=== PATIENT | female | born 1945 | race Caucasian/White ===

== ENCOUNTER → 2016-07-24 | Outpatient (CLI) | payer OTHER ==
[~2016-07-24] MED LIST: CALCTAB5 PO; CHOL1000 PO; CLB/200 PO; COEN1CAP10 PO; CONJ0.453 PO; GLUCLIQ PO; HYDR12.56 PO; LEVO112T18 PO; MULT-506 PO; POTA99TA PO; SIMV20TA2 PO; TRAM-453 PO; [UNRECOGNIZED DRUG - OTHER] PO; [UNRECOGNIZED DRUG - OTHER] PO
[2016-07-24 13:00] LABS: ALT/SGPT 19 U/L (12-78); BLOOD UREA NITROGEN 17 mg/dl (7-18); BUN/CREATININE RATIO 18.4 (10-20); CARBON DIOXIDE 26 mmol/L (21-32); CHLORIDE 107 mmol/L (98-107); CHOLESTEROL 168 mg/dl (0-200); CREATININE 0.91 mg/dl (0.60-1.20); GLUCOSE 88 mg/dl (70-99); POTASSIUM 3.6 mmol/L (3.5-5.1); SODIUM 143 mmol/L (136-145)
[2016-07-24 13:11] LABS: ALB/GLOB RATIO 1.2 (0.9-2); ALKALINE PHOSPHATASE 71 U/L (45-117); AST/SGOT 15 U/L (15-37); CHOLESTEROL/HDL RATIO 2.2; HDL CHOLESTEROL 78 mg/dl; LDL CHOLESTEROL CALCULATED 80 mg/dl; TRIGLYCERIDES 52 mg/dl (0-150); VERY LOW DENSITY LIPOPROT CALC 10 mg/dl
== END | disposition home or self-care (01) ==
LOC: C.LABBFT 10:25
PROVIDERS: ATTEND Nurse Practitioner
DX: E78.00 Pure hypercholesterolemia, unspecified (principal); E03.2 Hypothyroidism due to medicaments and other exogenous substances

== ENCOUNTER → 2017-01-29 | Outpatient (CLI) | payer OTHER ==
[2017-01-29 12:48] LABS: BLOOD UREA NITROGEN 16 mg/dl (7-18); CALCIUM 8.9 mg/dl (8.5-10.1); CARBON DIOXIDE 29 mmol/L (21-32); CHLORIDE 107 mmol/L (98-107); GLUCOSE 95 mg/dl (70-99); POTASSIUM 3.8 mmol/L (3.5-5.1); SODIUM 142 mmol/L (136-145)
== END | disposition home or self-care (01) ==
LOC: C.LABBFT 09:03
PROVIDERS: ATTEND Nurse Practitioner
DX: I10 Essential (primary) hypertension (principal); E03.2 Hypothyroidism due to medicaments and other exogenous substances

== ENCOUNTER → 2017-02-19 | Outpatient (CLI) | payer OTHER ==
--- NOTE | 2017-02-20 14:21 | MAMMOGRAPHY REPORT ---
BILATERAL DIGITAL SCREENING MAMMOGRAM WITH CAD: 02/19/2017 CLINICAL HISTORY: Routine screening. Patient has no complaints. TECHNIQUE: Bilateral CC and MLO views were obtained. Current study was also evaluated with a Compute r Aided Detection (CAD) system. COMPARISON: Comparison is made to exams dated: 02/14/2016 mammogram, 02/10/2015 mammogram, 02/09/2014 mamm ogram, 02/05/2013 mammogram, 02/05/2012 mammogram, and 01/25/2011 mammogram - [facility] er. BREAST COMPOSITION: The tissue of both breasts is almost entirely fatty. FINDINGS: There is a stable benign rim calcification in the medial right breast. No suspicious mass, architectural distortion or cluster of microcalcifications is seen. IMPRESSION: ACR BI-RADS CATEGORY 1: NEGATIVE There is no mammographic evidence of malignancy. A 1 year screening mammogram is recommended. The pa tient will receive written notification of the results. Approximately 10% of breast cancers are not detected with mammography. A negative mammographic report should not delay biopsy if a clinically suggestive mass is present. Jemima Yates M.D. ay/:02/19/2017 16:21:18 Rod Buster Helper: Laura Toledo, [facility] letter sent: Normal 1/2 BI-RADS Code: ACR BI-RADS Category 1: Negative
== END | disposition home or self-care (01) ==
LOC: C.MAMM 13:55
PROVIDERS: ATTEND Nurse Practitioner
DX: Z12.31 Encounter for screening mammogram for malignant neoplasm of breast (principal)

== ENCOUNTER → 2017-08-07 | Outpatient (CLI) | payer OTHER ==
[2017-08-07 12:51] LABS: ALBUMIN 3.5 gm/dl (3.4-5.0); ALT/SGPT 19 U/L (12-78); BLOOD UREA NITROGEN 19 mg/dl (7-18); CALCIUM 8.6 mg/dl (8.5-10.1); CARBON DIOXIDE 30 mmol/L (21-32); CHOLESTEROL 168 mg/dl (0-200); CREATININE 0.93 mg/dl (0.60-1.20); GLUCOSE 93 mg/dl (70-99); POTASSIUM 3.7 mmol/L (3.5-5.1); SODIUM 141 mmol/L (136-145)
[2017-08-07 13:01] LABS: ALKALINE PHOSPHATASE 65 U/L (45-117); AST/SGOT 15 U/L (15-37); LDL CHOLESTEROL CALCULATED 87 mg/dl; TOTAL PROTEIN 6.7 gm/dl (6.4-8.2)
[2017-08-07 13:25] LABS: HEMOGLOBIN A1C 5.4 % (4.5-5.6)
== END | disposition home or self-care (01) ==
LOC: C.LABBFT 09:05
PROVIDERS: ATTEND Nurse Practitioner
DX: R73.01 Impaired fasting glucose (principal); E78.00 Pure hypercholesterolemia, unspecified; E03.2 Hypothyroidism due to medicaments and other exogenous substances

== ENCOUNTER → 2017-09-10 | Outpatient (CLI) | payer OTHER ==
[~2017-09-10] MED LIST changes: +BIOT1CAP3 PO; +CALC1CAP24 PO; +CONJ0.3T3 PO; +DOCO200C2 PO; +LEVO112T4 PO; +POTA10TA PO
[2017-09-10 14:43] LABS: BASO % 0.4 %; BASO ABS # 0.03 K/uL (0-0.2); EOS % 3.8 %; EOS ABS # 0.29 K/uL (0-0.5); HEMATOCRIT 40.5 % (37-47); HEMOGLOBIN 13.5 g/dL (12.0-16.0); IG# 0.01 K/uL (0.00-0.02); LYMPH % 28.1 %; LYMPH ABS # 2.15 K/uL (1.2-3.4); MEAN CORPUSCULAR HGB CONC 33.3 g/dl (32-36); MEAN PLATELET VOLUME 9.7 fL (7.4-10.4); MONO % 5.2 %; NEUT % 62.4 %; NEUT ABS # 4.78 K/uL (1.4-6.5); PLATELET COUNT 276 K/uL (130-400); RED CELL DISTRIBUTION WIDTH CV 13.7 % (11.5-14.5); RED CELL DISTRIBUTION WIDTH SD 45.4 fL (36.4-46.3); WHITE BLOOD COUNT 7.66 K/uL (4.8-10.8)
[2017-09-10 15:10] LABS: BLOOD UREA NITROGEN 22 mg/dl (7-18); CARBON DIOXIDE 29 mmol/L (21-32); CREATININE 1.04 mg/dl (0.60-1.20); GLUCOSE 113 mg/dl (70-99); POTASSIUM 3.6 mmol/L (3.5-5.1); SODIUM 142 mmol/L (136-145)
== END | disposition home or self-care (01) ==
LOC: C.CPL 13:16
PROVIDERS: ATTEND Orthopaedic Surgery
DX: Z01.818 Encounter for other preprocedural examination (principal)

== ENCOUNTER 2023-06-11 15:01 | Inpatient (IN) ==
--- NOTE | 2023-06-11 15:18 | ED Triage Note ---
Date of Service June 11, 2023 Provider in Triage Author: Noble Sung History of Present Illness This patient was briefly evaluated while in triage. An abbreviated physical exam was performed. This patient is a 78-year-old Female who presents to the ED for evaluation of illness. She reports vomiting and diarrhea which started 1.5 weeks ago. She is unable to keep anything down. Her daughter states this has been ongoing for several weeks. She has occasional abdominal pains on the left side. Physical Exam VITALS: Vitals are noted on the nurse's note and reviewed by myself. GENERAL: This is a 78-year-old female, in no acute distress, well-developed well-nourished. HEART: Regular rate and rhythm without murmurs gallops or rubs. LUNGS: Clear to auscultation bilaterally without wheezes, rales or rhonchi. ABDOMEN: Positive bowel sounds x 4. Soft, nontender to palpation. NEURO: Patient was alert and oriented to person place and time. Initial orders for labs and / or imaging were placed and patient was placed in the waiting area until a bed is available. Please see further documentation for the full ED course. MDM / Impression Impression Impression: Diverticulitis large intestine, Hypokalemia, Nausea & vomiting, Weakness Impression: Diverticulitis large intestine Qualifiers: Diverticulitis bleeding: without bleeding Diverticulitis complication: with abscess Qualified Code(s): K57.20 - Diverticulitis of large intestine with perforation and abscess without bleeding
[2023-06-11 16:30] LABS: Basophils # (auto) 0.04 K/uL (0.00-0.20); Basophils % (auto) 0.3 %; Eosinophils # (auto) 0.02 K/uL (0.00-0.50); Eosinophils % (auto) 0.1 %; Hematocrit (blood only) 37.4 % (37.0-47.0); Hemoglobin 12.6 g/dl (12.0-16.0); Immature Granulocytes # (auto) 0.26 K/uL (0.01-0.20); Immature Granulocytes % (auto) 1.9 %; Lymphocytes # (auto) 1.42 K/uL (1.20-3.40); Lymphocytes % (auto) 10.4 %; Mean Corpuscular Hemoglobin 28.2 pg (25.0-34.0); Mean Corpuscular Hgb Conc 33.7 g/dL (32.0-36.0); Mean Corpuscular Volume 83.7 fL (80.0-100.0); Mean Platelet Volume 9.4 fL (9.4-12.4); Monocytes # (auto) 0.75 K/uL (0.11-0.59); Monocytes % (auto) 5.5 %; Neutrophils # (auto) 11.14 K/uL (1.40-6.50); Neutrophils % (auto) 81.8 %; Platelet Count 581 K/uL (130-400); RDW Coefficient of Variation 13.6 % (11.5-14.5); RDW Standard Deviation 41.5 fL (36.4-46.3); Red Blood Count 4.47 M/uL (4.20-5.40); White Blood Count 13.63 K/ul (4.8-10.8)
[2023-06-11 16:47] LABS: Albumin Globulin Ratio 0.7 (0.9-2); Albumin Level 3.3 gm/dl (3.4-5.0); BUN Creatinine Ratio 22.8 (10-20); Bilirubin,Total 1.1 mg/dl (0.2-1.0); Calcium 8.8 mg/dl (8.6-10.3); Creatinine Clr Calc Pharmacy 58.3 ml/min; Est GFR (African American) 69.1 ml/min; Est GFR (Non-African American) 59.6 ml/min; Globulin 4.5 gm/dl (2.5-4.0); Potassium 2.7 mmol/L (3.5-5.1); Total Protein 7.8 gm/dl (6.0-8.3)
[2023-06-11] MEDS ORDERED: OPTIRAY 320 500ml IV ONE (17:22)
[2023-06-11 17:53] LABS: Appearance Urine Cloudy (Clear); Bacteria Urine Automated 1+ (Negative); Blood Urine Negative (Negative); Color Urine Dark Yellow; Epithelial Cell Urine Auto >30 /lpf (0-5); Glucose Urine UA Negative (Negative); Ketones Urine 1+ (Negative); Leukocyte Esterase Urine 2+ (Negative); Nitrite Urine Positive (Negative); Protein Urine 1+ (Negative); Specific Gravity Urine 1.031 (1.000-1.030); Urobilinogen Urine Negative (Negative); WBC Urine Automated >30 /hpf (0-5)
--- NOTE | 2023-06-11 17:56 | CT Scan Report ---
ABDOMEN AND PELVIS CT WITH IV CONTRAST CT DOSE: 1657.31 mGy.cm HISTORY: Acute generalized abdominal pain with vomiting and diarrhea. Abdominal pain, vomiting, diar kun TECHNIQUE: Multiaxial CT images of the abdomen and pelvis were performed following the IV administrat ion of 86 cc of Optiray, A dose lowering technique was utilized adhering to the principles of ALARA. COMPARISON STUDY: Pelvic ultrasound 04/17/2023 FINDINGS: Descending thoracic aortic tortuosity. Lung bases are clear. Unremarkable spleen, pancreas and adrenal glands. Cholecystectomy. Unremarkable liver. Patent portal vein. Mild cortical thinning o f the kidneys. No hydronephrosis. Decompressed urinary bladder with mild wall thickening. Mild hetero geneity of the uterus. Cystic bilateral ovarian foci measure up to 2.4 cm on the left and 1.8 cm on t he right. Atherosclerosis of the abdominal aorta. No lymphadenopathy. No bowel obstruction. Colonic diverticulosis with evidence of acute sigmoid diverticulitis. Inflammat ory stranding within the sigmoid mesocolon is noted within air and fluid filled collection within the mid deep pelvis measuring 4.2 x 3.2 x 5.0 cm which abuts the posterior aspect of the uterus and suzy cent sigmoid colon with probable adjacent sinus tracts extending towards the sigmoid/rectum. No acute fracture. Unremarkable soft tissues. IMPRESSION: 1. Acute sigmoid diverticulitis with 5 cm pericolonic abscess/contained perforation within the sigmoi d mesocolon which is not amenable to percutaneous drainage secondary to location. There may be adjace nt sinus tract/fistulas associated with the fluid collection. 2. No bowel obstruction or pneumoperitoneum. 3. Cholecystectomy. 4. Additional findings as above. ACT 112: Negative or not required by law. The above report was generated using voice recognition software. It may contain grammatical, syntax o r spelling errors. Electronically signed by: Isrrael Rice M.D. 06/11/2023 5:54 PM
[2023-06-11 18:08] LABS: Bilirubin Urine 1+ (Negative)
[2023-06-11 18:22] LABS: Mucus Urine Present (None Prsent)
--- NOTE | 2023-06-11 18:55 | Emergency Department Note ---
Impression & Plan Diverticulitis large intestine, Hypokalemia, Nausea & vomiting, Weakness ED Provider Note Provider: Noble Sung MD DATE OF SERVICE: 06/11/2023 CHIEF COMPLAINT: Illness, vomiting, abdominal pain HISTORY OF PRESENT ILLNESS: Patient is a 78-year-old female history of arthritis, BPPV, UTI, and hypertension presenting here today reporting over the past several weeks she has been sick. Having recurrent vomiting issues and now some diarrhea. Reports pain in the left lower abdomen. Initially PCP thought this could be related to grief and loss of her brother but due to worsening came here for evaluation. Denies trauma. No history of diverticulitis in the past reported. Has had issues with nausea and vomiting over the past year by report. Feeling somewhat weak. Limited intake with food and trying to hydrate. No blood reported in the vomiting. Has not had any nausea medicine at home but is allergic to some by her report. Feeling thirsty. PAST MEDICAL HISTORY: As noted above MEDICATIONS: Reviewed home medication list SOCIAL HISTORY: Non-smoker PHYSICAL EXAM: GENERAL: alert and oriented in no acute distress on stretcher however fatigued Head: normocephalic and atraumatic EYES: No injection, discharge or icterus. NECK: Trachea midline. ENT: Mucous membranes pink and moist. LUNGS: Airway patent. No retractions. Breath sounds clear with good air entry bilaterally. HEART: Regular rate and rhythm. No chest wall tenderness ABDOMEN: Soft with tenderness in the left lower quadrant. SKIN: Acyanotic, warm, dry, without rashes EXTREMITIES: Without swelling, tenderness or deformity NEUROLOGICAL: No focal deficits. No aphasia. No facial droop or slurred speech. CONTINUOUS CARDIAC MONITORING: was ordered and showed a heart rate of 60s bpm in normal sinus rhythm Patient's laboratory studies and imaging reviewed. Differential includes Appendicitis, ovarian cyst, ovarian torsion, ectopic , TOA, PID, infections, diverticulitis, UTI, obstruction, mesenteric ischemia, aortic pathology, inflammatory bowel disease, renal colic, PUD, pancreatitis, biliary pathology, hernia, volvulus, constipation, as well as other pathologies. IMPRESSION/MEDICAL DECISION MAKING: See note. Of high acuity and volume in the emergency department. From triage initial imaging and laboratory studies ordered. Mild leukocytosis of 13.6. No anemia. Hypokalemia of 2.7 with very minimal AST and ALT and alkaline phosphatase elevations but bilirubin is only 1.1. Doubt hepatitis. Lipase not elevated doubt pancreatitis. Urinalysis questionable for UTI. CT imaging however shows evidence of about a 5 cm pericolonic abscess without evidence of bowel obstruction or pneumoperitoneum. Radiologist specifies that he does not feel this would be amenable to drainage due to location. Reviewed allergies and discussed with patient. Given some IV fluid hydration. Given some Zofran. Discussed with general surgery team here. Physician academic support assistant jamaica evaluated the patient and given it is not amenable to drainage antibiotics initiated. Cipro and Flagyl given. Discussed with the hospitalist team for further care. Some IV potassium supplementation was ordered. Denies urinary symptoms but urinalysis questionable. Antibiotic should cover. Reportedly has tolerated cephalosporins in the past. Lactate normal I doubt sepsis but again received IV fluid hydration given her decreased intake. DIAGNOSIS: Diverticulitis with abscess, hypokalemia, nausea and vomiting, weakness DISPOSITION: Hospitalist will evaluate Patient was agreeable with this plan. Past Med/Surg History Medical History History of hypokalemia Benign neoplasm of thyroid gland Urethral lesion History of hypercalcemia History of postmenopausal bleeding GERD (gastroesophageal reflux disease) HX Surgical History H/O cystoscopy with removal of obstructing urethral lesion History of esophagogastroduodenoscopy (EGD) History of dilation and curettage History of bilateral tubal ligation History of repair of right rotator cuff History of colonoscopy History of cholecystectomy History of tonsillectomy and adenoidectomy Status post biopsy of thyroid gland History of thyroidectomy, total benign tumor Family History Brother Family hx of colon cancer Colorectal cancer Family/Other Diabetes Sister Breast cancer Other No family history of adverse response to anesthesia Denies family history of Pancreatic cancer Ovarian cancer Prostate cancer Myocardial infarction Lung cancer Uterine cancer Social History Smoking Status: Never smoker Second Hand Exposure: Yes (SPOUSE SMOKES PIPE); Do You Dip or Chew Tobacco: No; Hx Alcohol Use: Yes Alcohol type: wine Hx Substance Use: No Preferred Language: Iraqi Communication Ability: Effective Visual Impairment: No Limitations Hearing Ability: Normal Customer Account Executive Required: No Beliefs That Will Affect Care: None marital status: Current Living Situation: Spouse current occupational status: retired Feels Safe at Home: Yes Childhood Exposure to Second-Hand Smoke: Yes Diet: regular caffeine: Yes Dental Care, Regularly: Yes Physical Activity Frequency: Does not Exercise Physical Activity Frequency Comment: No routine, but is physically active around the house Seatbelt Use: always Sunscreen Use: No Assistive Devices: Glasses Allergies Allergies Allergy/AdvReac Type Severity Reaction Status Date / Time Penicillins Allergy Intermediate RASH Verified 06/11/23 19:39 meperidine AdvReac Intermediate "FEELS OUT Verified 06/11/23 19:39 OF SPACE" chlorpromazine AdvReac Mild "JITTERY" Verified 06/11/23 19:39 droperidol AdvReac Mild "JITTERY" Verified 06/11/23 19:39 Home Meds Home Medications Medication Instructions Recorded Confirmed cholecalciferol (vitamin D3) 25 1,000 unit PO QAM 06/18/18 06/11/23 mcg (1,000 unit) capsule (Vitamin D3) multivitamin 1 tab PO QAM 06/18/18 06/11/23 coenzyme Q10 200 mg capsule 200 mg PO QAM 01/15/19 06/11/23 biotin 5,000 mcg disintegrating 5,000 mcg PO QAM 01/28/19 06/11/23 tablet calcium carbonate 500 mg calcium 1,000 mg PO DAILY 08/18/21 06/11/23 (1,250 mg) tablet vitamin B complex 1 tab PO DAILY 08/18/21 06/11/23 Previous Rx's Medication Instructions Recorded ciclopirox 0.77 % topical cream 1 applic topical BID PRN rash #30 12/04/21 grams atorvastatin 20 mg tablet 20 mg PO DAILY #90 tabs 08/11/22 conj estrogen-medroxyprogesterone 1 tab PO 2XWK #28 tabs 10/17/22 0.3 mg-1.5 mg tablet (Prempro) levothyroxine 100 mcg tablet 100 mcg PO QAM #90 tabs 11/27/22 celecoxib 200 mg capsule (Celebrex) 200 mg PO QAM #90 caps 02/20/23 hydrochlorothiazide 25 mg tablet 25 mg PO QAM #90 tabs 02/20/23 potassium chloride 10 mEq 10 meq PO QAM #90 caps 02/20/23 capsule,extended release tramadol 50 mg tablet 50 mg PO HS #60 tabs 03/12/23 diclofenac sodium 1 % topical gel 2 g topical QID PRN pain #100 grams 03/27/23 omeprazole 20 mg capsule,delayed 20 mg PO DAILY #90 caps 03/27/23 release escitalopram oxalate 5 mg tablet 5 mg PO DAILY #30 tabs 05/30/23 Results & Data (ED) Vital Signs Vital Signs - 24 hr 06/11/23 15:15 06/11/23 19:54 Temperature 36.4 C L Temperature Source Temporal Artery Scan Pulse Rate 89 75 Pulse Rhythm Regular Pulse Strength Normal Respiratory Rate 20 Respiratory Effort / Characteristics Non-Labored Spontaneous Respiratory Depth Normal Respiratory Pattern Regular Blood Pressure 123/73 Blood Pressure Mean 89 Blood Pressure Position Sitting Pulse Oximetry 97 Oxygen Delivery Method Room Air Sepsis Recent Fever Within 48 Hours No Sepsis New/Unexplained Change in Mental Status No Sepsis Action Taken by Nursing No Action Required Laboratory Data 06/11/23 16:08 06/11/23 16:08 Lab Results 06/11/23 06/11/23 Range/Units 16:08 19:18 WBC 13.63 H (4.8-10.8) K/ul RBC 4.47 (4.20-5.40) M/uL Hgb 12.6 (12.0-16.0) g/dl Hct 37.4 (37.0-47.0) % MCV 83.7 (80.0-100.0) fL MCH 28.2 (25.0-34.0) pg MCHC 33.7 (32.0-36.0) g/dL RDW Std Deviation 41.5 (36.4-46.3) fL RDW Coeff of Anai 13.6 (11.5-14.5) % Plt Count 581 H (130-400) K/uL MPV 9.4 (9.4-12.4) fL Immature Gran % (Auto) 1.9 % Neut % (Auto) 81.8 % Lymph % (Auto) 10.4 % [place] % (Auto) 5.5 % Eos % (Auto) 0.1 % Baso % (Auto) 0.3 % Neut # (Auto) 11.14 H (1.40-6.50) K/uL Lymph # (Auto) 1.42 (1.20-3.40) K/uL [place] # (Auto) 0.75 H (0.11-0.59) K/uL Eos # (Auto) 0.02 (0.00-0.50) K/uL Baso # (Auto) 0.04 (0.00-0.20) K/uL Immature Gran # (Auto) 0.26 H (0.01-0.20) K/uL Sodium 141 (136-145) mmol/L Potassium 2.7 L (3.5-5.1) mmol/L Chloride 102 (98-107) mmol/L Carbon Dioxide 24 (21-32) mmol/L Anion Gap 15 H (3-11) BUN 21 (6-23) mg/dl Creatinine 0.92 (0.6-1.2) mg/dl Est Cr Clr Drug Dosing 58.3 ml/min Est GFR ( Amer) 69.1 ml/min Est GFR (Non-Af Amer) 59.6 ml/min BUN/Creatinine Ratio 22.8 H (10-20) Glucose 106 H (70-99(Fasting)) mg/dl Lactate 1.6 (0.4-2.0) mmol/L Calcium 8.8 (8.6-10.3) mg/dl Magnesium 1.5 L (1.7-2.4) mg/dl Total Bilirubin 1.1 H (0.2-1.0) mg/dl AST 75 H (13-39) U/L ALT 71 H (7-52) U/L Alkaline Phosphatase 148 H (34-104) U/L Total Protein 7.8 (6.0-8.3) gm/dl Albumin 3.3 L (3.4-5.0) gm/dl Globulin 4.5 H (2.5-4.0) gm/dl Albumin/Globulin Ratio 0.7 L (0.9-2) Lipase 8 L (11-82) U/L Administered Medications Magnesium Sulfate/Dextrose (Magnesium Sulfate / D5w) 1 gm in 100 mls @ 50 mls/hr IV Q2H RADHA Stop: 06/12/23 02:42 Last Admin: 06/11/23 21:31 Dose: 50 mls/hr Documented By: INESO Discontinued Medications Sodium Chloride (Nss) 1,000 mls @ 999 mls/hr IV .Q1H1M ONE Stop: 06/11/23 20:10 Last Infusion: 06/11/23 21:06 Dose: Infused Documented By: Admin: 06/11/23 19:23 Dose: 999 mls/hr Documented By: PAM Ciprofloxacin (Cipro / D5w) 400 mg in 200 mls @ 100 mls/hr IV NOW STA; Protocol Stop: 06/11/23 21:11 Last Infusion: 06/11/23 21:45 Dose: Infused Documented By: Admin: 06/11/23 19:31 Dose: 100 mls/hr Documented By: PAM Metronidazole (Flagyl) 500 mg in 100 mls @ 100 mls/hr IV NOW STA; Protocol Stop: 06/11/23 20:11 Last Infusion: 06/11/23 21:06 Dose: Infused Documented By: Admin: 06/11/23 19:32 Dose: 100 mls/hr Documented By: PAM Potassium Chloride (K [place] / Wtr) 10 meq in 100 mls @ 100 mls/hr IV Q1H RADHA Stop: 06/11/23 21:14 Last Admin: 06/11/23 21:31 Dose: 100 mls/hr Documented By: Infusion: 06/11/23 21:06 Dose: Infused Documented By: Admin: 06/11/23 19:32 Dose: 100 mls/hr Documented By: PAM Sodium Chloride (Nss) 1,000 mls @ 999 mls/hr IV .Q1H1M ONE Stop: 06/11/23 20:13 Last Admin: 06/11/23 21:32 Dose: 999 mls/hr Documented By: PAM Ioversol (Optiray 320 500ml) 86 ml IV ONCE ONE Stop: 06/11/23 17:23 Last Admin: 06/11/23 17:23 Dose: 86 ml Documented By: KENY Ondansetron HCl (Ondansetron Inj 2 Mg/Ml 2 Ml Vial) 4 mg IV NOW STA Stop: 06/11/23 19:11 Last Admin: 06/11/23 19:31 Dose: 4 mg Documented By: PAM Imaging Data Radiologist's Impression: Abdomen/Pelvis CT 06/11/23 15:[address] WITH IV CONTRAST CT DOSE: 1657.31 mGy.cm HISTORY: Acute generalized abdominal pain with vomiting and diarrhea. Abdominal pain, vomiting, diarrhea TECHNIQUE: Multiaxial CT images of the abdomen and pelvis were performed following the IV administration of 86 cc of Optiray, A dose lowering technique was utilized adhering to the principles of ALARA. COMPARISON STUDY: Pelvic ultrasound 04/17/2023 FINDINGS: Descending thoracic aortic tortuosity. Lung bases are clear. Unremarkable spleen, pancreas and adrenal glands. Cholecystectomy. Unremarkable liver. Patent portal vein. Mild cortical thinning of the kidneys. No hydronephrosis. Decompressed urinary bladder with mild wall thickening. Mild heterogeneity of the uterus. Cystic bilateral ovarian foci measure up to 2.4 cm on the left and 1.8 cm on the right. Atherosclerosis of the abdominal aorta. No lymphadenopathy. No bowel obstruction. Colonic diverticulosis with evidence of acute sigmoid diverticulitis. Inflammatory stranding within the sigmoid mesocolon is noted within air and fluid filled collection within the mid deep pelvis measuring 4.2 x 3.2 x 5.0 cm which abuts the posterior aspect of the uterus and adjacent sigmoid colon with probable adjacent sinus tracts extending towards the sigmoid/rectum. No acute fracture. Unremarkable soft tissues. IMPRESSION: 1. Acute sigmoid diverticulitis with 5 cm pericolonic abscess/contained perforation within the sigmoid mesocolon which is not amenable to percutaneous drainage secondary to location. There may be adjacent sinus tract/fistulas associated with the fluid collection. 2. No bowel obstruction or pneumoperitoneum. 3. Cholecystectomy. 4. Additional findings as above. ACT 112: Negative or not required by law. The above report was generated using voice recognition software. It may contain grammatical, syntax or spelling errors. Electronically signed by: Isrrael iRce M.D. 06/11/2023 5:54 PM Discharge Plan Visit Data Chief Complaint: Vomiting Stated Complaint: NAUSEA AND VOMITING X1 WEEK ED Provider: Noble Sung Discharge Problem: Diverticulitis large intestine, Hypokalemia, Nausea & vomiting, Weakness Patient Disposition: Admitted As Inpatient Discharge Instructions Interventions: ED Discharge Assessment Last Done: 06/11/23 20:43 Discharge Problem: Diverticulitis large intestine Qualifiers: Diverticulitis bleeding: without bleeding Diverticulitis complication: with abscess Qualified Code(s): K57.20 - Diverticulitis of large intestine with perforation and abscess without bleeding
[2023-06-11] MEDS ORDERED: ONDANSETRON INJ 2 MG/ML 2 ML VIAL IV STA (19:10)
[2023-06-11] MEDS ORDERED: SODIUM CHLORIDE 0.9% 1,000 ML IV ONE ×2 (19:10→19:13)
[2023-06-11] MEDS ORDERED: CIPROFLOXACIN / D5W 400 MG/200 ML BAG IV STA (19:12)
[2023-06-11] MEDS ORDERED: metroNIDAZOLE 500 MG/100 ML BAG IV STA (19:12)
--- NOTE | 2023-06-11 19:31 | History & Physical Report ---
Date of Service June 11, 2023 Assessment & Plan (1) Diverticulitis of intestine with abscess: Plan: Diverticulitis with 5 cm abscess/contained perforation found on imaging. Started on cipro/flagyl. Abscess unable to be drained percutaneously due to location. May need surgical intervention. Surgery consulted - appreciate recs. NPO for bowel rest IVF fluid resuscitated x 2L NS, mIVF LR @ 125 mL/hr Cipro and Flagyl - started 06/11 Antiemetics with Zofran Tylenol and Toradol PRN for pain control Surg consulted - appreciate recs AM CBC and CMP (2) Transaminitis: Plan: Likely in the setting of acute diverticulitis. Continue to trend. (3) Hypercholesterolemia: Plan: Resume home statin once no longer NPO (4) Hypertension: Plan: Patient on HCTZ at home. Can hold in the setting of NPO status. BP acceptable. Continue to monitor (5) Arthritis: Plan: Would hold oral NSAIDs in the setting of bowel rest. (6) Iatrogenic hypothyroidism: Plan: Holding home levothyroxine in setting of NPO. Can resume home dosing once tolerating PO. Plan Code status: full DVT ppx: SCDs FENGI: NPO, s/p 2L NS, LR @ 125 mL/hr Lines: PIV Dispo: MedSurg History of Present Illness Chief Complaint: abdominal pain Primary Care Provider: YOBANI Aguero Patient presented with several weeks of abdominal symptoms presumed to be in the setting of acute grief. Symptoms worsening prompted presentation to the ED. Patient with vague constellation of symptoms - abdominal upset, nausea, vomiting, weight loss. Was seen by PCP who attributed this to adjustment disorder in the setting of brother's in April. She was started on low dose Lexapro at 5 mg. Leukocytosis to 13.6. No other signs of sepsis. CT with findings consistent with diverticulitis with abscess/contained perforation without known history of diverticulosis. Started on IVF x2L bolus. Given cipro and Flagyl. Admission called to hospitalist team. Upon my interview patient patient reports that symptoms worsened with increased nausea/vomiting and development of diarrhea. Patient also having chills. No fevers. No CP or SOB. No real abdominal pain. No dysuria. No hematochezia/melena. No hematemesis. reports no abdominal pain. Does feel better after fluid resuscitation. Aware of CT results. No other questions. Allergies Allergy/AdvReac Type Severity Reaction Status Date / Time Penicillins Allergy Intermediate RASH Verified 06/11/23 19:39 meperidine AdvReac Intermediate "FEELS OUT Verified 06/11/23 19:39 OF SPACE" chlorpromazine AdvReac Mild "JITTERY" Verified 06/11/23 19:39 droperidol AdvReac Mild "JITTERY" Verified 06/11/23 19:39 Home Medications Medication Instructions Recorded Confirmed Type cholecalciferol (vitamin D3) 25 1,000 unit PO QAM 06/18/18 06/11/23 History mcg (1,000 unit) capsule (Vitamin D3) multivitamin 1 tab PO QAM 06/18/18 06/11/23 History coenzyme Q10 200 mg capsule 200 mg PO QAM 01/15/19 06/11/23 History biotin 5,000 mcg disintegrating 5,000 mcg PO QAM 01/28/19 06/11/23 History tablet calcium carbonate 500 mg calcium 1,000 mg PO DAILY 08/18/21 06/11/23 History (1,250 mg) tablet vitamin B complex 1 tab PO DAILY 08/18/21 06/11/23 History ciclopirox 0.77 % topical cream 1 applic topical BID PRN rash #30 12/04/21 06/11/23 Rx grams atorvastatin 20 mg tablet 20 mg PO DAILY #90 tabs 08/11/22 06/11/23 Rx conj estrogen-medroxyprogesterone 1 tab PO 2XWK #28 tabs 10/17/22 06/11/23 Rx 0.3 mg-1.5 mg tablet (Prempro) levothyroxine 100 mcg tablet 100 mcg PO QAM #90 tabs 11/27/22 06/11/23 Rx celecoxib 200 mg capsule (Celebrex) 200 mg PO QAM #90 caps 02/20/23 06/11/23 Rx hydrochlorothiazide 25 mg tablet 25 mg PO QAM #90 tabs 02/20/23 06/11/23 Rx potassium chloride 10 mEq 10 meq PO QAM #90 caps 02/20/23 06/11/23 Rx capsule,extended release tramadol 50 mg tablet 50 mg PO HS #60 tabs 03/12/23 06/11/23 Rx diclofenac sodium 1 % topical gel 2 g topical QID PRN pain #100 grams 03/27/23 06/11/23 Rx omeprazole 20 mg capsule,delayed 20 mg PO DAILY #90 caps 03/27/23 06/11/23 Rx release escitalopram oxalate 5 mg tablet 5 mg PO DAILY #30 tabs 05/30/23 06/11/23 Rx Past Med/Surg History Medical History History of hypokalemia Benign neoplasm of thyroid gland Urethral lesion History of hypercalcemia History of postmenopausal bleeding GERD (gastroesophageal reflux disease) HX Surgical History H/O cystoscopy with removal of obstructing urethral lesion History of esophagogastroduodenoscopy (EGD) History of dilation and curettage History of bilateral tubal ligation History of repair of right rotator cuff History of colonoscopy History of cholecystectomy History of tonsillectomy and adenoidectomy Status post biopsy of thyroid gland History of thyroidectomy, total benign tumor Family History Brother Family hx of colon cancer Colorectal cancer Family/Other Diabetes Sister Breast cancer Other No family history of adverse response to anesthesia Denies family history of Pancreatic cancer Ovarian cancer Prostate cancer Myocardial infarction Lung cancer Uterine cancer Social History Smoking Status: Never smoker Second Hand Exposure: Yes (SPOUSE SMOKES PIPE); Do You Dip or Chew Tobacco: No; Hx Alcohol Use: Yes Alcohol type: wine Hx Substance Use: No Preferred Language: Upper Sorbian Communication Ability: Effective Visual Impairment: No Limitations Hearing Ability: Normal Shot Fireman Required: No Beliefs That Will Affect Care: None marital status: Current Living Situation: Spouse current occupational status: retired Feels Safe at Home: Yes Childhood Exposure to Second-Hand Smoke: Yes Diet: regular caffeine: Yes Dental Care, Regularly: Yes Physical Activity Frequency: Does not Exercise Physical Activity Frequency Comment: No routine, but is physically active around the house Seatbelt Use: always Sunscreen Use: No Assistive Devices: Glasses Review of Systems 2 Review of Systems: See HPI Physical Exam 2 Physical Exam: Gen: non-toxic appearing female in NAD HEENT: AT NC MMM Resp: CTAB no wheezing no increased work of breathing CV: RRR no m/r/g clinically well perfused, no edema GI: soft, non-distended, diffusely tender MSK: no obvious deformities Skin: no rashes or bruising noted Neuro: alert and oriented Psych: appropriate mood and affect Results & Data Results & Data Vital Signs (Past 12 Hours) Vital Signs Temp Pulse Resp BP Pulse Ox O2 Del Method 06/11/23 15:15 36.4 C L 89 20 123/73 97 Room Air Laboratory Results 06/11/23 16:08 06/11/23 16:08 Diagnostic Findings Abdomen/Pelvis CT 06/11/23 15:19 FINDINGS: Descending thoracic aortic tortuosity. Lung bases are clear. Unremarkable spleen, pancreas and adrenal glands. Cholecystectomy. Unremarkable liver. Patent portal vein. Mild cortical thinning of the kidneys. No hydronephrosis. Decompressed urinary bladder with mild wall thickening. Mild heterogeneity of the uterus. Cystic bilateral ovarian foci measure up to 2.4 cm on the left and 1.8 cm on the right. Atherosclerosis of the abdominal aorta. No lymphadenopathy. No bowel obstruction. Colonic diverticulosis with evidence of acute sigmoid diverticulitis. Inflammatory stranding within the sigmoid mesocolon is noted within air and fluid filled collection within the mid deep pelvis measuring 4.2 x 3.2 x 5.0 cm which abuts the posterior aspect of the uterus and adjacent sigmoid colon with probable adjacent sinus tracts extending towards the sigmoid/rectum. No acute fracture. Unremarkable soft tissues. IMPRESSION: 1. Acute sigmoid diverticulitis with 5 cm pericolonic abscess/contained perforation within the sigmoid mesocolon which is not amenable to percutaneous drainage secondary to location. There may be adjacent sinus tract/fistulas associated with the fluid collection. 2. No bowel obstruction or pneumoperitoneum. 3. Cholecystectomy. 4. Additional findings as above. Supervising Physician Co-Signing Physician Notes Attending addendum: I have physically seen this patient, have supervised the medical residents activities, and agree with the H&P unless as otherwise noted. Assessment and Plan: Sigmoid diverticulitis/5 cm pericolonic abscess/contained perforation- N.p.o. From the ED received the following: Normal saline 1 L IV x 2, Cipro 400 mg IV, Flagyl 500 mg IV Continue Cipro 400 mg IV every 12 hours, and Flagyl 500 mg IV every 8 hours Zofran 4 mg IV every 6 hours as needed Pantoprazole 40 mg IV daily Acetaminophen 1 g IV every 8 hours as needed for mild pain or fever Toradol 15 mg IV every 6 hours as needed for moderate pain LR at 125 MLS per hour Seen by general surgery while in the ED, and determined no acute indication for surgery Hypertension- Hold HCTZ If blood pressure becomes elevated, can start hydralazine 10 mg IV every 6 hours as needed for systolic blood pressure above 160 Hypokalemia/hypomagnesemia- Potassium 2.7 on admission Magnesium 1.5 on admission IV replacement, recheck laboratories in a.m. Transaminitis- In association with diverticulitis Follow serially Resident Activity Tracking Resident Involvement: Resident Care Provided Care Provided: Adult [facility]
[2023-06-11] MEDS: POTASSIUM CHLORIDE / WTR 10 MEQ/100 ML PLCT IV SCH ×2 (19:32→21:31)
[2023-06-11 19:33] LABS: Magnesium 1.5 mg/dl (1.7-2.4)
--- NOTE | 2023-06-11 20:13 | Surgery Consultation ---
Date of Consultation June 11, 2023 Assessment & Plan (1) Diverticulitis of intestine with abscess: I discussed with the treating emergency room physician. The patient is being admitted on the hospitalist service. From a surgical perspective we recommend the following: Provide analgesics Provide antiemetics Implement n.p.o. status (I did tell the patient it would be acceptable for her to have an occasional ice chips for comfort) Initiate antibiotics. The treat emergency room physician has initiated Cipro and Flagyl. This should continues and can be adjusted based on her clinical response Serial labs to be followed Serial physical exams to follow I discussed the above conservative treatment plan with the patient. I did tell her that any surgical intervention at this time would necessitate a colostomy which she would like to avoid. I did tell her to be preferable, that if she would require surgical invention that she would have a prep bowel so 1 stage procedure can be performed. I also did discuss with the patient that we will monitor her clinically and it is still possible that she could require an emergent operation if she does not clinically improve and she expressed her understanding If the patient fails to clinically respond to the above measures in the next 2 to 3 days consideration be given to repeating a CT scan to see if there is any enlargement of the noted abscess. Patient is noted to have evidence of urinary tract infection. The above selected antibiotics should cover the most likely pathogens. It would also be recommended that patient potentially be given Diflucan as she is noted to have yeast in her urine. Additional recommendations be forthcoming based on her clinical course as it unfolds Supervising Physician Co-Signing Physician Notes I personally saw and evaluated the patient with Krzysztof Mireles PA-C and agree with assessment and plan. 78-year-old female diverticulitis with pericolonic/pelvic abscess Her CT images and results were personally reviewed and interpreted by myself Will keep her n.p.o. give IV antibiotics as radiology does not feel percutaneous drainage is a possibility Will continue to follow along History of Present Illness Reason for Consultation: Diverticulitis History of Present Illness This a 70-year-old female who presented the emergency department secondary to intermittent nausea and vomiting abdominal pain for 1 to 2 months. Patient says that back in April of this year she was treated for cystitis and since that time shortly thereafter she developed on and off nausea and vomiting that has been ongoing for the past several weeks. She also notes on and off abdominal pain in the left lower quadrant of her abdomen without radiation or palliative or provocative factors. She denies any fevers but has had occasional chills. She notes that her bowel movements have been regular but they have been loose. She denies any hematochezia or melena. Patient notes that she has had prior abdominal surgeries in the form of a laparoscopic cholecystectomy as well as a tubal ligation. She has had a colonoscopy, she believes most recently within the past 2 years and to the best of her knowledge there is no significant pathology noted on the study. She has never had diverticulitis. Since arrival to the hospital the patient has had labs and imaging which I independently reviewed. CT scan of the abdomen and pelvis showed acute sigmoid diverticulitis with concern of a 5 cm pericolonic abscess and contained perforation within the sigmoid mesocolon. There is also concern the patient may have had adjacent sinus tracts or fistulas associated with the fluid collection. There is no bowel obstruction or pneumoperitoneum. Labs include a CBC were white blood cell count was elevated at 13.6. Hemoglobin and hematocrit were normal. Platelet count was 5 and 81,000. Chemistry profile showed sodium was 141 with a potassium of 2.7. BUN and creatinine are both within normal range. Lactic acid level is nonelevated. Magnesium was slightly low at 1.5. Patient did have slight elevation of her total bilirubin at 1.1. Her AST and ALT were also elevated at 75 and 71 respectively. Alkaline phosphatase had a slight elevation at 148. Patient's lipase was nonelevated. Urinalysis showed cloudy urine which was positive for nitrites and had 2+ leukocyte Estrace. There are greater than 30 white blood cells per high-power field. There is also 1+ bacteria and yeast noted on this study. At the time of my interview she was resting comfortably in bed and she was in no distress. Allergies Allergy/AdvReac Type Severity Reaction Status Date / Time Penicillins Allergy Intermediate RASH Verified 06/11/23 19:39 meperidine AdvReac Intermediate "FEELS OUT Verified 06/11/23 19:39 OF SPACE" chlorpromazine AdvReac Mild "JITTERY" Verified 06/11/23 19:39 droperidol AdvReac Mild "JITTERY" Verified 06/11/23 19:39 Home Medications Medication Instructions Recorded Confirmed Type cholecalciferol (vitamin D3) 25 1,000 unit PO QAM 06/18/18 06/11/23 History mcg (1,000 unit) capsule (Vitamin D3) multivitamin 1 tab PO QAM 06/18/18 06/11/23 History coenzyme Q10 200 mg capsule 200 mg PO QAM 01/15/19 06/11/23 History biotin 5,000 mcg disintegrating 5,000 mcg PO QAM 01/28/19 06/11/23 History tablet calcium carbonate 500 mg calcium 1,000 mg PO DAILY 08/18/21 06/11/23 History (1,250 mg) tablet vitamin B complex 1 tab PO DAILY 08/18/21 06/11/23 History ciclopirox 0.77 % topical cream 1 applic topical BID PRN rash #30 12/04/21 0 06/11/23 Rx grams atorvastatin 20 mg tablet 20 mg PO DAILY #90 tabs 08/11/22 06/11/23 Rx conj estrogen-medroxyprogesterone 1 tab PO 2XWK #28 tabs 10/17/22 06/11/23 Rx 0.3 mg-1.5 mg tablet (Prempro) levothyroxine 100 mcg tablet 100 mcg PO QAM #90 tabs 11/27/22 06/11/23 Rx celecoxib 200 mg capsule (Celebrex) 200 mg PO QAM #90 caps 02/20/23 06/11/23 Rx hydrochlorothiazide 25 mg tablet 25 mg PO QAM #90 tabs 02/20/23 06/11/23 Rx potassium chloride 10 mEq 10 meq PO QAM #90 caps 02/20/23 06/11/23 Rx capsule,extended release tramadol 50 mg tablet 50 mg PO HS #60 tabs 03/12/23 06/11/23 Rx diclofenac sodium 1 % topical gel 2 g topical QID PRN pain #100 grams 03/27/23 06/11/23 Rx omeprazole 20 mg capsule,delayed 20 mg PO DAILY #90 caps 03/27/23 06/11/23 Rx release escitalopram oxalate 5 mg tablet 5 mg PO DAILY #30 tabs 05/30/23 06/11/23 Rx Patient History Medical History History of hypokalemia Benign neoplasm of thyroid gland Urethral lesion History of hypercalcemia History of postmenopausal bleeding GERD (gastroesophageal reflux disease) HX Surgical History H/O cystoscopy with removal of obstructing urethral lesion History of esophagogastroduodenoscopy (EGD) History of dilation and curettage History of bilateral tubal ligation History of repair of right rotator cuff History of colonoscopy History of cholecystectomy History of tonsillectomy and adenoidectomy Status post biopsy of thyroid gland History of thyroidectomy, total benign tumor Family History Brother Family hx of colon cancer Colorectal cancer Family/Other Diabetes Sister Breast cancer Other No family history of adverse response to anesthesia Denies family history of Pancreatic cancer Ovarian cancer Prostate cancer Myocardial infarction Lung cancer Uterine cancer Social History Smoking Status: Never smoker Second Hand Exposure: Yes (SPOUSE SMOKES PIPE); Do You Dip or Chew Tobacco: No; Hx Alcohol Use: No Hx Substance Use: No Preferred Language: Syrian Communication Ability: Effective Visual Impairment: No Limitations Hearing Ability: Normal Buck Swamper Required: No Beliefs That Will Affect Care: None marital status: Current Living Situation: Spouse current occupational status: retired Feels Safe at Home: Yes Safety Concerns: Feels Safe At This Time Childhood Exposure to Second-Hand Smoke: Yes Diet: regular caffeine: Yes Dental Care, Regularly: Yes Physical Activity Frequency: Does not Exercise Physical Activity Frequency Comment: No routine, but is physically active around the house Seatbelt Use: always Sunscreen Use: No Assistive Devices: Glasses Review of Systems Constitutional: + chills; no fever Eyes: no corrective lenses Ear, Nose, Mouth, Throat: no ear pain Respiratory: no cough Cardiovascular: no chest pain Gastrointestinal: as per Subjective / HPI Genitourinary: no dysuria Musculoskeletal: no back pain Integumentary: no rash Neurologic: no localized weakness Physical Exam Constitutional: WD/WN, vitals as above Eyes: no conjunctival abnormality ENMT: Oral mucosa is dry Neck: trachea midline Respiratory: normal respiratory effort; no respiratory distress and no labored breathing Cardiovascular: Rate/Rhythm: regular rate and regular rhythm Vessels: dorsalis pedis pulses present and radial pulses present Gastrointestinal (Abdomen): Abdomen is soft and nondistended. It is nonrigid. Bowel sounds are hypoactive. There is no rebound tenderness or guarding but patient did have pain with palpation across her lower abdomen, greatest in the left lower quadrant Musculoskeletal: No calf tenderness Skin: no rashes Neurologic: moves all extremities Psychiatric: A+Ox3, euthymic affect Results & Data Vital Signs (Past 12 Hours) Vital Signs Temp Pulse Resp BP Pulse Ox O2 Del Method 06/11/23 15:15 36.4 C L 89 20 123/73 97 Room Air PG Care Time/CCT Total # of Minutes Spent Total Time Spent with Patient: Total time spent is greater than 50% in coordination of care (as documented) at patient's floor/unit and/or counseling patient: Coding Level of Care Code 13966 INT INP/OBS CARE MIN Diagnoses Diverticulitis of intestine with abscess K57.80
[2023-06-11] MEDS ORDERED: ACETAMINOPHEN 1,000 MG/100 ML VIAL IV PRN (20:43)
[2023-06-11] MEDS ORDERED: DICLOFENAC SOD 1% GEL 100 GM TUBE EXT PRN (20:43)
[2023-06-11] MEDS ORDERED: KETOROLAC TROMETHAMINE 15 MG/ML VIAL IV PRN (20:43)
[2023-06-11] MEDS: MAGNESIUM SULFATE / D5W 1 GM/100 ML BAG IV SCH (21:31)
[2023-06-11] MEDS: LACTATED RINGER'S 1,000 ML IV SCH (23:13)
[2023-06-12] MEDS: MAGNESIUM SULFATE / D5W 1 GM/100 ML BAG IV SCH ×2 (00:56→05:11)
--- NOTE | 2023-06-12 00:56 | Billing Data ---
Date of Service June 12, 2023 Coding Level of Care Code 25353 INT INP/OBS CARE
--- OUTSIDE RECORDS SUMMARY | 2023-06-12 01:12 | External Medical Summary | Continuity of Care Document ---
Author Name Unknown Organization [facility] [address] [facility] [address] [id number] Care Team Providers Care Bill Sorter Name Role Phone Denny Gwendolyn Mar Primary Care Physician [phone] Encounter [facility] [id number] Date(s): 05/29/23 - 05/29/23 [facility] [address] [facility] [address] [phone] Encounter Diagnosis Dermatitis(Discharge Diagnosis) - 05/29/23 Mathew angioma(Discharge Diagnosis) - 05/29/23 Chondrodermatitis nodularis helicis(Discharge Diagnosis) - 05/29/23 Seborrheic keratoses(Discharge Diagnosis) - 05/29/23 Onychomycosis(Discharge Diagnosis) - 05/29/23 Discharge Disposition: Home or Self Care Attending Physician: ROBERT Figueroa Dawn M Allergies, Adverse Reactions, Alerts Substance Reaction Severity Status penicillins Rash Active Demerol HCl Confusion Active Allergy Not found in Search confusion anti-emetic Active Assessment and Plan Extracted from: Title:Office Visit Note Author:ROBERT Figueroa D awn M Date:05/29/23 1.Dermatitis chronic and worsening - biopsy today. Rosacea / demodex vs actinic change vs tinea faciei. Base therapy on result with clinical correlation. 2.Mathew angioma - chronic and stable -MATHEW ANGIOMAS - discussed the likely benign and genetic nature of these lesions. watchful waiting. 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 asymptomatic. Suggested [facility] pillow. 4.Seborrheic keratoses - chronic and stable -SEBORRHEIC KERATOSES - discussed the likely benign and genetic nature of these lesions._ watchful waiting. 5.Onychomycosis chronic and worsening - painful great toenails. On statin so will not take oral antifungal due to risk of liver damage. Failed ciclopirox. Julbia to nails nightly. Reviewed sun protection with SPF 30 or higher applied every 80 minutes and use of sun protective clothing and hat. Call with questions or concerns. Follow up 1 year and pending path. Patient in agreement with plan. Dr. Villegas was consulted on the patient and participated in the decision to biopsy dermatitis right cheek. Medications atorvastatin 20 mg oral tablet Start: 05/29/23 13:20:00 EST, 1 tab, PO, Daily Start Date: 05/29/23 Status: Ordered calcium (as carbonate and lactate)-vitamin D 200 mg-6.25 mcg oral tablet Start: 05/29/23 13:22:00 EST Start Date: 05/29/23 Status: Ordered calcium (as carbonate)-vitamin D 500 mg-200 intl units oral tablet Start: 08/07/11 10:18:00, 1 tab, PO, bid Start Date: 08/07/11 Status: Ordered Celebrate Multivitamin Start: 05/29/23 13:21:00 EST Start Date: 05/29/23 Status: Ordered CeleBREX 200 mg oral capsule Start: 08/07/11 10:17:00, 1 cap, PO, Daily Start Date: 08/07/11 Status: Ordered Co-Q10 200 mg oral capsule Start: 08/07/11 10:19:00, PO, Daily Start Date: 08/07/11 Status: Ordered hydrochlorothiazide 25 mg oral tablet Start: 08/07/11 10:17:00, 0.5 tab, PO, Daily Start Date: 08/07/11 Status: Ordered Jublia 10% topical solution Start: 05/29/23 13:46:00 EST, See Instructions, Disp# 4 mL, Refills: 1, apply to toenails nightly, Pharmacy: [id number] Start Date: 05/29/23 Status: Ordered levothyroxine 112 mcg (0.112 mg) oral capsule Start: 08/07/11 10:17:00, 1 cap, PO, Daily Start Date: 08/07/11 Status: Ordered multivitamin Start: 12/22/12 10:40:00, 1 tab, PO, Daily Start Date: 12/22/12 Status: Ordered omeprazole 20 mg oral delayed release capsule Start: 05/29/23 13:19:00 EST, 1 cap, PO, Daily Start Date: 05/29/23 Status: Ordered potassium chloride Start: 05/29/23 13:20:00 EST, 10 mEq =, PO, Daily Start Date: 05/29/23 Status: Ordered Prempro 0.625 mg-2.5 mg oral tablet Start: 08/07/11 10:17:00, 1 tab, PO, qMonWedFri Start Date: 08/07/11 Status: Ordered solifenacin 10 mg oral tablet Start: 12/04/21 15:20:00 EDT, 1 tab, PO, Daily Start Date: 12/04/21 Status: Ordered tramadol 50 mg oral tablet Start: 12/22/12 10:40:00, 1 tab, PO, q4h, PRN: as needed for pain Start Date: 12/22/12 Status: Ordered Vitamin B Complex Start: 05/29/23 13:22:00 EST Start Date: 05/29/23 Status: Ordered Vitamin D3 1000 intl units oral capsule Start: 08/07/11 10:19:00, 1 cap, PO, Daily Start Date: 08/07/11 Status: Ordered Problem List No Chronic Problems Diagnosis Diagnosis Type Effective Dates Health Status Clinical Service Informant Dermatitis Discharge Diagnosis 05/29/23 Chondrodermatitis nodularis helicis Discharge Diagnosis 05/29/23 Mathew angioma Discharge Diagnosis 05/29/23 Onychomycosis Discharge Diagnosis 05/29/23 Seborrheic keratoses Discharge Diagnosis 05/29/23 Procedures Procedure Date Related Diagnosis Body Site Status Shave biopsy 05/29/23 Completed Tooth extraction 2022 Complete d Shave biopsy of skin 12/22/12 Comp leted Social History Social History Type Response Smoking Status Never smoked cigaret bethany Sex Female Dermatology Outpatient Note * ROBERT Figueroa Dawn M: PERFORM Event Display: Dermatology Outpt Note Authored Date: [id number] Chief Complaint skin check with itchy lesion left ear lobe, red rash right cheek History of Present Illness HELIONehemias [id number] old patient returning todaybut new to me with a chief complaint of skin check with itchy lesion left ear lobe, red rash right cheek. The patient feels the condition isworsening on the right cheek and has been present for years. Tried hydrocotricone and did not change. Not itchy or painful. She denies itching, bleeding, oozing, crusting or evolving lesions. Toenails painful. Failed ciclopirox topical. Not taking oral due to medications. Patient hasno past personal history of skin cancer: Family history: daughter NMSC Patient does not use sunscreen. Patient reports history of blistering sunburns but no tanning beds. 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 Never worked outdoors Review of Systems Denies fever, chills, sweats, night sweats, weight loss, headache, visual change, stomach upset diarrhea and joint pain. Physical Exam _Constitutional: Generally well appearing, well developed. Appears stated age. Eyes: Conjunctivae and lids without noted inflammation, lesion, mass, deformity or drainage. Cardiovascular: Swelling of the lower extremities not noted. Extremities pink, warm and dry. Extremities: Digits and nails without clubbing, cyanosis, petechiae, signs of ischemia, infectionor inflammation. Neurological / Psychiatric: Oriented to person, place and time. Appropriate mood and affect. No notable depression, anxiety or agitation. Complete skin exam was performed today including head, neck, chest, axillae, abdomen, groin, buttocks, back, bilateral upper and bilateral lower extremities. Palpation of the scalp, inspection of hair of scalp, eyebrows and finger and toenails was performed. 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 RIGHT FACE - photo - red scaled dermatitis with comedones. Procedure Note A shave skin biopsy RIGHT CHEEK was performed after a time out (patient identified with full name and date, site located and confirmed with team members) and verbal informed consent was obtained.Risks (infection, scar, bleeding) and benefits (proper diagnosis and treatment) were reviewed. Alternative options were discussed if applicable.Time was given to address and answer all questions.Photograph was taken to document location. Skin prep: isopropyl alcohol Anesthesia: 1% lidocaine with epinephrine Shave biopsy with derm blade. Hemostasis/Closure: aluminum chloride Dressing: sterile Verbal and written wound care instructions given.Patient was informed that further procedure(s)or treatment(s) may be needed pending pathology results.Patient is instructed to call should any problems or concerns arise.The patient agreed to call the office to obtain the test results if they have not been communicated to them within 2 weeks.Patient left after procedure in good condition. Assessment/Plan 1.Dermatitis chronic and worsening - biopsy today. Rosacea / demodex vs actinic change vs tinea faciei. Basetherapy on result with clinical correlation. 2.Mathew angioma - chronic and stable -MATHEW ANGIOMAS - discussed the likely benign and genetic nature of theselesions. watchful waiting. 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 asymptomatic. Suggested [facility] pillow. 4.Seborrheic keratoses - chronic and stable -SEBORRHEIC KERATOSES - discussed the likely benign and genetic nature of these lesions._ watchful waiting. 5.Onychomycosis chronic and worsening - painful great toenails. On statin so will not take oral antifungal due torisk of liver damage. Failed ciclopirox. Julbia to nails nightly. Reviewed sun protection with SPF 30 or higher applied every 80 minutes and use of sun protective clothing and hat. Call with questions or concerns. Follow up 1 year and pending path. Patient in agreement with plan. Dr. Villegas was consulted on the patient and participated in the decision to biopsy dermatitis right cheek. Problem List/Past Medical History Ongoing No chronic problems Procedure/Surgical History Tooth extraction (2022)Shave biopsy of skin (12/22/2012) Medications atorvastatin(atorvastatin 20 mg oral tablet), 20 mg= 1 tab, PO, Daily calcium and vitamin D combination(calcium (as carbonate)-vitamin D 500 mg-200 intl units oral tablet), 1 tab, PO, bid calcium-vitamin D(calcium (as carbonate and lactate)-vitamin D 200 mg-6.25 mcg oral tablet) celecoxib(CeleBREX 200 mg oral capsule), 200 mg= 1 cap, PO, Daily cholecalciferol(Vitamin D3 1000 intl units oral capsule), 1 cap, PO, Daily conjugated estrogens-medroxyPROGESTERone(Prempro 0.625 mg-2.5 mg oral tablet), 1 tab, PO, qMonWedFri efinaconazole topical(Jublia 10% topical solution), See Instructions, 1 refills hydrochlorothiazide(hydrochlorothiazide 25 mg oral tablet), 12.5 mg= 0.5 tab, PO, Daily levothyroxine(levothyroxine 112 mcg (0.112 mg) oral capsule), 0.112 mg= 1 cap, PO, Daily multivitamin(Vitamin B Complex) multivitamin, 1 tab, PO, Daily multivitamin with minerals(Celebrate Multivitamin) omeprazole(omeprazole 20 mg oral delayed release capsule), 20 mg= 1 cap, PO, Daily potassium chloride, 10 mEq, PO, Daily solifenacin(solifenacin 10 mg oral tablet), 10 mg= 1 tab, PO, Daily tramadol(tramadol 50 mg oral tablet), 50 mg= 1 tab, PO, q4h, PRN ubiquinone(Co-Q10 200 mg oral capsule), PO, Daily Allergies Allergy Not found in Searchconfusion, anti-emetic Demerol HClConfusion penicillinsRash Social History Smoking Status Never smoked cigarettes Family History Family history is unknown Recommendations Health Maintenance Pending(in the next year) OverDue Adult Influenza Vaccine due12/08/22and every 1year Due Adult COVID-19 Vaccination due05/29/23Unknown Frequency Adult Social Determinants of Health Screening due05/29/23Unknown Frequency Adult Tdap/Td Vaccine due05/29/23Unknown Frequency Body Mass Index due05/29/23Unknown Frequency Hepatitis C Screening due05/29/23One-time only Lipid Screening due05/29/23Unknown Frequency Medicare Annual Wellness Visit due05/29/23and every 1year Osteoporosis Screening due05/29/23One-time only Pneumococcal Vaccine Older Adults due05/29/23One-time only Shingles Vaccine due05/29/23One-time only Satisfied(in the past 1 year) There are no satisfied recommendations within the defined date range Images 2023-05-29 13:41:20 2023-05-29 13:50:05 2023-05-29 13:50:12 Electronic Signature on File Electronically Reviewed/Signed by: SANDRA De La Torre Author Signature Dt/Tm:05/29/2023 02:03 PM Department of Family Medicine Department of Dermatology Electronically Reviewed/Signed by: MD Mounika Hunterigner Signature Dt/Tm: 05/29/2023 02:08 PM Department of Dermatology DMS Patient Care team information Care Team Personnel Name: YOBANI Baldwin Rebecca Linn Position: Referring Member Role: Primary Care Provider Address: Address: [address] [place] [address] Care Team Related Persons Name: ZACHERY CADET Address: home [address] [facility] [facility] [place] [phone] Name: ZACHERY CADET Address: [facility] Address: home [address] [facility] [facility] [place] [id number]
[2023-06-12] MEDS: metroNIDAZOLE 500 MG/100 ML BAG IV SCH ×3 (03:34→18:40)
[2023-06-12 04:33] LABS: Basophils # (auto) 0.04 K/uL (0.00-0.20); Basophils % (auto) 0.3 %; Eosinophils # (auto) 0.08 K/uL (0.00-0.50); Eosinophils % (auto) 0.7 %; Hematocrit (blood only) 29.4 % (37.0-47.0); Hemoglobin 9.7 g/dl (12.0-16.0); Immature Granulocytes # (auto) 0.24 K/uL (0.01-0.20); Immature Granulocytes % (auto) 2.1 %; Lymphocytes # (auto) 1.52 K/uL (1.20-3.40); Lymphocytes % (auto) 13.1 %; Mean Corpuscular Hemoglobin 28.1 pg (25.0-34.0); Mean Corpuscular Volume 85.2 fL (80.0-100.0); Mean Platelet Volume 9.4 fL (9.4-12.4); Monocytes # (auto) 0.88 K/uL (0.11-0.59); Monocytes % (auto) 7.6 %; Neutrophils # (auto) 8.86 K/uL (1.40-6.50); Neutrophils % (auto) 76.2 %; Platelet Count 421 K/uL (130-400); RDW Coefficient of Variation 13.8 % (11.5-14.5); RDW Standard Deviation 43.3 fL (36.4-46.3); Red Blood Count 3.45 M/uL (4.20-5.40); White Blood Count 11.62 K/ul (4.8-10.8)
[2023-06-12 04:39] LABS: Albumin Globulin Ratio 0.8 (0.9-2); Albumin Level 2.5 gm/dl (3.4-5.0); BUN Creatinine Ratio 19.8 (10-20); Bilirubin,Total 0.7 mg/dl (0.2-1.0); Calcium 7.6 mg/dl (8.6-10.3); Creatinine Clr Calc Pharmacy 58.9 ml/min; Est GFR (Non-African American) 60.4 ml/min; Globulin 3.3 gm/dl (2.5-4.0); Potassium 2.8 mmol/L (3.5-5.1); Total Protein 5.8 gm/dl (6.0-8.3)
[2023-06-12] MEDS ORDERED: MAGNESIUM SULFATE 1GM / D5W BAG IV ONE (05:10)
[2023-06-12] MEDS: CIPROFLOXACIN / D5W 400 MG/200 ML BAG IV SCH ×2 (07:42→19:56)
--- NOTE | 2023-06-12 09:57 | Surgery Progress Note ---
Date of Service June 12, 2023 Assessment & Plan (1) Diverticulitis of intestine with abscess: Plan: Pt resting in bed Reports feeling much better since last night Denies abdominal pain, nausea vomiting Continue NPO, IV antibiotics VSS WBC 11 (13) Will treat conservatively for now, no acute surgical intervention indicated Admission and Anticipated Discharge Date Admission Date: June 11, 2023 Supervising Physician Co-Signing Physician Notes I personally saw and evaluated the patient with Gerald HILTON and agree with assessment and plan. 78-year-old female diverticulitis with pericolonic/pelvic abscess Her leukocytosis is improved She is having less pain today on admission He has minimal tenderness on abdominal exam Continue IV antibiotics and n.p.o. for today Will follow Subjective Pt resting in bed Reports feeling much better since last night Denies abdominal pain currently Review of Systems Constitutional: no fever and no chills Eyes: no problem reported Ear, Nose, Mouth, Throat: no problem reported Respiratory: no dyspnea Cardiovascular: no chest pain Gastrointestinal: no abdominal pain, no nausea and no vomiting Genitourinary: no problem reported Musculoskeletal: no muscle weakness Integumentary: no rash Neurologic: no confusion and no memory loss Physical Exam Physical Exam: alert oriented pleasant Constitutional: well developed, cooperative and comfortable; no acute distress ENMT: external ear and nose normal, oropharynx normal Neck: trachea midline, no thyromegaly Respiratory: normal respiratory effort; no respiratory distress and + not able to speak in complete sentence Cardiovascular: Rate/Rhythm: + abnormal rate Gastrointestinal (Abdomen): Inspection/Auscultation: abdomen not distended Percussion/Palpation: abdomen soft; no guarding and no hernia Musculoskeletal: no cyanosis or clubbing, extremities motor strength 5/5 Skin: no rashes, warm and dry Neurologic: awake; not confused Results & Data Vital Signs (Past 12 Hours) Vital Signs Temp Pulse Pulse Resp BP BP Pulse Ox 06/12/23 07:28 98.2 F 73 22 126/77 97 06/12/23 06:54 56 L 06/12/23 03:43 77 06/12/23 01:00 58 L 21 139/79 96 06/12/23 00:01 76 17 136/76 95 06/11/23 23:00 62 20 95 06/11/23 23:00 06/11/23 22:59 64 19 125/65 97 Pulse Ox O2 Del Method O2 Del Method 06/12/23 07:28 Room Air 06/12/23 06:54 06/12/23 03:43 06/12/23 01:00 Room Air 06/12/23 00:01 Room Air 06/11/23 23:00 Room Air 06/11/23 23:00 94 Room Air 06/11/23 22:59 Room Air PG Care Time/CCT Total # of Minutes Spent Total Time Spent with Patient: Total time spent is greater than 50% in coordination of care (as documented) at patient's floor/unit and/or counseling patient: Coding Level of Care Code 94705 SUB INP/OBS CARE MIN Diagnoses Diverticulitis of intestine with abscess K57.80
[2023-06-12] MEDS: LACTATED RINGER'S 1,000 ML IV SCH ×2 (10:09→16:37)
--- NOTE | 2023-06-12 16:46 | Hospitalist Progress Note ---
Date of Service June 12, 2023 Assessment & Plan (1) Diverticulitis of intestine with abscess: Plan: Diverticulitis with 5 cm abscess/contained perforation found on imaging. Started on cipro/flagyl. Abscess unable to be drained percutaneously due to location. May need surgical intervention. Surgery consulted - appreciate recs. NPO for bowel rest IVF fluid resuscitated x 2L NS, mIVF LR @ 125 mL/hr Cipro and Flagyl - started 06/11 Antiemetics with Zofran Tylenol and Toradol PRN for pain control Surg consulted - appreciate recs AM CBC and CMP on 06/12 Patient will remain NPO. No signs of acute abdomen. continue conservative management: antibiotics as above. appreciate input from Gen surgery. (2) Transaminitis: Plan: Likely in the setting of acute diverticulitis. Continue to trend. (3) Hypercholesterolemia: Plan: Resume home statin once no longer NPO (4) Hypertension: Plan: Patient on HCTZ at home. Can hold in the setting of NPO status. BP acceptable. Continue to monitor (5) Arthritis: Plan: Would hold oral NSAIDs in the setting of bowel rest. (6) Iatrogenic hypothyroidism: Plan: Holding home levothyroxine in setting of NPO. Can resume home dosing once tolerating PO. Plan Code status: full DVT ppx: SCDs FENGI: NPO, s/p 2L NS, LR @ 125 mL/hr Lines: PIV Dispo: MedSurg Admission and Anticipated Discharge Date Admission Date: June 11, 2023 Subjective Patient reports no new symptoms Review of Systems Review of Systems: All systems reviewed & are unremarkable except as noted in HPI & below Physical Exam Physical Exam: Gen: non-toxic appearing female in NAD HEENT: AT NC MMM Resp: CTAB no wheezing no increased work of breathing CV: RRR no m/r/g GI: soft, non-distended, mildly tender to palpation Psych: appropriate mood and affect Results & Data Results & Data Vital Signs (Past 12 Hours) Vital Signs Temp Pulse Pulse Pulse Resp BP BP 06/12/23 16:33 37.1 C 56 L 17 126/75 06/12/23 12:18 59 L 21 132/65 06/12/23 10:39 66 18 132/65 132/65 06/12/23 07:28 36.8 C 73 22 126/77 06/12/23 06:54 56 L Pulse Ox O2 Del Method 06/12/23 16:33 97 Room Air 06/12/23 12:18 98 Room Air 06/12/23 10:39 97 Room Air 06/12/23 07:28 97 Room Air 06/12/23 06:54 PG Care Time/CCT Total # of Minutes Spent Total Time Spent with Patient: Total time spent is greater than 50% in coordination of care (as documented) at patient's floor/unit and/or counseling patient: Coding Level of Care Code 14341 SUB INP/OBS CARE 235MIN Diagnoses Diverticulitis of intestine with abscess K57.80 Transaminitis R74.01 Hypercholesterolemia E78.00 Hypertension I10 Arthritis M19.90 Iatrogenic hypothyroidism E03.2
[2023-06-12] MEDS ORDERED: SODIUM CHLORIDE 0.9% 1,000 ML IV SCH (19:45)
[2023-06-12] MEDS ORDERED: POTASSIUM CHLORIDE / WTR 10 MEQ/100 ML PLCT IV SCH (19:45)
[2023-06-12] MEDS ORDERED: POTASSIUM CHLORIDE 80 MEQ in SODIUM CHLORIDE 0.9% 1,000 ML IV SCH (20:00)
[2023-06-13] MEDS: metroNIDAZOLE 500 MG/100 ML BAG IV SCH ×3 (03:47→18:01)
[2023-06-13] MEDS: SODIUM CHLORIDE 0.9% 1,000 ML IV SCH ×3 (05:10→21:21)
[2023-06-13] MEDS: CIPROFLOXACIN / D5W 400 MG/200 ML BAG IV SCH ×2 (06:00→19:12)
[2023-06-13 07:36] LABS: Adenovirus F 40/41 PCR Not Detected (NotDetected); Astrovirus PCR Not Detected (NotDetected); Campylobacter PCR Not Detected (NotDetected); Cryptosporidium PCR Not Detected (NotDetected); Cyclospora cayetanensis PCR Not Detected (NotDetected); Entamoeba histolytica PCR Not Detected (NotDetected); Enteroaggregative E.coli(EAEC) Not Detected (NotDetected); Enteropathogenic E.coli (EPEC) Not Detected (NotDetected); Enterotoxigenic E.coli (ETEC) Not Detected (NotDetected); Giardia lamblia PCR Not Detected (NotDetected); Norovirus GI/GII PCR Not Detected (NotDetected); Plesiomonas shigelloides PCR Not Detected (NotDetected); Rotavirus A PCR Not Detected (NotDetected); Salmonella PCR Not Detected (NotDetected); Sapovirus PCR Not Detected (NotDetected); Shiga-like Toxin E.coli (STEC) Not Detected (NotDetected); Shigella/Enteroinvasive E.coli Not Detected (NotDetected); Vibrio cholerae PCR Not Detected (NotDetected); Vibrio species PCR Not Detected (NotDetected); Yersinia enterocolitica PCR Not Detected (NotDetected)
--- NOTE | 2023-06-13 08:00 | Surgery Progress Note ---
Date of Service June 13, 2023 Assessment & Plan (1) Diverticulitis of intestine with abscess: Plan: Patient reports feeling tired this AM Abdominal pain a 2/10 TTP LLQ , RLQ Had liquid stool this am, stool studies negative Denies N/V, CP , SOB , Fevers Reports feeling chills over night VSS , CBC and BMP not drawn yet this AM Will continue conservative treatment NPO , chips of ice are ok Continue IV antibx will monitor Admission and Anticipated Discharge Date Admission Date: June 11, 2023 Supervising Physician Co-Signing Physician Notes I personally saw and evaluated the patient with Gerald HILTON and agree with assessment and plan. 78-year-old female diverticulitis with pericolonic/pelvic abscess Her labs are stable and exam continues to slowly improve Continue her IV ABX and give her another day of sips/chips If she remains stable would start clear liquids tomorrow in AM Will continue to follow Subjective patient reports feeling tired this AM Abdominal pain a 2/10 TTP Had liquid stool this am Denies N/V, CP , SOB , Fevers Reports feeling chills over night Review of Systems Constitutional: + chills and + fatigue; no fever Eyes: no problem reported Ear, Nose, Mouth, Throat: no problem reported Respiratory: no dyspnea Cardiovascular: no chest pain Gastrointestinal: + abdominal pain; no bloating, no nausea and no vomiting Genitourinary: no problem reported Musculoskeletal: no muscle weakness Integumentary: no rash Neurologic: no confusion and no memory loss Physical Exam Physical Exam: alert oriented pleasant Constitutional: well developed, cooperative and comfortable; no acute distress ENMT: external ear and nose normal, oropharynx normal Neck: trachea midline, no thyromegaly Respiratory: normal respiratory effort; no respiratory distress and + not able to speak in complete sentence Cardiovascular: Rate/Rhythm: regular rate Gastrointestinal (Abdomen): Inspection/Auscultation: abdomen not distended Percussion/Palpation: + abdomen tender (LLQ , RLQ 2/10 ) and abdomen soft; no hernia Musculoskeletal: no cyanosis or clubbing, extremities motor strength 5/5 Skin: no rashes, warm and dry Neurologic: awake; not confused Results & Data Vital Signs (Past 12 Hours) Vital Signs Temp Pulse Resp BP Pulse Ox O2 Del Method 06/13/23 07:28 98.1 F 79 16 150/80 H 97 Room Air 06/12/23 20:10 Room Air 06/12/23 20:03 98.4 F 61 16 137/72 98 Room Air PG Care Time/CCT Total # of Minutes Spent Total Time Spent with Patient: Total time spent is greater than 50% in coordination of care (as documented) at patient's floor/unit and/or counseling patient: Coding Level of Care Code 58855 SUB INP/OBS CARE 2/35MIN Diagnoses Diverticulitis of intestine with abscess K57.80
[2023-06-13 08:21] LABS: Basophils # (auto) 0.05 K/uL (0.00-0.20); Basophils % (auto) 0.4 %; Eosinophils # (auto) 0.06 K/uL (0.00-0.50); Eosinophils % (auto) 0.5 %; Hematocrit (blood only) 32.5 % (37.0-47.0); Hemoglobin 10.3 g/dl (12.0-16.0); Immature Granulocytes # (auto) 0.28 K/uL (0.01-0.20); Immature Granulocytes % (auto) 2.3 %; Lymphocytes # (auto) 1.21 K/uL (1.20-3.40); Lymphocytes % (auto) 10.1 %; Mean Corpuscular Hemoglobin 28.2 pg (25.0-34.0); Mean Corpuscular Hgb Conc 31.7 g/dL (32.0-36.0); Mean Platelet Volume 9.5 fL (9.4-12.4); Monocytes # (auto) 0.83 K/uL (0.11-0.59); Neutrophils % (auto) 79.7 %; Platelet Count 448 K/uL (130-400); RDW Standard Deviation 45.6 fL (36.4-46.3); Red Blood Count 3.65 M/uL (4.20-5.40); White Blood Count 11.93 K/ul (4.8-10.8)
[2023-06-13 08:36] LABS: Albumin Globulin Ratio 0.8 (0.9-2); Albumin Level 2.5 gm/dl (3.4-5.0); BUN Creatinine Ratio 14.4 (10-20); Bilirubin,Total 0.6 mg/dl (0.2-1.0); Calcium 7.6 mg/dl (8.6-10.3); Creatinine Clr Calc Pharmacy 59.5 ml/min; Est GFR (Non-African American) 61.2 ml/min; Globulin 3.2 gm/dl (2.5-4.0); Potassium 3.4 mmol/L (3.5-5.1); Total Protein 5.7 gm/dl (6.0-8.3)
--- NOTE | 2023-06-13 13:45 | Electrocardiogram Report ---
Test Reason : Blood Pressure : / mmHG Vent. Rate : 051 BPM Atrial Rate : 051 BPM P-R Int : 148 ms QRS Dur : 082 ms QT Int : 490 ms P-R-T Axes : 059 005 008 degrees QTc Int : 451 ms Sinus bradycardia Fusion complexes Low voltage QRS Nonspecific ST and T wave abnormality Abnormal ECG When compared with ECG of 18-AUG-2021 17:42, Premature ventricular complexes are no longer Present Vent. rate has decreased BY 26 BPM Borderline criteria for Anterolateral infarct are no longer Present Confirmed by Ray Poe ([id number]) on 06/13/2023 1:44:45 PM Referred By: REFERRED SELF Confirmed By:Ray Poe
--- NOTE | 2023-06-13 17:11 | Hospitalist Progress Note ---
Date of Service June 13, 2023 Assessment & Plan (1) Diverticulitis of intestine with abscess: Plan: Diverticulitis with 5 cm abscess/contained perforation found on imaging. Started on cipro/flagyl. Abscess unable to be drained percutaneously due to location. Surgery consulted - non surgical management suggested NPO for bowel rest Cipro and Flagyl - started 06/11 Antiemetics with Zofran Tylenol and Toradol PRN for pain control (2) Transaminitis: Plan: Likely in the setting of acute diverticulitis. resolved (3) Hypercholesterolemia: Plan: Resume home statin once at time of discharge (4) Hypertension: Plan: Patient on HCTZ at home. hold BP is acceptable (5) Iatrogenic hypothyroidism: Plan: Holding home levothyroxine in setting of NPO. Can resume home dosing once tolerating PO. Plan Code status: full Admission and Anticipated Discharge Date Admission Date: June 11, 2023 Subjective pt with some pain in the lower absomen, no rebound no guarding Physical Exam Physical Exam: awake alert and appropriate abd is distended soft ,,mild tenderness in LLQ no rebound no guarding NABS Results & Data Results & Data Vital Signs (Past 12 Hours) Vital Signs Temp Pulse Resp BP BP Pulse Ox O2 Del Method 06/13/23 15:27 98.2 F 68 17 124/67 95 Room Air 06/13/23 07:28 98.1 F 79 16 150/80 H 97 Room Air Laboratory Results reviewed cbc reviewed chemistry PG Care Time/CCT Total # of Minutes Spent Total Time Spent with Patient: Total time spent is greater than 50% in coordination of care (as documented) at patient's floor/unit and/or counseling patient: Coding Level of Care Code 38510 SUB INP/OBS CARE 2/35MIN Diagnoses Diverticulitis of intestine with abscess K57.80 Transaminitis R74.01 Hypercholesterolemia E78.00 Hypertension I10 Iatrogenic hypothyroidism E03.2
[2023-06-14] MEDS: metroNIDAZOLE 500 MG/100 ML BAG IV SCH ×3 (02:33→18:19)
[2023-06-14] MEDS: ONDANSETRON INJ 2 MG/ML 2 ML VIAL IV PRN ×2 (02:33→17:45)
[2023-06-14] MEDS: SODIUM CHLORIDE 0.9% 1,000 ML IV SCH ×2 (05:58→15:09)
[2023-06-14] MEDS: CIPROFLOXACIN / D5W 400 MG/200 ML BAG IV SCH ×2 (05:58→19:27)
--- NOTE | 2023-06-14 07:39 | Hospitalist Progress Note ---
Date of Service June 14, 2023 Assessment & Plan (1) Diverticulitis of intestine with abscess: Plan: Diverticulitis with 5 cm abscess/contained perforation found on imaging. Started on cipro/flagyl. Abscess unable to be drained percutaneously due to location. Surgery consulted - non surgical management suggested NPO for bowel rest Cipro and Flagyl - started 06/11 Antiemetics with Zofran Tylenol and Toradol PRN for pain control Mild right and leukocytosis on 06/14 we will check white count throughout the weekend adding in a CRP to determine if inflammatory markers are increasing which may prompt an earlier CAT scan than previously scheduled (2) Transaminitis: Plan: Likely in the setting of acute diverticulitis. resolved (3) Hypercholesterolemia: Plan: Resume home statin once at time of discharge (4) Hypertension: Plan: Patient on HCTZ at home. hold BP is acceptable (5) Iatrogenic hypothyroidism: Plan: Holding home levothyroxine Plan Code status: full Admission and Anticipated Discharge Date Admission Date: June 11, 2023 Subjective Patient is tolerating food having liquid bowel movements no increase in abdominal pain Noted increasing leukocytosis we will follow clinically Physical Exam Physical Exam: Sitting in chair without much distress NABS and soft Results & Data Results & Data Vital Signs (Past 12 Hours) Vital Signs Temp Pulse Resp BP Pulse Ox O2 Del Method 06/13/23 21:24 98.8 F 78 16 137/67 95 Room Air 06/13/23 21:15 Room Air Laboratory Results Reviewed CBC Reviewed chemistry PG Care Time/CCT Total # of Minutes Spent Total Time Spent with Patient: Total time spent is greater than 50% in coordination of care (as documented) at patient's floor/unit and/or counseling patient: Coding Level of Care Code 19691 SUB INP/OBS CARE 235MIN Diagnoses Diverticulitis of intestine with abscess K57.80 Transaminitis R74.01 Hypercholesterolemia E78.00 Hypertension I10 Iatrogenic hypothyroidism E03.2
[2023-06-14 07:42] LABS: Basophils # (auto) 0.05 K/uL (0.00-0.20); Basophils % (auto) 0.4 %; Eosinophils # (auto) 0.14 K/uL (0.00-0.50); Hematocrit (blood only) 29.4 % (37.0-47.0); Hemoglobin 9.6 g/dl (12.0-16.0); Immature Granulocytes # (auto) 0.26 K/uL (0.01-0.20); Immature Granulocytes % (auto) 1.8 %; Lymphocytes # (auto) 1.14 K/uL (1.20-3.40); Mean Corpuscular Hemoglobin 28.5 pg (25.0-34.0); Mean Corpuscular Hgb Conc 32.7 g/dL (32.0-36.0); Mean Corpuscular Volume 87.2 fL (80.0-100.0); Mean Platelet Volume 9.2 fL (9.4-12.4); Monocytes # (auto) 0.84 K/uL (0.11-0.59); Monocytes % (auto) 5.9 %; Neutrophils % (auto) 82.9 %; Platelet Count 410 K/uL (130-400); RDW Coefficient of Variation 14.5 % (11.5-14.5); RDW Standard Deviation 46.4 fL (36.4-46.3); Red Blood Count 3.37 M/uL (4.20-5.40); White Blood Count 14.23 K/ul (4.8-10.8)
[2023-06-14 08:10] LABS: Albumin Globulin Ratio 0.7 (0.9-2); Albumin Level 2.2 gm/dl (3.4-5.0); BUN Creatinine Ratio 15.4 (10-20); Bilirubin,Total 0.4 mg/dl (0.2-1.0); Calcium 7.3 mg/dl (8.6-10.3); Creatinine Clr Calc Pharmacy 68.7 ml/min; Est GFR (African American) 84.4 ml/min; Est GFR (Non-African American) 72.8 ml/min; Total Protein 5.2 gm/dl (6.0-8.3)
--- NOTE | 2023-06-14 09:02 | Surgery Progress Note ---
Date of Service June 14, 2023 Assessment & Plan (1) Diverticulitis of intestine with abscess: Plan: pt resting in bed reported some nausea last night relieved with zofran having bms Requesting diet , clears ordered denies , fever chills, SOB, Cp TTP LLQ Will continue conservative treatment Continue IV antibx, WBC 14 (11) VSS requesting PO Synthroid, ordered will monitor continue to monitor Admission and Anticipated Discharge Date Admission Date: June 11, 2023 Supervising Physician Co-Signing Physician Notes I personally saw and evaluated the patient with Gerald HILTON and agree with assessment and plan. 78-year-old female diverticulitis with pericolonic/pelvic abscess Start clears today WBC up to 14 from 11, but no fevers or tachycardia and she is feeling better Keep on clears today and repeat labs in AM Plan would be to repeat CT on Saturday/Saturday if she is not improving to see if t he pelvic abscesses have gotten larger or are amenable to percutaneous drainage She is aware that laparotomy, colon resection and colostomy is a possibility if she does not improve or clinically worsens Subjective pt resting in bed reported some nausea last night relieved with zofran having bms Requesting diet denies , fever chills, SOB, Cp TTP LLQ Review of Systems Constitutional: + fatigue Eyes: no problem reported Ear, Nose, Mouth, Throat: no problem reported Respiratory: no dyspnea Cardiovascular: no chest pain Gastrointestinal: + abdominal pain; no bloating and no vom iting Genitourinary: no problem reported Musculoskeletal: no muscle weakness Integumentary: no rash Neurologic: no confusion and no memory loss Physical Exam Physical Exam: alert oriented pleasant Constitutional: well developed, cooperative and comfortable; no acute distress ENMT: external ear and nose normal, oropharynx normal Neck: trachea midline, no thyromegaly Respiratory: normal respiratory effort and able to speak in complete sentences; no respiratory distress Cardiovascular: Rate/Rhythm: regular rate Gastrointestinal (Abdomen): Inspection/Auscultation: abdomen not distended Percussion/Palpation: + abdomen tender (LLQ TTP ) and abdomen soft; no hernia Musculoskeletal: no cyanosis or clubbing, extremities motor strength 5/5 Skin: no rashes, warm and dry Neurologic: awake; not confused Results & Data Vital Signs (Past 12 Hours) Vital Signs Temp Pulse Pulse Resp BP BP Pulse Ox 06/14/23 08:14 97.9 F 70 16 160/80 H 94 06/13/23 21:24 98.8 F 78 16 137/67 95 06/13/23 21:15 O2 Del Method 06/14/23 08:14 Room Air 06/13/23 21:24 Room Air 06/13/23 21:15 Room Air PG Care Time/CCT Total # of Minutes Spent Total Time Spent with Patient: Total time spent is greater than 50% in coordination of care (as documented) at patient's floor/unit and/or counseling patient: Coding Level of Care Code 60996 SUB INP/OBS CARE 235MIN Diagnoses Diverticulitis of intestine with abscess K57.80
[2023-06-14] MEDS: LEVOTHYROXINE SODIUM 100 MCG TABLET PO SCH (11:01)
[2023-06-14] MEDS ORDERED: ONDANSETRON INJ 2 MG/ML 2 ML VIAL IV STA (22:05)
[2023-06-14] MEDS ORDERED: METOCLOPRAMIDE HCL INJ 5 MG/ML 2 ML VIAL IV ONE (22:28)
[2023-06-15] MEDS: SODIUM CHLORIDE 0.9% 1,000 ML IV SCH ×4 (00:15→20:07)
[2023-06-15] MEDS: metroNIDAZOLE 500 MG/100 ML BAG IV SCH ×3 (02:34→18:18)
[2023-06-15] MEDS: LEVOTHYROXINE SODIUM 100 MCG TABLET PO SCH (05:52)
[2023-06-15] MEDS: CIPROFLOXACIN / D5W 400 MG/200 ML BAG IV SCH ×2 (07:20→20:07)
[2023-06-15] MEDS: ESCITALOPRAM OXALATE 10 MG TAB PO SCH (07:22)
[2023-06-15] MEDS: ONDANSETRON INJ 2 MG/ML 2 ML VIAL IV PRN ×3 (07:49→20:11)
--- NOTE | 2023-06-15 08:14 | Hospitalist Progress Note ---
Date of Service June 15, 2023 Assessment & Plan (1) Diverticulitis of intestine with abscess: Plan: Diverticulitis with 5 cm abscess/contained perforation found on imaging. Started on cipro/flagyl. Abscess unable to be drained percutaneously due to location. Surgery consulted - non surgical management suggested NPO for bowel rest Cipro and Flagyl - started 06/11 Antiemetics with Zofran Tylenol and Toradol PRN for pain control Pt did have nausea overnight, new onset afib, elevated wbc and crp, repeat CT without worsening of abscess 06/15/23 (2) Atrial fibrillation: Plan: rapid heart rate in am 06/15, ecg with afib controlled v rate, no additional tachycardia pt with no history of, likely from physiologic stess of infection holding off on full AC until we see if surgical risk has passed plus hemorrhoidal bleeding and anemia at present will sneak in low turner metoprolol does have hypothyroidsm on synthroid 100 tsh nl 06/01 (3) Transaminitis: Plan: Likely in the setting of acute diverticulitis. resolved (4) Hypercholesterolemia: Plan: Resume home statin once at time of discharge (5) Hypertension: Plan: stop hctz start metoprolol tartrate 12.5 bid (6) Iatrogenic hypothyroidism: Plan: Holding home levothyroxine Plan Code status: full Admission and Anticipated Discharge Date Admission Date: June 11, 2023 Subjective pt was vomiting this am, had new found afib with controlled v rate and elevated wbc and CRP examines as non acute abdomen repeat abd/pelvis CT without worsening of abscess Physical Exam Physical Exam: awake and alert cardiac sounds regular but afib on ecg lungs are clear abd is soft and non tender no focal pain Results & Data Results & Data Vital Signs (Past 12 Hours) Vital Signs Temp Pulse Resp BP BP Pulse Ox Pulse Ox 06/15/23 07:22 98.1 F 81 18 144/84 H 96 06/14/23 23:00 98 06/14/23 20:21 97.9 F 73 18 146/76 H 98 O2 Del Method O2 Del Method 06/15/23 07:22 Room Air 06/14/23 23:00 Room Air 06/14/23 20:21 Room Air Laboratory Results reviewed cbc reviewed chemistry reviewed crp discussed case with advanced practice professional general surgeon, Dr Davis PG Care Time/CCT Total # of Minutes Spent Total Time Spent with Patient: Total time spent is greater than 50% in coordination of care (as documented) at patient's floor/unit and/or counseling patient: Coding Level of Care Code 93669 SUB INP/OBS CARE MIN Diagnoses Diverticulitis of intestine with abscess K57.80 Atrial fibrillation I48.91 Transaminitis R74.01 Hypercholesterolemia E78.00 Hypertension I10 Iatrogenic hypothyroidism E03.2
[2023-06-15 08:27] LABS: Basophils # (auto) 0.06 K/uL (0.00-0.20); Basophils % (auto) 0.4 %; Eosinophils # (auto) 0.31 K/uL (0.00-0.50); Eosinophils % (auto) 1.9 %; Hematocrit (blood only) 34.1 % (37.0-47.0); Hemoglobin 10.8 g/dl (12.0-16.0); Immature Granulocytes # (auto) 0.39 K/uL (0.01-0.20); Immature Granulocytes % (auto) 2.3 %; Lymphocytes # (auto) 1.64 K/uL (1.20-3.40); Lymphocytes % (auto) 9.8 %; Mean Corpuscular Hemoglobin 27.8 pg (25.0-34.0); Mean Corpuscular Hgb Conc 31.7 g/dL (32.0-36.0); Mean Corpuscular Volume 87.7 fL (80.0-100.0); Mean Platelet Volume 9.3 fL (9.4-12.4); Monocytes # (auto) 0.83 K/uL (0.11-0.59); Neutrophils # (auto) 13.43 K/uL (1.40-6.50); Neutrophils % (auto) 80.6 %; Platelet Count 526 K/uL (130-400); RDW Coefficient of Variation 14.6 % (11.5-14.5); RDW Standard Deviation 46.6 fL (36.4-46.3); Red Blood Count 3.89 M/uL (4.20-5.40); White Blood Count 16.66 K/ul (4.8-10.8)
[2023-06-15 08:49] LABS: Albumin Globulin Ratio 0.7 (0.9-2); Albumin Level 2.6 gm/dl (3.4-5.0); BUN Creatinine Ratio 13.6 (10-20); Bilirubin,Total 0.5 mg/dl (0.2-1.0); C Reactive Protein 19.27 mg/dl (0-0.5); Calcium 7.6 mg/dl (8.6-10.3); Creatinine Clr Calc Pharmacy 66.2 ml/min; Est GFR (African American) 80.6 ml/min; Est GFR (Non-African American) 69.6 ml/min; Globulin 3.5 gm/dl (2.5-4.0); Potassium 3.1 mmol/L (3.5-5.1); Total Protein 6.1 gm/dl (6.0-8.3)
[2023-06-15] MEDS ORDERED: LEVOTHYROXINE SODIUM 100 MCG TABLET PO SCH (09:00)
--- NOTE | 2023-06-15 09:13 | Surgery Progress Note ---
Date of Service June 15, 2023 Assessment & Plan (1) Nausea & vomiting: (2) Diverticulitis of intestine with abscess: Plan Labs resulted this am reveal worsening leukocytosis. She has remained afebrile, HD stable, did not tolerate clear liquids last night. Returned to NPO, continue IVF for hydration. Will repeat CT (discussed with Dr. Hope). States patient also went into afib at some point. O/N recorded vitals document RR. If abscess formation has worsened, transfer is recommended for percutaneous intervention. Admission and Anticipated Discharge Date Admission Date: June 11, 2023 Subjective Patient was seen and examined this am. She c/o N/V after having clear liquids last night. Denied associated abdominal pain then or presently. States she continues to have diarrhea. No F/C o/n. Physical Exam Constitutional: + obese; not ill appearing, not in distr ess and not diaphoretic Respiratory: normal respiratory effort; no respiratory distress, no labored breathing and does not use accessory muscles Gastrointestinal (Abdomen): Abdomen is obese Soft, non-tender to palpation this am or rocking Results & Data Vital Signs (Past 12 Hours) Vital Signs Temp Pulse Resp BP Pulse Ox Pulse Ox O2 Del Method 06/15/23 07:22 36.7 C 81 18 144/84 H 96 Room Air 06/14/23 23:00 98 O2 Del Method 06/15/23 07:22 06/14/23 23:00 Room Air Laboratory Results WBC returned at over 16,000 this am PG Care Time/CCT Total # of Minutes Spent Total Time Spent with Patient: Total time spent is greater than 50% in coordination of care (as documented) at patient's floor/unit and/or counseling patient: Coding [place] [address] SUB INP/OBS CARE 25MIN Patient Type Established History Problem Focused Exam Problem Focused Medical Decision Making Low Complexity Diagnoses Nausea & vomiting R11.2 Diverticulitis of intestine with abscess K57.80
[2023-06-15] MEDS: PROMETHAZINE HCL 12.5 MG in SODIUM CHLORIDE 0.9% 50 ML IV PRN ×2 (10:10→22:04)
[2023-06-15] MEDS ORDERED: OPTIRAY 320 500ml IV ONE (11:03)
--- NOTE | 2023-06-15 11:34 | CT Scan Report ---
CT OF THE ABDOMEN AND PELVIS WITH CONTRAST CLINICAL HISTORY: eval for worsening pericolonic abscess COMPARISON STUDY: CT of the abdomen and pelvis June 11, 2023. Pelvic ultrasound April 17, 2023. TECHNIQUE: Following IV administration of 94 mL of Optiray, axial images of the abdomen and pelvis we re obtained from the lung bases to the proximal femurs. Images were reviewed in the axial, sagittal, and coronal planes. IV contrast was administered without complication. Automated exposure control wa s utilized for the study. A dose lowering technique was utilized adhering to the principles of ALARA . CT DOSE: 1324.46 mGy.cm FINDINGS: Trace bilateral pleural effusions have developed. Body wall edema suggesting anasarca. No p neumatosis, free air or portal venous gas is present. There is no biliary ductal dilatation status po st cholecystectomy. No hepatic lesions are present. Spleen, adrenal glands, kidneys and pancreas are unremarkable. There is no hydronephrosis. There is no evidence for a bowel obstruction. Sigmoid diver ticulosis is noted. There is wall thickening of the sigmoid colon with moderate pericolonic inflammat ion, similar to prior CT. A small amount of pericolonic fluid is present. A fluid and gas containing collection anterior to the sigmoid colon, along the posterior aspect of the uterus measures 4.8 x 3.6 x 3 cm. This has slightly decreased in size since prior exam when it measured 5 x 4.2 x 3.2 cm. An a djacent smaller right pelvic rim enhancing gas and fluid containing collection measures 3.2 x 1.1 cm. This is similar to prior CT. Extraluminal gas within the collection suggests a contained perforation . The 2 collections may communicate. No new fluid collections are present. A left ovarian cystic lesi on is again noted. IMPRESSION: 1. Findings consistent with acute sigmoid diverticulitis with contained perforation. Slight decrease in size of the 4.8 cm pericolonic abscess. No significant change in size of an adjacent smaller absce ss. Inflammation similar to prior CT. 2. Trace bilateral pleural effusions. Body wall edema suggestive of anasarca. ACT 112: Negative or not required by law. Electronically signed by: Chaim Warren M.D. 06/15/2023 11:32 AM
[2023-06-15] MEDS: METOPROLOL TARTRATE 25 MG TAB PO SCH (20:17)
[2023-06-16] MEDS: metroNIDAZOLE 500 MG/100 ML BAG IV SCH ×3 (03:16→18:19)
[2023-06-16] MEDS: SODIUM CHLORIDE 0.9% 1,000 ML IV SCH ×2 (05:15→14:30)
[2023-06-16] MEDS: CIPROFLOXACIN / D5W 400 MG/200 ML BAG IV SCH ×2 (06:22→20:21)
[2023-06-16] MEDS: LEVOTHYROXINE SODIUM 100 MCG TABLET PO SCH (06:23)
[2023-06-16 07:41] LABS: Hematocrit (blood only) 30.6 % (37.0-47.0); Hemoglobin 9.7 g/dl (12.0-16.0); Mean Corpuscular Hgb Conc 31.7 g/dL (32.0-36.0); Mean Corpuscular Volume 88.2 fL (80.0-100.0); Mean Platelet Volume 9.2 fL (9.4-12.4); Platelet Count 431 K/uL (130-400); RDW Coefficient of Variation 14.6 % (11.5-14.5); RDW Standard Deviation 47.1 fL (36.4-46.3); Red Blood Count 3.47 M/uL (4.20-5.40); White Blood Count 15.09 K/ul (4.8-10.8)
[2023-06-16] MEDS: METOPROLOL TARTRATE 25 MG TAB PO SCH ×2 (08:26→21:36)
[2023-06-16] MEDS: ESCITALOPRAM OXALATE 10 MG TAB PO SCH (08:26)
--- NOTE | 2023-06-16 10:55 | Surgery Progress Note ---
Date of Service June 16, 2023 Assessment & Plan (1) Diverticulitis of intestine with abscess: Plan: 78 y/o F with perforated diverticulitis of the large intestine and contained abscess. Remains afebrile, VSS, no acute events overnight. Did not tolerate clear liquids on 06/14/23. After being n.p.o. yesterday she says she has had resolution of nausea and no further vomiting. CT obtained yesterday for increase in leukocytosis shows decrease in size of the contained pericolic abscess. Leukocytosis today is 15 showing a decrease from yesterday's 16.6. Continue with current conservative management and supportive care maintaining IVF and IV antibiotics. Patient may have small amounts of ice chips today. May consider sips of clears later this evening, not a complete liquid tray, if the patient tolerates ice chips without nausea during the day today. F/U a.m. labs Continue to ambulate with assistance Mechanical DVT prophylaxis should be in place. Hold chemical DVT prophylaxis in the event interventional may consider percutaneous drainage of this abscess tomorrow. Surgery will see the patient in the a.m. Admission and Anticipated Discharge Date Admission Date: June 11, 2023 Subjective This patient was seen and examined this a.m. She states she feels well today and is without abdominal complaints. Ms. Lopez says she has not had any further N/V since the day before yesterday when she tried to clear liquids. She has been n.p.o. since yesterday a.m. She admits to continuing to pass flatus and have BMs that are slightly watery. Physical Exam Constitutional: + obese; no acute distress, not ill appe aring, not in distress and not diaphoretic Respiratory: normal respiratory effort; no respiratory distress, no labored breathing and does not use accessory muscles Gastrointestinal (Abdomen): Abdomen remains soft. No tenderness with palpation. No guarding or rebound. Psychiatric: Orientation: alert, oriented x 3 and cooperative; not guarded Results & Data Vital Signs (Past 12 Hours) Vital Signs Temp Pulse Resp BP Pulse Ox O2 Del Method 06/16/23 08:31 Room Air 06/16/23 08:18 36.5 C 86 16 139/67 99 Room Air Diagnostic Findings CT yesterday (06/15/23) with contrast, performed for increase in leukocytosis on yesterday's labs: FINDINGS: Trace bilateral pleural effusions have developed. Body wall edema suggesting anasarca. No pneumatosis, free air or portal venous gas is present. There is no biliary ductal dilatation status post cholecystectomy. No hepatic lesions are present. Spleen, adrenal glands, kidneys and pancreas are unremarkable. There is no hydronephrosis. There is no evidence for a bowel obstruction. Sigmoid diverticulosis is noted. There is wall thickening of the sigmoid colon with moderate pericolonic inflammation, similar to prior CT. A small amount of pericolonic fluid is present. A fluid and gas containing collection anterior to the sigmoid colon, along the posterior aspect of the uterus measures 4.8 x 3.6 x 3 cm. This has slightly decreased in size since prior exam when it measured 5 x 4.2 x 3.2 cm. An adjacent smaller right pelvic rim enhancing gas and fluid containing collection measures 3.2 x 1.1 cm. This is similar to prior CT. Extraluminal gas within the collection suggests a contained perforation. The 2 collections may communicate. No new fluid collections are present. A left ovarian cystic lesion is again noted. IMPRESSION: 1. Findings consistent with acute sigmoid diverticulitis with contained perforation. Slight decrease in size of the 4.8 cm pericolonic abscess. No significant change in size of an adjacent smaller abscess. Inflammation similar to prior CT. 2. Trace bilateral pleural effusions. Body wall edema suggestive of anasarca. ACT 112: Negative or not required by law. Electronically signed by: Chaim Warren M.D. 06/15/2023 11:32 AM PG Care Time/CCT Total # of Minutes Spent Total Time Spent with Patient: Total time spent is greater than 50% in coordination of care (as documented) at patient's floor/unit and/or counseling patient: Coding [place] [address] SUB INP/OBS CARE 07/04MIN Patient Type Established History Problem Focused Exam Problem Focused Medical Decision Making Straight Forward Diagnoses Diverticulitis of intestine with abscess K57.80 Diverticulitis site: large intestine (1) Diverticulitis of intestine with abscess Diverticulitis site: large intestine
--- NOTE | 2023-06-16 15:15 | Hospitalist Progress Note ---
Date of Service June 16, 2023 Assessment & Plan (1) Diverticulitis of intestine with abscess: Plan: Diverticulitis with 5 cm abscess/contained perforation found on imaging. Started on cipro/flagyl. Abscess unable to be drained percutaneously due to location. Surgery consulted - non surgical management suggested NPO for bowel rest Cipro and Flagyl - started 06/11 Antiemetics with Zofran Tylenol and Toradol PRN for pain control repeat CT without worsening of abscess 06/15/23 slight improvement in 06/19/2019 (2) Atrial fibrillation: Plan: rapid heart rate in am 06/15, ecg with afib controlled v rate, no additional tachycardia pt with no history of, likely from physiologic stess of infection holding off on full AC until we see if surgical risk has passed plus hemorrhoidal bleeding and anemia at present will sneak in low turner metoprolol does have hypothyroidsm on synthroid 100 tsh nl 06/01 (3) Transaminitis: Plan: Likely in the setting of acute diverticulitis. resolved (4) Hypercholesterolemia: Plan: Resume home statin once at time of discharge (5) Hypertension: Plan: stop hctz start metoprolol tartrate 12.5 bid (6) Iatrogenic hypothyroidism: Plan: Holding home levothyroxine Plan Code status: full Admission and Anticipated Discharge Date Admission Date: June 11, 2023 Subjective Patient's had improvement of her abdominal complaints has no more nausea and vomiting. Continues with watery bowel movements without blood Examination still reveals mild left lower quadrant discomfort Physical Exam Physical Exam: awake and alert cardiac sounds regular but afib on ecg lungs are clear abd is soft and mild left lower quadrant discomfort Results & Data Results & Data Vital Signs (Past 12 Hours) Vital Signs Temp Pulse Resp BP Pulse Ox O2 Del Method 06/16/23 08:31 Room Air 06/16/23 08:18 97.7 F 86 16 139/67 99 Room Air Laboratory Results Reviewed CBC Reviewed C-reactive protein PG Care Time/CCT Total # of Minutes Spent Total Time Spent with Patient: Total time spent is greater than 50% in coordination of care (as documented) at patient's floor/unit and/or counseling patient: Coding Level of Care Code 12512 SUB INP/OBS CARE 2/35MIN Diagnoses Diverticulitis of intestine with abscess K57.80 Diverticulitis site: large intestine Atrial fibrillation I48.91 Transaminitis R74.01 Hypercholesterolemia E78.00 Hypertension I10 Iatrogenic hypothyroidism E03.2 (1) Diverticulitis of intestine with abscess Diverticulitis site: large intestine
--- NOTE | 2023-06-16 22:32 | Electrocardiogram Report ---
Test Reason : Blood Pressure : / mmHG Vent. Rate : 075 BPM Atrial Rate : 075 BPM P-R Int : 000 ms QRS Dur : 086 ms QT Int : 434 ms P-R-T Axes : 000 013 039 degrees QTc Int : 484 ms Sinus rhythm with sinus arrhythmia and PACs Low voltage QRS Prolonged QT Abnormal ECG When compared with ECG of 12-JUN-2023 12:21, T wave inversion no longer evident in Inferior leads T wave inversion no longer evident in Anterior leads Confirmed by Kelvin Jonas ([id number]) on 06/16/2023 10:32:13 PM Referred By: REFERRED SELF Confirmed By:Kelvin Jonas
[2023-06-17] MEDS: SODIUM CHLORIDE 0.9% 1,000 ML IV SCH ×3 (00:19→17:59)
[2023-06-17] MEDS: metroNIDAZOLE 500 MG/100 ML BAG IV SCH ×3 (03:29→18:00)
[2023-06-17] MEDS: LEVOTHYROXINE SODIUM 100 MCG TABLET PO SCH (04:58)
[2023-06-17] MEDS: CIPROFLOXACIN / D5W 400 MG/200 ML BAG IV SCH ×2 (06:40→19:10)
[2023-06-17 07:29] LABS: Hemoglobin 9.3 g/dl (12.0-16.0); Mean Corpuscular Hemoglobin 28.6 pg (25.0-34.0); Mean Corpuscular Hgb Conc 33.2 g/dL (32.0-36.0); Mean Corpuscular Volume 86.2 fL (80.0-100.0); Mean Platelet Volume 9.1 fL (9.4-12.4); Platelet Count 416 K/uL (130-400); RDW Coefficient of Variation 14.6 % (11.5-14.5); RDW Standard Deviation 45.9 fL (36.4-46.3); Red Blood Count 3.25 M/uL (4.20-5.40); White Blood Count 13.15 K/ul (4.8-10.8)
[2023-06-17] MEDS: METOPROLOL TARTRATE 25 MG TAB PO SCH ×2 (07:38→22:55)
[2023-06-17] MEDS: ESCITALOPRAM OXALATE 10 MG TAB PO SCH (07:39)
--- NOTE | 2023-06-17 08:41 | Surgery Progress Note ---
Date of Service June 17, 2023 Assessment & Plan (1) Diverticulitis of intestine with abscess: Plan: Pt here with perforated diverticulitis repeat CT scan over wknd showed some improvement in size of pericolonic abscess ~4.8cm WBC 13 (15) abdomen soft, non tender, reports + gas/BM will re-initiate clears and see how she fairs Continue IV abx will also discuss with our IR colleagues about the possibility of percutaneous drainage pt seen/examined with dr. [place] Admission and Anticipated Discharge Date Admission Date: June 11, 2023 Supervising Physician Co-Signing Physician Notes I personally saw and evaluated the patient with Huyen Ortiz PA-C and agree with assessment and plan. 78-year-old female diverticulitis with pericolonic/pelvic abscess Start clears again today WBC down to 13 from 15 Keep on clears today and repeat labs in AM I did review her CT scan images and results from Saturday, continues to have pericolonic/pelvic abscess but her diverticulitis We did talk to interventional radiology at our facility and they do not feel this is amenable to percutaneous drainage, will reach out for second opinion at [facility] about this For now continue her IV antibiotics and we can see how she responds I did discuss with her that if percutaneous drainage is not a possibility if she does not improve, we will likely proceed with a Joselo's procedure She currently has no indications for surgery at this point, she has been afebrile without tachycardia and her abdominal exam is actually slowly improved Will continue to follow over the next couple days and see how she responds Subjective Patient says she is feeling better. Denies abdominal pain. Last emesis was Saturday into Saturday. She reports + gas/BM. Physical Exam Physical Exam: awake/alert, no distress Gastrointestinal (Abdomen): Percussion/Palpation: abdomen soft; abdomen nontender Results & Data Vital Signs (Past 12 Hours) Vital Signs Temp Pulse Pulse Resp BP BP Pulse Ox 06/17/23 07:43 36.7 C 76 17 144/73 H 96 06/16/23 21:11 36.9 C 69 16 135/75 93 O2 Del Method 06/17/23 07:43 Room Air 06/16/23 21:11 Room Air PG Care Time/CCT Total # of Minutes Spent Total Time Spent with Patient: Total time spent is greater than 50% in coordination of care (as documented) at patient's floor/unit and/or counseling patient: Coding Level of Care Code 31623 SUB INP/OBS CARE MIN Diagnoses Diverticulitis of large intestine with abscess without bleeding K57.20 Diverticulitis bleeding: without bleeding Diverticulitis site: large intestine (1) Diverticulitis of intestine with abscess Diverticulitis bleeding: without bleeding Diverticulitis site: large intestine Qualified Code(s): K57.20 - Diverticulitis of large intestine with perforation and abscess without bleeding
--- NOTE | 2023-06-17 17:01 | Hospitalist Progress Note ---
Date of Service June 17, 2023 Assessment & Plan (1) Diverticulitis of intestine with abscess: Plan: Diverticulitis with 5 cm abscess/contained perforation found on imaging. Started on cipro/flagyl. Abscess unable to be drained percutaneously due to location. Surgery consulted - non surgical management suggested NPO for bowel rest Cipro and Flagyl - started 06/11 Antiemetics with Zofran Tylenol and Toradol PRN for pain control repeat CT without worsening of abscess 06/15/23 slight improvement in 06/19/2019 Electronically sent images with the patient's consent to [facility]. [facility] had review of her images both with the [place] IR program and the [facility] IR program. Both physicians at those programs felt that her abscess was not amenable to interventional radiological approach. I did speak to infectious disease on-call and asked if 5 cm was a reasonable size to consider medical management and they said they would like a formal consult if we are going to that approach. Since there is no longer a consideration for interventional radiological drainage likely infectious disease consultation to be undertaken on June 18, 2023 (2) Atrial fibrillation: Plan: rapid heart rate in am 06/15, ecg with afib controlled v rate, no additional tachycardia pt with no history of, likely from physiologic stess of infection holding off on full AC until we see if surgical risk has passed plus hemorrhoidal bleeding and anemia at present will sneak in low turner metoprolol does have hypothyroidsm on synthroid 100 tsh nl 06/01 (3) Transaminitis: Plan: Likely in the setting of acute diverticulitis. resolved (4) Hypercholesterolemia: Plan: Resume home statin once at time of discharge (5) Hypertension: Plan: stop hctz start metoprolol tartrate 12.5 bid (6) Iatrogenic hypothyroidism: Plan: Holding home levothyroxine Plan Code status: full Patient still complains of some insomnia will try melatonin with a backup Ativan if needed for anxiety and insomnia Admission and Anticipated Discharge Date Admission Date: June 11, 2023 Subjective Patient says she is feeling better. Denies abdominal pain. She is tolerating advancing diet She was in agreement to come to [facility] to evaluate if there is an alternative interventional radiological approach to this issue Physical Exam Physical Exam: awake and alert cardiac sounds regular but afib on ecg lungs are clear abd is soft and continues with mild left lower quadrant discomfort Results & Data Results & Data Vital Signs (Past 12 Hours) Vital Signs Temp Pulse Pulse Resp BP Pulse Ox O2 Del Method 06/17/23 15:30 98.1 F 82 16 132/72 93 Room Air 06/17/23 12:03 97.9 F 78 17 134/74 98 Room Air 06/17/23 08:53 Room Air 06/17/23 07:43 98.1 F 76 17 144/73 H 96 Room Air Laboratory Results Reviewed CBC reviewed C-reactive protein PG Care Time/CCT Total # of Minutes Spent Total Time Spent with Patient: Total time spent is greater than 50% in coordination of care (as documented) at patient's floor/unit and/or counseling patient: Coding Level of Care Code 41858 SUB INP/OBS CARE MIN Diagnoses Diverticulitis of large intestine with abscess without bleeding K57.20 Diverticulitis site: large intestine Diverticulitis bleeding: without bleeding Atrial fibrillation I48.91 Transaminitis R74.01 Hypercholesterolemia E78.00 Hypertension I10 Iatrogenic hypothyroidism E03.2 (1) Diverticulitis of intestine with abscess Diverticulitis site: large intestine Diverticulitis bleeding: without bleeding Qualified Code(s): K57.20 - Diverticulitis of large intestine with perforation and abscess without bleeding
[2023-06-17] MEDS ORDERED: LORazepam 0.5 MG TAB PO PRN (17:02)
[2023-06-17] MEDS: ONDANSETRON INJ 2 MG/ML 2 ML VIAL IV PRN (19:20)
[2023-06-17] MEDS: PROMETHAZINE HCL 12.5 MG in SODIUM CHLORIDE 0.9% 50 ML IV PRN (21:43)
[2023-06-17] MEDS: MELATONIN 3 MG TAB PO SCH (22:55)
[2023-06-18] MEDS: metroNIDAZOLE 500 MG/100 ML BAG IV SCH ×3 (02:20→18:20)
[2023-06-18] MEDS: SODIUM CHLORIDE 0.9% 1,000 ML IV SCH ×2 (02:21→10:24)
[2023-06-18] MEDS: LEVOTHYROXINE SODIUM 100 MCG TABLET PO SCH (05:28)
[2023-06-18] MEDS: CIPROFLOXACIN / D5W 400 MG/200 ML BAG IV SCH ×2 (06:14→18:20)
--- NOTE | 2023-06-18 07:59 | Surgery Progress Note ---
Date of Service June 18, 2023 Assessment & Plan (1) Diverticulitis of intestine with abscess: Plan: She is stable hemodynamically without fevers Continue clears for this morning, maybe advance to fulls this afternoon Continue IV ABX IR unable to drain anything percutaneously If she doesn't tolerate diet or doesn't improve clinically, will plan on Joselo's procedure Admission and Anticipated Discharge Date Admission Date: June 11, 2023 Subjective Pt seen and examined. Minimal abdominal pain. Afebrile. Tolerated clears. Review of Systems Constitutional: no fever and no chills Physical Exam Constitutional: WD/WN, vitals as above Gastrointestinal (Abdomen): Inspection/Auscultation: abdomen normal to inspection; abdomen not distended Percussion/Palpation: abdomen soft; abdomen nontender, no guarding and abdomen not rigid Results & Data Vital Signs (Past 12 Hours) Vital Signs Temp Pulse Resp BP Pulse Ox O2 Del Method 06/18/23 07:01 36.4 C L 75 18 151/82 H 97 Room Air 06/17/23 21:00 Room Air 06/17/23 20:50 36.7 C 72 18 148/78 H 96 Room Air PG Care Time/CCT Total # of Minutes Spent Total Time Spent with Patient: Total time spent is greater than 50% in coordination of care (as documented) at patient's floor/unit and/or counseling patient: Coding Level of Care Code 91624 SUB INP/OBS CARE 07/04MIN Diagnoses Diverticulitis of large intestine with abscess without bleeding K57.20 Diverticulitis site: large intestine Diverticulitis bleeding: without bleeding (1) Diverticulitis of intestine with abscess Diverticulitis site: large intestine Diverticulitis bleeding: without bleeding Qualified Code(s): K57.20 - Diverticulitis of large intestine with perforation and abscess without bleeding
[2023-06-18 08:37] LABS: Basophils # (auto) 0.07 K/uL (0.00-0.20); Basophils % (auto) 0.6 %; Eosinophils # (auto) 0.27 K/uL (0.00-0.50); Eosinophils % (auto) 2.2 %; Hematocrit (blood only) 28.5 % (37.0-47.0); Hemoglobin 9.2 g/dl (12.0-16.0); Immature Granulocytes # (auto) 0.41 K/uL (0.01-0.20); Immature Granulocytes % (auto) 3.4 %; Lymphocytes # (auto) 1.19 K/uL (1.20-3.40); Lymphocytes % (auto) 9.8 %; Mean Corpuscular Hgb Conc 32.3 g/dL (32.0-36.0); Mean Corpuscular Volume 86.6 fL (80.0-100.0); Mean Platelet Volume 9.4 fL (9.4-12.4); Monocytes # (auto) 0.81 K/uL (0.11-0.59); Monocytes % (auto) 6.7 %; Neutrophils # (auto) 9.41 K/uL (1.40-6.50); Neutrophils % (auto) 77.3 %; Platelet Count 403 K/uL (130-400); RDW Coefficient of Variation 14.9 % (11.5-14.5); RDW Standard Deviation 47.3 fL (36.4-46.3); Red Blood Count 3.29 M/uL (4.20-5.40); White Blood Count 12.16 K/ul (4.8-10.8)
[2023-06-18 08:40] LABS: BUN Creatinine Ratio 8.3 (10-20); Calcium 6.5 mg/dl (8.6-10.3); Creatinine Clr Calc Pharmacy 63.8 ml/min; Est GFR (African American) 77.2 ml/min; Est GFR (Non-African American) 66.6 ml/min; Potassium 2.3 mmol/L (3.5-5.1)
[2023-06-18] MEDS ORDERED: MAGNESIUM SULFATE / D5W 1 GM/100 ML BAG IV ONE (09:06)
[2023-06-18] MEDS: METOPROLOL TARTRATE 25 MG TAB PO SCH ×2 (09:46→20:52)
[2023-06-18] MEDS: ESCITALOPRAM OXALATE 10 MG TAB PO SCH (09:47)
[2023-06-18] MEDS: POTASSIUM CHLORIDE / WTR 10 MEQ/100 ML PLCT IV SCH ×5 (10:01→14:09)
[2023-06-18 10:15] LABS: BUN Creatinine Ratio 8.2 (10-20); Calcium 6.7 mg/dl (8.6-10.3); Creatinine Clr Calc Pharmacy 63.1 ml/min; Est GFR (African American) 76.1 ml/min; Est GFR (Non-African American) 65.6 ml/min; Potassium 2.3 mmol/L (3.5-5.1)
[2023-06-18] MEDS ORDERED: POTASSIUM CHLORIDE 20 MEQ in SODIUM CHLORIDE 0.9% 1,000 ML IV SCH (12:15)
[2023-06-18] MEDS: NSS + 20MEQ KCL 20 MEQ/1,000 ML BAG IV SCH (13:58)
--- NOTE | 2023-06-18 15:58 | Hospitalist Progress Note ---
Date of Service June 18, 2023 Assessment & Plan (1) Diverticulitis of intestine with abscess: Plan: Diverticulitis with 5 cm abscess/contained perforation found on imaging. Started on cipro/flagyl. Abscess unable to be drained percutaneously due to location. Surgery consulted - non surgical management suggested Surgery is advancing diet to clear liquids Cipro and Flagyl - started 06/11 Antiemetics with Zofran Tylenol and Toradol PRN for pain control repeat CT without worsening of abscess 06/15/23 shows slight improvement Electronically sent images with the patient's consent to [facility]. [facility] had review of her images both with the [place] IR program and the [facility] IR program. Both physicians at those programs felt that her abscess was not amenable to interventional radiological approach. I did speak to infectious disease on-call and asked if 5 cm was a reasonable size to consider medical management. Since there is no longer a consideration for interventional radiological drainage likely infectious disease consultation to be undertaken on June 18, 2023 (2) Atrial fibrillation: Plan: rapid heart rate in am 06/15, ecg with afib controlled v rate, no additional tachycardia pt with no history of, likely from physiologic stress of infection holding off on full AC until we see if surgical risk has passed plus hemorrhoidal bleeding and anemia at present Is tolerating low-dose metoprolol repeat EKG on 06/19/2023 does have hypothyroidism on Synthroid 100 tsh nl 06/01 (3) Transaminitis: Plan: Likely in the setting of acute diverticulitis. resolved (4) Hypercholesterolemia: Plan: Resume home statin once at time of discharge (5) Hypertension: Plan: stop hctz started metoprolol tartrate 12.5 bid (6) Iatrogenic hypothyroidism: Plan: resume levothyroxine Plan Code status: full Significant hypokalemia on 06/18/2023 augmented with 5K riders iv and 1 g magnesium iv with a recheck at 1600 Patient still complains of some insomnia melatonin with a backup Ativan if needed for anxiety and insomnia Admission and Anticipated Discharge Date Admission Date: June 11, 2023 Subjective Patient seen with her daughter and at the bedside She is tolerating clear liquids has no abdominal pain has a loose bowel movement No focal complaints or problems at this time Physical Exam Physical Exam: awake and alert cardiac sounds regular but afib on ecg repeat EKG on 06/19 lungs are clear abd is soft no significant abdominal discomfort at this time Results & Data Results & Data Vital Signs (Past 12 Hours) Vital Signs Temp Pulse Resp BP Pulse Ox O2 Del Method 06/18/23 13:56 97.7 F 78 16 115/76 95 Room Air 06/18/23 10:25 Room Air 06/18/23 07:01 97.5 F L 75 18 151/82 H 97 Room Air Laboratory Results Reviewed CBC reviewed chemistry PG Care Time/CCT Total # of Minutes Spent Total Time Spent with Patient: Total time spent is greater than 50% in coordination of care (as documented) at patient's floor/unit and/or counseling patient: Coding Level of Care Code 94217 SUB INP/OBS CARE MIN Diagnoses Diverticulitis of large intestine with abscess without bleeding K57.20 Diverticulitis site: large intestine Diverticulitis bleeding: without bleeding Atrial fibrillation I48.91 Transaminitis R74.01 Hypercholesterolemia E78.00 Hypertension I10 Iatrogenic hypothyroidism E03.2 (1) Diverticulitis of intestine with abscess Diverticulitis site: large intestine Diverticulitis bleeding: without bleeding Qualified Code(s): K57.20 - Diverticulitis of large intestine with perforation and abscess without bleeding
--- NOTE | 2023-06-18 16:36 | Infectious Disease Consult ---
Date of Consultation June 18, 2023 Assessment & Plan (1) Diverticulitis of intestine with abscess: Plan 78 yo F who presented on 06/11 with several weeks of abdominal pain, N/V/D, chills, found to have acute sigmoid diverticulitis with contained perforation and pericolonic abscesses, currently being managed medically. On presentation, pt was afebrile with WBC 13.6. CT A/P with IV contrast showed acute sigmoid diverticulitis with 5 cm pericolonic abscess/contained perforation within the sigmoid mesocolon which is not amenable to percutaneous drainage secondary to location; there may be adjacent sinus tract/fistulous associated with the fluid collection. Patient was started on Cipro, Flagyl. Surgery was consulted, opted for conservative management with antibiotics. Patient continued with leukocytosis up to 16.7 on 06/15. Repeat CT A/P with contrast on 06/15 showed slight decrease in the size of collection anterior to the sigmoid colon, measuring 4.8 x 3.6 x 3 cm from 5 x 4.2 x 3.2 cm. Adjacent small right pelvic ring enhancing gas and fluid containing collection measuring 3.2 x 1.1 cm similar to prior CT. The two collections may communicate. Inflammation is similar to prior CT. IR at [facility] and [facility] did not feel the fluid collection was amenable to percutaneous drainage. ID is consulted for antibiotic recs/duration as pt does not want a colostomy. Micro: 1/2 UCx: mixed brie 1/2 BCx x2: NG Abx: Cipro 1/2 - present Metronidazole 1/2 - present Problems: #Acute sigmoid diverticulitis with contained perforation and pericolonic abscesses #Penicillin allergy (rash) Recommendations: -Continue to monitor leukocytosis -If General Surgery is ok with medical management, can continue ciprofloxacin 500 mg PO q12h and metronidazole 500 mg PO q12h on discharge, with plan for repeat CT A/P with IV contrast in ~2 weeks. If a fluid collection persists but is smaller, would extend antibiotics and repeat CT A/P after another couple weeks. Would not discontinue antibiotics until abscess is resolved on follow-up imaging. If no improvement is seen on follow-up imaging, would consider proceeding to colostomy (vs IR drainage if there is some change in the positioning of the fluid collection such that it is now amenable to drainage). -QTc 484 on 06/15/23 Please page [facility] Call Center with further questions. Consultation Information This patient recommendation is based on a telemedicine consult request which was completed asynchronously through chart review and information provided by the primary physician. The patient was not seen or examined today. The evaluation is consultative in nature and all patient care and treatment decisions can either be accepted or rejected by the patient's primary hospital-based treating physician using their own independent medical judgment for their patient. 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 (Phone Number For Physician Use Only) Time Spent Reviewing Chart: 31+ minutes History of Present Illness Reason for Consultation: Pericolonic abscess Requesting Physician: Dr. Mo Hope Attending Physician: Kareem Gibson MD History of Present Illness 78 yo F who presented on 06/11 with several weeks of abdominal pain, as well as abdominal upset, N/V/D, chills. On presentation, patient was afebrile, VSS. Labs showed WBC 13.6, platelets 581, AST 75, ALT 71, alk phos 148, T. bili 1.3. UA with >[address] A/P with IV contrast showed acute sigmoid diverticulitis with 5 cm pericolonic abscess/contained perforation within the sigmoid mesocolon which is not amenable to percutaneous drainage secondary to location; there may be adjacent sinus tract/fistulous associated with the fluid collection. Patient was started on Cipro, Flagyl. Surgery was consulted, opted for conservative management with antibiotics. Any surgical intervention would necessitate a colostomy, which patient would like to avoid. Patient continued with leukocytosis up to 16.7 on 06/15. Repeat CT A/P with contrast on 06/15 showed slight decrease in the size of collection anterior to the sigmoid colon, measuring 4.8 x 3.6 x 3 cm from 5 x 4.2 x 3.2 cm. Adjacent small right pelvic ring enhancing gas and fluid containing collection measuring 3.2 x 1.1 cm similar to prior CT. Inflammation is similar to prior CT. IR at [facility] did not feel the fluid collection was amenable to percutaneous drainage. Jack reviewed patient's images, and also felt her abscess was not amenable to IR drainage. ID is consulted for antibiotic recs/duration as pt does not want a colostomy. Allergies Allergy/AdvReac Type Severity Reaction Status Date / Time Penicillins Allergy Intermediate RASH Verified 06/11/23 19:39 meperidine AdvReac Intermediate "FEELS OUT Verified 06/11/23 19:39 OF SPACE" chlorpromazine AdvReac Mild "JITTERY" Verified 06/11/23 19:39 droperidol AdvReac Mild "JITTERY" Verified 06/11/23 19:39 Home Medications Medication Instructions Recorded Confirmed Type cholecalciferol (vitamin D3) 25 1,000 unit PO QAM 06/18/18 06/11/23 History mcg (1,000 unit) capsule (Vitamin D3) multivitamin 1 tab PO QAM 06/18/18 06/11/23 History coenzyme Q10 200 mg capsule 200 mg PO QAM 01/15/19 06/11/23 History biotin 5,000 mcg disintegrating 5,000 mcg PO QAM 01/28/19 06/11/23 History tablet calcium carbonate 500 mg calcium 1,000 mg PO DAILY 08/18/21 06/11/23 History (1,250 mg) tablet vitamin B complex 1 tab PO DAILY 08/18/21 06/11/23 History ciclopirox 0.77 % topical cream 1 applic topical BID PRN rash #30 12/04/21 06/11/23 Rx grams atorvastatin 20 mg tablet 20 mg PO DAILY #90 tabs 08/11/22 06/11/23 Rx conj estrogen-medroxyprogesterone 1 tab PO 2XWK #28 tabs 10/17/22 06/11/23 Rx 0.3 mg-1.5 mg tablet (Prempro) levothyroxine 100 mcg tablet 100 mcg PO QAM #90 tabs 11/27/22 06/11/23 Rx celecoxib 200 mg capsule (Celebrex) 200 mg PO QAM #90 caps 02/20/23 06/11/23 Rx hydrochlorothiazide 25 mg tablet 25 mg PO QAM #90 tabs 02/20/23 06/11/23 Rx potassium chloride 10 mEq 10 meq PO QAM #90 caps 02/20/23 06/11/23 Rx capsule,extended release tramadol 50 mg tablet 50 mg PO HS #60 tabs 03/12/23 06/11/23 Rx diclofenac sodium 1 % topical gel 2 g topical QID PRN pain #100 grams 03/27/23 06/11/23 Rx omeprazole 20 mg capsule,delayed 20 mg PO DAILY #90 caps 03/27/23 06/11/23 Rx release escitalopram oxalate 5 mg tablet 5 mg PO DAILY #30 tabs 05/30/23 06/11/23 Rx Patient History Medical History History of hypokalemia Benign neoplasm of thyroid gland Urethral lesion History of hypercalcemia History of postmenopausal bleeding GERD (gastroesophageal reflux disease) HX Surgical History H/O cystoscopy with removal of obstructing urethral lesion History of esophagogastroduodenoscopy (EGD) History of dilation and curettage History of bilateral tubal ligation History of repair of right rotator cuff History of colonoscopy History of cholecystectomy History of tonsillectomy and adenoidectomy Status post biopsy of thyroid gland History of thyroidectomy, total benign tumor Family History Brother Family hx of colon cancer Colorectal cancer Family/Other Diabetes Sister Breast cancer Other No family history of adverse response to anesthesia Denies family history of Pancreatic cancer Ovarian cancer Prostate cancer Myocardial infarction Lung cancer Uterine cancer Social History Smoking Status: Never smoker Second Hand Exposure: Yes (SPOUSE SMOKES PIPE); Do You Dip or Chew Tobacco: No; Hx Alcohol Use: No Hx Substance Use: No Preferred Language: Cymraes Communication Ability: Effective Visual Impairment: No Limitations Hearing Ability: Normal Chemical Processing Technician Required: No Beliefs That Will Affect Care: None marital status: Current Living Situation: Spouse current occupational status: retired Feels Safe at Home: Yes Childhood Exposure to Second-Hand Smoke: Yes Diet: regular caffeine: Yes Dental Care, Regularly: Yes Physical Activity Frequency: Does not Exercise Physical Activity Frequency Comment: No routine, but is physically active around the house Seatbelt Use: always Sunscreen Use: No Assistive Devices: Glasses Review of System Pt was not seen Physical Exam Physical Exam: Pt was not seen Results & Data Vital Signs (Past 12 Hours) Vital Signs Temp Pulse Resp BP Pulse Ox O2 Del Method 06/18/23 13:56 36.5 C 78 16 115/76 95 Room Air 06/18/23 10:25 Room Air 06/18/23 07:01 36.4 C L 75 18 151/82 H 97 Room Air Laboratory Results Short CBC 06/18/23 Range/Units 07:38 WBC 12.16 H (4.8-10.8) K/ul Hgb 9.2 L (12.0-16.0) g/dl Hct 28.5 L (37.0-47.0) % Plt Count 403 H (130-400) K/uL BMP 06/18/23 06/18/23 07:38 09:25 Sodium 142 140 Potassium 2.3 L* 2.3 L* Chloride 114 H 111 H Carbon Dioxide 22 20 L BUN 7 7 Creatinine 0.84 0.85 Glucose 103 H 120 H Calcium 6.5 L 6.7 L Medications Administered Current Inpatient Medications Diclofenac Sodium (Diclofenac Sod 1% Gel 100 Gm Tube) 2 gm EXT QID PRN; Protocol PRN Reason: pain Stop: 07/11/23 20:42 Escitalopram Oxalate (Escitalopram Oxalate 10 Mg Tab) 5 mg PO DAILY RADHA Stop: 07/15/23 08:59 Last Admin: 06/18/23 09:47 Dose: 5 mg Ciprofloxacin (Cipro / D5w) 400 mg in 200 mls @ 100 mls/hr IV Q12H RADHA; Protocol Stop: 06/22/23 06:59 Last Infusion: 06/18/23 08:16 Dose: Infused Metronidazole (Flagyl) 500 mg in 100 mls @ 100 mls/hr IV Q8H RADHA; Protocol Stop: 06/22/23 02:59 Last Infusion: 06/18/23 13:08 Dose: Infused Promethazine HCl 12.5 mg/ (Sodium Chloride) 50.5 mls @ 202 mls/hr IV Q6H PRN PRN Reason: Nausea And Vomiting Stop: 07/15/23 09:27 Last Infusion: 06/17/23 21:58 Dose: Infused Potassium Chloride/Sodium Chloride (Normal Saline W/20 Meq Kcl) 20 meq in 1,000 mls @ 100 mls/hr IV .Q10H RADHA Stop: 07/18/23 12:14 Last Admin: 06/18/23 13:58 Dose: 100 mls/hr Levothyroxine Sodium (Levothyroxine Sodium 100 Mcg Tablet) 100 mcg PO DAILYBB [facility] Stop: 07/14/23 08:59 Last Admin: 06/18/23 05:28 Dose: 100 mcg Lorazepam (Lorazepam 0.5 Mg Tab) 0.5 mg PO Q6H PRN PRN Reason: Anxiety Stop: 07/17/23 17:01 Melatonin (Melatonin 3 Mg Tab) 3 mg PO HS [facility] Stop: 07/17/23 20:59 Last Admin: 06/17/23 22:55 Dose: 3 mg Metoprolol Tartrate (Metoprolol Tartrate 25 Mg Tab) 12.5 mg PO BID [facility] Stop: 07/15/23 20:59 Last Admin: 06/18/23 09:46 Dose: 12.5 mg Ondansetron HCl (Ondansetron Inj 2 Mg/Ml 2 Ml Vial) 4 mg IV Q6H PRN PRN Reason: Nausea Stop: 07/11/23 20:42 Last Admin: 06/17/23 19:20 Dose: 4 mg (1) Diverticulitis of intestine with abscess Diverticulitis site: large intestine Diverticulitis bleeding: without bleeding Qualified Code(s): K57.20 - Diverticulitis of large intestine with perforation and abscess without bleeding
[2023-06-18 17:34] LABS: BUN Creatinine Ratio 8.5 (10-20); Calcium 6.5 mg/dl (8.6-10.3); Creatinine Clr Calc Pharmacy 65.4 ml/min; Est GFR (African American) 79.4 ml/min; Est GFR (Non-African American) 68.5 ml/min; Potassium 2.7 mmol/L (3.5-5.1)
[2023-06-18] MEDS: MELATONIN 3 MG TAB PO SCH (20:51)
[2023-06-19] MEDS: NSS + 20MEQ KCL 20 MEQ/1,000 ML BAG IV SCH (02:07)
[2023-06-19] MEDS: metroNIDAZOLE 500 MG/100 ML BAG IV SCH ×3 (02:56→18:36)
[2023-06-19] MEDS: LEVOTHYROXINE SODIUM 100 MCG TABLET PO SCH (05:08)
[2023-06-19] MEDS: CIPROFLOXACIN / D5W 400 MG/200 ML BAG IV SCH ×2 (06:35→18:36)
[2023-06-19 07:54] LABS: Basophils # (auto) 0.07 K/uL (0.00-0.20); Basophils % (auto) 0.6 %; Eosinophils % (auto) 2.5 %; Hematocrit (blood only) 27.2 % (37.0-47.0); Hemoglobin 9.1 g/dl (12.0-16.0); Immature Granulocytes # (auto) 0.45 K/uL (0.01-0.20); Immature Granulocytes % (auto) 3.7 %; Lymphocytes # (auto) 1.39 K/uL (1.20-3.40); Lymphocytes % (auto) 11.5 %; Mean Corpuscular Hemoglobin 28.5 pg (25.0-34.0); Mean Corpuscular Hgb Conc 33.5 g/dL (32.0-36.0); Mean Corpuscular Volume 85.3 fL (80.0-100.0); Mean Platelet Volume 9.3 fL (9.4-12.4); Monocytes # (auto) 0.78 K/uL (0.11-0.59); Monocytes % (auto) 6.4 %; Neutrophils # (auto) 9.12 K/uL (1.40-6.50); Neutrophils % (auto) 75.3 %; Platelet Count 390 K/uL (130-400); RDW Coefficient of Variation 15.1 % (11.5-14.5); Red Blood Count 3.19 M/uL (4.20-5.40); White Blood Count 12.11 K/ul (4.8-10.8)
--- NOTE | 2023-06-19 07:56 | Surgery Progress Note ---
Date of Service June 19, 2023 Assessment & Plan (1) Diverticulitis of intestine with abscess: Plan: Patient here with perforated diverticulitis WBC pending, otherwise vitals are stable pt afebrile She was started on full liquids without worsening symptoms Abd soft, non tender, non distended If blood work comes back okay can advance to low fiber for lunch Continue course of IV abx, appreciate hospitalists and ID's assistance Admission and Anticipated Discharge Date Admission Date: June 11, 2023 Supervising Physician Co-Signing Physician Notes I personally saw and evaluated the patient with Huyen Ortiz PA-C and agree with assessment and plan. 78-year-old female diverticulitis with pericolonic/pelvic abscess She has tolerated full liquids, will advance to low fiber for lunch Continue IV antibiotics while inpatient, her leukocytosis is stable If she tolerates her low fiber diet and remains without fever or tachycardia, she can likely be discharged tomorrow from a surgical standpoint to remain on p.o. antibiotics Would advocate for follow-up with colorectal surgery as she likely needs resecti on at some point based on the severity of her disease Will continue to follow Subjective Patient reports feeling well this AM. Tolerating full liquids. Had a small bout of nausea yesterday but said it passed with deep breathing. + gas/Bms. Physical Exam Physical Exam: awake/alert, no distress Gastrointestinal (Abdomen): Inspection/Auscultation: abdomen not distended Percussion/Palpation: abdomen soft; abdomen nontender Results & Data Vital Signs (Past 12 Hours) Vital Signs Temp Pulse Resp BP Pulse Ox O2 Del Method 06/18/23 21:00 Room Air 06/18/23 20:46 37.0 C 83 16 122/76 95 Room Air PG Care Time/CCT Total # of Minutes Spent Total Time Spent with Patient: Total time spent is greater than 50% in coordination of care (as documented) at patient's floor/unit and/or counseling patient: Coding Level of Care Code 42130 SUB INP/OBS CARE 07/04MIN Diagnoses Diverticulitis of large intestine with abscess without bleeding K57.20 Diverticulitis bleeding: without bleeding Diverticulitis site: large intestine (1) Diverticulitis of intestine with abscess Diverticulitis bleeding: without bleeding Diverticulitis site: large intestine Qualified Code(s): K57.20 - Diverticulitis of large intestine with perforation and abscess without bleeding
[2023-06-19] MEDS: ESCITALOPRAM OXALATE 10 MG TAB PO SCH (08:00)
[2023-06-19] MEDS: METOPROLOL TARTRATE 25 MG TAB PO SCH ×2 (08:00→20:00)
[2023-06-19 08:09] LABS: BUN Creatinine Ratio 7.6 (10-20); Calcium 6.4 mg/dl (8.6-10.3); Creatinine Clr Calc Pharmacy 67.8 ml/min; Est GFR (African American) 83.1 ml/min; Est GFR (Non-African American) 71.7 ml/min; Potassium 2.9 mmol/L (3.5-5.1)
--- NOTE | 2023-06-19 09:33 | Electrocardiogram Report ---
Test Reason : Blood Pressure : / mmHG Vent. Rate : 070 BPM Atrial Rate : 070 BPM P-R Int : 158 ms QRS Dur : 086 ms QT Int : 470 ms P-R-T Axes : 049 003 059 degrees QTc Int : 507 ms Sinus rhythm with Premature atrial complexes Low voltage QRS Poor R wave progression, consider anterior NC vs. lead placement vs. LVH Abnormal ECG When compared with ECG of 15-JUN-2023 08:21, Premature atrial complexes are now Present Confirmed by Joel Duarte ([id number]) on 06/19/2023 9:33:12 AM Referred By: REFERRED SELF Confirmed By:Joel Duarte
--- NOTE | 2023-06-19 09:53 | Hospitalist Progress Note ---
Date of Service June 19, 2023 Assessment & Plan (1) Diverticulitis of intestine with abscess: Plan: Diverticulitis with 5 cm abscess/contained perforation found on imaging. Started on cipro/flagyl. Abscess unable to be drained percutaneously due to location. Surgery consulted - non surgical management suggested Surgery is advancing diet to clear liquids Cipro and Flagyl - started 06/11 Antiemetics with Zofran Tylenol and Toradol PRN for pain control repeat CT without worsening of abscess 06/15/23 shows slight improvement Infectious Disease consult: If General Surgery is ok with medical management, can continue ciprofloxacin 500 mg PO q12h and metronidazole 500 mg PO q12h on discharge, with plan for repeat CT A/P with IV contrast in ~2 weeks. If a fluid collection persists but is smaller, would extend antibiotics and repeat CT A/P after another couple weeks. Would not discontinue antibiotics until abscess is resolved on follow-up imaging. If no improvement is seen on follow-up imaging, would consider proceeding to colostomy (vs IR drainage if there is some change in the positioning of the fluid collection such that it is now amenable to drainage). Electronically sent images with the patient's consent to [facility]. [facility] had review of her images both with the [place] IR program and the [facility] IR program. Both physicians at those programs felt that her abscess was not amenable to interventional radiological approach. I did speak to infectious disease on-call and asked if 5 cm was a reasonable size to consider medical management. Since there is no longer a consideration for interventional radiological drainage likely infectious disease consultation to be undertaken on June 18, 2023 PT with edema from IVF, will stop and use one dose of lasix iv follow K (2) Atrial fibrillation: Plan: rapid heart rate in am 06/15, ecg with afib controlled v rate, no additional tachycardia pt with no history of, likely from physiologic stress of infection currently on low-dose metoprolol, repeat EKG on 06/19/2023 nsr, will have one month AC then and cardiology consult during that time does have hypothyroidism on Synthroid 100 tsh nl 06/01 (3) Transaminitis: Plan: Likely in the setting of acute diverticulitis. resolved (4) Hypercholesterolemia: Plan: Resume home statin once at time of discharge (5) Hypertension: Plan: stop hctz started metoprolol tartrate 12.5 bid (6) Iatrogenic hypothyroidism: Plan: resume levothyroxine Plan Code status: full Significant hypokalemia again 06/19/23 repeat augmentation Patient still complains of some insomnia melatonin with a backup Ativan if needed for anxiety and insomnia Admission and Anticipated Discharge Date Admission Date: June 11, 2023 Subjective pt is complaining of leg pain and swelling is agreeable to using lovenox at this time for afib ( now returned to sinus rhythm) Physical Exam Physical Exam: awake and alert cardiac sounds regular EKG on 06/19 has returned to nsr lungs are clear abd is soft no significant abdominal discomfort at this time ext have 1-2+ edema b/l Results & Data Results & Data Vital Signs (Past 12 Hours) Vital Signs Temp Pulse Resp BP Pulse Ox O2 Del Method 06/19/23 07:40 97.9 F 66 16 150/80 H 96 Room Air Laboratory Results ecg shows nsr PG Care Time/CCT Total # of Minutes Spent Total Time Spent with Patient: Total time spent is greater than 50% in coordination of care (as documented) at patient's floor/unit and/or counseling patient: Coding Level of Care Code 06741 SUB INP/OBS CARE 3/50MIN Diagnoses Diverticulitis of large intestine with abscess without bleeding K57.20 Diverticulitis bleeding: without bleeding Diverticulitis site: large intestine Atrial fibrillation I48.91 Transaminitis R74.01 Hypercholesterolemia E78.00 Hypertension I10 Iatrogenic hypothyroidism E03.2 (1) Diverticulitis of intestine with abscess Diverticulitis bleeding: without bleeding Diverticulitis site: large intestine Qualified Code(s): K57.20 - Diverticulitis of large intestine with perforation and abscess without bleeding
[2023-06-19] MEDS ORDERED: MAGNESIUM SULFATE / D5W 1 GM/100 ML BAG IV ONE (10:00)
[2023-06-19] MEDS: POTASSIUM CHLORIDE / WTR 10 MEQ/100 ML PLCT IV SCH ×5 (10:04→14:25)
[2023-06-19] MEDS ORDERED: FUROSEMIDE INJ 20 MG/2 ML VIAL IV ONE (16:35)
[2023-06-19] MEDS: ENOXAPARIN 100 MG/1ML SYR SQ SCH (18:37)
[2023-06-19] MEDS ORDERED: ENOXAPARIN 1 MG/KG SQ SCH (19:00)
[2023-06-19] MEDS: POTASSIUM CHLORIDE CRTAB 20 MEQ TABCR PO SCH (20:01)
[2023-06-20] MEDS: MELATONIN 3 MG TAB PO SCH ×2 (00:22→22:36)
[2023-06-20] MEDS: metroNIDAZOLE 500 MG/100 ML BAG IV SCH ×3 (04:50→19:09)
[2023-06-20] MEDS: CIPROFLOXACIN / D5W 400 MG/200 ML BAG IV SCH ×2 (05:51→19:09)
[2023-06-20] MEDS: ENOXAPARIN 100 MG/1ML SYR SQ SCH ×2 (05:52→19:09)
[2023-06-20] MEDS: LEVOTHYROXINE SODIUM 100 MCG TABLET PO SCH (05:52)
[2023-06-20] MEDS: ESCITALOPRAM OXALATE 10 MG TAB PO SCH (07:56)
[2023-06-20] MEDS: POTASSIUM CHLORIDE CRTAB 20 MEQ TABCR PO SCH ×2 (07:56→22:37)
[2023-06-20] MEDS: METOPROLOL TARTRATE 25 MG TAB PO SCH ×2 (07:57→22:36)
[2023-06-20 08:41] LABS: BUN Creatinine Ratio 5.9 (10-20); Creatinine Clr Calc Pharmacy 63.1 ml/min; Est GFR (African American) 76.1 ml/min; Est GFR (Non-African American) 65.6 ml/min
--- NOTE | 2023-06-20 08:59 | Surgery Progress Note ---
Date of Service June 20, 2023 Assessment & Plan (1) Diverticulitis large intestine: Plan: She continues to improve and stay hemodynamically stable without fever She is been tolerating a low fiber diet since yesterday afternoon She is stable to be discharged from a surgical standpoint, although she has been persistently hypokalemic and have some lower extremity edema She can be discharged on p.o. Curryten Vuongmoriah Again would advocate for follow-up with colorectal surgery as an outpatient as she will likely need sigmoid resection at some point Admission and Anticipated Discharge Date Admission Date: June 11, 2023 Subjective Patient seen and examined. States she is feeling better than yesterday. Denies abdominal pain. Has been tolerating a low fiber diet. Afebrile. No tachycardia. Review of Systems Constitutional: no fever and no chills Gastrointestinal: no abdominal pain, no nausea and no vomiting Physical Exam Constitutional: WD/WN, vitals as above Gastrointestinal (Abdomen): Inspection/Auscultation: abdomen normal to inspection; abdomen not distended Percussion/Palpation: abdomen soft; abdomen nontender and no guarding Results & Data Vital Signs (Past 12 Hours) Vital Signs Temp Pulse Resp BP Pulse Ox O2 Del Method 06/20/23 08:00 36.4 C L 77 16 131/78 97 Room Air PG Care Time/CCT Total # of Minutes Spent Total Time Spent with Patient: Total time spent is greater than 50% in coordination of care (as documented) at patient's floor/unit and/or counseling patient: Coding Level of Care Code 18438 SUB INP/OBS CARE Diagnoses Diverticulitis large intestine K57.20 Diverticulitis bleeding: without bleeding Diverticulitis complication: with abscess (1) Diverticulitis large intestine Diverticulitis bleeding: without bleeding Diverticulitis complication: with abscess Qualified Code(s): K57.20 - Diverticulitis of large intestine with perforation and abscess without bleeding
[2023-06-20] MEDS ORDERED: FUROSEMIDE 40 MG/4 ML VIAL IV ONE (10:01)
[2023-06-20] MEDS: POTASSIUM CHLORIDE / WTR 10 MEQ/100 ML PLCT IV SCH ×4 (10:34→14:05)
--- NOTE | 2023-06-20 15:26 | Hospitalist Progress Note ---
Date of Service June 20, 2023 Assessment & Plan (1) Diverticulitis of intestine with abscess: Plan: Diverticulitis with 5 cm abscess/contained perforation found on imaging. Started on cipro/flagyl. Abscess unable to be drained percutaneously due to location. Surgery consulted - non surgical management suggested Surgery is advancing diet to clear liquids Cipro and Flagyl - started 06/11 Antiemetics with Zofran Tylenol and Toradol PRN for pain control repeat CT without worsening of abscess 06/15/23 shows slight improvement Infectious Disease consult: If General Surgery is ok with medical management, can continue ciprofloxacin 500 mg PO q12h and metronidazole 500 mg PO q12h on discharge, with plan for repeat CT A/P with IV contrast in ~2 weeks. If a fluid collection persists but is smaller, would extend antibiotics and repeat CT A/P after another couple weeks. Would not discontinue antibiotics until abscess is resolved on follow-up imaging. If no improvement is seen on follow-up imaging, would consider proceeding to colostomy (vs IR drainage if there is some change in the positioning of the fluid collection such that it is now amenable to drainage). Electronically sent images with the patient's consent to [facility]. [facility] had review of her images both with the [place] IR program and the [facility] IR program. Both physicians at those programs felt that her abscess was not amenable to interventional radiological approach. I did speak to infectious disease on-call and asked if 5 cm was a reasonable size to consider medical management. 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 and following output and potassium (2) Atrial fibrillation: Plan: rapid heart rate in am 06/15, ecg with afib controlled v rate, no additional tachycardia pt with no history of, likely from physiologic stress of infection currently on low-dose metoprolol, repeat EKG on 06/19/2023 nsr, will have one month AC then and cardiology consult during that time, may stop AC if in nsr after one month CHADVASC is 4, Hasbled 2, using Lovenox as can stop quickly if needed to intervene for procedure, 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 resolved (4) Hypercholesterolemia: Plan: Resume home statin once at time of discharge (5) Hypertension: Plan: stop hctz started metoprolol tartrate 12.5 bid (6) Iatrogenic hypothyroidism: Plan: resume levothyroxine Plan Code status: full Significant hypokalemia Patient complains of some insomnia melatonin with a backup Ativan if needed for anxiety and insomnia Admission and Anticipated Discharge Date Admission Date: June 11, 2023 Subjective PT is doing well tolerating diet and has no abdominal pain has third spaced fluids from ivf and npo status while watching this pericoloic abscess chart noted 31 L ahead, but outputs are grossly inaccurate Physical Exam Physical Exam: awake and alert cardiac sounds regular EKG on 06/19 has returned to nsr lungs are clear abd is soft no significant abdominal discomfort at this time ext have 1-2+ edema b/l Results & Data Results & Data Vital Signs (Past 12 Hours) Vital Signs Temp Pulse Resp BP Pulse Ox O2 Del Method 06/20/23 12:41 Room Air 06/20/23 08:00 97.5 F L 77 16 131/78 97 Room Air Laboratory Results reviewed chemistry ordered additional labs 06/21/23 PG Care Time/CCT Total # of Minutes Spent Total Time Spent with Patient: Total time spent is greater than 50% in coordination of care (as documented) at patient's floor/unit and/or counseling patient: Coding Level of Care Code 42180 SUB INP/OBS CARE MIN Diagnoses Diverticulitis of large intestine with abscess without bleeding K57.20 Diverticulitis site: large intestine Diverticulitis bleeding: without bleeding Atrial fibrillation I48.91 Transaminitis R74.01 Hypercholesterolemia E78.00 Hypertension I10 Iatrogenic hypothyroidism E03.2 (1) Diverticulitis of intestine with abscess Diverticulitis site: large intestine Diverticulitis bleeding: without bleeding Qualified Code(s): K57.20 - Diverticulitis of large intestine with perforation and abscess without bleeding
[2023-06-20] MEDS: ONDANSETRON INJ 2 MG/ML 2 ML VIAL IV PRN (20:59)
[2023-06-21] MEDS: metroNIDAZOLE 500 MG/100 ML BAG IV SCH ×3 (03:56→18:11)
[2023-06-21] MEDS: ENOXAPARIN 100 MG/1ML SYR SQ SCH ×2 (06:30→18:11)
[2023-06-21] MEDS: LEVOTHYROXINE SODIUM 100 MCG TABLET PO SCH (06:30)
[2023-06-21 07:40] LABS: Albumin Level 2.2 gm/dl (3.4-5.0); Bilirubin,Total 0.4 mg/dl (0.2-1.0); Calcium 6.8 mg/dl (8.6-10.3); Magnesium 1.3 mg/dl (1.7-2.4)
[2023-06-21 07:46] LABS: Albumin Globulin Ratio 0.8 (0.9-2); BUN Creatinine Ratio 6.9 (10-20); Creatinine Clr Calc Pharmacy 61.6 ml/min; Est GFR (Non-African American) 63.8 ml/min; Globulin 2.8 gm/dl (2.5-4.0)
[2023-06-21] MEDS: CIPROFLOXACIN / D5W 400 MG/200 ML BAG IV SCH ×2 (08:16→19:31)
[2023-06-21] MEDS: METOPROLOL TARTRATE 25 MG TAB PO SCH ×2 (08:18→22:06)
[2023-06-21] MEDS: ESCITALOPRAM OXALATE 10 MG TAB PO SCH (08:18)
[2023-06-21] MEDS: POTASSIUM CHLORIDE CRTAB 20 MEQ TABCR PO SCH ×2 (08:22→22:07)
--- NOTE | 2023-06-21 08:55 | Surgery Progress Note ---
Date of Service June 21, 2023 Assessment & Plan (1) Diverticulitis large intestine: Plan: Pt here with diverticulitis with abscess not amenable to drainage at this time Vitals stable and pt afebrile Denies pain. some n/v which has been ongoing for her for some time now. did tolerate bfast this AM no issues Plan to continue on a low fiber diet and transition to a course of po cipro/flagyl upon dispo She may be discharged from our standpoint once cleared by medicine Recommend f/u with colorectal surgery as an outpt as will likely require sigmoid resection down the road once recovered from this episode We will follow peripherally, but [facility] on the weekend if any questions/concerns Admission and Anticipated Discharge Date Admission Date: June 11, 2023 Supervising Physician Co-Signing Physician Notes I personally saw and evaluated the patient with Huyen Ortiz PA-C and agree with assessment and plan. 78-year-old female diverticulitis with pericolonic/pelvic abscess She continues to do well without fevers or tachycardia Nothing further to add from a surgical standpoint Will sign off at this time Subjective Patient denies any abdominal pain. Had an episode of n/v last evening, timing seems unrelated to meals. This AM denies nausea and ate her full bfast. + gas Physical Exam Physical Exam: awake/alert, no distress Gastrointestinal (Abdomen): Inspection/Auscultation: abdomen not distended Percussion/Palpation: abdomen soft; abdomen nontender Results & Data Vital Signs (Past 12 Hours) Vital Signs Temp Pulse Resp BP Pulse Ox O2 Del Method 06/21/23 07:52 36.4 C L 79 18 133/75 97 Room Air 06/20/23 21:32 36.6 C 87 20 142/70 H 98 Room Air PG Care Time/CCT Total # of Minutes Spent Total Time Spent with Patient: Total time spent is greater than 50% in coordination of care (as documented) at patient's floor/unit and/or counseling patient: Coding Level of Care Code 10208 SUB INP/OBS CARE 07/04MIN Diagnoses Diverticulitis large intestine K57.20 Diverticulitis bleeding: without bleeding Diverticulitis complication: with abscess (1) Diverticulitis large intestine Diverticulitis bleeding: without bleeding Diverticulitis complication: with abscess Qualified Code(s): K57.20 - Diverticulitis of large intestine with perforation and abscess without bleeding
[2023-06-21] MEDS: SUCRALFATE 1 GM/10 ML UDC PO SCH ×3 (13:46→22:07)
[2023-06-21] MEDS: ONDANSETRON INJ 2 MG/ML 2 ML VIAL IV PRN ×2 (15:44→23:38)
--- NOTE | 2023-06-21 19:29 | Hospitalist Progress Note ---
Date of Service June 21, 2023 Assessment & Plan (1) Diverticulitis of intestine with abscess: Plan: Diverticulitis with 5 cm abscess/contained perforation found on imaging. Started on cipro/flagyl. Abscess unable to be drained percutaneously due to location. Surgery consulted - non surgical management suggested overall doing well in this regardwould be safe/stable for home on p.o. antibiotics in this respect, but chronic vomiting has become an issue at the forefront lengthening her hospital stay (2) Chronic vomiting: Plan: patient/daughter note that shewithout having discussed this with any care providers beforeapparently has had nausea and vomiting at least going back to Thanksgiving, possibly longer. Symptoms seem consistent with peptic ulcer disease and/or esophageal strictureasked GI to see her for considerations for an EGD, they noted that they would facilitate outpatient scope but did not feel that an inpatient scope was appropriate. Twice daily Protonix, twice daily Pepcid, 4 times daily Carafate, supportive care. May need to build a liquid diet to maintain nutrition pending scope. 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 resolved (5) Hypercholesterolemia: Plan: Resume home statin once at time of discharge (6) Hypertension: Plan: BP reasonable for the situation (7) Iatrogenic hypothyroidism: Plan: resume levothyroxine Plan Code status: full anticipate rehab after discharge, but for now would need to get better control of chronic nausea prior to being able to safely dc Admission and Anticipated Discharge Date Admission Date: June 11, 2023 Results & Data Results & Data Vital Signs (Past 12 Hours) Vital Signs Temp Pulse Resp BP Pulse Ox O2 Del Method 06/21/23 15:06 98.1 F 90 18 114/69 97 Room Air 06/21/23 07:52 97.5 F L 79 18 133/75 97 Room Air PG Care Time/CCT Total # of Minutes Spent Total Time Spent with Patient: Total time spent is greater than 50% in coordination of care (as documented) at patient's floor/unit and/or counseling patient: Coding Level of Care Code 57469 SUB INP/OBS CARE 350MIN Diagnoses Diverticulitis of large intestine with abscess without bleeding K57.20 Diverticulitis site: large intestine Diverticulitis bleeding: without bleeding Chronic vomiting R11.10 Atrial fibrillation I48.91 Transaminitis R74.01 Hypercholesterolemia E78.00 Hypertension I10 Iatrogenic hypothyroidism E03.2 (1) Diverticulitis of intestine with abscess Diverticulitis site: large intestine Diverticulitis bleeding: without bleeding Qualified Code(s): K57.20 - Diverticulitis of large intestine with perforation and abscess without bleeding
[2023-06-21] MEDS: PROMETHAZINE HCL 12.5 MG in SODIUM CHLORIDE 0.9% 50 ML IV PRN (21:26)
[2023-06-21] MEDS: MELATONIN 3 MG TAB PO SCH (22:04)
[2023-06-21] MEDS: PANTOprazole 40 MG TAB PO SCH (22:07)
[2023-06-21] MEDS: FAMOTIDINE 20 MG TAB PO SCH (22:07)
[2023-06-22] MEDS ORDERED: LORazepam 0.5 MG in SYRINGE 0.25 ML IV ONE (00:10)
[2023-06-22] MEDS: MELATONIN 3 MG TAB PO SCH ×2 (02:29→20:29)
[2023-06-22] MEDS: ENOXAPARIN 100 MG/1ML SYR SQ SCH ×2 (06:26→18:07)
[2023-06-22] MEDS: LEVOTHYROXINE SODIUM 100 MCG TABLET PO SCH (06:27)
[2023-06-22] MEDS: ESCITALOPRAM OXALATE 10 MG TAB PO SCH (08:40)
[2023-06-22] MEDS: PANTOprazole 40 MG TAB PO SCH ×2 (08:40→20:29)
[2023-06-22] MEDS: METOPROLOL TARTRATE 25 MG TAB PO SCH ×2 (08:40→20:30)
[2023-06-22] MEDS: FAMOTIDINE 20 MG TAB PO SCH ×2 (08:40→20:30)
[2023-06-22] MEDS: SUCRALFATE 1 GM/10 ML UDC PO SCH ×4 (08:41→20:29)
[2023-06-22] MEDS: POTASSIUM CHLORIDE CRTAB 20 MEQ TABCR PO SCH (08:42)
--- NOTE | 2023-06-22 14:25 | Hospitalist Progress Note ---
Date of Service June 22, 2023 Assessment & Plan (1) Diverticulitis of intestine with abscess: Plan: Diverticulitis with 5 cm abscess/contained perforation found on imaging. Started on cipro/flagyl. Abscess unable to be drained percutaneously due to location. Surgery consulted - non surgical management suggested overall doing well in this regardwould be safe/stable for home on p.o. antibiotics in this respect, but chronic vomiting has become an issue at the forefront lengthening her hospital stay Nausea has improved on 06/22. Will monitor and makes ure this trend continues as she just had lunch. If she contiues to improve, will consider discharge on 06/23 (2) Chronic vomiting: Plan: patient/daughter note that shewithout having discussed this with any care providers beforeapparently has had nausea and vomiting at least going back to Thanksgiving, possibly longer. Symptoms seem consistent with peptic ulcer disease and/or esophageal strictureasked GI to see her for considerations for an EGD, they noted that they would facilitate outpatient scope but did not feel that an inpatient scope was appropriate. Twice daily Protonix, twice daily Pepcid, 4 times daily Carafate, supportive care. May need to build a liquid diet to maintain nutrition pending scope. 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 resolved (5) Hypercholesterolemia: Plan: Resume home statin once at time of discharge (6) Hypertension: Plan: BP reasonable for the situation (7) Iatrogenic hypothyroidism: Plan: resume levothyroxine Plan Code status: full anticipate rehab after discharge, but for now would need to get better control of chronic nausea prior to being able to safely dc Admission and Anticipated Discharge Date Admission Date: June 11, 2023 Subjective 78 yo female reports nausea is better. She also reports her leg swelling has improved. Review of Systems Review of Systems: All systems reviewed & are unremarkable except as noted in HPI & below Physical Exam Physical Exam: Gen: non-toxic appearing female in NAD HEENT: AT NC MMM Resp: CTAB no wheezing no increased work of breathing CV: RRR no m/r/g GI: soft, non-distended, mildly tender to palpation Psych: appropriate mood and affect Results & Data Results & Data Vital Signs (Past 12 Hours) Vital Signs Temp Pulse Resp BP Pulse Ox O2 Del Method 06/22/23 07:40 Room Air 06/22/23 07:17 36.6 C 83 16 124/74 96 Room Air PG Care Time/CCT Total # of Minutes Spent Total Time Spent with Patient: Total time spent is greater than 50% in coordination of care (as documented) at patient's floor/unit and/or counseling patient: Coding Level of Care Code 28884 SUB INP/OBS CARE MIN Diagnoses Diverticulitis of large intestine with abscess without bleeding K57.20 Diverticulitis site: large intestine Diverticulitis bleeding: without bleeding Chronic vomiting R11.10 Atrial fibrillation I48.91 Transaminitis R74.01 Hypercholesterolemia E78.00 Hypertension I10 Iatrogenic hypothyroidism E03.2 (1) Diverticulitis of intestine with abscess Diverticulitis site: large intestine Diverticulitis bleeding: without bleeding Qualified Code(s): K57.20 - Diverticulitis of large intestine with perforation and abscess without bleeding
[2023-06-22 14:39] LABS: Basophils # (auto) 0.07 K/uL (0.00-0.20); Basophils % (auto) 0.5 %; Eosinophils # (auto) 0.18 K/uL (0.00-0.50); Eosinophils % (auto) 1.4 %; Hematocrit (blood only) 33.8 % (37.0-47.0); Hemoglobin 10.7 g/dl (12.0-16.0); Immature Granulocytes # (auto) 0.27 K/uL (0.01-0.20); Immature Granulocytes % (auto) 2.1 %; Lymphocytes # (auto) 1.25 K/uL (1.20-3.40); Lymphocytes % (auto) 9.6 %; Mean Corpuscular Hemoglobin 27.9 pg (25.0-34.0); Mean Corpuscular Hgb Conc 31.7 g/dL (32.0-36.0); Mean Platelet Volume 9.9 fL (9.4-12.4); Monocytes # (auto) 0.75 K/uL (0.11-0.59); Monocytes % (auto) 5.8 %; Neutrophils # (auto) 10.46 K/uL (1.40-6.50); Neutrophils % (auto) 80.6 %; Platelet Count 495 K/uL (130-400); RDW Coefficient of Variation 16.6 % (11.5-14.5); RDW Standard Deviation 50.8 fL (36.4-46.3); Red Blood Count 3.84 M/uL (4.20-5.40); White Blood Count 12.98 K/ul (4.8-10.8)
[2023-06-22 14:54] LABS: BUN Creatinine Ratio 8.4 (10-20); Creatinine Clr Calc Pharmacy 56.4 ml/min; Est GFR (African American) 66.5 ml/min; Est GFR (Non-African American) 57.4 ml/min; Potassium 3.1 mmol/L (3.5-5.1)
[2023-06-23] MEDS: LEVOTHYROXINE SODIUM 100 MCG TABLET PO SCH (06:43)
[2023-06-23] MEDS: ENOXAPARIN 100 MG/1ML SYR SQ SCH (06:44)
[2023-06-23 07:03] LABS: Hematocrit (blood only) 27.7 % (37.0-47.0); Hemoglobin 8.9 g/dl (12.0-16.0); Mean Corpuscular Hemoglobin 28.3 pg (25.0-34.0); Mean Corpuscular Hgb Conc 32.1 g/dL (32.0-36.0); Mean Corpuscular Volume 87.9 fL (80.0-100.0); Mean Platelet Volume 9.7 fL (9.4-12.4); Platelet Count 377 K/uL (130-400); RDW Coefficient of Variation 16.5 % (11.5-14.5); RDW Standard Deviation 51.1 fL (36.4-46.3); Red Blood Count 3.15 M/uL (4.20-5.40); White Blood Count 10.57 K/ul (4.8-10.8)
[2023-06-23 07:08] LABS: BUN Creatinine Ratio 8.6 (10-20); Calcium 6.7 mg/dl (8.6-10.3); Creatinine Clr Calc Pharmacy 57.6 ml/min; Est GFR (African American) 68.2 ml/min; Est GFR (Non-African American) 58.9 ml/min; Magnesium 1.3 mg/dl (1.7-2.4)
[2023-06-23] MEDS: SUCRALFATE 1 GM/10 ML UDC PO SCH ×2 (07:59→12:23)
[2023-06-23] MEDS: FAMOTIDINE 20 MG TAB PO SCH (07:59)
[2023-06-23] MEDS: ESCITALOPRAM OXALATE 10 MG TAB PO SCH (07:59)
[2023-06-23] MEDS: PANTOprazole 40 MG TAB PO SCH (07:59)
[2023-06-23] MEDS: METOPROLOL TARTRATE 25 MG TAB PO SCH (08:00)
[2023-06-23] MEDS ORDERED: POTASSIUM CHLORIDE CRTAB 20 MEQ TABCR PO STA (10:55)
--- NOTE | 2023-06-23 11:01 | Discharge Summary ---
Date of Service June 23, 2023 Admission HPI Per Admitting Provider Patient presented with several weeks of abdominal symptoms presumed to be in the setting of acute grief. Symptoms worsening prompted presentation to the ED. Patient with vague constellation of symptoms - abdominal upset, nausea, vomiting, weight loss. Was seen by PCP who attributed this to adjustment disorder in the setting of brother's in April. She was started on low dose Lexapro at 5 mg. Leukocytosis to 13.6. No other signs of sepsis. CT with findings consistent with diverticulitis with abscess/contained perforation without known history of diverticulosis. Started on IVF x2L bolus. Given cipro and Flagyl. Admission called to hospitalist team. Upon my interview patient patient reports that symptoms worsened with increased nausea/vomiting and development of diarrhea. Patient also having chills. No fevers. No CP or SOB. No real abdominal pain. No dysuria. No hematochezia/melena. No hematemesis. reports no abdominal pain. Does feel better after fluid resuscitation. Aware of CT results. No other questions. Principal Diagnosis Acute DIverticulitis with abscess Discharge Exam Gen: non-toxic appearing female in NAD HEENT: AT MS MMM Resp: CTAB no wheezing no increased work of breathing CV: RRR no m/r/g GI: soft, non-distended, mildly tender to palpation Psych: appropriate mood and affect Discharge Data Allergies Allergy/AdvReac Type Severity Reaction Status Date / Time Penicillins Allergy Intermediate RASH Verified 06/11/23 19:39 meperidine AdvReac Intermediate "FEELS OUT Verified 06/11/23 19:39 OF SPACE" chlorpromazine AdvReac Mild "JITTERY" Verified 06/11/23 19:39 droperidol AdvReac Mild "JITTERY" Verified 06/11/23 19:39 Consultations 06/11/23 19:13 Consult General Surgery Routine 06/11/23 19:33 ED Decision to Admit Stat 06/18/23 15:50 Consult Infectious Diseases Routine Ordered Studies 06/11/23 15:19 CT abd pelvis IV con only Stat 06/15/23 08:46 CT abd pelvis IV con only Routine Hospital Course (1) Diverticulitis of intestine with abscess: Diverticulitis with 5 cm abscess/contained perforation found on imaging. Started on cipro/flagyl. Abscess unable to be drained percutaneously due to location. Surgery consulted - non surgical management suggested overall doing well in this regardwould be safe/stable for home on p.o. antibiotics in this respect, but chronic vomiting has become an issue at the forefront lengthening her hospital stay Nausea vomiting subsided on 06/22 and 06/23 Tolerating diet. Recommendations from Infectious Disease. -Continue to monitor leukocytosis -As General Surgery is ok with medical management, can continue ciprofloxacin 500 mg PO q12h and metronidazole 500 mg PO q12h on discharge, with plan for repeat CT A/P with IV contrast in ~2 weeks. If a fluid collection persists but is smaller, would extend antibiotics and repeat CT A/P after another couple weeks. Would not discontinue antibiotics until abscess is resolved on follow-up imaging. If no improvement is seen on follow-up imaging, would consider proceeding to colostomy (vs IR drainage if there is some change in the positioning of the fluid collection such that it is now amenable to drainage). -QTc 484 on 06/15/23 (2) Chronic vomiting: patient/daughter note that shewithout having discussed this with any care providers beforeapparently has had nausea and vomiting at least going back to gi, possibly longer. Symptoms seem consistent with peptic ulcer disease and/or esophageal strictureasked GI to see her for considerations for an EGD, they noted that they would facilitate outpatient scope but did not feel that an inpatient scope was appropriate. Twice daily Protonix, twice daily Pepcid, 4 times daily Carafate, supportive care. This has improved. 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 resolved (5) Hypercholesterolemia: Resume home statin once at time of discharge (6) Hypertension: BP reasonable for the situation (7) Iatrogenic hypothyroidism: resume levothyroxine Plan Code status: full Total Time Total Time Spent Total Time Spent (In Minutes): 32 Discharge Plan Discharge Items Reason For Visit: VOMITING Follow-up/Referrals: Gwendolyn Baldwin CRNP [Primary Care Provider] - Medications and DC Order Prescriptions: No Action ciclopirox 0.77 % cream 1 applic topical BID PRN (Reason: rash) Qty: 30 2RF atorvastatin 20 mg tablet 20 mg PO DAILY Qty: 90 3RF Prempro 0.3-1.5 mg tablet 1 tab PO 2XWK Qty: 28 2RF Rx Instructions: Tues, fri-AM celecoxib [Celebrex] 200 mg capsule 200 mg PO QAM Qty: 90 3RF hydrochlorothiazide 25 mg tablet 25 mg PO QAM Qty: 90 3RF potassium chloride 10 mEq capsule, extended release 10 meq PO QAM Qty: 90 3RF tramadol 50 mg tablet 50 mg PO HS Qty: 60 1RF omeprazole 20 mg capsule,delayed release(DR/EC) 20 mg PO DAILY Qty: 90 3RF diclofenac sodium 1 % gel 2 g topical QID PRN (Reason: pain) Qty: 100 3RF Rx Instructions: apply to both knees coenzyme Q10 200 mg capsule 200 mg PO QAM levothyroxine 100 mcg tablet 100 mcg PO QAM Qty: 90 3RF escitalopram oxalate 5 mg tablet 5 mg PO DAILY Qty: 30 5RF multivitamin Tablet 1 tab PO QAM cholecalciferol (vitamin D3) [Vitamin D3] 1,000 unit Capsule 1,000 unit PO QAM biotin 5,000 mcg Tablet,Disintegrating 5,000 mcg PO QAM calcium carbonate [Calcium 500] 500 mg calcium (1,250 mg) Tablet 1,000 mg PO DAILY vitamin B complex Tablet 1 tab PO DAILY Admission Data Admit Date/Time: 06/11/23 20:08 Attending Provider: Lopez Murray Admit Provider: Earlene Kilpatrick Primary Care Provider: Gwendolyn Baldwin Other Providers: David Ren; Kareem Gibson; Joleen Rainey; Nakita Silva; Ronaldo Burroughs; Joan Miranda; Zulema Topete; Randy Johnson; Idalia Gusman; Deana Schuler Coding Level of Care Code 49620 INP/OBS DISCH >30 MIN Diagnoses Diverticulitis of large intestine with abscess without bleeding K57.20 Diverticulitis site: large intestine Diverticulitis bleeding: without bleeding Chronic vomiting R11.10 Atrial fibrillation I48.91 Transaminitis R74.01 Hypercholesterolemia E78.00 Hypertension I10 Iatrogenic hypothyroidism E03.2
[2023-06-23] MEDS ORDERED: metroNIDAZOLE 500 MG TAB PO STA (11:05)
[2023-06-23] MEDS ORDERED: CIPROFLOXACIN 500 MG TAB PO STA (11:14)
== END 2023-06-23 14:15 | disposition home or self-care (01) | DRG 392 ==
LOC: ED 15:01 → EDINP 20:08 → SUATTDRO 20:08 → 3N 06-12 16:21

== ENCOUNTER 2023-07-30 16:33 | Inpatient (IN) ==
--- NOTE | 2023-07-30 16:40 | ED Triage Note ---
Date of Service July 30, 2023 Provider in Triage Author: Annamaria Marino History of Present Illness This patient was briefly evaluated while in triage. An abbreviated physical exam was performed. This patient is a 78-year-old Female who presents to the ED for evaluation of vomiting since 3am today. States lethargic and weak, reports being treated for diverticulitis currently. Physical Exam Initial orders for labs and / or imaging were placed and patient was placed in the waiting area until a bed is available. Please see further documentation for the full ED course.
--- NOTE | 2023-07-30 17:09 | XRay Report ---
XR chest 1V portable CLINICAL HISTORY: Sepsis TECHNIQUE: Single frontal radiograph of the chest was obtained. Comparison: Comparison is made to chest radiograph 08/18/2021 FINDINGS: No lines and tubes are seen. The cardiomediastinal silhouette is normal. The lungs are clear. No evid ence of pleural effusion or pneumothorax. IMPRESSION: No acute abnormalities and in particular no radiographic evidence of pneumonia. ACT 112: Negative or not required by law. Electronically signed by: Forest Xiong M.D. 07/30/2023 5:08 PM
[2023-07-30 18:20] LABS: Basophils # (auto) 0.03 K/uL (0.00-0.20); Basophils % (auto) 0.3 %; Eosinophils # (auto) 0.09 K/uL (0.00-0.50); Hematocrit (blood only) 39.8 % (37.0-47.0); Hemoglobin 13.2 g/dl (12.0-16.0); Immature Granulocytes # (auto) 0.11 K/uL (0.01-0.20); Immature Granulocytes % (auto) 1.2 %; Lymphocytes # (auto) 0.76 K/uL (1.20-3.40); Lymphocytes % (auto) 8.1 %; Mean Corpuscular Hemoglobin 29.8 pg (25.0-34.0); Mean Corpuscular Hgb Conc 33.2 g/dL (32.0-36.0); Mean Corpuscular Volume 89.8 fL (80.0-100.0); Mean Platelet Volume 10.1 fL (9.4-12.4); Monocytes # (auto) 0.54 K/uL (0.11-0.59); Monocytes % (auto) 5.7 %; Neutrophils % (auto) 83.7 %; Platelet Count 331 K/uL (130-400); RDW Coefficient of Variation 18.8 % (11.5-14.5); Red Blood Count 4.43 M/uL (4.20-5.40); White Blood Count 9.43 K/ul (4.8-10.8)
--- NOTE | 2023-07-30 18:33 | Emergency Department Note ---
Impression & Plan Abdominal pain, Hypokalemia, Diarrhea, Vomiting ED Provider Note NAME: SHEKHAR CADET AGE: 78 SEX: F : 1945 ARRIVES VIA: Walk-In INFORMANT: Patient ED PROVIDER(S): Lencho Reddy DO CHIEF COMPLAINT: vomiting HPI: Patient is a 78-year-old female who presents ER with a past medical history of diverticulitis's, weakness, A-fib for vomiting. She was admitted on June 11 and for about 13 days and discharged on Cipro and Flagyl. She is still taking this but could not keep anything down and she started vomiting this morning. This started around 3 AM. She notes she feels very weak. No headache or change in vision. No chest pain or shortness of breath. No dysuria, urgency or frequency. No other exacerbating or remitting factors. ADDITIONAL HISTORY OBTAINED: Per HPI Chronic Medical/Social Conditions Affecting Care: Per HPI PAST MEDICAL HISTORY:See Below PAST SURGICAL HISTORY:See Below FAMILY HISTORY:See Below SOCIAL HISTORY:See Below HOME MEDICATIONS:See Below ALLERGIES:See Below VITALS:See Below PHYSICAL EXAMINATION: GENERAL: Sitting up in bed, alert, well appearing, well nourished, no distress, non-toxic EYE EXAM: normal conjunctiva. PERRL and EOM's grossly intact. OROPHARYNX: mucous membranes are moist NECK: supple, no nuchal rigidity, no adenopathy, non-tender LUNGS: Clear to auscultation. Normal chest wall mechanics HEART: no murmurs, S1 normal and S2 normal ABDOMEN: abdomen soft, non-tender, normo-active bowel sounds, no masses, no rebound or guarding. UPPER EXTREMITIES: upper extremities are grossly normal. LOWER EXTREMITIES: No pitting edema. NEURO EXAM: Normal sensorium, cranial nerves II-XII grossly intact, normal speech, no gross weakness of arms, no gross weakness of legs. MEDICAL DECISION MAKING: Patient is a 78-year-old female who presents ER for above-stated complaint. IV was established blood work was obtained. Labs show no significant leukocytosis or anemia. BMP with mild hypokalemia at 2.8. Lactate was normal. Mag low at 1.3. LFTs bilirubin was unremarkable. Troponin was negative. UA was contaminated. Patient was given a gram of Rocephin with the inflammation on the CT abdomen pelvis and the UA. Patient was discussed with the hospitalist for further evaluation management treatment. Patient was ordered IV magnesium and IV potassium as well. Consults/Care Managements Discussions: Per MDM Triage Nursing notes reviewed. Limited review of prior medical records performed Vital Signs: reviewed and remarkable for HTN Differential diagnosis: Differential diagnoses includes but is not limited to gastritis, peptic ulcer disease, GERD, gallbladder disease, pancreatitis, small bowel obstruction, appendicitis, diverticulitis, hernia, urinary tract infection, torsion, perforation, trauma, infectious. ER treatment provided: See below Diagnostics interpreted by me include EKG and cardiac monitoring as listed below: -Cardiac Monitoring: An order was placed for continuous cardiac monitoring. The monitor shows a rate of 92 with sinus rhythm. -ECG: Sinus tachycardia rate of 102 Left axis No PVCs QTc 388 -Laboratory studies:Interpreted by me as stated above in MDM and shown below. Imaging studies: Xrays: As interpreted by me: Portable AP upright 1 view chest shows no focal Lutrate CTs show: CT abdomen pelvis showed questionable diverticulitis versus colitis Procedures:none Critical Care: None Past Med/Surg History Medical History Hyperlipidemia Nausea and vomiting after administration of anesthetic agent after thyroid sx. Slow to wake up after anesthesia History of COVID-19 05/2020, tested at [facility], not hosp; moderate symptoms>resolved Anxiety Atrial fibrillation 06/24/23, put on eliquis; will be getting set up w/cardio anshul. 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 GERD (gastroesophageal reflux disease) hx Surgical History H/O cystoscopy with removal of obstructing urethral lesion History of esophagogastroduodenoscopy (EGD) History of dilation and curettage History of bilateral tubal ligation History of repair of right rotator cuff 11/2017 History of colonoscopy History of cholecystectomy History of tonsillectomy and adenoidectomy Status post biopsy of thyroid gland History of thyroidectomy, total benign tumor Family History Brother Family hx of colon cancer Colorectal cancer Family/Other Diabetes Sister Breast cancer Other No family history of adverse response to anesthesia Denies family history of Pancreatic cancer Ovarian cancer Prostate cancer Myocardial infarction Lung cancer Uterine cancer Social History (Updated 07/01/23 @ 15:15 by BAYRON Sebastian) Smoking Status: Never smoker Second Hand Exposure: Yes (hx until 4 years ago); Do You Dip or Chew Tobacco: No; Hx Alcohol Use: No Hx Substance Use: No Preferred Language: Kiswahili Communication Ability: Effective Visual Impairment: No Limitations Hearing Ability: Normal Mattress Filler Required: No Beliefs That Will Affect Care: None marital status: Current Living Situation: Spouse current occupational status: retired Feels Safe at Home: Yes Childhood Exposure to Second-Hand Smoke: Yes Diet: regular caffeine: Yes Dental Care, Regularly: Yes Physical Activity Frequency: Does not Exercise Physical Activity Frequency Comment: No routine, but is physically active around the house Seatbelt Use: always Sunscreen Use: No Assistive Devices: Cane, Glasses and Walker Allergies Allergies Allergy/AdvReac Type Severity Reaction Status Date / Time Penicillins Allergy Intermediate RASH Verified 07/30/23 22:26 meperidine AdvReac Intermediate "FEELS OUT Verified 07/30/23 22:26 OF SPACE" chlorpromazine AdvReac Mild "JITTERY" Verified 07/30/23 22:26 droperidol AdvReac Mild "JITTERY" Verified 07/30/23 22:26 Home Meds Home Medications Medication Instructions Recorded Confirmed cholecalciferol (vitamin D3) 25 1,000 unit PO QAM 06/18/18 07/30/23 mcg (1,000 unit) capsule (Vitamin D3) multivitamin 1 tab PO QAM 06/18/18 07/30/23 coenzyme Q10 200 mg capsule 200 mg PO QAM 01/15/19 07/30/23 biotin 5,000 mcg disintegrating 5,000 mcg PO QAM 01/28/19 07/30/23 tablet calcium carbonate 500 mg calcium 1,000 mg PO DAILY 08/18/21 07/30/23 (1,250 mg) tablet vitamin B complex 1 tab PO DAILY 08/18/21 07/30/23 atorvastatin 20 mg tablet 20 mg PO QAM 06/24/23 07/30/23 conj estrogen-medroxyprogesterone 1 tab PO UD 06/24/23 07/30/23 0.3 mg-1.5 mg tablet (Prempro) escitalopram oxalate 5 mg tablet 5 mg PO QAM 06/24/23 07/30/23 hydrochlorothiazide 25 mg tablet 25 mg PO .HOLD 07/30/23 07/30/23 Previous Rx's Medication Instructions Recorded ciclopirox 0.77 % topical cream 1 applic topical BID PRN rash #30 12/04/21 grams levothyroxine 100 mcg tablet 100 mcg PO QAM #90 tabs 11/27/22 diclofenac sodium 1 % topical gel 2 g topical QID PRN pain #100 grams 03/27/23 potassium chloride 10 mEq 20 meq (2 x 10 mEq) PO QAM #90 caps 07/04/23 capsule,extended release apixaban 5 mg tablet (Eliquis) 5 mg PO BID #60 tabs 07/14/23 ciprofloxacin HCl 500 mg tablet 500 mg PO BID 21 days #42 tabs 07/18/23 (Cipro) metronidazole 500 mg tablet 500 mg PO TIDM 21 days #42 tabs 07/18/23 famotidine 20 mg tablet 20 mg PO BID #60 tabs 07/23/23 metoprolol succinate 25 mg 25 mg PO QPM #30 tabs 07/23/23 tablet,extended release 24 hr pantoprazole 40 mg tablet,delayed 40 mg PO BID #60 tabs 07/23/23 release sucralfate 1 gram tablet 1 g PO QID #120 tabs 07/23/23 Results & Data (ED) Vital Signs Vital Signs - 24 hr 07/30/23 16:39 Temperature 36.8 C Temperature Source Skin Pulse Rate 95 H Respiratory Rate 18 Blood Pressure 157/91 H Blood Pressure Mean 113 Pulse Oximetry 96 Oxygen Delivery Method Room Air Sepsis Recent Fever Within 48 Hours No Sepsis New/Unexplained Change in Mental Status No Sepsis Action Taken by Nursing No Action Required Laboratory Data 07/30/23 17:48 07/30/23 17:48 Lab Results 07/30/23 07/30/23 Range/Units 17:48 21:14 WBC 9.43 (4.8-10.8) K/ul RBC 4.43 (4.20-5.40) M/uL Hgb 13.2 (12.0-16.0) g/dl Hct 39.8 (37.0-47.0) % MCV 89.8 (80.0-100.0) fL MCH 29.8 (25.0-34.0) pg MCHC 33.2 (32.0-36.0) g/dL RDW Std Deviation 62.0 H (36.4-46.3) fL RDW Coeff of Anai 18.8 H (11.5-14.5) % Plt Count 331 (130-400) K/uL MPV 10.1 (9.4-12.4) fL Immature Gran % (Auto) 1.2 % Neut % (Auto) 83.7 % Lymph % (Auto) 8.1 % [place] % (Auto) 5.7 % Eos % (Auto) 1.0 % Baso % (Auto) 0.3 % Neut # (Auto) 7.90 H (1.40-6.50) K/uL Lymph # (Auto) 0.76 L (1.20-3.40) K/uL [place] # (Auto) 0.54 (0.11-0.59) K/uL Eos # (Auto) 0.09 (0.00-0.50) K/uL Baso # (Auto) 0.03 (0.00-0.20) K/uL Immature Gran # (Auto) 0.11 (0.01-0.20) K/uL Sodium 139 (136-145) mmol/L Potassium 2.8 L (3.5-5.1) mmol/L Chloride 105 (98-107) mmol/L Carbon Dioxide 22 (21-32) mmol/L Anion Gap 12 H (3-11) BUN 23 (6-23) mg/dl Creatinine 0.86 (0.6-1.2) mg/dl Est Cr Clr Drug Dosing Not Reportable Est GFR ( Amer) 75.0 ml/min Est GFR (Non-Af Amer) 64.7 ml/min BUN/Creatinine Ratio 26.7 H (10-20) Glucose 115 H (70-99(Fasting)) mg/dl Lactate 1.6 (0.4-2.0) mmol/L Calcium 8.3 L (8.6-10.3) mg/dl Magnesium 1.3 L (1.7-2.4) mg/dl Total Bilirubin 0.9 (0.2-1.0) mg/dl Direct Bilirubin 0.2 (0-0.2) mg/dl AST 18 (13-39) U/L ALT 13 (7-52) U/L Alkaline Phosphatase 65 (34-104) U/L Troponin I High Sens 10.9 (0-14) pg/ml Total Protein 6.8 (6.0-8.3) gm/dl Albumin 3.7 (3.4-5.0) gm/dl Urine Color Dark Yellow Urine Appearance Clear (Clear) Urine pH 8.0 H (4.5-7.5) Ur Specific Rawlings > 1.045 H (1.000-1.030) Urine Protein 1+ H (Negative) Urine Glucose (UA) Negative (Negative) Urine Ketones Trace H (Negative) Urine Blood 1+ H (Negative) Urine Nitrite Positive A (Negative) Urine Bilirubin Negative (Negative) Urine Urobilinogen Negative (Negative) Ur Leukocyte Esterase 1+ H (Negative) Urine WBC (Auto) 10-30 H (0-5) /hpf Urine RBC (Auto) 5-10 H (0-4) /hpf U Hyaline Cast (Auto) 1-5 (0-5) /lpf U Epithel Cells (Auto) >30 H (0-5) /lpf Urine Bacteria (Auto) 1+ H (Negative) Administered Medications Discontinued Medications Sodium Chloride (Nss) 1,000 mls @ 999 mls/hr IV .Q1H1M ONE Stop: 07/30/23 22:44 Last Admin: 07/30/23 22:07 Dose: 999 mls/hr Documented By: CPB Ceftriaxone Sodium (Rocephin) 2,000 mg in 50 mls @ 100 mls/hr IV NOW STA Stop: 07/30/23 22:17 Last Admin: 07/30/23 22:00 Dose: 100 mls/hr Documented By: CPB Ioversol (Optiray 320 500ml) 88 ml IV ONCE ONE Stop: 07/30/23 20:10 Last Admin: 07/30/23 20:10 Dose: 88 ml Documented By: [facility] Imaging Data Radiologist's Impression: Abdomen/Pelvis CT 07/30/23 16:40 Exam(s): CT ABDOMEN + PELVIS With Contrast IV Amt: 88 cc opti 320 EXAM: CT Abdomen and Pelvis With Intravenous Contrast CLINICAL HISTORY: Reason for exam: nausea/vomiting, poss sepsis. TECHNIQUE: Axial computed tomography images of the abdomen and pelvis with intravenous contrast. CTDI is 28.14 mGy and DLP is 1394.82 mGy-cm. Automated exposure control was utilized for the study. A dose lowering technique was utilized adhering to the principles of ALARA. CONTRAST: Patient received 88 cc opti 320 of IV contrast COMPARISON: CT abdomen/pelvis on 07/17/2023 FINDINGS: Lung bases: Unremarkable. No mass. No consolidation. Heart: Small amount of pericardial fluid. ABDOMEN: Liver: Unremarkable. No mass. Gallbladder and bile ducts: Cholecystectomy. No ductal dilation. Pancreas: Unremarkable. No mass. No ductal dilation. Spleen: Unremarkable. No splenomegaly. Adrenals: Unremarkable. No mass. Kidneys and ureters: Unremarkable. No hydronephrosis or obstructing stone. Stomach and bowel: Diverticulosis. Mild prominence of the pulido of the sigmoid colon may be secondary to under distention, but component of colitis or diverticulitis is suspected. Fluid in the colon suggests diarrheal state. Fluid and gas-filled small bowel loops may represent enteritis in the appropriate clinical setting. Evaluation of the stomach is limited by under distention. PELVIS: Appendix: Appendix is not definitely visualized on this exam. Bladder: Underdistended bladder limits evaluation. Reproductive: Unremarkable as visualized. ABDOMEN and PELVIS: Intraperitoneal space: Trace fluid in the pelvis. No free air. Bones/joints: Degenerative changes of the spine. Grade 1 anterolisthesis of L4 on L5. Mild retrolisthesis of L1 on L2. No acute fracture. No dislocation. Soft tissues: Small fat-containing umbilical hernia. Vasculature: Atherosclerotic changes of the vasculature. No aortic aneurysm or dissection. Phleboliths in the pelvis. Lymph nodes: Unremarkable. No enlarged lymph nodes. IMPRESSION: 1. Diverticulosis. Mild prominence of the pulido of the sigmoid colon may be secondary to under distention, but component of colitis or diverticulitis is suspected. 2. Fluid in the colon suggests diarrheal state. Fluid and gas-filled small bowel loops may represent enteritis in the appropriate clinical setting. 3. Trace fluid in the pelvis. Electronically signed by: Shobha Jamison M.D. 07/30/23 21:10 PM Chest X-Ray 07/30/23 16:40 XR chest 1V portable CLINICAL HISTORY: Sepsis TECHNIQUE: Single frontal radiograph of the chest was obtained. Comparison: Comparison is made to chest radiograph 08/18/2021 FINDINGS: No lines and tubes are seen. The cardiomediastinal silhouette is normal. The lungs are clear. No evidence of pleural effusion or pneumothorax. IMPRESSION: No acute abnormalities and in particular no radiographic evidence of pneumonia. ACT 112: Negative or not required by law. Electronically signed by: Forest Xiong M.D. 07/30/2023 5:08 PM Discharge Plan Visit Data Chief Complaint: Vomiting Stated Complaint: NAUSEA, VOMITING, ON ANTIBIOTIC, DIVERTICULITIS ED Provider: Lencho Reddy Discharge Problem: Abdominal pain, Hypokalemia, Diarrhea, Vomiting Patient Disposition: Admitted As Inpatient Discharge Instructions Interventions: ED Discharge Assessment Last Done: 07/30/23 22:50 Discharge Problem: Abdominal pain Qualifiers: Abdominal location: unspecified location Qualified Code(s): R10.9 - Unspecified abdominal pain Diarrhea Qualifiers: Diarrhea type: unspecified type Qualified Code(s): R19.7 - Diarrhea, unspecified Vomiting Qualifiers: Vomiting type: unspecified Nausea presence: unspecified Qualified Code(s): R 11.10 - Vomiting, unspecified
[2023-07-30 18:38] LABS: Alanine Aminotransferase 13 U/L (7-52); Albumin Level 3.7 gm/dl (3.4-5.0); Alkaline Phosphatase 65 U/L (34-104); Anion Gap 12 (3-11); Aspartate Aminotransferase 18 U/L (13-39); BUN Creatinine Ratio 26.7 (10-20); Bilirubin Direct 0.2 mg/dl (0-0.2); Bilirubin,Total 0.9 mg/dl (0.2-1.0); Blood Urea Nitrogen 23 mg/dl (6-23); Calcium 8.3 mg/dl (8.6-10.3); Carbon Dioxide 22 mmol/L (21-32); Chloride 105 mmol/L (98-107); Est GFR (Non-African American) 64.7 ml/min; Glucose 115 mg/dl (70-99(Fasting)); Magnesium 1.3 mg/dl (1.7-2.4); Potassium 2.8 mmol/L (3.5-5.1); Sodium 139 mmol/L (136-145); Total Protein 6.8 gm/dl (6.0-8.3)
[2023-07-30 18:44] LABS: Troponin I High Sensitivity 10.9 pg/ml (0-14)
[2023-07-30] MEDS: OPTIRAY 320 500ml IV ONE (20:10)
--- NOTE | 2023-07-30 21:11 | CT Scan Report ---
Exam(s): CT ABDOMEN + PELVIS With Contrast IV Amt: 88 cc opti 320 EXAM: CT Abdomen and Pelvis With Intravenous Contrast CLINICAL HISTORY: Reason for exam: nausea/vomiting, poss sepsis. TECHNIQUE: Axial computed tomography images of the abdomen and pelvis with intravenous contrast. CTDI is 28.14 mGy and DLP is 1394.82 mGy-cm. Automated exposure control was utilized for the study. A dose lowering technique was utilized adhering to the principles of ALARA. CONTRAST: Patient received 88 cc opti 320 of IV contrast COMPARISON: CT abdomen/pelvis on 07/17/2023 FINDINGS: Lung bases: Unremarkable. No mass. No consolidation. Heart: Small amount of pericardial fluid. ABDOMEN: Liver: Unremarkable. No mass. Gallbladder and bile ducts: Cholecystectomy. No ductal dilation. Pancreas: Unremarkable. No mass. No ductal dilation. Spleen: Unremarkable. No splenomegaly. Adrenals: Unremarkable. No mass. Kidneys and ureters: Unremarkable. No hydronephrosis or obstructing stone. Stomach and bowel: Diverticulosis. Mild prominence of the pulido of the sigmoid colon may be secondary to under distention, but component of colitis or diverticulitis is suspected. Fluid in the colon suggests diarrheal state. Fluid and gas-filled small bowel loops may represent enteritis in the appropriate clinical setting. Evaluation of the stomach is limited by under distention. PELVIS: Appendix: Appendix is not definitely visualized on this exam. Bladder: Underdistended bladder limits evaluation. Reproductive: Unremarkable as visualized. ABDOMEN and PELVIS: Intraperitoneal space: Trace fluid in the pelvis. No free air. Bones/joints: Degenerative changes of the spine. Grade 1 anterolisthesis of L4 on L5. Mild retrolisthesis of L1 on L2. No acute fracture. No dislocation. Soft tissues: Small fat-containing umbilical hernia. Vasculature: Atherosclerotic changes of the vasculature. No aortic aneurysm or dissection. Phleboliths in the pelvis. Lymph nodes: Unremarkable. No enlarged lymph nodes. IMPRESSION: 1. Diverticulosis. Mild prominence of the pulido of the sigmoid colon may be secondary to under distention, but component of colitis or diverticulitis is suspected. 2. Fluid in the colon suggests diarrheal state. Fluid and gas-filled small bowel loops may represent enteritis in the appropriate clinical setting. 3. Trace fluid in the pelvis. Electronically signed by: Shobha Jamison M.D. 07/30/23 21:10 PM
[2023-07-30 21:43] LABS: Appearance Urine Clear (Clear); Bilirubin Urine Negative (Negative); Blood Urine 1+ (Negative); Color Urine Dark Yellow; Epithelial Cell Urine Auto >30 /lpf (0-5); Glucose Urine UA Negative (Negative); Ketones Urine Trace (Negative); Leukocyte Esterase Urine 1+ (Negative); Nitrite Urine Positive (Negative); Protein Urine 1+ (Negative); Specific Gravity Urine > 1.045 (1.000-1.030); Urobilinogen Urine Negative (Negative)
[2023-07-30 21:53] LABS: Bacteria Urine Automated 1+ (Negative)
[2023-07-30] MEDS: cefTRIAXone SODIUM 2,000 MG/50 ML BAG IV STA (22:00)
[2023-07-30] MEDS: SODIUM CHLORIDE 0.9% 1,000 ML IV ONE (22:07)
--- NOTE | 2023-07-30 22:30 | History & Physical Report ---
Date of Service July 30, 2023 Assessment & Plan (1) Nausea & vomiting: Plan: -Patient with recent hospitalization for diverticulitis and has been on an extended course of Cipro and Flagyl. -Symptoms started today with nausea and vomiting. -Will start clear liquid diet advance as tolerated. -C. difficile ordered and contact precautions ordered. -CBC benign, CMP showed a potassium of 2.8, calcium of 8.3. Receiving 2 bags of potassium. -Magnesium of 1.3, receiving 2 bags of magnesium. -Received 1 L of bolus NSS in the ED. Continue on NSS at 80 mL an hour. Stop after 1 L. -Given a dose of ceftriaxone in the ED, will hold off on any antibiotic treatmen t until C. difficile testing results. -PT OT ordered. (2) Diarrhea: Plan: -Patient with diarrhea and loose stools ever since her discharge from the hospital approximately 13 days ago. -Was on extended course of Cipro and Flagyl up until today. -Will hold off on any antibiotics at this time and check C. difficile. (3) Hypomagnesemia: Plan: -Magnesium 1.3, getting 2 bags of magnesium at time of admission. -Magnesium on morning labs. (4) Hypokalemia: Plan: -Potassium 2.8. Getting 2 bags of potassium at time of admission. -CMP in the a.m. -On potassium chloride supplements in the a.m. chronically. Will continue. (5) Atrial fibrillation: Plan: -On Eliquis 5 mg twice daily. Continue. (6) Diverticulitis of intestine with abscess: Plan: -Extended course of Cipro and Flagyl since discharge. -Abdominal CT showed diverticulosis with possible component of colitis or diverticulitis. As well as possible enteritis. -Holding antibiotics at this time given possibility of C. difficile. Though consider restarting given CT results if C. difficile is ruled out. (7) Hypertension: Plan: -Continue home medications. (8) Hypercholesterolemia: Plan: -Continue home medications. (9) Right shoulder pain: Plan: -Shoulder x-ray taken in the ED. Awaiting results. No gross abnormality seen on imaging. Will wait for official read. -Chronic issue, no changes. History of Present Illness Chief Complaint: Vomiting Primary Care Provider: YOBANI Aguero Patient is a 78-year-old female who presents to the hospital with past medical history of diverticulitis, A-fib, hypercholesterolemia, and hypertension with new onset vomiting. She was recently admitted to the hospital on June 11 for diverticulitis and has been on a course of Cipro and Flagyl for 13 days. This morning around 3 AM patient started to have nausea and vomiting and she could not keep any food down. She also states that she started to feel weak as well. She does state that she has been having some shortness of breath but that this has been going on for approximately a week. She has been having loose stools ever since her discharge from the hospital. She has a bowel movement every meal. She states that she has not had any recent changes in her bowel movements though she has not been eating much fiber. She also states that she has been having chills since her hospitalization. She denies any sick contacts and no one else is having vomiting recently. She denies any chest pain, abdominal pain, chest pain, or fever. She also denies any dysuria, urinary urgency or frequency. Allergies Allergy/AdvReac Type Severity Reaction Status Date / Time Penicillins Allergy Intermediate RASH Verified 07/30/23 22:26 meperidine AdvReac Intermediate "FEELS OUT Verified 07/30/23 22:26 OF SPACE" chlorpromazine AdvReac Mild "JITTERY" Verified 07/30/23 22:26 droperidol AdvReac Mild "JITTERY" Verified 07/30/23 22:26 Home Medications Medication Instructions Recorded Confirmed Type cholecalciferol (vitamin D3) 25 1,000 unit PO QAM 06/18/18 07/30/23 History mcg (1,000 unit) capsule (Vitamin D3) multivitamin 1 tab PO QAM 06/18/18 07/30/23 History coenzyme Q10 200 mg capsule 200 mg PO QAM 01/15/19 07/30/23 History biotin 5,000 mcg disintegrating 5,000 mcg PO QAM 01/28/19 07/30/23 History tablet calcium carbonate 500 mg calcium 1,000 mg PO DAILY 08/18/21 07/30/23 History (1,250 mg) tablet vitamin B complex 1 tab PO DAILY 08/18/21 07/30/23 History ciclopirox 0.77 % topical cream 1 applic topical BID PRN rash #30 12/04/21 07/30/23 Rx grams levothyroxine 100 mcg tablet 100 mcg PO QAM #90 tabs 11/27/22 07/30/23 Rx diclofenac sodium 1 % topical gel 2 g topical QID PRN pain #100 grams 03/27/23 07/30/23 Rx atorvastatin 20 mg tablet 20 mg PO QAM 06/24/23 07/30/23 History conj estrogen-medroxyprogesterone 1 tab PO UD 06/24/23 07/30/23 History 0.3 mg-1.5 mg tablet (Prempro) escitalopram oxalate 5 mg tablet 5 mg PO QAM 06/24/23 07/30/23 History potassium chloride 10 mEq 20 meq (2 x 10 mEq) PO QAM #90 caps 07/04/23 07/30/23 Rx capsule,extended release apixaban 5 mg tablet (Eliquis) 5 mg PO BID #60 tabs 07/14/23 07/30/23 Rx ciprofloxacin HCl 500 mg tablet 500 mg PO BID 21 days #42 tabs 07/18/23 07/30/23 Rx (Cipro) metronidazole 500 mg tablet 500 mg PO TIDM 21 days #42 tabs 07/18/23 07/30/23 Rx famotidine 20 mg tablet 20 mg PO BID #60 tabs 07/23/23 07/30/23 Rx metoprolol succinate 25 mg 25 mg PO QPM #30 tabs 07/23/23 07/30/23 Rx tablet,extended release 24 hr pantoprazole 40 mg tablet,delayed 40 mg PO BID #60 tabs 07/23/23 07/30/23 Rx release sucralfate 1 gram tablet 1 g PO QID #120 tabs 07/23/23 07/30/23 Rx hydrochlorothiazide 25 mg tablet 25 mg PO .HOLD 07/30/23 07/30/23 History Past Med/Surg History Medical History Hyperlipidemia Nausea and vomiting after administration of anesthetic agent after thyroid sx. Slow to wake up after anesthesia History of COVID-19 05/2020, tested at [facility], not hosp; moderate symptoms>resolved Anxiety Atrial fibrillation 06/24/23, put on eliquis; will be getting set up w/cardio anshul. History of recent hospitalization d/c 06/23/23 from [facility] from a 14 day stay, N/V, diarrhea; CT showed diverticulitis w/abscess History of hypokalemia History of hypercalcemia History of postmenopausal bleeding occurred in 04/2023, seen by talent manager GERD (gastroesophageal reflux disease) hx Surgical History H/O cystoscopy with removal of obstructing urethral lesion History of esophagogastroduodenoscopy (EGD) History of dilation and curettage History of bilateral tubal ligation History of repair of right rotator cuff 11/2017 History of colonoscopy History of cholecystectomy History of tonsillectomy and adenoidectomy Status post biopsy of thyroid gland History of thyroidectomy, total benign tumor Family History Brother Family hx of colon cancer Colorectal cancer Family/Other Diabetes Sister Breast cancer Other No family history of adverse response to anesthesia Denies family history of Pancreatic cancer Ovarian cancer Prostate cancer Myocardial infarction Lung cancer Uterine cancer Social History (Updated 07/01/23 @ 15:15 by BAYRON Sebastian) Smoking Status: Never smoker Second Hand Exposure: Yes (hx until 4 years ago); Do You Dip or Chew Tobacco: No; Hx Alcohol Use: No Hx Substance Use: No Preferred Language: Tamaz[place] Communication Ability: Effective Visual Impairment: No Limitations Hearing Ability: Normal 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 Assembly Required: No Beliefs That Will Affect Care: None marital status: Current Living Situation: Spouse current occupational status: retired Feels Safe at Home: Yes Safety Concerns: Feels Safe At This Time Childhood Exposure to Second-Hand Smoke: Yes Diet: regular caffeine: Yes Dental Care, Regularly: Yes Physical Activity Frequency: Does not Exercise Physical Activity Frequency Comment: No routine, but is physically active around the house Seatbelt Use: always Sunscreen Use: No Assistive Devices: Cane, Glasses and Walker Review of Systems Review of Systems: All systems reviewed & are unremarkable except as noted in Subjective Physical Exam Physical Exam: Constitutional: well-appearing, no acute distress HEENT: NCAT, no conjunctival injection CV: regular rhythm, no murmur appreciated, extremities well-perfused, no LE edema Resp: CTABL, no wheezes/rales/rhonchi appreciated, no increased work of breathing GI: soft, nondistended, nontender, BS normoactive MSK: no gross deformities appreciated Skin: warm, dry, no rash appreciated Neuro: alert, oriented, no focal neurologic deficit appreciated Results & Data Results & Data Vital Signs (Past 12 Hours) Vital Signs Temp Pulse Resp BP Pulse Ox O2 Del Method 07/30/23 16:39 36.8 C 95 H 18 157/91 H 96 Room Air Supervising Physician Co-Signing Physician Notes Attending addendum: I have physically seen this patient, have supervised the medical residents activities, and agree with the H&P unless as otherwise noted. Assessment and Plan: Nausea, vomiting and diarrhea/enteritis/possible colitis, diverticulitis- Patient had been admitted from 06/11-06/23/2023 for diverticulitis, and had been on an extended course of Cipro and Flagyl orally since that time Added C. difficile studies Hold Cipro and Flagyl at this time Status post 1 L normal saline bolus in the ED NSS + KCl 20 mEq at 100 mL/h x 1 L Received ceftriaxone 2 g IV from the ED, will hold on any further antibiotics until stool studies return Hypomagnesemia/hypokalemia- Magnesium 1.3 and potassium 2.8 on admission Replaced IV and orally, and recheck laboratories in a.m. Atrial fibrillation/hypertension- Continue apixaban, metoprolol succinate, potassium chloride Hold HCTZ, as likely cause of low potassium and low magnesium Remaining orders and notations as noted (2) Diarrhea Diarrhea type: unspecified type Qualified Code(s): R19.7 - Diarrhea, unspecified (5) Atrial fibrillation Atrial fibrillation type: paroxysmal Qualified Code(s): I48.0 - Paroxysmal atrial fibrillation (6) Diverticulitis of intestine with abscess Diverticulitis bleeding: without bleeding Diverticulitis site: large intestine Qualified Code(s): K57.20 - Diverticulitis of large intestine with perforation and abscess without bleeding
[2023-07-30] MEDS ORDERED: ONDANSETRON INJ 2 MG/ML 2 ML VIAL IV PRN (22:49)
[2023-07-31] MEDS: Patient's HEIGHT &/or WEIGHT Needed SCH (00:13)
[2023-07-31] MEDS: POTASSIUM CHLORIDE / WTR 10 MEQ/100 ML PLCT IV SCH (00:15)
[2023-07-31] MEDS: MAGNESIUM SULFATE / D5W 1 GM/100 ML BAG IV SCH (00:16)
[2023-07-31] MEDS: SODIUM CHLORIDE 0.9% 1,000 ML IV SCH (01:29)
--- NOTE | 2023-07-31 03:38 | Billing Data ---
Date of Service July 31, 2023 Coding Level of Care Code 87552 INT INP/OBS CARE
[2023-07-31] MEDS: NSS + 20MEQ KCL 20 MEQ/1,000 ML BAG IV SCH (04:16)
[2023-07-31] MEDS: ACETAMINOPHEN 325 MG TAB PO PRN (06:37)
--- NOTE | 2023-07-31 06:56 | XRay Report ---
XR shoulder RT min 2V routine CLINICAL HISTORY: Right shoulder pain. COMPARISON STUDY: None. FINDINGS: No fracture or dislocation within the right shoulder. The right clavicle is intact. Moderat e osteoarthritis. Soft tissues are unremarkable. IMPRESSION: No fracture or dislocation within the right shoulder. ACT 112: Negative or not required by law. Electronically signed by: Omar Levi M.D. 07/31/2023 6:55 AM
[2023-07-31 07:05] LABS: Basophils # (auto) 0.02 K/uL (0.00-0.20); Basophils % (auto) 0.3 %; Eosinophils # (auto) 0.09 K/uL (0.00-0.50); Eosinophils % (auto) 1.1 %; Hematocrit (blood only) 33.3 % (37.0-47.0); Hemoglobin 11.3 g/dl (12.0-16.0); Immature Granulocytes # (auto) 0.09 K/uL (0.01-0.20); Immature Granulocytes % (auto) 1.1 %; Lymphocytes % (auto) 12.7 %; Mean Corpuscular Hemoglobin 30.1 pg (25.0-34.0); Mean Corpuscular Hgb Conc 33.9 g/dL (32.0-36.0); Mean Corpuscular Volume 88.6 fL (80.0-100.0); Mean Platelet Volume 10.1 fL (9.4-12.4); Monocytes # (auto) 0.63 K/uL (0.11-0.59); Neutrophils # (auto) 6.03 K/uL (1.40-6.50); Neutrophils % (auto) 76.8 %; Platelet Count 283 K/uL (130-400); RDW Coefficient of Variation 19.1 % (11.5-14.5); RDW Standard Deviation 61.7 fL (36.4-46.3); Red Blood Count 3.76 M/uL (4.20-5.40); White Blood Count 7.86 K/ul (4.8-10.8)
[2023-07-31 07:19] LABS: Albumin Level 3.1 gm/dl (3.4-5.0); Bilirubin,Total 0.7 mg/dl (0.2-1.0); Calcium 7.5 mg/dl (8.6-10.3); Magnesium 1.7 mg/dl (1.7-2.4); Potassium 2.9 mmol/L (3.5-5.1)
[2023-07-31 07:25] LABS: Albumin Globulin Ratio 1.2 (0.9-2); BUN Creatinine Ratio 27.7 (10-20); Creatinine Clr Calc Pharmacy 84.7 ml/min; Est GFR (African American) 98.6 ml/min; Globulin 2.5 gm/dl (2.5-4.0); Total Protein 5.6 gm/dl (6.0-8.3)
--- NOTE | 2023-07-31 08:19 | Electrocardiogram Report ---
Test Reason : Blood Pressure : / mmHG Vent. Rate : 102 BPM Atrial Rate : 102 BPM P-R Int : 152 ms QRS Dur : 066 ms QT Int : 298 ms P-R-T Axes : 035 -20 -24 degrees QTc Int : 388 ms Sinus tachycardia with Premature atrial complexes and Premature ventricular complexes or Fusion compl exes Abnormal ECG When compared with ECG of 29-JUL-2023 14:06, (unconfirmed) Fusion complexes are now Present Premature ventricular complexes are now Present Premature atrial complexes are now Present QT has shortened Confirmed by Tylor Perry ([id number]) on 07/31/2023 8:19:35 AM Referred By: REFERRED SELF Confirmed By:Andry Perry
[2023-07-31] MEDS: LEVOTHYROXINE SODIUM 100 MCG TABLET PO SCH (08:56)
[2023-07-31] MEDS: APIXABAN 5 MG TABLET PO SCH (08:57)
[2023-07-31] MEDS: SUCRALFATE 1 GM TAB PO SCH (08:57)
[2023-07-31] MEDS: CALCIUM CARBONATE 500 MG CHEWABLE TAB PO SCH (08:58)
[2023-07-31] MEDS: ATORVASTATIN 20 MG TAB PO SCH (08:58)
[2023-07-31] MEDS: ESCITALOPRAM OXALATE 10 MG TAB PO SCH (08:59)
[2023-07-31] MEDS: CHOLECALCIFEROL 25 MCG (1000 UNITS) TAB PO SCH (08:59)
[2023-07-31] MEDS ORDERED: NON-FORMULARY MEDICATION (Biotin 5,000 mcg Tablet,Disintegrating) PO SCH (09:00)
[2023-07-31] MEDS ORDERED: NON-FORMULARY MEDICATION (Coenzyme Q10 200 mg capsule) PO SCH (09:00)
[2023-07-31] MEDS: FAMOTIDINE 20 MG TAB PO SCH (09:00)
[2023-07-31] MEDS: MULTIVITAMIN TAB PO SCH (09:00)
[2023-07-31] MEDS ORDERED: hydroCHLOROthiazide 25 MG TAB PO SCH (09:00)
[2023-07-31] MEDS: POTASSIUM CHLORIDE CRTAB 20 MEQ TABCR PO SCH ×2 (09:01→20:28)
[2023-07-31] MEDS: PANTOprazole 40 MG TAB PO SCH (09:01)
[2023-07-31] MEDS: VITAMIN B COMPLEX TAB PO SCH (09:01)
[2023-07-31] MEDS: POTASSIUM CHLORIDE CRTAB 20 MEQ TABCR PO STA (10:06)
[2023-07-31 12:41] LABS: Adenovirus F 40/41 PCR Not Detected (NotDetected); Astrovirus PCR Not Detected (NotDetected); Campylobacter PCR Not Detected (NotDetected); Cryptosporidium PCR Not Detected (NotDetected); Cyclospora cayetanensis PCR Not Detected (NotDetected); Entamoeba histolytica PCR Not Detected (NotDetected); Enteroaggregative E.coli(EAEC) Not Detected (NotDetected); Enteropathogenic E.coli (EPEC) Not Detected (NotDetected); Enterotoxigenic E.coli (ETEC) Not Detected (NotDetected); Giardia lamblia PCR Not Detected (NotDetected); Norovirus GI/GII PCR Not Detected (NotDetected); Plesiomonas shigelloides PCR Not Detected (NotDetected); Rotavirus A PCR Not Detected (NotDetected); Salmonella PCR Not Detected (NotDetected); Sapovirus PCR Not Detected (NotDetected); Shiga-like Toxin E.coli (STEC) Not Detected (NotDetected); Shigella/Enteroinvasive E.coli Not Detected (NotDetected); Vibrio cholerae PCR Not Detected (NotDetected); Vibrio species PCR Not Detected (NotDetected); Yersinia enterocolitica PCR Not Detected (NotDetected)
--- NOTE | 2023-07-31 18:16 | Hospitalist Progress Note ---
Date of Service July 31, 2023 Assessment & Plan (1) Nausea & vomiting: Plan: -Patient with recent hospitalization for diverticulitis and has been on an extended course of Cipro and Flagyl. -Symptoms started on 07/30/23 with nausea and vomiting. -Clear liquid diet -- advance as tolerated. -Continue Pantoprazole 40mg PO BID (2) Diarrhea: Plan: -Patient with diarrhea and loose stools ever since her discharge from the hospital approximately 13 days ago. -Was on extended course of Cipro and Flagyl up until 07/30/23. -Given a dose of ceftriaxone in the ED -C. difficile - negative -[facility] - negative -CT 07/30/23 -diverticulosis, but component of colitis or diverticulitis is suspected. Fluid in colon suggest diarrheal state, fluid and gas-filled small bowel loops may represent enteritis -Consider restarting abx for diverticulitis depending on patient's clinical presentation. -UA results suggestive of UTI, however urine culture resulted multiple organisms probable skin brie -Despite no urinary symptoms, in the setting of loose stools and weakness, repeat urine culture -- results pending (3) Hypomagnesemia: Plan: -Magnesium 1.3 on admission, received 2g of mag. -Magnesium 1.7 on 07/31/23. (4) Hypokalemia: Plan: -Potassium 2.8 on admission. Received 40 mEq K IV and 60 mEq K PO on 07/31/23 -CMP in the a.m. -On potassium chloride supplements (10 mEq BID) in the a.m. chronically. Will continue. Recommend spironolactone as a diuretic of choice in the setting of persistent hypokalemia. Recommend nephrology consult in outpatient setting due to persistent hypokalemia. (5) Diverticulitis of intestine with abscess: Plan: -Extended course of Cipro and Flagyl since discharge in June 2023. -Abdominal CT showed diverticulosis with possible component of colitis or diverticulitis, as well as possible enteritis. -Consider restarting antibiotics given CT results depending on patient condition and symptoms. (6) Atrial fibrillation: Plan: -On Eliquis 5 mg twice daily. Continue. (7) Right shoulder pain: Plan: -Shoulder x-ray taken in the ED --results revealed no fracture or dislocation within the right shoulder, moderate osteoarthritis. -Chronic issue, no changes. (8) Leg edema: Plan: Patient's biggest concern is bilateral lower extremity edema. The patient will have an echocardiogram performed. Should be placed on low-salt diet. 1 dose of diuretic therapy will be given in the evening of 07/31/2023 Plan CODE STATUS: Full code DVT prophylaxis: on Eliquis 5mg PO BID Admission and Anticipated Discharge Date Admission Date: July 30, 2023 Subjective Patient seen and evaluated at bedside in the ED. She summarized her recent hospitalization in June for diverticulitis with an abscess and course of antibiotics of Cipro and Flagyl for 13 days. She expressed how she felt weak and nauseous with vomiting which brought her to the ED. She states that she has been having loose stools ever since discharge from the hospital in June 2023. She explains this is not diarrhea, just soft/loose stools about 3 times per day, usually after meals. Currently, she endorses weakness, decreased appetite, and lethargy. She states her nausea has improved. She denies abdominal pain, chills, chest pain, shortness of breath, or urinary symptoms. Patient states she has had significant lower extremity edema since discharge from the hospital. She says it is difficult to get her shoes on and is uncomfortable walking and moving. She did take a short course of hydrochlorothiazide at home. However, she has persistent hypokalemia and takes 10 mEq of potassium twice daily at home. She was hypokalemic at 2.8 upon admission and received IV and oral potassium repletion in ED. Remained hypokalemic at 2.9 today. Magnesium low on admission, mag normal at 1.7 on 07/31/23 after repletion of 2 bags of magnesium. She has fairly significant lower extremity pitting edema bilaterally. Due to hypokalemia, recommend spironolactone as diuretic of choice. Ordered thigh-high SCDs. Patient had a cardiac cath lab radiology technologist put on for 30 days by her painter assistant on 07/29/2023 to evaluate A-fib. Physical Exam Physical Exam: General: No acute distress, nondiaphoretic, well-developed, well-nourished. Skin: The skin was without rashes, erythema, or bruising. 3+ pitting edema in lower extremities bilaterally. Cardiac: Regular rate and rhythm without murmurs gallops or rubs. cardiac monitor placed on 07-29-2023 for 30 days. Pulm: Clear to auscultation bilaterally without wheezes, rales or rhonchi. No retractions or accessory muscle use. Abdominal: Positive bowel sounds x 4. Soft, nontender, without masses or organomegaly. No guarding or rebound tenderness. Neuro: A&O x3. No focal neurological deficits. Results & Data Results & Data Vital Signs (Past 12 Hours) Vital Signs Temp Pulse Pulse Resp BP BP BP 07/31/23 15:25 87 07/31/23 15:08 36.5 C 89 19 130/77 07/31/23 11:10 86 07/31/23 10:56 37.1 C 86 19 120/69 07/31/23 09:00 81 17 99/72 L 07/31/23 08:00 82 21 141/73 H 07/31/23 07:28 91 H 07/31/23 07:00 87 26 H 137/75 Pulse Ox O2 Del Method 07/31/23 15:25 07/31/23 15:08 100 Room Air 07/31/23 11:10 07/31/23 10:56 94 Room Air 07/31/23 09:00 95 Room Air 07/31/23 08:00 95 07/31/23 07:28 07/31/23 07:00 91 Laboratory Results Reviewed CBC Reviewed CMP Reviewed UA Reviewed [facility] PG Care Time/CCT Total # of Minutes Spent Total Time Spent with Patient: Total time spent is greater than 50% in coordination of care (as documented) at patient's floor/unit and/or counseling patient: Coding Level of Care Code 42665 SUB INP/OBS CARE 3/50MIN Diagnoses Nausea & vomiting R11.2 Diarrhea R19.7 Diarrhea type: unspecified type Hypomagnesemia E83.42 Hypokalemia E87.6 Diverticulitis of large intestine with abscess without bleeding K57.20 Diverticulitis bleeding: without bleeding Diverticulitis site: large intestine Paroxysmal atrial fibrillation I48.0 Atrial fibrillation type: paroxysmal Right shoulder pain M25.511 Leg edema R60.0 (2) Diarrhea Diarrhea type: unspecified type Qualified Code(s): R19.7 - Diarrhea, unspecified (5) Diverticulitis of intestine with abscess Diverticulitis bleeding: without bleeding Diverticulitis site: large intestine Qualified Code(s): K57.20 - Diverticulitis of large intestine with perforation and abscess without bleeding (6) Atrial fibrillation Atrial fibrillation type: paroxysmal Qualified Code(s): I48.0 - Paroxysmal atrial fibrillation
[2023-07-31] MEDS: METOPROLOL SUCC 25MG EXT REL TAB PO SCH (20:05)
[2023-07-31] MEDS: FUROSEMIDE INJ 20 MG/2 ML VIAL IV ONE (20:27)
[2023-07-31 22:14] LABS: Appearance Urine Clear (Clear); Bacteria Urine Automated Negative (Negative); Bilirubin Urine Negative (Negative); Blood Urine Negative (Negative); Cast Urine Automated 0 /lpf (0-5); Color Urine Yellow; Epithelial Cell Urine Auto >30 /lpf (0-5); Glucose Urine UA Negative (Negative); Ketones Urine Negative (Negative); Leukocyte Esterase Urine 1+ (Negative); Nitrite Urine Negative (Negative); Protein Urine Negative (Negative); Specific Gravity Urine 1.008 (1.000-1.030); Urobilinogen Urine Negative (Negative)
[2023-08-01 06:59] LABS: Hematocrit (blood only) 31.2 % (37.0-47.0); Mean Corpuscular Hemoglobin 29.1 pg (25.0-34.0); Mean Corpuscular Hgb Conc 32.1 g/dL (32.0-36.0); Mean Corpuscular Volume 90.7 fL (80.0-100.0); Mean Platelet Volume 10.5 fL (9.4-12.4); Platelet Count 233 K/uL (130-400); RDW Coefficient of Variation 18.7 % (11.5-14.5); RDW Standard Deviation 62.4 fL (36.4-46.3); Red Blood Count 3.44 M/uL (4.20-5.40); White Blood Count 6.43 K/ul (4.8-10.8)
[2023-08-01 07:12] LABS: BUN Creatinine Ratio 24.3 (10-20); Calcium 7.4 mg/dl (8.6-10.3); Creatinine Clr Calc Pharmacy 78.6 ml/min; Est GFR (African American) 96.2 ml/min; Magnesium 1.5 mg/dl (1.7-2.4)
[2023-08-01] MEDS: POTASSIUM CHLORIDE CRTAB 20 MEQ TABCR PO STA (08:57)
[2023-08-01] MEDS: MAGNESIUM SULFATE / D5W 1 GM/100 ML BAG IV SCH (08:57)
--- NOTE | 2023-08-01 11:06 | Gastrointestinal Consultation ---
Date of Consultation August 01, 2023 Assessment & Plan (1) Diarrhea: (2) Vomiting: Plan Patient presented to the hospital with complaints of nausea/vomiting that were sudden in onset with complaints of ongoing looser stools since being on antibiotics for diverticulitis. I discussed case with Dr. Booker who helped advise on plan. It is possible that some of her loose stools are even more from being on the antibiotics. she does not have abdominal pain, fevers, or leukocytosis. At this time would not suspect diverticulitis. Her sudden symptoms may even have been more viral or foodborne illness in nature given the question of enteritis. Regardless, she tells me that those nausea/vomiting symptoms seem to have improved an resolved. - we discussed starting vs holding antibiotics at this time and the patient and her daughter are agreeable with seeing how she does off of the antibiotics for now and they feel her looser stools may have been from this. Can monitor her and see how she does with this. Supervising Physician Co-Signing Physician Notes I saw the patient and agree with the findings as documented by VANE Dumont History of Present Illness Reason for Consultation: persistent GI symptoms / post abx diverticulitis Requesting Physician: Lopez Murray MD Attending Physician: Lopez Murray History of Present Illness Patient is a 78 year old female who presented to the hospital with past medical history of diverticulitis wiht abscess, A-fib, hypercholesterolemia, and hypertension with new sudden onset nausea and vomiting. She was recently ad mitted to the hospital earlier this year on June 11 for diverticulitis and had been on a prolonged course of Cipro and Flagyl. She tells me that since starting antibioitcs she has had some looser stools but not technically diarrhea. she was having 3 bowel movements a day that are formed but softer than usual. no bleeding or melena. Upon evaluation at the ED she had a CT done on 07/30/23 showing diverticulosis with possible component of colitis/diverticulitis. there was also question of enteritis. She tells me today is the first day she has not had an antibiotic in her system in some time. She tells me nausea/vomiting has resolved. she denies any issues with abdominal pain. 07/31/23 stool studies negative. Patient's daughter was also at bedside to help provide history. colonoscopy 2019 diverticulosis and nonbleeding internal hemorrhoids. EGD 1/17/24 small hiatal hernia. Allergies Allergy/AdvReac Type Severity Reaction Status Date / Time Penicillins Allergy Intermediate RASH Verified 07/30/23 22:26 meperidine AdvReac Intermediate "FEELS OUT Verified 07/30/23 22:26 OF SPACE" chlorpromazine AdvReac Mild "JITTERY" Verified 07/30/23 22:26 droperidol AdvReac Mild "JITTERY" Verified 07/30/23 22:26 Home Medications Medication Instructions Recorded Confirmed Type cholecalciferol (vitamin D3) 25 1,000 unit PO QAM 06/18/18 07/30/23 History mcg (1,000 unit) capsule (Vitamin D3) multivitamin 1 tab PO QAM 06/18/18 07/30/23 History coenzyme Q10 200 mg capsule 200 mg PO QAM 01/15/19 07/30/23 History biotin 5,000 mcg disintegrating 5,000 mcg PO QAM 01/28/19 07/30/23 History tablet calcium carbonate 500 mg calcium 1,000 mg PO DAILY 08/18/21 07/30/23 History (1,250 mg) tablet vitamin B complex 1 tab PO DAILY 08/18/21 07/30/23 History ciclopirox 0.77 % topical cream 1 applic topical BID PRN rash #30 12/04/21 07/30/23 Rx grams levothyroxine 100 mcg tablet 100 mcg PO QAM #90 tabs 11/27/22 07/30/23 Rx diclofenac sodium 1 % topical gel 2 g topical QID PRN pain #100 grams 03/27/23 07/30/23 Rx atorvastatin 20 mg tablet 20 mg PO QAM 06/24/23 07/30/23 History conj estrogen-medroxyprogesterone 1 tab PO UD 06/24/23 07/30/23 History 0.3 mg-1.5 mg tablet (Prempro) escitalopram oxalate 5 mg tablet 5 mg PO QAM 06/24/23 07/30/23 History potassium chloride 10 mEq 20 meq (2 x 10 mEq) PO QAM #90 caps 07/04/23 07/30/23 Rx capsule,extended release apixaban 5 mg tablet (Eliquis) 5 mg PO BID #60 tabs 02/04/24 02/20/24 Rx ciprofloxacin HCl 500 mg tablet 500 mg PO BID 21 days #42 tabs 07/18/23 07/30/23 Rx (Cipro) metronidazole 500 mg tablet 500 mg PO TIDM 21 days #42 tabs 07/18/23 07/30/23 Rx famotidine 20 mg tablet 20 mg PO BID #60 tabs 07/23/23 07/30/23 Rx metoprolol succinate 25 mg 25 mg PO QPM #30 tabs 07/23/23 07/30/23 Rx tablet,extended release 24 hr pantoprazole 40 mg tablet,delayed 40 mg PO BID #60 tabs 07/23/23 07/30/23 Rx release sucralfate 1 gram tablet 1 g PO QID #120 tabs 07/23/23 07/30/23 Rx hydrochlorothiazide 25 mg tablet 25 mg PO .HOLD 07/30/23 07/30/23 History Patient History Medical History Hyperlipidemia Nausea and vomiting after administration of anesthetic agent after thyroid sx. Slow to wake up after anesthesia History of COVID-19 05/2020, tested at [place], not hosp; moderate symptoms>resolved Anxiety Atrial fibrillation 06/24/23, put on eliquis; will be getting set up w/cardio anshul. History of recent hospitalization d/c 06/23/23 from [facility] from a 14 day stay, N/V, diarrhea; CT showed diverticulitis w/abscess History of hypokalemia History of hypercalcemia History of postmenopausal bleeding occurred in 04/2023, seen by instructional resource teacher GERD (gastroesophageal reflux disease) hx Surgical History H/O cystoscopy with removal of obstructing urethral lesion History of esophagogastroduodenoscopy (EGD) History of dilation and curettage History of bilateral tubal ligation History of repair of right rotator cuff 11/2017 History of colonoscopy History of cholecystectomy History of tonsillectomy and adenoidectomy Status post biopsy of thyroid gland History of thyroidectomy, total benign tumor Family History Brother Family hx of colon cancer Colorectal cancer Family/Other Diabetes Sister Breast cancer Other No family history of adverse response to anesthesia Denies family history of Pancreatic cancer Ovarian cancer Prostate cancer Myocardial infarction Lung cancer Uterine cancer Social History Smoking Status: Never smoker Second Hand Exposure: Yes (hx until 4 years ago); Do You Dip or Chew Tobacco: No; Hx Alcohol Use: No Hx Substance Use: No Preferred Language: Irish Communication Ability: Effective Visual Impairment: No Limitations Hearing Ability: Normal Business Consultant Required: No Beliefs That Will Affect Care: None marital status: Current Living Situation: Spouse current occupational status: retired Feels Safe at Home: Yes Childhood Exposure to Second-Hand Smoke: Yes Diet: regular caffeine: Yes Dental Care, Regularly: Yes Physical Activity Frequency: Does not Exercise Physical Activity Frequency Comment: No routine, but is physically active around the house Seatbelt Use: always Sunscreen Use: No Assistive Devices: Cane and Glasses Review of Systems Review of Systems: All systems reviewed & are unremarkable except as noted in HPI & below Physical Exam Constitutional: WD/WN, vitals as above Respiratory: normal respiratory effort, lungs clear to auscultation Cardiovascular: RRR, no murmur, no edema Gastrointestinal (Abdomen): normal bowel sounds, soft, nontender, no hepatosplenomegaly Skin: no rashes, warm and dry Psychiatric: Orientation: alert and oriented x 3 Affect: euthymic affect Results & Data Vital Signs (Past 12 Hours) Vital Signs Temp Pulse Pulse Resp BP Pulse Ox O2 Del Method 08/01/23 07:46 Room Air 08/01/23 07:27 98.1 F 70 15 136/82 97 Room Air 08/01/23 07:00 73 08/01/23 03:41 98.4 F 87 14 133/81 96 Room Air Coding Level of Care Code 83587 INT INP/OBS CARE 2/55MIN Diagnoses Diarrhea R19.7 Diarrhea type: unspecified type Vomiting R11.10 Nausea presence: unspecified Vomiting type: unspecified Time Spent (min) 55 (1) Diarrhea Diarrhea type: unspecified type Qualified Code(s): R19.7 - Diarrhea, unspecified (2) Vomiting Nausea presence: unspecified Vomiting type: unspecified Qualified Code(s): R11.10 - Vomiting, unspecified
[2023-08-01] MEDS: POTASSIUM CHLORIDE CRTAB 20 MEQ TABCR PO SCH (13:28)
--- NOTE | 2023-08-01 13:32 | Orthopedic Consultation ---
Date of Service August 01, 2023 Assessment & Plan (1) Rotator cuff tear arthropathy of right shoulder: 1. We will plan in giving her a posterior subacromial injection tomorrow morning. 2. May use shoulder as pain allows 3. Follow up with Dr. Morales at [facility] office in sometime after discharge for further evaluation History of Present Illness Reason for Consultation: . Requesting Physician: . Attending Physician: Lopez Arvizu Terri Aguilar is a 78 y/o female with a one day history or severe right shoulder pain and weakness. She states that this has been going on since yesterday. No known injuries, falls, or trauma to the shoulder. She is right hand dominant. Allergies Allergy/AdvReac Type Severity Reaction Status Date / Time Penicillins Allergy Intermediate RASH Verified 07/30/23 22:26 meperidine AdvReac Intermediate "FEELS OUT Verified 07/30/23 22:26 OF SPACE" chlorpromazine AdvReac Mild "JITTERY" Verified 07/30/23 22:26 droperidol AdvReac Mild "JITTERY" Verified 07/30/23 22:26 Home Medications Medication Instructions Recorded Confirmed Type cholecalciferol (vitamin D3) 25 1,000 unit PO QAM 06/18/18 07/30/23 History mcg (1,000 unit) capsule (Vitamin D3) multivitamin 1 tab PO QAM 06/18/18 07/30/23 History coenzyme Q10 200 mg capsule 200 mg PO QAM 01/15/19 07/30/23 History biotin 5,000 mcg disintegrating 5,000 mcg PO QAM 01/28/19 07/30/23 History tablet calcium carbonate 500 mg calcium 1,000 mg PO DAILY 08/18/21 07/30/23 History (1,250 mg) tablet vitamin B complex 1 tab PO DAILY 08/18/21 07/30/23 History ciclopirox 0.77 % topical cream 1 applic topical BID PRN rash #30 12/04/21 07/30/23 Rx grams levothyroxine 100 mcg tablet 100 mcg PO QAM #90 tabs 11/27/22 07/30/23 Rx diclofenac sodium 1 % topical gel 2 g topical QID PRN pain #100 grams 03/27/23 07/30/23 Rx atorvastatin 20 mg tablet 20 mg PO QAM 06/24/23 07/30/23 History conj estrogen-medroxyprogesterone 1 tab PO UD 06/24/23 07/30/23 History 0.3 mg-1.5 mg tablet (Prempro) escitalopram oxalate 5 mg tablet 5 mg PO QAM 06/24/23 07/30/23 History potassium chloride 10 mEq 20 meq (2 x 10 mEq) PO QAM #90 caps 07/04/23 07/30/23 Rx capsule,extended release apixaban 5 mg tablet (Eliquis) 5 mg PO BID #60 tabs 07/14/23 07/30/23 Rx ciprofloxacin HCl 500 mg tablet 500 mg PO BID 21 days #42 tabs 07/18/23 07/30/23 Rx (Cipro) metronidazole 500 mg tablet 500 mg PO TIDM 21 days #42 tabs 07/18/23 07/30/23 Rx famotidine 20 mg tablet 20 mg PO BID #60 tabs 07/23/23 07/30/23 Rx metoprolol succinate 25 mg 25 mg PO QPM #30 tabs 07/23/23 07/30/23 Rx tablet,extended release 24 hr pantoprazole 40 mg tablet,delayed 40 mg PO BID #60 tabs 07/23/23 07/30/23 Rx release sucralfate 1 gram tablet 1 g PO QID #120 tabs 07/23/23 07/30/23 Rx hydrochlorothiazide 25 mg tablet 25 mg PO .HOLD 07/30/23 07/30/23 History Past Med/Surg History Medical History Hyperlipidemia Nausea and vomiting after administration of anesthetic agent after thyroid sx. Slow to wake up after anesthesia History of COVID-19 05/2020, tested at [place], not hosp; moderate symptoms>resolved Anxiety Atrial fibrillation 06/24/23, put on eliquis; will be getting set up w/cardio anshul. History of recent hospitalization d/c 06/23/23 from [facility] from a 14 day stay, N/V, diarrhea; CT showed diverticulitis w/abscess History of hypokalemia History of hypercalcemia History of postmenopausal bleeding occurred in 04/2023, seen by bottom loader GERD (gastroesophageal reflux disease) hx Surgical History H/O cystoscopy with removal of obstructing urethral lesion History of esophagogastroduodenoscopy (EGD) History of dilation and curettage History of bilateral tubal ligation History of repair of right rotator cuff 11/2017 History of colonoscopy History of cholecystectomy History of tonsillectomy and adenoidectomy Status post biopsy of thyroid gland History of thyroidectomy, total benign tumor Family History Brother Family hx of colon cancer Colorectal cancer Family/Other Diabetes Sister Breast cancer Other No family history of adverse response to anesthesia Denies family history of Pancreatic cancer Ovarian cancer Prostate cancer Myocardial infarction Lung cancer Uterine cancer Social History Smoking Status: Never smoker Second Hand Exposure: Yes (hx until 4 years ago); Do You Dip or Chew Tobacco: No; Hx Alcohol Use: No Hx Substance Use: No Preferred Language: Thai Communication Ability: Effective Visual Impairment: No Limitations Hearing Ability: Normal Senior Compensation Analyst Required: No Beliefs That Will Affect Care: None marital status: Current Living Situation: Spouse current occupational status: retired Feels Safe at Home: Yes Childhood Exposure to Second-Hand Smoke: Yes Diet: regular caffeine: Yes Dental Care, Regularly: Yes Physical Activity Frequency: Does not Exercise Physical Activity Frequency Comment: No routine, but is physically active around the house Seatbelt Use: always Sunscreen Use: No Assistive Devices: Cane and Glasses Review of Systems All systems reviewed & are unremarkable except as noted in HPI & below. Physical Exam Patient sitting comfortably in chair. Forward elevation to 60 degrees, abduction to 60 degrees. 4+ strength external rotation, 4/5 strength full can testing. Pain to palpation over the anterolateral subacromial space. Neurovascularly intact. Results & Data Results & Data Laboratory Results . Diagnostic Findings . PG Care Time/CCT Total # of Minutes Spent Total Time Spent with Patient: Total time spent is greater than 50% in coordination of care (as documented) at patient's floor/unit and/or counseling patient: Coding Level of Care Code 15890 IN/OBS CONSULT LVL 3,45M Diagnoses Rotator cuff tear arthropathy of right shoulder M75.101; M12.811
--- NOTE | 2023-08-01 14:17 | XCELERA ---
[id number] [id number]
--- NOTE | 2023-08-01 22:26 | Hospitalist Progress Note ---
Date of Service August 01, 2023 Assessment & Plan (1) Nausea & vomiting: Plan: -Patient with recent hospitalization for diverticulitis and has been on an extended course of Cipro and Flagyl. -Symptoms started on 07/30/23 with nausea and vomiting. -low fiber diet. -Continue Pantoprazole 40mg PO BID -her symptoms have improved. -CRP remains elevated but CT scan of abd/pelvis appears to have no fluid collection. (2) Diarrhea: Plan: -Patient with diarrhea and loose stools ever since her discharge from the hospital approximately 13 days ago. -Was on extended course of Cipro and Flagyl up until 07/30/23. -Given a dose of ceftriaxone in the ED -C. difficile - negative -BioFire - negative -CT 07/30/23 -diverticulosis, but component of colitis or diverticulitis is suspected. Fluid in colon suggest diarrheal state, fluid and gas-filled small bowel loops may represent enteritis -Consider restarting abx for diverticulitis depending on patient's clinical presentation. -UA results suggestive of UTI, however urine culture resulted multiple organisms probable skin brie -Despite no urinary symptoms, in the setting of loose stools and weakness, repeat urine culture -- results pending (3) Hypomagnesemia: Plan: -Magnesium 1.3 on admission, received 2g of mag. -Magnesium 1.7 on 07/31/23. (4) Hypokalemia: Plan: -Potassium 2.8 on admission. Received 40 mEq K IV and 60 mEq K PO on 07/31/23 -CMP in the a.m. -On potassium chloride supplements (10 mEq BID) in the a.m. chronically. Will continue. Recommend spironolactone as a diuretic of choice in the setting of persistent hypokalemia. Recommend nephrology consult in outpatient setting due to persistent hyp okalemia. (5) Diverticulitis of intestine with abscess: Plan: -Extended course of Cipro and Flagyl since discharge in June 2023. -Abdominal CT showed diverticulosis with possible component of colitis or diverticulitis, as well as possible enteritis. -Consider restarting antibiotics given CT results depending on patient condition and symptoms. (6) Atrial fibrillation: Plan: -On Eliquis 5 mg twice daily. Continue. (7) Right shoulder pain: Plan: -Shoulder x-ray taken in the ED --results revealed no fracture or dislocation within the right shoulder, moderate osteoarthritis. -Chronic issue, no changes. (8) Leg edema: Plan: Patient's biggest concern is bilateral lower extremity edema. The patient will have an echocardiogram performed. Should be placed on low-salt diet. 1 dose of diuretic therapy will be given in the evening of 07/31/[address]. [address] ARLENE stocking on 08/01 Plan CODE STATUS: Full code DVT prophylaxis: on Eliquis 5mg PO BID Admission and Anticipated Discharge Date Admission Date: July 30, 2023 Subjective Patient currently reports no abdominal pain. She is asking to advance her diet as she is tolerating a full liquid diet. Review of Systems Review of Systems: All systems reviewed & are unremarkable except as noted in HPI & below Physical Exam Physical Exam: General: No acute distress, nondiaphoretic, well-developed, well-nourished. Skin: The skin was without rashes, erythema, or bruising. 3+ pitting edema in lower extremities bilaterally. Cardiac: Regular rate and rhythm without murmurs gallops or rubs. sales support administrator placed on 07-29-2023 for 30 days. Pulm: Clear to auscultation bilaterally without wheezes, rales or rhonchi. No retractions or accessory muscle use. Abdominal: Positive bowel sounds x 4. Soft, nontender, without masses or organ omegaly. No guarding or rebound tenderness. Neuro: A&O x3. No focal neurological deficits. Results & Data Results & Data Vital Signs (Past 12 Hours) Vital Signs Temp Pulse Resp BP Pulse Ox O2 Del Method 08/01/23 19:28 36.8 C 84 20 122/70 96 Room Air 08/01/23 15:20 36.9 C 78 18 149/76 H 98 Room Air 08/01/23 11:07 36.9 C 70 15 142/83 H 98 Room Air PG Care Time/CCT Total # of Minutes Spent Total Time Spent with Patient: Total time spent is greater than 50% in coordination of care (as documented) at patient's floor/unit and/or counseling patient: Coding Level of Care Code 08850 SUB INP/OBS CARE 2/35MIN Diagnoses Nausea & vomiting R11.2 Diarrhea R19.7 Diarrhea type: unspecified type Hypomagnesemia E83.42 Hypokalemia E87.6 Diverticulitis of large intestine with abscess without bleeding K57.20 Diverticulitis bleeding: without bleeding Diverticulitis site: large intestine Paroxysmal atrial fibrillation I48.0 Atrial fibrillation type: paroxysmal Right shoulder pain M25.511 Leg edema R60.0 (2) Diarrhea Diarrhea type: unspecified type Qualified Code(s): R19.7 - Diarrhea, unspecified (5) Diverticulitis of intestine with abscess Diverticulitis bleeding: without bleeding Diverticulitis site: large intestine Qualified Code(s): K57.20 - Diverticulitis of large intestine with perforation and abscess without bleeding (6) Atrial fibrillation Atrial fibrillation type: paroxysmal Qualified Code(s): I48.0 - Paroxysmal atrial fibrillation
[2023-08-02 06:57] LABS: Hematocrit (blood only) 32.1 % (37.0-47.0); Hemoglobin 10.3 g/dl (12.0-16.0); Mean Corpuscular Hemoglobin 29.3 pg (25.0-34.0); Mean Corpuscular Hgb Conc 32.1 g/dL (32.0-36.0); Mean Corpuscular Volume 91.5 fL (80.0-100.0); Mean Platelet Volume 10.5 fL (9.4-12.4); Platelet Count 236 K/uL (130-400); RDW Coefficient of Variation 18.6 % (11.5-14.5); RDW Standard Deviation 62.3 fL (36.4-46.3); Red Blood Count 3.51 M/uL (4.20-5.40); White Blood Count 6.65 K/ul (4.8-10.8)
[2023-08-02 07:27] LABS: BUN Creatinine Ratio 26.9 (10-20); C Reactive Protein 17.07 mg/dl (0-0.5); Calcium 7.8 mg/dl (8.6-10.3); Creatinine Clr Calc Pharmacy 81.3 ml/min; Est GFR (African American) 97.6 ml/min; Est GFR (Non-African American) 84.2 ml/min; Potassium 3.9 mmol/L (3.5-5.1)
[2023-08-02] MEDS: TRIAMCINOLONE ACET 40 MG/ML VIAL IA ONE (14:52)
[2023-08-02] MEDS: BUPIVACAINE/EPINEPHRINE 0.25% 1:200,000 30 ML VIAL INFIL ONE (14:52)
--- NOTE | 2023-08-06 10:35 | Discharge Summary ---
Date of Service August 02, 2023 Admission HPI Per Admitting Provider Patient is a 78-year-old female who presents to the hospital with past medical history of diverticulitis, A-fib, hypercholesterolemia, and hypertension with new onset vomiting. She was recently admitted to the hospital on June 11 for diverticulitis and has been on a course of Cipro and Flagyl for 13 days. This morning around 3 AM patient started to have nausea and vomiting and she could not keep any food down. She also states that she started to feel weak as well. She does state that she has been having some shortness of breath but that this has been going on for approximately a week. She has been having loose stools ever since her discharge from the hospital. She has a bowel movement every meal. She states that she has not had any recent changes in her bowel movements though she has not been eating much fiber. She also states that she has been having chills since her hospitalization. She denies any sick contacts and no one else is having vomiting recently. She denies any chest pain, abdominal pain, chest pain, or fever. She also denies any dysuria, urinary urgency or frequency. Principal Diagnosis nausea and vomiting. Discharge Exam General: No acute distress, nondiaphoretic, well-developed, well-nourished. Skin: The skin was without rashes, erythema, or bruising. 3+ pitting edema in lower extremities bilaterally. Cardiac: Regular rate and rhythm without murmurs gallops or rubs. monitoring and evaluation advisor placed on 07-29-2023 for 30 days. Pulm: Clear to auscultation bilaterally without wheezes, rales or rhonchi. No retractions or accessory muscle use. Abdominal: Positive bowel sounds x 4. Soft, nontender, without masses or organomegaly. No guarding or rebound tenderness. Neuro: A&O x3. No focal neurological deficits. Discharge Data Allergies Allergy/AdvReac Type Severity Reaction Status Date / Time Penicillins Allergy Intermediate RASH Verified 07/30/23 22:26 meperidine AdvReac Intermediate "FEELS OUT Verified 07/30/23 22:26 OF SPACE" chlorpromazine AdvReac Mild "JITTERY" Verified 07/30/23 22:26 droperidol AdvReac Mild "JITTERY" Verified 07/30/23 22:26 Consultations 07/30/23 21:50 ED Decision to Admit Stat 08/01/23 10:03 Consult Gastroenterology Routine Consult Orthopedic Surgery Routine Ordered Studies 07/30/23 16:40 CT Abd and Pelvis [CT abd pelvis IV con only] Stat Hospital Course (1) Nausea & vomiting: -Patient with recent hospitalization for diverticulitis and has been on an extended course of Cipro and Flagyl. -Symptoms started on 07/30/23 with nausea and vomiting. -low fiber diet. -Continue Pantoprazole 40mg PO BID -CRP remains elevated but CT scan of abd/pelvis appears to have no fluid collection or abscess Patient clinically improved and no longer requires antibiotics. (2) Diarrhea: -Patient with diarrhea and loose stools ever since her discharge from the hospital approximately 13 days ago. -Was on extended course of Cipro and Flagyl up until 07/30/23. -C. difficile - negative -BioFire - negative -CT 07/30/23 -diverticulosis, but component of colitis or diverticulitis is suspected. Fluid in colon suggest diarrheal state, fluid and gas-filled small bowel loops may represent enteritis COnsulted GI: no indication to continue antibiotics. -UA results suggestive of UTI, however urine culture resulted multiple organisms probable skin brie -Despite no urinary symptoms, in the setting of loose stools and weakness (3) Hypomagnesemia: -Magnesium 1.3 on admission, received 2g of mag. -Magnesium 1.7 on 07/31/23. (4) Hypokalemia: -Potassium 2.8 on admission. Received 40 mEq K IV and 60 mEq K PO on 07/31/23 -CMP in the a.m. -On potassium chloride supplements (10 mEq BID) in the a.m. chronically. Will continue. Recommend spironolactone as a diuretic of choice in the setting of persistent hypokalemia. Recommend nephrology consult in outpatient setting due to persistent hypokalemia. (5) Diverticulitis of intestine with abscess: -Extended course of Cipro and Flagyl since discharge in June 2023. -as above (6) Atrial fibrillation: -On Eliquis 5 mg twice daily. Continue. (7) Right shoulder pain: -Shoulder x-ray taken in the ED --results revealed no fracture or dislocation within the right shoulder, moderate osteoarthritis. -Chronic issue, no changes. (8) Leg edema: Patient's biggest concern is bilateral lower extremity edema. The patient will have an echocardiogram performed. Should be placed on low-salt diet. 1 dose of diuretic therapy will be given in the evening of 07/31/[address]. [address] ARLENE stocking on 08/01 Total Time Total Time Spent Total Time Spent (In Minutes): 32 Discharge Plan Discharge Items Patient Disposition: Transfer Inpatient Rehab Fac Reason For Visit: VOMITING, HYPOKALEMIA, HYPOMAGNESEMIA Discharge Diagnosis: vomiting, hypokalemia Activity: Resume your previous activity Non-emergency contact: Primary Care Provider Call non-emergency contact if: you have any medication questions Follow-up/Referrals: Gwendolyn Baldwin CRNP [Primary Care Provider] - Diet: Low Fiber and Low Sodium (2gm) Addtl Attending Provider Instructions: May use shoulder as pain allows Follow up with Dr. Morales at [facility] office in sometime after discharge for further evaluation In regards to antibiotics will stop. In regards to her electrolytes, will recommend rechecking bmp and magnesium daily for [address] ARLENE stocking to help with her lower leg edema. Pending Studies at Discharge: No Stand-Alone Forms: My [facility] Skilled Items Patient informed of condition?: Yes DNR: No Discharge Level of Care: Acute rehab Communicable Disease: No Discharge Prognosis: Stable Lines: None Urinary Catheter: No Medications and DC Order Prescriptions: Continued ciclopirox 0.77 % cream 1 applic topical BID PRN (Reason: rash) Qty: 30 2RF diclofenac sodium 1 % gel 2 g topical QID PRN (Reason: pain) Qty: 100 3RF Rx Instructions: apply to both knees potassium chloride 10 mEq capsule, extended release 20 meq PO QAM Qty: 90 3RF famotidine 20 mg tablet 20 mg PO BID Qty: 60 4RF metoprolol succinate 25 mg tablet extended release 24 hr 25 mg PO QPM Qty: 30 5RF pantoprazole 40 mg tablet,delayed release (DR/EC) 40 mg PO BID Qty: 60 5RF sucralfate 1 gram tablet 1 g PO QID Qty: 120 3RF coenzyme Q10 200 mg capsule 200 mg PO QAM levothyroxine 100 mcg tablet 100 mcg PO QAM Qty: 90 3RF Eliquis 5 mg tablet 5 mg PO BID Qty: 60 2RF Patient Comments: has not started multivitamin Tablet 1 tab PO QAM cholecalciferol (vitamin D3) [Vitamin D3] 1,000 unit Capsule 1,000 unit PO QAM biotin 5,000 mcg Tablet,Disintegrating 5,000 mcg PO QAM calcium carbonate 500 mg calcium (1,250 mg) Tablet 1,000 mg PO DAILY vitamin B complex Tablet 1 tab PO DAILY atorvastatin 20 mg tablet 20 mg PO QAM Prempro 0.3-1.5 mg tablet 1 tab PO UD Rx Instructions: Tu, sat-AM escitalopram oxalate 5 mg tablet 5 mg PO QAM hydrochlorothiazide 25 mg tablet 25 mg PO .HOLD Discontinued ciprofloxacin HCl [Cipro] 500 mg tablet 500 mg PO BID 21 Days Qty: 42 0RF Rx Instructions: First dose tonight, take on a full stomach metronidazole 500 mg tablet 500 mg PO TIDM 21 Days Qty: 42 0RF Rx Instructions: try to take them every 8 hours but with meals Discharge Orders: Discharge Order (Routine); Ordered 08/02/23 Ordered By: Lopez Murray Admission Data Admit Date/Time: 07/30/23 22:28 Attending Provider: Lopez Murray Admit Provider: Thomas Ybarra Primary Care Provider: Gwendolyn Baldwin Other Providers: Kareem Gibson; Sweta Hassan; Levon Lloyd; Caren Gray; Candace Grider; Funmi Padilla; Matilda Hart; Tl Bookersim; Jason Lr; Rogelio Thao; Emma Cutler; Jonny Burton S; Maddy Krishnamurthy; Sravanthi Aguilar; Kaylen Matthews; Deborah Walter; Jennifer Owens; Ede Adorno; Morales Rojo; Paloma Blanchard; Raymundo Harmon Jr; Hebert Oliveira; Linette Gonsalez; Becky Vargas; Saravanan Purdy; Carmen Crandall; Dagoberto Negrete; Annabel Rojas; Good Hudson; Lico Glover; Paloma Mancia; Lico Morales; Isrrael Decker.; [facility] Coding Level of Care Code 36103 INP/OBS DISCH >30 MIN Diagnoses Nausea & vomiting R11.2 Diarrhea R19.7 Diarrhea type: unspecified type Hypomagnesemia E83.42 Hypokalemia E87.6 Diverticulitis of large intestine with abscess without bleeding K57.20 Diverticulitis bleeding: without bleeding Diverticulitis site: large intestine Paroxysmal atrial fibrillation I48.0 Atrial fibrillation type: paroxysmal Right shoulder pain M25.511 Leg edema R60.0
== END 2023-08-02 17:50 | DRG 392 ==
LOC: ED 16:33 → SUATTDRO 22:28 → EDINP 22:28 → 2S 22:50

== ENCOUNTER 2024-05-29 11:46 | Inpatient (IN) ==
--- NOTE | 2024-05-29 12:36 | Emergency Department Note ---
Impression & Plan Diverticulitis, Vomiting, Hypomagnesemia, Hypokalemia ED Provider Note NAME: SHEKHAR CADET AGE: 79 SEX: F : 1945 ARRIVES VIA: Walk-In INFORMANT: [Patient][family] ED PROVIDER(S): [Thomas Arevalo MD] CHIEF COMPLAINT: GI assessment HISTORY OF PRESENT ILLNESS: The patient is a 79-year-old female with a history of diverticulitis. She states that 3 days ago, she saw her doctor's office and was diagnosed with diverticulitis. She states that she had a CT scan outpatient that confirmed this diagnosis. She started Cipro and Flagyl. She began having some diarrhea from the medication but then in the last 24 hours, she has been vomiting and cannot take the medication. There has been no fever, no cough or congestion or respiratory complaints. No blood in the vomit or diarrhea. She does not really have any abdominal pain. No urinary complaints. PMHx/PSHx/Social Hx: See Below PHYSICAL EXAM: GENERAL: Patient is in no acute distress. HEENT: No acute trauma, normocephalic atraumatic, mucous membranes moist, no nasal congestion. NECK: No stridor, no adenopathy, no meningismus, trachea is midline. LUNGS: Clear to auscultation bilaterally, no wheeze, no rhonchi, breath sounds equal. HEART: Without murmurs gallops or rubs, regular rate and rhythm. ABDOMEN: Soft, nontender, no peritonitis. No real discomfort with palpation of the lower abdomen. EXTREMITIES: No cyanosis, full range of motion of all the joints without pain or difficulty. Mild bilateral pedal edema. NEUROLOGIC: Oriented x 3, no acute motor or sensory deficits, no focal weakness. SKIN: No jaundice, no diaphoresis. DIFFERENTIAL DIAGNOSIS: Diverticulitis, dehydration, electrolyte imbalance, UTI, failed outpatient management, medication reaction, among others. EMERGENCY DEPARTMENT PROCEDURES: MEDICAL DECISION MAKING: There is no leukocytosis or concerning anemia. There is a normal platelet count. Potassium and magnesium were both somewhat low. There was no renal failure. No concerning liver enzyme elevation. No evidence for pancreatitis. Urinalysis was consistent with potential infection. On exam, the patient did not really have any abdominal pain. She was resting fairly comfortably. She was not toxic in appearance. Patient received IV saline, IV Zofran. She was feeling somewhat improved. The patient has had this issue before, she has had vomiting from diverticulitis in the past requiring a hospital stay. She once again is not tolerating her oral meds for diverticulitis. She does require a hospital stay and further care. I spoke with the patient and case management. The on-call hospitalist was consulted. Prior/Outside records/notes reviewed: None Imaging/x-ray results per my interpretation: Chronic Medical/Social conditions affecting care: Advanced age. Care/Management discussed with: Case management, the on-call hospitalist. 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 Leg edema Right shoulder pain Esophageal dysphagia Weakness (Acute) Hypokalemia (Acute) Diverticulitis large intestine (Acute) Localized osteoarthritis of knees, bilateral Stomach upset UTI (urinary tract infection) Frequency of urination Low back pain associated with a spinal disorder other than radiculopathy or spinal stenosis BPPV (benign paroxysmal positional vertigo) Osteoarthritis of right knee Adnexal cyst Intertrigo Metacarpophalangeal joint pain of left hand Trigger finger, left index finger Incontinence Edema (Acute) High risk for colon cancer (Acute) Hypercholesterolemia (Acute) Hypertension (Acute) Iatrogenic hypothyroidism (Acute) Impaired fasting glucose (Acute) Arthritis (Acute) Medical History Diverticulitis of intestine with abscess Hyperlipidemia Nausea and vomiting after administration of anesthetic agent after thyroid sx. Slow to wake up after anesthesia History of COVID-19 05/2020, tested at [place], not hosp; moderate symptoms>resolved Anxiety Atrial fibrillation 06/24/23, put on eliquis; will be getting set up w/cardio anshul. History of recent hospitalization d/c 06/23/23 from [facility] from a 14 day stay, N/V, diarrhea; CT showed diverticulitis w/abscess History of hypokalemia History of hypercalcemia History of postmenopausal bleeding occurred in 04/2023, seen by trial court justice GERD (gastroesophageal reflux disease) hx Surgical History H/O cystoscopy History of esophagogastroduodenoscopy (EGD) History of dilation and curettage History of bilateral tubal ligation History of repair of right rotator cuff History of colonoscopy History of cholecystectomy History of tonsillectomy and adenoidectomy Status post biopsy of thyroid gland History of thyroidectomy, total Family History Brother Family hx of colon cancer Colorectal cancer Family/Other Diabetes Sister Breast cancer Other No family history of adverse response to anesthesia Denies family history of Pancreatic cancer Ovarian cancer Prostate cancer Myocardial infarction Lung cancer Uterine cancer Social History Smoking Status: Never smoker Second Hand Exposure: Yes (hx until 4 years ago); Do You Dip or Chew Tobacco: No; Hx Alcohol Use: No Hx Substance Use: No Preferred Language: American Communication Ability: Effective Visual Impairment: No Limitations Hearing Ability: Normal [employer] Executive Required: No Beliefs That Will Affect Care: None marital status: Current Living Situation: Spouse current occupational status: retired Feels Safe at Home: Yes Safety Concerns: Feels Safe At This Time Childhood Exposure to Second-Hand Smoke: Yes Diet: regular caffeine: Yes Dental Care, Regularly: Yes Physical Activity Frequency: Does not Exercise Physical Activity Frequency Comment: No routine, but is physically active around the house Seatbelt Use: always Sunscreen Use: No Assistive Devices: Cane and Walker Allergies Allergies Allergy/AdvReac Type Severity Reaction Status Date / Time Penicillins Allergy Intermediate RASH Verified 04/22/24 13:28 meperidine AdvReac Intermediate "FEELS OUT Verified 04/22/24 13:28 OF SPACE" chlorpromazine AdvReac Mild "JITTERY" Verified 04/22/24 13:28 droperidol AdvReac Mild "JITTERY" Verified 04/22/24 13:28 Home Meds Home Medications Medication Instructions Recorded Confirmed cholecalciferol (vitamin D3) 25 1,000 unit PO QAM 06/18/18 05/29/24 mcg (1,000 unit) capsule (Vitamin D3) multivitamin 1 tab PO QAM 06/18/18 05/29/24 coenzyme Q10 200 mg capsule 200 mg PO QAM 01/15/19 05/29/24 biotin 5,000 mcg disintegrating 5,000 mcg PO QAM 01/28/19 05/29/24 tablet calcium carbonate 1,000 mg PO DAILY 08/18/21 05/29/24 nystatin 100,000 unit/gram topical 1 applic topical BID PRN Other 05/29/24 05/29/24 powder Previous Rx's Medication Instructions Recorded ciclopirox 0.77 % topical cream 1 applic topical BID PRN rash #30 12/04/21 grams diclofenac sodium 1 % topical gel 2 g topical QID PRN pain 90 days 08/28/23 #300 grams escitalopram oxalate 5 mg tablet 5 mg PO QAM #90 tabs 08/28/23 metoprolol succinate 25 mg 25 mg PO QPM #90 tabs 08/28/23 tablet,extended release 24 hr atorvastatin 20 mg tablet 20 mg PO QAM #90 tabs 09/10/23 potassium chloride 10 mEq 20 meq (2 x 10 mEq) PO QAM #180 09/16/23 capsule,extended release caps hydrochlorothiazide 25 mg tablet 25 mg PO DAILY PRN edema #90 tabs 11/20/23 celecoxib 200 mg capsule (Celebrex) 200 mg PO QAM #90 caps 12/02/23 levothyroxine 100 mcg tablet 100 mcg PO QAM #90 tabs 02/17/24 conj estrogen-medroxyprogesterone 1 tab PO UD #84 tabs 04/22/24 0.3 mg-1.5 mg tablet (Prempro) ciprofloxacin HCl 500 mg tablet 500 mg PO BID #20 tabs 05/26/24 metronidazole 500 mg tablet 500 mg PO Q8H #30 tabs 05/26/24 Results & Data (ED) Vital Signs Vital Signs - 24 hr 05/29/24 12:12 05/29/24 12:36 05/29/24 12:38 Temperature 36.4 C L Temperature Source Temporal Artery Scan Pulse Rate 84 74 70 Pulse Rate [Apical] Pulse Rhythm Regular Pulse Strength Normal Respiratory Rate 20 18 Respiratory Effort / Characteristics Non-Labored Spontaneous Respiratory Depth Normal Respiratory Pattern Blood Pressure 154/93 H Blood Pressure [Right Arm] Blood Pressure Mean 113 Blood Pressure Mean [Right Arm] Blood Pressure Position Sitting Blood Pressure Position [Right Arm] Pulse Oximetry 97 Oxygen Delivery Method Room Air Sepsis Recent Fever Within 48 Hours No Sepsis New/Unexplained Change in Mental Status N/A Sepsis Action Taken by Nursing No Action Required 05/29/24 13:03 05/29/24 13:33 05/29/24 14:10 Temperature Temperature Source Pulse Rate 64 67 Pulse Rate [Apical] 61 Pulse Rhythm Pulse Strength Respiratory Rate 19 15 18 Respiratory Effort / Characteristics Non-Labored Spontaneous Respiratory Depth Normal Respiratory Pattern Regular Blood Pressure Blood Pressure [Right Arm] 131/78 Blood Pressure Mean Blood Pressure Mean [Right Arm] 95 Blood Pressure Position Blood Pressure Position [Right Arm] Lying Pulse Oximetry 93 Oxygen Delivery Method Room Air Sepsis Recent Fever Within 48 Hours Sepsis New/Unexplained Change in Mental Status Sepsis Action Taken by [facility]ent[facility] Medications Current Medication List: was personally reviewed by me Laboratory Data Attestation: I reviewed the patient's lab results. 05/29/24 12:57 05/29/24 12:57 Lab Results 05/29/24 Range/Units 12:57 WBC 7.93 (4.8-10.8) K/ul RBC 4.17 L (4.20-5.40) M/uL Hgb 11.9 L (12.0-16.0) g/dl Hct 35.9 L (37.0-47.0) % MCV 86.1 (80.0-100.0) fL MCH 28.5 (25.0-34.0) pg MCHC 33.1 (32.0-36.0) g/dL RDW Std Deviation 44.9 (36.4-46.3) fL RDW Coeff of Anai 14.2 (11.5-14.5) % Plt Count 334 (130-400) K/uL MPV 10.0 (9.4-12.4) fL Immature Gran % (Auto) 0.8 % Neut % (Auto) 85.1 % Lymph % (Auto) 5.4 % Deuel % (Auto) 5.8 % Eos % (Auto) 2.5 % Baso % (Auto) 0.4 % Neut # (Auto) 6.75 H (1.40-6.50) K/uL Lymph # (Auto) 0.43 L (1.20-3.40) K/uL Deuel # (Auto) 0.46 (0.11-0.59) K/uL Eos # (Auto) 0.20 (0.00-0.50) K/uL Baso # (Auto) 0.03 (0.00-0.20) K/uL Immature Gran # (Auto) 0.06 (0.01-0.20) K/uL Sodium 141 (136-145) mmol/L Potassium 3.4 L (3.5-5.1) mmol/L Chloride 109 H (98-107) mmol/L Carbon Dioxide 22 (21-32) mmol/L Anion Gap 10 (3-11) BUN 16 (6-23) mg/dl Creatinine 0.89 (0.6-1.2) mg/dl Est Cr Clr Drug Dosing Not Reportable eGFR 65.91 BUN/Creatinine Ratio 18.0 (10-20) Glucose 126 H (70-99(Fasting)) mg/dl Calcium 8.4 L (8.6-10.3) mg/dl Magnesium 1.4 L (1.7-2.4) mg/dl Total Bilirubin 0.6 (0.2-1.0) mg/dl AST 17 (13-39) U/L ALT 10 (7-52) U/L Alkaline Phosphatase 71 (34-104) U/L Total Protein 6.7 (6.0-8.3) gm/dl Albumin 3.1 L (3.4-5.0) gm/dl Globulin 3.6 (2.5-4.0) gm/dl Albumin/Globulin Ratio 0.9 (0.9-2) Lipase 9 L (11-82) U/L Administered Medications Potassium Chloride (K Genaro / Wtr) 10 meq in 100 mls @ 100 mls/hr IV Q1H RADHA Stop: 05/29/24 21:29 Last Admin: 05/29/24 17:59 Dose: 100 mls/hr Documented By: TMP Magnesium Sulfate/Dextrose (Magnesium Sulfate / D5w) 1 gm in 100 mls @ 50 mls/hr IV Q2H RADHA Stop: 05/29/24 22:44 Last Admin: 05/29/24 17:59 Dose: 50 mls/hr Documented By: TMP Discontinued Medications Sodium Chloride (Nss) 1,000 mls @ 999 mls/hr IV .Q1H1M STA Stop: 05/29/24 13:22 Last Infusion: 05/29/24 13:43 Dose: Infused Documented By: Admin: 05/29/24 12:47 Dose: 999 mls/hr Documented By: BS Pantoprazole Sodium (Protonix) 40 mg in 10 mls @ 5 mls/min IV ONE ONE Stop: 05/29/24 15:46 Last Admin: 05/29/24 16:10 Dose: 5 mls/min Documented By: JERSEY Ondansetron HCl (Ondansetron Inj 2 Mg/Ml 2 Ml Vial) 4 mg IV NOW STA Stop: 05/29/24 12:23 Last Admin: 05/29/24 12:47 Dose: 4 mg Documented By: BS Imaging Data Radiologist's Impression: [facility], [place] [phone] CT Scan Report Patient: SHEKHAR CADET Admit Date: 05/26/24 MR#: [id number] Address1: [address] [place] [address] Acct ID:[id number] Address2: Date: 1945 [facility] Zip: [place] [address] Age: 79 Location: [place] Sex: F Room/Bed: Att Phy: Gwendolyn Baldwin CRNP Diagnosis: R11.0 - Nausea Isabel Phy: Gwendolyn Baldwin CRNP Service Date: 05/26/24 [facility] Phy: Interpreting Phy: Isrrael RiceAdmit Phy: Ordering Phy: Gwendolyn Baldwin CRNP cc: ~ ABDOMEN AND PELVIS CT WITH IV CONTRAST CT DOSE: 1268.17 mGy.cm HISTORY: R11.0 - Nausea TECHNIQUE: Multiaxial CT images of the abdomen and pelvis were performed following the IV administration of 90 cc of Optiray, A dose lowering technique was utilized adhering to the principles of ALARA. COMPARISON STUDY: 07/30/2023 FINDINGS: Trace pericardial effusion. Descending thoracic aortic tortuosity. Clear lung bases. No upper abdominal pneumatosis or pneumoperitoneum. Unremarkable spleen, pancreas and adrenal glands. Cholecystectomy. Unremarkable liver with indeterminate ill-defined 9 mm hypodense focus of the left hepatic lobe on image 52 series 3. Liver is mildly enlarged. Patency of the hepatic and portal veins. Cortical thinning of the kidneys. No hydronephrosis. Mild heterogeneity of the superior pole right kidney appears unchanged from prior. Decompressed urinary bladder with mild wall thickening. Atherosclerosis of the aorta without aneurysm. No lymphadenopathy. Cystic foci of the adnexa measuring up to 2.5 cm on the left. No bowel obstruction. Acute sigmoid diverticulitis with adjacent inflammatory stranding and trace free pelvic fluid. Additionally, there is a air and fluid- filled sinus tract/fistula on image 239 measuring 6 mm involving adjacent loops of the sigmoid. There is an additional smaller, low colonic fistula involving the sigmoid on image 245, also seen on prior. No drainable fluid collections are seen. Noninflamed appendix. No acute fracture. IMPRESSION: 1. Acute sigmoid diverticulitis with colo-colonic fistulas. Findings are overall similar appearance to the study from 07/30/2023. 2. No drainable fluid collections or bowel obstruction. 3. Additional findings as above. Discharge Plan Visit Data Chief Complaint: GI Assessment Stated Complaint: DIVERTICULITIS, VOMITING ED Provider: Thomas Arevalo Discharge Problem: Diverticulitis, Vomiting, Hypomagnesemia, Hypokalemia Patient Disposition: Admitted As Inpatient Condition: Fair Discharge Instructions Interventions: ED Discharge Assessment Last Done: 05/29/24 16:52 Discharge Problem: Vomiting Qualifiers: Vomiting type: unspecified Nausea presence: with nausea Qualified Code(s): R 11.2 - Nausea with vomiting, unspecified
[2024-05-29] MEDS: SODIUM CHLORIDE 0.9% 1,000 ML IV STA (12:47)
[2024-05-29] MEDS: ONDANSETRON INJ 2 MG/ML 2 ML VIAL IV STA (12:47)
[2024-05-29 13:21] LABS: Basophils # (auto) 0.03 K/uL (0.00-0.20); Basophils % (auto) 0.4 %; Eosinophils % (auto) 2.5 %; Hematocrit (blood only) 35.9 % (37.0-47.0); Hemoglobin 11.9 g/dl (12.0-16.0); Immature Granulocytes # (auto) 0.06 K/uL (0.01-0.20); Immature Granulocytes % (auto) 0.8 %; Lymphocytes # (auto) 0.43 K/uL (1.20-3.40); Lymphocytes % (auto) 5.4 %; Mean Corpuscular Hemoglobin 28.5 pg (25.0-34.0); Mean Corpuscular Hgb Conc 33.1 g/dL (32.0-36.0); Mean Corpuscular Volume 86.1 fL (80.0-100.0); Monocytes # (auto) 0.46 K/uL (0.11-0.59); Monocytes % (auto) 5.8 %; Neutrophils # (auto) 6.75 K/uL (1.40-6.50); Neutrophils % (auto) 85.1 %; Platelet Count 334 K/uL (130-400); RDW Coefficient of Variation 14.2 % (11.5-14.5); RDW Standard Deviation 44.9 fL (36.4-46.3); Red Blood Count 4.17 M/uL (4.20-5.40); White Blood Count 7.93 K/ul (4.8-10.8)
[2024-05-29 13:36] LABS: Alanine Aminotransferase 10 U/L (7-52); Albumin Globulin Ratio 0.9 (0.9-2); Albumin Level 3.1 gm/dl (3.4-5.0); Alkaline Phosphatase 71 U/L (34-104); Anion Gap 10 (3-11); Aspartate Aminotransferase 17 U/L (13-39); Bilirubin,Total 0.6 mg/dl (0.2-1.0); Blood Urea Nitrogen 16 mg/dl (6-23); Calcium 8.4 mg/dl (8.6-10.3); Carbon Dioxide 22 mmol/L (21-32); Chloride 109 mmol/L (98-107); Globulin 3.6 gm/dl (2.5-4.0); Glucose 126 mg/dl (70-99(Fasting)); Lipase 9 U/L (11-82); Potassium 3.4 mmol/L (3.5-5.1); Sodium 141 mmol/L (136-145); Total Protein 6.7 gm/dl (6.0-8.3)
--- NOTE | 2024-05-29 14:23 | History & Physical Report ---
Date of Service May 29, 2024 Assessment & Plan (1) Diverticulitis large intestine: Plan: known history of diverticulosis, diverticulitis requiring admission Patient with nausea, vomiting, diarrhea x 2 days Abdominal pain Saturday, since resolved CT AP out pt 05/26 showed acute sigmoid diverticulitis with colocolonic fistulous, no abscess received outpatient ciprofloxacin and Flagyl, unable to tolerate p.o. intake abdomen is currently nontender, no concern for abscess at this time; no leukocytosis, VSS, afebrile - if labs or symptoms change, can consider repeat CT of A/P to assess for abscess transition to ciprofloxacin and Flagyl IV IV Zofran prn IV Pepcid and PPI scheduled Will trial clears for dinner 05/29 and advance as tolerated (2) Hypokalemia: Plan: 2/2 to vomiting and diarrhea 3.4 on admission Takes 10 mEq p.o. at home, unable to tolerate p.o. intake for several days Given critical IV shortage, will order 4 bags K+ IV 10 mEq trial p.o. potassium in a.m. trend BMP (3) Hypomagnesemia: Plan: 2/2 to vomiting and diarrhea 1.4 on admission 3G IV ordered add daily PO supplement trend Mg (4) Edema: Plan: chronic bilateral lower extremity edema Takes hydrochlorothiazide at home prn Patient currently has no edema, hold home HCTZ given clinically hypovolemic TEDs and SCDs ordered promote ambulation and leg elevation (5) Hypertension: Plan: stable Continue home metoprolol Plan Chronic stable diagnoses: HLD continue home statin Arthritis continue home NSAID Depression continue home escitalopram Hypothyroidism continue home levothyroxine, recent TSH stable A-fib denies history of, Holter monitor showed no arrhythmia VTE ppx: Teds, SCDs, promote ambulation Diet: Clears, advance as tolerated - if unable to tolerate clears for dinner, will switch to n.p.o. 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 Patient was seen at her PCP for regular well check on Saturday, the provider noted that the patient had left-sided abdominal tenderness to palpation. The patient stated that she has had diverticulitis in the past requiring hospitalization. Patient had an A/P CT on 05/26 which noted acute sigmoid diverticulitis with [place] colonic fistulas. At this point she was started on Ciprofloxacin and Flagyl. The patient then began with vomiting and diarrhea x 2 days after starting antibiotics. She stated she has had about 6 episodes of vomiting and 5 episodes of diarrhea. She has been able to keep some light things down like tea, water, and crackers. She did note that she had constipation prior to having the diarrhea. She had similar symptoms in the past when she had diverticulitis. Patient has not taking her morning medications as she has been unable to tolerate p.o. intake today, did vomit this morning. She denies nausea after receiving Zofran in the ER. Patient denies fever, chills, headache, dizziness, lightheadedness, cough, dyspnea, chest pain, abdominal pain, dysuria, hematuria, edema, numbness, tingling. She did note that when she was hospitalized in the past she had edema of her bilateral lower extremities. Allergies Allergy/AdvReac Type Severity Reaction Status Date / Time Penicillins Allergy Intermediate RASH Verified 04/22/24 13:28 meperidine AdvReac Intermediate "FEELS OUT Verified 04/22/24 13:28 OF SPACE" chlorpromazine AdvReac Mild "JITTERY" Verified 04/22/24 13:28 droperidol AdvReac Mild "JITTERY" Verified 04/22/24 13:28 Home Medications Medication Instructions Recorded Confirmed Type cholecalciferol (vitamin D3) 25 1,000 unit PO QAM 06/18/18 05/29/24 History mcg (1,000 unit) capsule (Vitamin D3) multivitamin 1 tab PO QAM 06/18/18 05/29/24 History coenzyme Q10 200 mg capsule 200 mg PO QAM 01/15/19 05/29/24 History biotin 5,000 mcg disintegrating 5,000 mcg PO QAM 01/28/19 05/29/24 History tablet calcium carbonate 1,000 mg PO DAILY 08/18/21 05/29/24 History ciclopirox 0.77 % topical cream 1 applic topical BID PRN rash #30 12/04/21 05/29/24 Rx grams diclofenac sodium 1 % topical gel 2 g topical QID PRN pain 90 days 08/28/23 05/29/24 Rx #300 grams escitalopram oxalate 5 mg tablet 5 mg PO QAM #90 tabs 08/28/23 05/29/24 Rx metoprolol succinate 25 mg 25 mg PO QPM #90 tabs 08/28/23 05/29/24 Rx tablet,extended release 24 hr atorvastatin 20 mg tablet 20 mg PO QAM #90 tabs 09/10/23 05/29/24 Rx potassium chloride 10 mEq 20 meq (2 x 10 mEq) PO QAM #180 09/16/23 05/29/24 Rx capsule,extended release caps hydrochlorothiazide 25 mg tablet 25 mg PO DAILY PRN edema #90 tabs 11/20/23 05/29/24 Rx celecoxib 200 mg capsule (Celebrex) 200 mg PO QAM #90 caps 12/02/23 05/29/24 Rx levothyroxine 100 mcg tablet 100 mcg PO QAM #90 tabs 02/17/24 05/29/24 Rx conj estrogen-medroxyprogesterone 1 tab PO UD #84 tabs 04/22/24 05/29/24 Rx 0.3 mg-1.5 mg tablet (Prempro) ciprofloxacin HCl 500 mg tablet 500 mg PO BID #20 tabs 05/26/24 05/29/24 Rx metronidazole 500 mg tablet 500 mg PO Q8H #30 tabs 05/26/24 05/29/24 Rx nystatin 100,000 unit/gram topical 1 applic topical BID PRN Other 05/29/24 05/29/24 History powder Past Med/Surg History Problem List (Updated 05/29/24 @ 16:31 by Kati Pandya PA-C) Hypomagnesemia Colonic fistula PAC (premature atrial contraction) Frequent PVCs Rotator cuff tear arthropathy of right shoulder Leg edema Right shoulder pain Esophageal dysphagia Weakness (Acute) Hypokalemia (Acute) Diverticulitis large intestine (Acute) Localized osteoarthritis of knees, bilateral Stomach upset UTI (urinary tract infection) Frequency of urination Low back pain associated with a spinal disorder other than radiculopathy or spinal stenosis BPPV (benign paroxysmal positional vertigo) Osteoarthritis of right knee Adnexal cyst Intertrigo Metacarpophalangeal joint pain of left hand Trigger finger, left index finger Incontinence Edema (Acute) High risk for colon cancer (Acute) Hypercholesterolemia (Acute) Hypertension (Acute) Iatrogenic hypothyroidism (Acute) Impaired fasting glucose (Acute) Arthritis (Acute) Medical History (Updated 05/29/24 @ 16:31 by Kati Pandya PA-C) Diverticulitis of intestine with abscess Hyperlipidemia Nausea and vomiting after administration of anesthetic agent after thyroid sx. Slow to wake up after anesthesia History of COVID-19 05/2020, tested at [place], not hosp; moderate symptoms>resolved Anxiety Atrial fibrillation 06/24/23, put on eliquis; will be getting set up w/cardio anshul. History of recent hospitalization d/c 06/23/23 from [facility] [place] from a 14 day stay, N/V, diarrhea; CT showed diverticulitis w/abscess History of hypokalemia History of hypercalcemia History of postmenopausal bleeding occurred in 04/2023, seen by technical intern GERD (gastroesophageal reflux disease) hx Surgical History H/O cystoscopy History of esophagogastroduodenoscopy (EGD) History of dilation and curettage History of bilateral tubal ligation History of repair of right rotator cuff History of colonoscopy History of cholecystectomy History of tonsillectomy and adenoidectomy Status post biopsy of thyroid gland History of thyroidectomy, total Family History Brother Family hx of colon cancer Colorectal cancer Family/Other Diabetes Sister Breast cancer Other No family history of adverse response to anesthesia Denies family history of Pancreatic cancer Ovarian cancer Prostate cancer Myocardial infarction Lung cancer Uterine cancer Social History Smoking Status: Never smoker Second Hand Exposure: Yes (hx until 4 years ago); Do You Dip or Chew Tobacco: No; Hx Alcohol Use: No Hx Substance Use: No Preferred Language: R[place] Communication Ability: Effective Visual Impairment: No Limitations Hearing Ability: Normal 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 Beliefs That Will Affect Care: None marital status: Current Living Situation: Spouse current occupational status: retired Feels Safe at Home: Yes Childhood Exposure to Second-Hand Smoke: Yes Diet: regular caffeine: Yes Dental Care, Regularly: Yes Physical Activity Frequency: Does not Exercise Physical Activity Frequency Comment: No routine, but is physically active around the house Seatbelt Use: always Sunscreen Use: No Assistive Devices: Cane, Glasses and Walker Review of Systems Review of Systems: see HPI Physical Exam Physical Exam: The patient is awake, alert and oriented 3, well developed and well nourished, normocephalic and atraumatic, in no acute distress. Non-toxic appearing. HEENT- EOMI, mucous membranes dry. Hearing grossly intact. Heart-normal S1 and S2. No murmurs, rubs or gallops. Lungs-clear bilaterally, no respiratory distress, no accessory muscle use. Abdomen-normal bowel sounds and soft. No ascites noted. Non-tender. Extremities- no clubbing, cyanosis, or edema. Rheumatologic-normal range of motion. Psychiatric-normal affect. Results & Data Results & Data Vital Signs (Past 12 Hours) Vital Signs Temp Pulse Pulse Resp BP BP Pulse Ox 05/29/24 14:10 61 18 131/78 93 05/29/24 13:33 67 15 05/29/24 13:03 64 19 05/29/24 12:38 70 05/29/24 12:36 74 18 05/29/24 12:12 36.4 C L 84 20 154/93 H 97 O2 Del Method 05/29/24 14:10 Room Air 05/29/24 13:33 05/29/24 13:03 05/29/24 12:38 05/29/24 12:36 05/29/24 12:12 Room Air Laboratory Results Reviewed CBC and BMP Diagnostic Findings reviewed A/P CT from 05/26 Medications Administered 1L NSS, Zofran IV Code Status & VTE Plan Code Status full VTE Prophylaxis Plan VTE Prophylaxis will be ordered: Yes Supervising Physician Co-Signing Physician Notes Patient seen and examined, chart reviewed, case discussed with Kati Pandya PA-C and I agree with the assessment and plan as above except as otherwise noted Labs and images reviewed Terese is a 79-year-old female she was diagnosed as an outpatient with diverticulitis 3 days ago which was confirmed on outpatient CT. She was on Cipro/Flagyl. Has had increased nausea/vomiting/diarrhea in the last day and due to vomiting cannot keep her antibiotics down. CT from 05/26/2024 reviewed. Acute sigmoid diverticulitis with colocolonic fistulas. Similar to 07/30/2023. No drainable fluid collection or bowel obstruction is seen. Examination abdomen is nontender. She is very nauseous. She does not have a significant leukocytosis. Given no rebound/guarding and or some nausea after antibiotics suspect this is more a gastritis than a progression of her underlying abscess. Certainly progressive diverticulitis or abscess development is possible however given benign abdominal exam do not feel that rescanning her abdomen at time of admission is required. Will switch to IV antibiotics, continue Pepcid/PPI, trend labs and reassess. If rising leukocytosis or worsening symptoms/exam then repeat CTA/P at that time. Agree with above PG Care Time/CCT Total # of Minutes Spent Total Time Spent with Patient: Total time spent is greater than 50% in coordination of care (as documented) at patient's floor/unit and/or counseling patient: Coding Level of Care Code 95453 INT INP/OBS CARE MIN Diagnoses Diverticulitis large intestine K57.20 Diverticulitis bleeding: without bleeding Diverticulitis complication: with abscess Hypokalemia E87.6 Hypomagnesemia E83.42 Localized edema R60.0 Edema type: localized Hypertension I10 (1) Diverticulitis large intestine Diverticulitis bleeding: without bleeding Diverticulitis complication: with abscess Qualified Code(s): K57.20 - Diverticulitis of large intestine with perforation and abscess without bleeding (4) Edema Edema type: localized Qualified Code(s): R60.0 - Localized edema
[2024-05-29 15:55] LABS: Magnesium 1.4 mg/dl (1.7-2.4)
[2024-05-29] MEDS: PANTOprazole 40 MG/10 ML SYR IV ONE (16:10)
[2024-05-29] MEDS ORDERED: ACETAMINOPHEN 325 MG TAB PO PRN (16:54)
[2024-05-29] MEDS: POTASSIUM CHLORIDE / WTR 10 MEQ/100 ML PLCT IV SCH (17:59)
[2024-05-29] MEDS: MAGNESIUM SULFATE / D5W 1 GM/100 ML BAG IV SCH (17:59)
[2024-05-29 18:10] LABS: Appearance Urine Cloudy (Clear); Bilirubin Urine 1+ (Negative); Blood Urine Negative (Negative); Color Urine Dark Yellow; Glucose Urine UA Negative (Negative); Ketones Urine Trace (Negative); Leukocyte Esterase Urine 1+ (Negative); Nitrite Urine Positive (Negative); Protein Urine 1+ (Negative); Specific Gravity Urine 1.025 (1.000-1.030); Urobilinogen Urine Negative (Negative)
[2024-05-29] MEDS: CIPROFLOXACIN / D5W 400 MG/200 ML BAG IV SCH (19:19)
[2024-05-29] MEDS: metroNIDAZOLE 500 MG/100 ML BAG IV SCH (20:13)
[2024-05-29] MEDS: FAMOTIDINE 20MG IV PUSH 20 MG/5 ML SYR IV SCH (20:13)
[2024-05-29] MEDS: METOPROLOL SUCC 25MG EXT REL TAB PO SCH (22:02)
[2024-05-29] MEDS: ONDANSETRON INJ 2 MG/ML 2 ML VIAL IV PRN (22:14)
[2024-05-30] MEDS: LEVOTHYROXINE SODIUM 100 MCG TABLET PO SCH (05:31)
[2024-05-30 06:49] LABS: Basophils # (auto) 0.03 K/uL (0.00-0.20); Basophils % (auto) 0.5 %; Eosinophils # (auto) 0.28 K/uL (0.00-0.50); Eosinophils % (auto) 4.5 %; Hematocrit (blood only) 33.1 % (37.0-47.0); Hemoglobin 10.6 g/dl (12.0-16.0); Immature Granulocytes # (auto) 0.04 K/uL (0.01-0.20); Immature Granulocytes % (auto) 0.6 %; Lymphocytes # (auto) 0.48 K/uL (1.20-3.40); Lymphocytes % (auto) 7.7 %; Mean Corpuscular Hemoglobin 28.1 pg (25.0-34.0); Mean Corpuscular Volume 87.8 fL (80.0-100.0); Mean Platelet Volume 9.6 fL (9.4-12.4); Monocytes # (auto) 0.54 K/uL (0.11-0.59); Monocytes % (auto) 8.7 %; Neutrophils # (auto) 4.83 K/uL (1.40-6.50); Platelet Count 273 K/uL (130-400); RDW Coefficient of Variation 14.1 % (11.5-14.5); RDW Standard Deviation 45.7 fL (36.4-46.3); Red Blood Count 3.77 M/uL (4.20-5.40)
[2024-05-30 07:08] LABS: BUN Creatinine Ratio 11.8 (10-20); Calcium 7.7 mg/dl (8.6-10.3); Creatinine Clr Calc Pharmacy 56.5 ml/min; Potassium 3.9 mmol/L (3.5-5.1)
[2024-05-30] MEDS: MAGNESIUM OXIDE 400 MG TAB PO SCH (08:14)
[2024-05-30] MEDS: ATORVASTATIN 20 MG TAB PO SCH (08:14)
[2024-05-30] MEDS: ESCITALOPRAM OXALATE 10 MG TAB PO SCH (08:14)
[2024-05-30] MEDS: POTASSIUM CHLORIDE CRTAB 20 MEQ TABCR PO SCH (08:15)
--- NOTE | 2024-05-30 09:20 | Hospitalist Progress Note ---
Date of Service May 30, 2024 Assessment & Plan (1) Diverticulitis large intestine: Plan: known history of diverticulosis, diverticulitis requiring admission Patient with nausea, vomiting, diarrhea x 2 days Abdominal pain Saturday, since resolved CT AP out pt 05/26 showed acute sigmoid diverticulitis with colocolonic fistulous, no abscess received outpatient ciprofloxacin and Flagyl, unable to tolerate p.o. intake Continue ciprofloxacin + metronidazole, this does not represent a failure of antibiotics rather unable to take PO meds Continue clear liquids as still having some mild LLQ pain on exam Stool and c. diff PCR Consult general surgery for colo-colonic fistulas (2) Hypokalemia: Plan: 2/2 vomiting/diarrhea Resolved with supplementation, repeat with AM labs (3) Hypomagnesemia: Plan: 2/2 to vomiting and diarrhea Repeat with AM labs (4) Edema: Plan: chronic bilateral lower extremity edema Takes hydrochlorothiazide at home prn Patient currently has no edema, hold home HCTZ given clinically hypovolemic TEDs and SCDs ordered promote ambulation and leg elevation (5) Hypertension: Plan: stable Continue home metoprolol Plan Chronic stable diagnoses: HLD continue home statin Arthritis continue home NSAID Depression continue home escitalopram Hypothyroidism continue home levothyroxine, recent TSH stable VTE prophylaxis - Lovenox 40mg SQ QPM Diet: Clear liquid Disposition - admit to med/surg Admission and Anticipated Discharge Date Admission Date: May 29, 2024 Subjective Nausea improved with medications. Ongoing diarrhea. Abdominal pain only on palpation. No fever or chills. Review of Systems Review of Systems: All systems reviewed & are unremarkable except as noted in HPI & below Physical Exam Constitutional: WD/WN, vitals as above Respiratory: normal respiratory effort, lungs clear to auscultation Cardiovascular: RRR, no murmur, no edema Gastrointestinal (Abdomen): Percussion/Palpation: + abdomen tender (Left lower quadrant) and abdomen soft; no guarding and abdomen not rigid Results & Data Results & Data Vital Signs (Past 12 Hours) Vital Signs Temp Pulse Resp BP Pulse Ox O2 Del Method 05/30/24 07:14 37.5 C 67 16 146/73 H 96 Room Air PG Care Time/CCT Total # of Minutes Spent Total Time Spent with Patient: Total time spent is greater than 50% in coordination of care (as documented) at patient's floor/unit and/or counseling patient: Coding Level of Care Code 47137 SUB INP/OBS CARE MIN Diagnoses Diverticulitis large intestine K57.20 Diverticulitis bleeding: without bleeding Diverticulitis complication: with abscess Hypokalemia E87.6 Hypomagnesemia E83.42 Localized edema R60.0 Edema type: localized Hypertension I10 (1) Diverticulitis large intestine Diverticulitis bleeding: without bleeding Diverticulitis complication: with abscess Qualified Code(s): K57.20 - Diverticulitis of large intestine with perforation and abscess without bleeding (4) Edema Edema type: localized Qualified Code(s): R60.0 - Localized edema
[2024-05-30] MEDS: CeleBREX 200 MG CAP PO SCH (09:22)
[2024-05-30] MEDS: PANTOprazole 40 MG/10 ML SYR IV SCH (09:22)
[2024-05-30 15:09] LABS: Adenovirus F 40/41 PCR Not Detected (NotDetected); Astrovirus PCR Not Detected (NotDetected); Campylobacter PCR Not Detected (NotDetected); Cryptosporidium PCR Not Detected (NotDetected); Cyclospora cayetanensis PCR Not Detected (NotDetected); Entamoeba histolytica PCR Not Detected (NotDetected); Enteroaggregative E.coli(EAEC) Not Detected (NotDetected); Enteropathogenic E.coli (EPEC) Not Detected (NotDetected); Enterotoxigenic E.coli (ETEC) Not Detected (NotDetected); Giardia lamblia PCR Not Detected (NotDetected); Norovirus GI/GII PCR Not Detected (NotDetected); Plesiomonas shigelloides PCR Not Detected (NotDetected); Rotavirus A PCR Not Detected (NotDetected); Salmonella PCR Not Detected (NotDetected); Sapovirus PCR Not Detected (NotDetected); Shiga-like Toxin E.coli (STEC) Not Detected (NotDetected); Shigella/Enteroinvasive E.coli Not Detected (NotDetected); Vibrio cholerae PCR Not Detected (NotDetected); Vibrio species PCR Not Detected (NotDetected); Yersinia enterocolitica PCR Not Detected (NotDetected)
--- NOTE | 2024-05-30 20:08 | Surgery Consultation ---
Date of Consultation May 30, 2024 Assessment & Plan (1) Diverticulitis large intestine: Patient has been admitted on hospital service. From surgery perspective we recommend the following: Patient has been placed on antibiotics in form of Cipro and Flagyl intravenously and he should continue Serial labs to be followed Analgesics to be provided Antiemetics to be provided Patient has been allowed clear liquids we will continue to monitor her clinical response on this diet. If patient continues to improve we can consider slowly advancing her diet but if she has some clinical deterioration we will backed her down to n.p.o. status At the present time the patient is nontoxic-appearing and does not require immediate surgical intervention. If the patient were to require surgical intervention would be preferable for her to have an up-to-date colonoscopy as well as a prep bowel so 1 stage procedure could be considered. Any emergent surgical intervention would be required she would require a temporary colostomy. 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 Patient was seen in the past for an episode of diverticulitis in June of this year. The patient was hospitalized from 07-03 until 06/23/2023. The patient did not require surgical intervention secondary to this problem and it was recommended the patient have outpatient follow-up with consideration of follow-up with colorectal surgery to see if any surgical intervention was required for this problem. Patient has been doing well up until few days ago when she developed nausea and vomiting. She reports that she did not have much in the way of abdominal pain. She also denies any difficulty with urinating. She notes that she has been having loose bowel movements. Of note, the patient reports that she has not had any surgical intervention or any operations to her abdomen. Patient was tried on oral antibiotics as an outpatient but was unable to tolerate them and therefore it was felt that inpatient treatment with intravenous antibiotics was required. On 05/26/2024 the patient did have an outpatient CT scan with patient was noted to have acute sigmoid diverticulitis with concern for [place] colonic fistula's. There were no drainable fluid collections or evidence of bowel obstruction on this study. There is no pneumatosis or pneumoperitoneum noted on this study. Her current labs were from this morning where she had a CBC were white blood cell count was normal. Her hemoglobin and hematocrit are 10.6 and 33.1. Platelet count is normal. Chemistry profile showed sodium, potassium, BUN, and creatinine are normal. Patient did have stool studies checked which were negative including stool for C. difficile. At the time of my interview the patient was resting comfortably in bed and she was in no distress. Allergies Allergy/AdvReac Type Severity Reaction Status Date / Time Penicillins Allergy Intermediate RASH Verified 04/22/24 13:28 meperidine AdvReac Intermediate "FEELS OUT Verified 04/22/24 13:28 OF SPACE" chlorpromazine AdvReac Mild "JITTERY" Verified 04/22/24 13:28 droperidol AdvReac Mild "JITTERY" Verified 04/22/24 13:28 Home Medications Medication Instructions Recorded Confirmed Type cholecalciferol (vitamin D3) 25 1,000 unit PO QAM 06/18/18 05/29/24 History mcg (1,000 unit) capsule (Vitamin D3) multivitamin 1 tab PO QAM 06/18/18 05/29/24 History coenzyme Q10 200 mg capsule 200 mg PO QAM 01/15/19 05/29/24 History biotin 5,000 mcg disintegrating 5,000 mcg PO QAM 01/28/19 05/29/24 History tablet calcium carbonate 1,000 mg PO DAILY 08/18/21 05/29/24 History ciclopirox 0.77 % topical cream 1 applic topical BID PRN rash #30 12/04/21 Rx grams diclofenac sodium 1 % topical gel 2 g topical QID PRN pain 90 days 08/28/23 05/29/24 Rx #300 grams escitalopram oxalate 5 mg tablet 5 mg PO QAM #90 tabs 08/28/23 05/29/24 Rx metoprolol succinate 25 mg 25 mg PO QPM #90 tabs 08/28/23 05/29/24 Rx tablet,extended release 24 hr atorvastatin 20 mg tablet 20 mg PO QAM #90 tabs 09/10/23 05/29/24 Rx potassium chloride 10 mEq 20 meq (2 x 10 mEq) PO QAM #180 09/16/23 05/29/24 Rx capsule,extended release caps hydrochlorothiazide 25 mg tablet 25 mg PO DAILY PRN edema #90 tabs 11/20/23 05/29/24 Rx celecoxib 200 mg capsule (Celebrex) 200 mg PO QAM #90 caps 12/02/23 05/29/24 Rx levothyroxine 100 mcg tablet 100 mcg PO QAM #90 tabs 02/17/24 05/29/24 Rx conj estrogen-medroxyprogesterone 1 tab PO UD #84 tabs 04/22/24 05/29/24 Rx 0.3 mg-1.5 mg tablet (Prempro) ciprofloxacin HCl 500 mg tablet 500 mg PO BID #20 tabs 05/26/24 05/29/24 Rx metronidazole 500 mg tablet 500 mg PO Q8H #30 tabs 05/26/24 05/29/24 Rx nystatin 100,000 unit/gram topical 1 applic topical BID PRN Other 05/29/24 05/29/24 History powder Patient History Medical History Diverticulitis of intestine with abscess Hyperlipidemia Nausea and vomiting after administration of anesthetic agent after thyroid sx. Slow to wake up after anesthesia History of COVID-19 05/2020, tested at [place], not hosp; moderate symptoms>resolved Anxiety Atrial fibrillation 06/24/23, put on eliquis; will be getting set up w/cardio anshul. History of recent hospitalization d/c 06/23/23 from [facility] from a 14 day stay, N/V, diarrhea; CT showed diverticulitis w/abscess History of hypokalemia History of hypercalcemia History of postmenopausal bleeding occurred in 04/2023, seen by machine puller over GERD (gastroesophageal reflux disease) hx Surgical History H/O cystoscopy with removal of obstructing urethral lesion History of esophagogastroduodenoscopy (EGD) History of dilation and curettage History of bilateral tubal ligation History of repair of right rotator cuff 11/2017 History of colonoscopy History of cholecystectomy History of tonsillectomy and adenoidectomy Status post biopsy of thyroid gland History of thyroidectomy, total benign tumor Family History Brother Family hx of colon cancer Colorectal cancer Family/Other Diabetes Sister Breast cancer Other No family history of adverse response to anesthesia Denies family history of Pancreatic cancer Ovarian cancer Prostate cancer Myocardial infarction Lung cancer Uterine cancer Social History Smoking Status: Never smoker Second Hand Exposure: Yes (hx until 4 years ago); Do You Dip or Chew Tobacco: No; Hx Alcohol Use: No Hx Substance Use: No Preferred Language: Thai Communication Ability: Effective Visual Impairment: No Limitations Hearing Ability: Normal Business Services Manager Required: No Beliefs That Will Affect Care: None marital status: Current Living Situation: Spouse current occupational status: retired Feels Safe at Home: Yes Safety Concerns: Feels Safe At This Time Childhood Exposure to Second-Hand Smoke: Yes Diet: regular caffeine: Yes Dental Care, Regularly: Yes Physical Activity Frequency: Does not Exercise Physical Activity Frequency Comment: No routine, but is physically active around the house Seatbelt Use: always Sunscreen Use: No Assistive Devices: Cane and Walker Review of Systems Review of Systems: All systems reviewed & are unremarkable except as noted in HPI & below Physical Exam Constitutional: WD/WN, vitals as above Eyes: no conjunctival abnormality Wears glasses ENMT: Ears: no hearing impairment and no external ear abnormality Mouth: no oropharynx abnormality Neck: trachea midline Respiratory: normal respiratory effort; no respiratory distress and no labored breathing Cardiovascular: Rate/Rhythm: regular rate and regular rhythm Gastrointestinal (Abdomen): At the time of my exam the patient's abdomen is soft, nonrigid, nondistended. There is no rebound tenderness or guarding. There is no pain with palpation Musculoskeletal: No calf tenderness Skin: no rashes Neurologic: moves all extremities Psychiatric: A+Ox3, euthymic affect Results & Data Vital Signs (Past 12 Hours) Vital Signs Temp Pulse Resp BP Pulse Ox O2 Del Method 05/30/24 19:18 36.7 C 80 16 120/70 96 Room Air 05/30/24 15:20 36.8 C 76 16 114/69 94 Room Air PG Care Time/CCT Total # of Minutes Spent Total Time Spent with Patient: Total time spent is greater than 50% in coordination of care (as documented) at patient's floor/unit and/or counseling patient: Coding Level of Care Code 55924 INT INP/OBS CARE 75MIN Diagnoses Diverticulitis large intestine K57.20 Diverticulitis bleeding: without bleeding Diverticulitis complication: with abscess (1) Diverticulitis large intestine Diverticulitis bleeding: without bleeding Diverticulitis complication: with abscess Qualified Code(s): K57.20 - Diverticulitis of large intestine with perforation and abscess without bleeding
[2024-05-30] MEDS: ENOXAPARIN INJ 40 MG/0.4 ML SYR SQ SCH (21:04)
[2024-05-31] MEDS: ONDANSETRON INJ 2 MG/ML 2 ML VIAL IV PRN (01:16)
--- NOTE | 2024-05-31 05:11 | Surgery Progress Note ---
Date of Service May 31, 2024 Assessment & Plan (1) Diverticulitis large intestine: Plan: Patient has been admitted on hospital service. From surgery perspective we recommend the following: Continue antibiotics in the form of Cipro and Flagyl Check a.m. labs when available Continue analgesics as needed Continue antiemetics as needed Continue clear liquids for the present time with consideration of advancing further as patient's symptoms continue to improve Lovenox is in place for DVT prophylaxis Additional recommendations will be forthcoming based on her clinical course as unfolds as above. feeling ok. no abdominal pain. this is her second bout of acute diverticulitis in past 12 months. no urgent indications for surgical intervention will continue to follow along. would stay on clears for another 24 hours. suspect her admission symptoms likely primarily secondary to the oral Flagyl Admission and Anticipated Discharge Date Admission Date: May 29, 2024 Subjective Patient is resting comfortably in bed. She denies any abdominal pain. She denies any nausea or vomiting. She notes she continues to have loose bowel movements that are at times blood-tinged. She is tolerating clear liquids without any exacerbation of abdominal pain. Physical Exam Gastrointestinal (Abdomen): Abdomen is soft and nondistended. There is no pain with palpation and no rebound tenderness or guarding Results & Data Vital Signs (Past 12 Hours) Vital Signs Temp Pulse Resp BP Pulse Ox O2 Del Method 05/30/24 20:45 Room Air 05/30/24 19:18 36.7 C 80 16 120/70 96 Room Air PG Care Time/CCT Total # of Minutes Spent Total Time Spent with Patient: Total time spent is greater than 50% in coordination of care (as documented) at patient's floor/unit and/or counseling patient: Coding Level of Care Code 25822 SUB INP/OBS CARE 07/04MIN Diagnoses Diverticulitis large intestine K57.20 Diverticulitis bleeding: without bleeding Diverticulitis complication: with abscess (1) Diverticulitis large intestine Diverticulitis bleeding: without bleeding Diverticulitis complication: with abscess Qualified Code(s): K57.20 - Diverticulitis of large intestine with perforation and abscess without bleeding
[2024-05-31 07:52] LABS: Basophils # (auto) 0.02 K/uL (0.00-0.20); Basophils % (auto) 0.5 %; Eosinophils # (auto) 0.26 K/uL (0.00-0.50); Eosinophils % (auto) 6.1 %; Hematocrit (blood only) 32.1 % (37.0-47.0); Hemoglobin 10.4 g/dl (12.0-16.0); Immature Granulocytes # (auto) 0.02 K/uL (0.01-0.20); Immature Granulocytes % (auto) 0.5 %; Lymphocytes # (auto) 0.64 K/uL (1.20-3.40); Lymphocytes % (auto) 15.1 %; Mean Corpuscular Hemoglobin 28.4 pg (25.0-34.0); Mean Corpuscular Hgb Conc 32.4 g/dL (32.0-36.0); Mean Corpuscular Volume 87.7 fL (80.0-100.0); Mean Platelet Volume 9.9 fL (9.4-12.4); Monocytes # (auto) 0.49 K/uL (0.11-0.59); Monocytes % (auto) 11.6 %; Neutrophils % (auto) 66.2 %; Platelet Count 263 K/uL (130-400); RDW Coefficient of Variation 14.2 % (11.5-14.5); RDW Standard Deviation 45.2 fL (36.4-46.3); Red Blood Count 3.66 M/uL (4.20-5.40); White Blood Count 4.23 K/ul (4.8-10.8)
[2024-05-31] MEDS: ADVANCED PROBIOTIC 625 MG CAPSULE PO SCH (08:33)
[2024-05-31 09:10] LABS: Calcium 7.7 mg/dl (8.6-10.3); Creatinine Clr Calc Pharmacy 52.5 ml/min; Magnesium 1.8 mg/dl (1.7-2.4); Potassium 3.9 mmol/L (3.5-5.1)
--- NOTE | 2024-05-31 11:58 | Hospitalist Progress Note ---
Date of Service May 31, 2024 Assessment & Plan (1) Diverticulitis large intestine: Plan: known history of diverticulosis, diverticulitis requiring admission Patient with nausea, vomiting, diarrhea x 2 days - unclear if this is secondary to antibiotics vs. diverticulitis Abdominal pain since Saturday, resolved except on exam CT AP out pt 05/26 showed acute sigmoid diverticulitis with colocolonic fistulous, no abscess received outpatient ciprofloxacin and Flagyl, unable to tolerate p.o. intake Possible nausea due to antibiotics therefore will switch but also has a questionable allergy to penicillins; switch to ceftriaxone + metronidazole to see if this helps her symptoms Advance to full liquids Stool and c. diff PCR - negative Continue lactobacillus for antibiotic associated diarrhea Appreciate surgery consult (2) Hypokalemia: Plan: 2/2 vomiting/diarrhea Resolved with supplementation, repeat with AM labs (3) Hypomagnesemia: Plan: 2/2 to vomiting and diarrhea Repeat with AM labs (4) Edema: Plan: chronic bilateral lower extremity edema Takes hydrochlorothiazide at home prn (5) Hypertension: Plan: stable Continue home metoprolol Plan Chronic stable diagnoses: HLD continue home statin Arthritis continue home NSAID Depression continue home escitalopram Hypothyroidism continue home levothyroxine, recent TSH stable VTE prophylaxis - Lovenox 40mg SQ QPM Diet: Full liquid Disposition - admit to med/surg Admission and Anticipated Discharge Date Admission Date: May 29, 2024 Subjective Ongoing nausea but under control with ondansetron. No worsening abdominal pain. No fever or chills. Ongoing diarrhea. Review of Systems Review of Systems: All systems reviewed & are unremarkable except as noted in HPI & below Physical Exam Constitutional: WD/WN, vitals as above Respiratory: normal respiratory effort, lungs clear to auscultation Cardiovascular: RRR, no murmur, no edema Gastrointestinal (Abdomen): Percussion/Palpation: + abdomen tender (mild Left lower quadrant) and abdomen soft; no guarding and abdomen not rigid Results & Data Results & Data Vital Signs (Past 12 Hours) Vital Signs Temp Pulse Resp BP Pulse Ox O2 Del Method 05/31/24 07:02 37.1 C 55 L 15 156/80 H 97 Room Air 05/31/24 07:00 Room Air PG Care Time/CCT Total # of Minutes Spent Total Time Spent with Patient: Total time spent is greater than 50% in coordination of care (as documented) at patient's floor/unit and/or counseling patient: Coding Level of Care Code 21515 SUB INP/OBS CARE MIN Diagnoses Diverticulitis large intestine K57.20 Diverticulitis bleeding: without bleeding Diverticulitis complication: with abscess Hypokalemia E87.6 Hypomagnesemia E83.42 Localized edema R60.0 Edema type: localized Hypertension I10 (1) Diverticulitis large intestine Diverticulitis bleeding: without bleeding Diverticulitis complication: with abscess Qualified Code(s): K57.20 - Diverticulitis of large intestine with perforation and abscess without bleeding (4) Edema Edema type: localized Qualified Code(s): R60.0 - Localized edema
[2024-05-31] MEDS: cefTRIAXone SODIUM 2,000 MG/50 ML BAG IV SCH (13:15)
[2024-05-31] MEDS: OPTIRAY 320 100ml IV ONE (17:43)
--- NOTE | 2024-05-31 18:10 | CT Scan Report ---
EXAM: CT Abdomen and Pelvis With Intravenous Contrast INDICATION: Intractable nausea and vomiting. Acute diverticulitis. TECHNIQUE: Axial computed tomography images of the abdomen and pelvis with intravenous contrast. Sagittal and coronal reformatted images were created and reviewed. This CT exam was performed using one or more of the following dose reduction techniques: automated exposure control, adjustment of the mA and/or kV according to patient size, and/or use of iterative reconstruction technique. CONTRAST: 93ml of Optiray 320 was administered intravenously. COMPARISON: 05/26/2024 FINDINGS: Limitations: None. Lung bases: No abnormality noted. Pleural space: No visualized pleural effusion or pneumothorax. Heart: No abnormality noted. Mediastinum: No abnormality noted. ABDOMEN: Liver: No abnormality noted. Gallbladder and bile ducts: Cholecystectomy. No ductal dilation or stone noted. Pancreas: Homogeneous enhancement. No mass, inflammation or ductal dilation. Spleen: No significant abnormality noted. Adrenals: No significant abnormality noted. Kidneys and ureters: Stable bilateral renal cortical scarring. No other stones identified. No hydronephrosis. No urinary gas. Stomach and bowel: Mild decreased rectosigmoid inflammation. More prominent right perirectal fluid collection with gas measuring approximately 4 cm long by 1.1 cm transverse by roughly 4.3 cm long. There may be multiple contiguous loculations. PELVIS: Appendix: No findings to suggest acute appendicitis. Bladder: No filling defects to suggest mass or large stone. No inflammation. Reproductive: No abnormalities noted. ABDOMEN and PELVIS: Intraperitoneal space: No free air. No significant fluid collection. Bones/joints: Degenerative changes noted throughout the spine. No acute osseous abnormality seen. Vasculature: Atherosclerotic calcification of the aorta and branches. No aneurysm. Lymph nodes: No pathologically enlarged lymph nodes. IMPRESSION: Interval enlargement of a multiloculated fluid collection consistent with abscess along the mesenteric surface of the distal sigmoid and rectum. Largest loculated component measures approximately 1.3 cm AP by 0.8 cm transverse by 1.2 cm long. Also consider colocolonic fistula. Underlying colitis is slightly improved. ACT 112: Negative or not required by law. Electronically signed by Kim Azevedo 05-31-2024 6:07 PM
[2024-06-01] MEDS: PROCHLORPERAZINE 5 MG in SYRINGE 4 ML IV PRN (01:55)
[2024-06-01 07:47] LABS: BUN Creatinine Ratio 10.3 (10-20); Calcium 7.9 mg/dl (8.6-10.3); Creatinine Clr Calc Pharmacy 54.1 ml/min; Magnesium 1.7 mg/dl (1.7-2.4); Potassium 3.5 mmol/L (3.5-5.1)
--- NOTE | 2024-06-01 08:49 | Surgery Progress Note ---
Date of Service June 01, 2024 Assessment & Plan (1) Diverticulitis: Plan: She is doing well tolerating fulls, continue this for today Continue IV ABX for today No plans for any surgical intervention Will follow Admission and Anticipated Discharge Date Admission Date: May 29, 2024 Subjective Patient seen and examined. Has been having bowel movements. Denies abdominal pain. Afebrile. Has had some nausea. Review of Systems Constitutional: no fever and no chills Respiratory: no cough and no dyspnea Cardiovascular: no chest pain and no dyspnea on exertion Gastrointestinal: + nausea; no abdominal pain, no vomiting and no constipation Integumentary: no acne, no skin ulcer and no erythema Psychiatric: no behavioral changes and no depression Physical Exam Constitutional: WD/WN, vitals as above Eyes: PERRL, conjunctivae normal, anicteric sclerae Neck: trachea midline, no thyromegaly Respiratory: normal respiratory effort, lungs clear to auscultation Cardiovascular: RRR, no murmur, no edema Gastrointestinal (Abdomen): Inspection/Auscultation: abdomen normal to inspection; abdomen not distended Percussion/Palpation: abdomen soft; abdomen nontender and no guarding Results & Data Vital Signs (Past 12 Hours) Vital Signs Temp Pulse Resp BP Pulse Ox O2 Del Method 06/01/24 08:04 36.7 C 75 18 128/81 97 Room Air PG Care Time/CCT Total # of Minutes Spent Total Time Spent with Patient: Total time spent is greater than 50% in coordination of care (as documented) at patient's floor/unit and/or counseling patient: Coding Level of Care Code 32191 SUB INP/OBS CARE Diagnoses Diverticulitis K57.92
[2024-06-01 09:00] LABS: Basophils # (auto) 0.02 K/uL (0.00-0.20); Basophils % (auto) 0.4 %; Eosinophils # (auto) 0.16 K/uL (0.00-0.50); Eosinophils % (auto) 3.1 %; Hematocrit (blood only) 38.4 % (37.0-47.0); Hemoglobin 12.6 g/dl (12.0-16.0); Immature Granulocytes # (auto) 0.02 K/uL (0.01-0.20); Immature Granulocytes % (auto) 0.4 %; Lymphocytes # (auto) 1.09 K/uL (1.20-3.40); Lymphocytes % (auto) 21.2 %; Mean Corpuscular Hemoglobin 28.1 pg (25.0-34.0); Mean Corpuscular Hgb Conc 32.8 g/dL (32.0-36.0); Mean Corpuscular Volume 85.5 fL (80.0-100.0); Mean Platelet Volume 9.5 fL (9.4-12.4); Monocytes # (auto) 0.53 K/uL (0.11-0.59); Monocytes % (auto) 10.3 %; Neutrophils # (auto) 3.31 K/uL (1.40-6.50); Neutrophils % (auto) 64.6 %; Platelet Count 369 K/uL (130-400); RDW Coefficient of Variation 14.1 % (11.5-14.5); RDW Standard Deviation 43.9 fL (36.4-46.3); Red Blood Count 4.49 M/uL (4.20-5.40); White Blood Count 5.13 K/ul (4.8-10.8)
[2024-06-01] MEDS: metroNIDAZOLE 500 MG/100 ML BAG IV SCH (09:10)
[2024-06-01] MEDS: CIPROFLOXACIN / D5W 400 MG/200 ML BAG IV SCH (10:11)
[2024-06-01] MEDS ORDERED: cefTRIAXone SODIUM 2,000 MG/50 ML BAG IV SCH (13:00)
--- NOTE | 2024-06-01 14:42 | Hospitalist Progress Note ---
Date of Service June 01, 2024 Assessment & Plan (1) Diverticulitis: Plan Diverticulitis - Will continue full liquid diet, advance as tolerated in AM - Continue IV ciprofloxacin/metronidazole, patient with increased nausea/vomiting while on IV ceftriaxone - CT AP: Sigmoid diverticulitis and right perirectal fluid collection consistent with abscess (4.1x1.3x4.0) - BMP, CBC QAM HTN - Continue metoprolol Admission and Anticipated Discharge Date Admission Date: May 29, 2024 Supervising Physician Co-Signing Physician Notes Attending attestation Pt seen and examined in concert with Dr. Sumner. In agreement with the documented findings as noted in the resident documentation with any exceptions or additions as noted here. Resting comfortably in bed without acute complaint at time of evaluation. Tolerating abx therapy without complaint at present. On examination, S1/S2 nl RRR no MCG. CTAB. Abd TTP mildly midline/LLQ ND BS+ve Diverticulitis - general surgery consult - continue cipro/flagyl IV as noted and transition to PO when tolerated Else see resident documentation as noted. Subjective Today patient is resting comfortably at bedside. Patient was with nausea, vomiting, abdominal pain, and diarrhea that has now resolved. Patient did report some mild nausea earlier in the morning but this is now improved. Patient was seen after breakfast of clears and reports no increased GI symptoms or pain. Has been having bowel movements. Patient denies chest pain, SOB, dysuria/burning, incontinence, melena/hematochezia. Physical Exam Physical Exam: General: patient resting comfortably, NAD, non-toxic in appearance, answers questions appropriately. Skin: warm, dry, intact HEENT: NC/AT, anicteric sclera, conjunctiva without injection, moist mucus membranes. Heart: +S1/S2, regular, no m/r/g Lungs: equal air entry bilaterally, no rales/rhonchi/wheezes Abd: +BS, soft, NT/ND Ext: warm, no clubbing/cyanosis or edema Neuro: nonfocal, speech intact, no facial droop, moving all extremities. Results & Data Results & Data Vital Signs (Past 12 Hours) Vital Signs Temp Pulse Resp BP Pulse Ox O2 Del Method 06/01/24 08:04 36.7 C 75 18 128/81 97 Room Air
[2024-06-02 07:24] LABS: Basophils # (auto) 0.01 K/uL (0.00-0.20); Basophils % (auto) 0.1 %; Eosinophils % (auto) 1.3 %; Hematocrit (blood only) 33.7 % (37.0-47.0); Immature Granulocytes # (auto) 0.05 K/uL (0.01-0.20); Immature Granulocytes % (auto) 0.7 %; Lymphocytes # (auto) 0.89 K/uL (1.20-3.40); Lymphocytes % (auto) 11.7 %; Mean Corpuscular Hemoglobin 28.2 pg (25.0-34.0); Mean Corpuscular Hgb Conc 32.6 g/dL (32.0-36.0); Mean Corpuscular Volume 86.4 fL (80.0-100.0); Mean Platelet Volume 9.7 fL (9.4-12.4); Monocytes # (auto) 0.72 K/uL (0.11-0.59); Monocytes % (auto) 9.5 %; Neutrophils # (auto) 5.81 K/uL (1.40-6.50); Neutrophils % (auto) 76.7 %; Platelet Count 298 K/uL (130-400); RDW Coefficient of Variation 14.3 % (11.5-14.5); RDW Standard Deviation 45.2 fL (36.4-46.3); White Blood Count 7.58 K/ul (4.8-10.8)
[2024-06-02 07:39] LABS: BUN Creatinine Ratio 12.4 (10-20); Calcium 7.7 mg/dl (8.6-10.3); Creatinine Clr Calc Pharmacy 54.1 ml/min; Potassium 3.4 mmol/L (3.5-5.1)
--- NOTE | 2024-06-02 07:50 | Hospitalist Progress Note ---
Date of Service June 02, 2024 Assessment & Plan (1) Diverticulitis: Plan Diverticulitis - Will continue full liquid diet, advance as tolerated in AM - Continue IV ciprofloxacin/metronidazole, patient with increased nausea/vomiting while on IV ceftriaxone - CT AP: Sigmoid diverticulitis and right perirectal fluid collection consistent with abscess (4.1x1.3x4.0) - BMP, CBC QAM HTN - Continue metoprolol Admission and Anticipated Discharge Date Admission Date: May 29, 2024 Subjective Today patient is resting comfortably at bedside. Patient was with nausea, vomiting, abdominal pain, and diarrhea that has now resolved. Patient did report some mild nausea earlier in the morning but this is now improved. Patient was seen after breakfast of clears and reports no increased GI symptoms or pain. Has been having bowel movements. Patient denies chest pain, SOB, dysuria/burning, incontinence, melena/hematochezia. Physical Exam Physical Exam: General: patient resting comfortably, NAD, non-toxic in appearance, answers questions appropriately. Skin: warm, dry, intact HEENT: NC/AT, anicteric sclera, conjunctiva without injection, moist mucus membranes. Heart: +S1/S2, regular, no m/r/g Lungs: equal air entry bilaterally, no rales/rhonchi/wheezes Abd: +BS, soft, NT/ND Ext: warm, no clubbing/cyanosis or edema Neuro: nonfocal, speech intact, no facial droop, moving all extremities.
[2024-06-02 08:44] VITALS: RESP 18
--- NOTE | 2024-06-02 12:12 | Surgery Progress Note ---
Date of Service June 02, 2024 Assessment & Plan (1) Diverticulitis large intestine: Plan: She seems to be doing well tolerating full liquids She remains afebrile without any abdominal pain or leukocytosis As long she tolerates her low fiber diet, she can be discharged with 2 weeks of oral antibiotics Surgical sign off at this time, please call with any questions or concerns Admission and Anticipated Discharge Date Admission Date: May 29, 2024 Subjective Patient seen and examined. Denies abdominal pain. She has been tolerating full liquids and has been advanced to a low fiber diet for lunch. Review of Systems Constitutional: no fever and no chills Respiratory: no cough and no dyspnea Cardiovascular: no chest pain and no dyspnea on exertion Gastrointestinal: no abdominal pain, no belching and no nausea Genitourinary: no dysuria and no urinary urgency Psychiatric: no behavioral changes and no depression Physical Exam Constitutional: WD/WN, vitals as above Eyes: PERRL, conjunctivae normal, anicteric sclerae Respiratory: normal respiratory effort, lungs clear to auscultation Cardiovascular: RRR, no murmur, no edema Gastrointestinal (Abdomen): normal bowel sounds, soft, nontender, no hepatosplenomegaly Neurologic: PERRL, EOMI, accommodation nl, no face palsy, no dysarthria Psychiatric: A+Ox3, euthymic affect Results & Data Vital Signs (Past 12 Hours) Vital Signs Temp Pulse Resp BP Pulse Ox O2 Del Method 06/02/24 08:42 37.1 C 83 18 138/71 99 Room Air PG Care Time/CCT Total # of Minutes Spent Total Time Spent with Patient: Total time spent is greater than 50% in coordination of care (as documented) at patient's floor/unit and/or counseling patient: Coding Level of Care Code 62592 SUB INP/OBS CARE 07/04MIN Diagnoses Diverticulitis large intestine K57.20 Diverticulitis bleeding: without bleeding Diverticulitis complication: with abscess (1) Diverticulitis large intestine Diverticulitis bleeding: without bleeding Diverticulitis complication: with abscess Qualified Code(s): K57.20 - Diverticulitis of large intestine with perforation and abscess without bleeding
--- NOTE | 2024-06-02 14:18 | Discharge Summary ---
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 Patient was seen at her PCP for regular well check on Saturday, the provider noted that the patient had left-sided abdominal tenderness to palpation. The patient stated that she has had diverticulitis in the past requiring hospitalization. Patient had an A/P CT on 05/26 which noted acute sigmoid diverticulitis with [place] colonic fistulas. At this point she was started on Ciprofloxacin and Flagyl. The patient then began with vomiting and diarrhea x 2 days after starting antibiotics. She stated she has had about 6 episodes of vomiting and 5 episodes of diarrhea. She has been able to keep some light things down like tea, water, and crackers. She did note that she had constipation prior to having the diarrhea. She had similar symptoms in the past when she had diverticulitis. Patient has not taking her morning medications as she has been unable to tolerate p.o. intake today, did vomit this morning. She denies nausea after receiving Zofran in the ER. Patient denies fever, chills, headache, dizziness, lightheadedness, cough, dyspnea, chest pain, abdominal pain, dysuria, hematuria, edema, numbness, tingling. She did note that when she was hospitalized in the past she had edema of her bilateral lower extremities. Admission Exam Per Admitting Provider The patient is awake, alert and oriented 3, well developed and well nourished, normocephalic and atraumatic, in no acute distress. Non-toxic appearing. HEENT- EOMI, mucous membranes dry. Hearing grossly intact. Heart-normal S1 and S2. No murmurs, rubs or gallops. Lungs-clear bilaterally, no respiratory distress, no accessory muscle use. Abdomen-normal bowel sounds and soft. No ascites noted. Non-tender. Extremities- no clubbing, cyanosis, or edema. Rheumatologic-normal range of motion. Psychiatric-normal affect. Principal Diagnosis Diverticulitis Discharge Exam General: patient resting comfortably, NAD, non-toxic in appearance, answers questions appropriately. Skin: warm, dry, intact HEENT: NC/AT, anicteric sclera, conjunctiva without injection, moist mucus membranes. Heart: +S1/S2, regular, no m/r/g Lungs: equal air entry bilaterally, no rales/rhonchi/wheezes Abd: +BS, soft, NT/ND Ext: warm, no clubbing/cyanosis or edema Neuro: nonfocal, speech intact, no facial droop, moving all extremities. Discharge Data Allergies Allergy/AdvReac Type Severity Reaction Status Date / Time Penicillins Allergy Intermediate RASH Verified 04/22/24 13:28 meperidine AdvReac Intermediate "FEELS OUT Verified 04/22/24 13:28 OF SPACE" chlorpromazine AdvReac Mild "JITTERY" Verified 04/22/24 13:28 droperidol AdvReac Mild "JITTERY" Verified 04/22/24 13:28 Consultations 05/29/24 14:21 ED Decision to Admit Stat 05/30/24 15:46 Consult General Surgery Routine Ordered Studies 05/31/24 16:42 CT Abd and Pelvis [CT abd pelvis IV con only] Stat Laboratory Results WBC 7.58 K/ul (4.8-10.8) 06/02/24 06:43 RBC 3.90 M/uL (4.20-5.40) L 06/02/24 06:43 Hgb 11.0 g/dl (12.0-16.0) L 06/02/24 06:43 Hct 33.7 % (37.0-47.0) L 06/02/24 06:43 MCV 86.4 fL (80.0-100.0) 06/02/24 06:43 MCH 28.2 pg (25.0-34.0) 06/02/24 06:43 MCHC 32.6 g/dL (32.0-36.0) 06/02/24 06:43 RDW Std Deviation 45.2 fL (36.4-46.3) 06/02/24 06:43 RDW Coeff of Anai 14.3 % (11.5-14.5) 06/02/24 06:43 Plt Count 298 K/uL (130-400) 06/02/24 06:43 MPV 9.7 fL (9.4-12.4) 06/02/24 06:43 Immature Gran % (Auto) 0.7 % 06/02/24 06:43 Neut % (Auto) 76.7 % 06/02/24 06:43 Lymph % (Auto) 11.7 % 06/02/24 06:43 [place] % (Auto) 9.5 % 06/02/24 06:43 Eos % (Auto) 1.3 % 06/02/24 06:43 Baso % (Auto) 0.1 % 06/02/24 06:43 Neut # (Auto) 5.81 K/uL (1.40-6.50) 06/02/24 06:43 Lymph # (Auto) 0.89 K/uL (1.20-3.40) L 06/02/24 06:43 [place] # (Auto) 0.72 K/uL (0.11-0.59) H 06/02/24 06:43 Eos # (Auto) 0.10 K/uL (0.00-0.50) 06/02/24 06:43 Baso # (Auto) 0.01 K/uL (0.00-0.20) 06/02/24 06:43 Immature Gran # (Auto) 0.05 K/uL (0.01-0.20) 06/02/24 06:43 Sodium 139 mmol/L (136-145) 06/02/24 06:43 Potassium 3.4 mmol/L (3.5-5.1) L 06/02/24 06:43 Chloride 111 mmol/L (98-107) H 06/02/24 06:43 Carbon Dioxide 21 mmol/L (21-32) 06/02/24 06:43 Anion Gap 7 (3-11) 06/02/24 06:43 BUN 12 mg/dl (6-23) 06/02/24 06:43 Creatinine 0.97 mg/dl (0.6-1.2) 06/02/24 06:43 Est Cr Clr Drug Dosing 54.1 ml/min 06/02/24 06:43 eGFR 59.44 06/02/24 06:43 BUN/Creatinine Ratio 12.4 (10-20) 06/02/24 06:43 Glucose 107 mg/dl (70-99(Fasting)) H 06/02/24 06:43 Calcium 7.7 mg/dl (8.6-10.3) L 06/02/24 06:43 Magnesium 1.7 mg/dl (1.7-2.4) 06/01/24 07:00 Total Bilirubin 0.6 mg/dl (0.2-1.0) 05/29/24 12:57 AST 17 U/L (13-39) 05/29/24 12:57 ALT 10 U/L (7-52) 05/29/24 12:57 Alkaline Phosphatase 71 U/L (34-104) 05/29/24 12:57 Total Protein 6.7 gm/dl (6.0-8.3) 05/29/24 12:57 Albumin 3.1 gm/dl (3.4-5.0) L 05/29/24 12:57 Globulin 3.6 gm/dl (2.5-4.0) 05/29/24 12:57 Albumin/Globulin Ratio 0.9 (0.9-2) 05/29/24 12:57 Lipase 9 U/L (11-82) L 05/29/24 12:57 Urine Color Dark Yellow 05/29/24 17:25 Urine Appearance Cloudy (Clear) A 05/29/24 17:25 Urine pH 6.0 (4.5-7.5) 05/29/24 17:25 Ur Specific [place] 1.025 (1.000-1.030) 05/29/24 17:25 Urine Protein 1+ (Negative) H 05/29/24 17:25 Urine Glucose (UA) Negative (Negative) 05/29/24 17:25 Urine Ketones Trace (Negative) H 05/29/24 17:25 Urine Blood Negative (Negative) 05/29/24 17:25 Urine Nitrite Positive (Negative) A 05/29/24 17:25 Urine Bilirubin 1+ (Negative) H 05/29/24 17:25 Urine Urobilinogen Negative (Negative) 05/29/24 17:25 Ur Leukocyte Esterase 1+ (Negative) H 05/29/24 17:25 Stl C. cayetanensis PCR Not Detected (NotDetected) 05/30/24 Unknown Stool Rotavirus A PCR Not Detected (NotDetected) 05/30/24 Unknown Stl Adenov F 40/41 PCR Not Detected (NotDetected) 05/30/24 Unknown Stool Astrovirus (PCR) Not Detected (NotDetected) 05/30/24 Unknown Stool Campylobacter PCR Not Detected (NotDetected) 05/30/24 Unknown Stl C. diff Tox B Gene Negative Cdiff Gene (Neg) 05/30/24 Unknown Stool Cryptosporidium PCR Not Detected (NotDetected) 05/30/24 Unknown Stl E.coli Shiga Tox PCR Not Detected (NotDetected) 05/30/24 Unknown Stl Enterotoxigenic E PCR Not Detected (NotDetected) 05/30/24 Unknown Stool EPEC (PCR) Not Detected (NotDetected) 05/30/24 Unknown Stool EAEC (PCR) Not Detected (NotDetected) 05/30/24 Unknown Stl E. histolytica PCR Not Detected (NotDetected) 05/30/24 Unknown Stool Giardia Lamblia PCR Not Detected (NotDetected) 05/30/24 Unknown Stool Salmonella PCR Not Detected (NotDetected) 05/30/24 Unknown Stool Sapovirus (PCR) Not Detected (NotDetected) 05/30/24 Unknown Stl P. shigelloides PCR Not Detected (NotDetected) 05/30/24 Unknown Stl Shigella/EIEC PCR Not Detected (NotDetected) 05/30/[address].enterocolitica PCR Not Detected (NotDetected) 05/30/24 Unknown Stool Vibrio (PCR) Not Detected (NotDetected) 05/30/24 Unknown Stl Vibrio cholerae PCR Not Detected (NotDetected) 05/30/24 Unknown Stl Norovirus GI/GII PCR Not Detected (NotDetected) 05/30/24 Unknown Impressions Abdomen/Pelvis CT 05/31/24 16:42 EXAM: CT Abdomen and Pelvis With Intravenous Contrast INDICATION: Intractable nausea and vomiting. Acute diverticulitis. TECHNIQUE: Axial computed tomography images of the abdomen and pelvis with intravenous contrast. Sagittal and coronal reformatted images were created and reviewed. This CT exam was performed using one or more of the following dose reduction techniques: automated exposure control, adjustment of the mA and/or kV according to patient size, and/or use of iterative reconstruction technique. CONTRAST: 93ml of Optiray 320 was administered intravenously. COMPARISON: 05/26/2024 FINDINGS: Limitations: None. Lung bases: No abnormality noted. Pleural space: No visualized pleural effusion or pneumothorax. Heart: No abnormality noted. Mediastinum: No abnormality noted. ABDOMEN: Liver: No abnormality noted. Gallbladder and bile ducts: Cholecystectomy. No ductal dilation or stone noted. Pancreas: Homogeneous enhancement. No mass, inflammation or ductal dilation. Spleen: No significant abnormality noted. Adrenals: No significant abnormality noted. Kidneys and ureters: Stable bilateral renal cortical scarring. No other stones identified. No hydronephrosis. No urinary gas. Stomach and bowel: Mild decreased rectosigmoid inflammation. More prominent right perirectal fluid collection with gas measuring approximately 4 cm long by 1.1 cm transverse by roughly 4.3 cm long. There may be multiple contiguous loculations. PELVIS: Appendix: No findings to suggest acute appendicitis. Bladder: No filling defects to suggest mass or large stone. No inflammation. Reproductive: No abnormalities noted. ABDOMEN and PELVIS: Intraperitoneal space: No free air. No significant fluid collection. Bones/joints: Degenerative changes noted throughout the spine. No acute osseous abnormality seen. Vasculature: Atherosclerotic calcification of the aorta and branches. No aneurysm. Lymph nodes: No pathologically enlarged lymph nodes. IMPRESSION: Interval enlargement of a multiloculated fluid collection consistent with abscess along the mesenteric surface of the distal sigmoid and rectum. Largest loculated component measures approximately 1.3 cm AP by 0.8 cm transverse by 1.2 cm long. Also consider colocolonic fistula. Underlying colitis is slightly improved. ACT 112: Negative or not required by law. Electronically signed by Kim Azevedo 05-31-2024 6:07 PM Hospital Course (1) Diverticulitis of large intestine with abscess: Plan Diverticulitis of large intestine with abscess - Patient tolerated full liquid diet without nausea or vomiting - CT AP: Sigmoid diverticulitis and right perirectal fluid collection consistent with abscess (4.1 x 1.3 x 4.0 cm) - Patient afebrile and medically stable - 4 days of IV ciprofloxacin and IV metronidazole given inpatient - Recommend repeat CT AP 3-4 days after pcp f/u - Will continue outpatient metronidazole and ciprofloxacin PO 14 day course outpatient Total Time Total Time Spent Total Time Spent (In Minutes): See attending attestation Discharge Plan Discharge Items Patient Disposition: Home - Self-Care Reason For Visit: DIVERTICULITIS Discharge Diagnosis: Diverticulitis Condition on Discharge: Fair Activity: Per Instructions section Non-emergency contact: Primary Care Provider Call non-emergency contact if: your symptoms worsen and your pain is not controlled Follow-up/Referrals: Gwendolyn Baldwin CRNP [Primary Care Provider] - Diet: Regular Addtl Attending Provider Instructions: You were admitted to [facility] due to recurrent diverticulitis. You were treated with IV antibiotics including ceftriaxone, ciprofloxacin, and metronidazole. After this metronidazole and ciprofloxacin IV antibiotics were used as you had some nausea and dry heaving with ceftriaxone IV antibiotics. You quickly improved during your hospital stay and did not have any additional vomiting or diarrhea. You did endorse ongoing loose stool without blood or mucous and some breakthrough nausea in the mornings, but improved compared to when you were admitted. For the ongoing nausea we will prescribe you home medication pack of Zofran. Please use Zofran every 4 hours as needed for increased nausea. For your ongoing diverticulitis you will be prescribed the same medications used but in their oral formats. A discharge summary will be sent to your primary care physician to ensure continuity of care. Please bring this discharge summary with you to your next office appointment so that your provider can review it at that time. It is important that you follow up with your primary care provider in 1-2 weeks to assess medication changes and the need for any additional interventions. Medications: Your medication list has been reviewed and reconciled upon discharge to ensure accuracy and continuity of care. An updated list of all your medications is included with your hospital discharge paperwork. Please review this list closely, and make note of any changes. Metronidazole 500 mg to be used 3 times per day spaced out approximately every 8 hours for the next 14 days. A home pack of this medication has been sent home with you, and a prescription for your remaining doses has also been sent to your pharmacy. Ciprofloxacin 500 mg to be used 2 times per day spaced out approximately every 12 hours for the next 14 days. A home pack of this medication has been sent home with you and a prescription for your remaining doses has been sent to your pharmacy. A home pack of Zofran has also been sent with you for breakthrough nausea should it occur. You may use this medication once every 4 hours. Take your medications as instructed; do not skip a dose of your medicines. Make sure all of your doctors know every medicine you are taking (including [id number] medicines, vitamins, and supplements). Call your primary care provider before taking any new medicines (including [id number] medicines, vitamins, and supplements), because some of these may interact with your current medications, or may make your symptoms worse. Tell your primary care provider if you cannot afford your medications. CALL 911 OR GO TO THE EMERGENCY DEPARTMENT if you experience any of the following: Sudden, severe abdominal pain or nausea/vomiting Severe chest pain, or chest pain that radiates (moves) to your jaw or arm Sudden, severe shortness of breath or difficulty breathing Thank you for allowing us to participate in your care. Pending Studies at Discharge: No Stand-Alone Forms: My [facility], Smoking Cessation Medications and DC Order Prescriptions: New metronidazole 500 mg tablet 500 mg PO TID Qty: 36 0RF Rx Instructions: Please take Metronidazole 500 mg 3 times per day for the next 12 days for a total of 36 tablets. ciprofloxacin HCl 500 mg tablet 500 mg PO BID Qty: 24 0RF Rx Instructions: Please take ciprofloxacin 500mg twice per day for the next 12 days for a total of 24 tablets Continued ciclopirox 0.77 % cream 1 applic topical BID PRN (Reason: rash) Qty: 30 2RF diclofenac sodium 1 % gel 2 g topical QID PRN (Reason: pain) 90 Days Qty: 300 3RF Rx Instructions: apply to both knees escitalopram oxalate 5 mg tablet 5 mg PO QAM Qty: 90 3RF metoprolol succinate 25 mg tablet extended release 24 hr 25 mg PO QPM Qty: 90 3RF atorvastatin 20 mg tablet 20 mg PO QAM Qty: 90 3RF potassium chloride 10 mEq capsule, extended release 20 meq PO QAM Qty: 180 3RF levothyroxine 100 mcg tablet 100 mcg PO QAM Qty: 90 3RF coenzyme Q10 200 mg capsule 200 mg PO QAM celecoxib [Celebrex] 200 mg capsule 200 mg PO QAM Qty: 90 3RF hydrochlorothiazide 25 mg tablet 25 mg PO DAILY PRN (Reason: edema) Qty: 90 0RF Rx Instructions: hasnt been using medication. Prempro 0.3-1.5 mg tablet 1 tab PO UD Qty: 84 5RF Rx Instructions: Tues, fri-AM multivitamin Tablet 1 tab PO QAM cholecalciferol (vitamin D3) [Vitamin D3] 1,000 unit Capsule 1,000 unit PO QAM biotin 5,000 mcg Tablet,Disintegrating 5,000 mcg PO QAM calcium carbonate 500 mg calcium (1,250 mg) Tablet 1,000 mg PO DAILY nystatin 100,000 unit/gram powder 1 applic topical BID PRN (Reason: Other) Discontinued ciprofloxacin HCl 500 mg tablet 500 mg PO BID Qty: 20 0RF metronidazole 500 mg tablet 500 mg PO Q8H Qty: 30 0RF Admission Data Admit Date/Time: 05/29/24 15:32 Attending Provider: Tylor Johnson Admit Provider: Arthur Griffin Primary Care Provider: Gwendolyn Baldwin Other Providers: Arthur Griffin; Jordon Salazar Supervising Physician Co-Signing Physician Notes Attending attestation Pt seen and examined in concert with Dr. Sumner. In agreement with the documented findings as noted in the resident documentation with any exceptions or additions as noted here. Resting comfortably in bed without acute complaint at time of evaluation. Tolerating PO intake without significant nausea. No abdominal pain reported. Bowel movements +ve with no diarrhea any longer. On examination, S1/S2 nl RRR no MCG. CTAB. Minimal abd TTP LLQ ND BS+ve Diverticulitis - general surgery consult - stable collections noted on 05/31 CT reviewed with surgery without indication for drainage. Continue cipro/flagyl to complete course with close PCP follow up for repeat imaging. Else see resident documentation as noted. Total attending physician time spent with this patient's care on the day of discharge: 45 minutes. Resident Activity Tracking Resident Involvement: Resident Care Provided Care Provided: Adult [facility] Medicine
[2024-06-02 14:55] VITALS: BP 112/71; PULSE 66; TEMP 98.1; O2SAT 95
[2024-06-02] MEDS ORDERED: metroNIDAZOLE 500 MG TAB PO SCH ×2 (15:30→21:00)
[2024-06-02] MEDS: ONDANSETRON HOME PACK 4MG OD TAB PO ONE (16:14)
[2024-06-02] MEDS: CIPROFLOXACIN 500MG HOME PACK PO ONE (16:15)
== END 2024-06-02 16:24 | disposition home health service (06) | DRG 392 ==
LOC: ED 11:46 → SUATTDRO 15:32 → 3N 15:32

== ENCOUNTER 2025-05-28 15:07 | Inpatient (IN) ==
[2025-05-28 17:06] LABS: Appearance Urine Clear (Clear); Bacteria Urine Automated 1+ (None Seen); Cast Urine Automated 0-2 /lpf (0-2); Epithelial Cell Urine Auto >20 /hpf (0-2); Glucose Urine UA Negative (Negative); RBC Urine Automated 0-2 /hpf (0-2); WBC Urine Automated 0-5 /hpf (0-5)
[2025-05-28 17:08] LABS: Hematocrit (blood only) 38.4 % (37.0-47.0); Hemoglobin 12.8 g/dL (12.0-16.0); Immature Granulocytes # (auto) 0.05 K/uL (0.01-0.20); Immature Granulocytes % (auto) 0.4 %; Mean Corpuscular Hemoglobin 29.8 pg (25.0-34.0); Mean Corpuscular Volume 89.3 fL (80.0-100.0); Platelet Count 290 K/uL (130-400); RDW Standard Deviation 49.9 fL (36.4-46.3); Red Blood Count 4.30 M/uL (4.20-5.40); White Blood Count 11.91 K/ul (4.8-10.8)
--- NOTE | 2025-05-28 17:16 | Emergency Department Note ---
History of Present Illness General Chief complaint: Vomiting Stated complaint: VOMITING, ABD PAIN Time Seen by Provider: 05/28/25 16:29 Source: patient Mode of arrival: ambulatory Limitations: no limitations History of Present Illness Patient is an 80-year-old female presents with nausea, vomiting, diarrhea and abdominal pain that started last night. She has a history of diverticulitis and notes that she has to maintain regular bowel movements to prevent recurrence. She states she had not had a bowel movement in several days and took a Dulcolax for the first time last night. Shortly afterward she started to develop some cramping to her lower abdomen and hyperactive bowel sounds. She then had several episodes of nonbilious nonbloody emesis and an episode of diarrhea. Pain resolved on its own. She did take some Emetrol earlier today for her nausea and vomiting which seem to help her symptoms. She currently does states she has an appetite. No fevers, chills, chest pain, shortness of breath. she did note some blood in her urine today when she got to the hospital which is not abnormal for her. Denies any recent antibiotics. No sick contacts at home. No recent travel. History of prior cholecystectomy in the past. Home Medications Medication Instructions Recorded Confirmed Type cholecalciferol (vitamin D3) 25 1,000 unit PO QAM 06/18/18 05/28/25 History mcg (1,000 unit) capsule (Vitamin D3) multivitamin 1 tab PO QAM 06/18/18 05/28/25 History coenzyme Q10 200 mg capsule 200 mg PO QAM 01/15/19 05/28/25 History biotin 5,000 mcg disintegrating 5,000 mcg PO QAM 01/28/19 05/28/25 History tablet calcium carbonate 1,000 mg PO DAILY 08/18/21 05/28/25 History furosemide 20 mg tablet 20 mg PO DAILY PRN edema #30 tabs 07/21/24 05/28/25 Rx atorvastatin 20 mg tablet 20 mg PO QAM #90 tabs 09/08/24 05/28/25 Rx escitalopram oxalate 5 mg tablet 5 mg PO QAM #90 tabs 09/08/24 05/28/25 Rx celecoxib 200 mg capsule (Celebrex) 200 mg PO QAM #90 caps 11/19/24 05/28/25 Rx potassium chloride 10 mEq 20 meq (2 x 10 mEq) PO QAM #180 11/19/24 05/28/25 Rx capsule,extended release caps diclofenac sodium 1 % topical gel 2 g topical QID PRN pain 90 days 02/03/25 05/28/25 Rx #300 grams conj estrogen-medroxyprogesterone 1 tab PO UD #84 tabs 05/19/25 05/28/25 Rx 0.3 mg-1.5 mg tablet (Prempro) levothyroxine 100 mcg tablet 100 mcg PO QAM 05/19/25 05/28/25 History metoprolol succinate 50 mg 50 mg PO DAILY 05/19/25 05/28/25 History tablet,extended release 24 hr ascorbic acid (vitamin C) 100 mg 100 mg PO DAILY 05/28/25 05/28/25 History tablet (Vitamin C) docusate sodium 100 mg capsule 100 mg PO BID 05/28/25 05/28/25 History (Stool Softener) Allergies Allergy/AdvReac Type Severity Reaction Status Date / Time meperidine AdvReac Intermediate "FEELS OUT Verified 05/19/25 13:51 OF SPACE" chlorpromazine AdvReac Mild "JITTERY" Verified 05/19/25 13:51 droperidol AdvReac Mild "JITTERY" Verified 05/19/25 13:51 Past Med/Surg History Problem List (Updated 05/28/25 @ 22:22 by Lico Aldana MD) Diverticulitis of sigmoid colon (Acute) Hyperlipidemia Hypertension Colonic fistula PAC (premature atrial contraction) Frequent PVCs Rotator cuff tear arthropathy of right shoulder Leg edema Right shoulder pain Esophageal dysphagia Weakness (Acute) Localized osteoarthritis of knees, bilateral Frequency of urination Low back pain associated with a spinal disorder other than radiculopathy or spinal stenosis BPPV (benign paroxysmal positional vertigo) Intertrigo Incontinence Hypercholesterolemia (Acute) Iatrogenic hypothyroidism (Acute) Impaired fasting glucose (Acute) Arthritis (Acute) Medical History Diverticulitis of large intestine with abscess Hypokalemia Hypomagnesemia Vomiting Hypokalemia Diverticulitis large intestine Stomach upset UTI (urinary tract infection) Osteoarthritis of right knee Adnexal cyst Edema Hypertension Metacarpophalangeal joint pain of left hand Trigger finger, left index finger High risk for colon cancer Hypomagnesemia Diverticulitis of intestine with abscess Hyperlipidemia Nausea and vomiting after administration of anesthetic agent Slow to wake up after anesthesia History of COVID-19 Anxiety Atrial fibrillation History of recent hospitalization History of hypokalemia History of hypercalcemia History of postmenopausal bleeding GERD (gastroesophageal reflux disease) Surgical History History of cataract surgery (04/2024) H/O cystoscopy History of esophagogastroduodenoscopy (EGD) History of dilation and curettage History of bilateral tubal ligation History of repair of right rotator cuff (11/2017) History of colonoscopy (10/2023) History of cholecystectomy (1997) History of tonsillectomy and adenoidectomy Status post biopsy of thyroid gland History of thyroidectomy, total (1987) Family History Brother Family hx of colon cancer Colorectal cancer Family/Other Diabetes Sister Breast cancer Other No family history of adverse response to anesthesia Denies family history of Pancreatic cancer Ovarian cancer Prostate cancer Myocardial infarction Lung cancer Uterine cancer Social History Smoking Status: Never smoker Second Hand Exposure: Yes (hx until 4 years ago); Do You Dip or Chew Tobacco: No; Hx Alcohol Use: No Hx Substance Use: No Preferred Language: Japanese Communication Ability: Effective Visual Impairment: No Limitations Hearing Ability: Normal 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 Required: No Beliefs That Will Affect Care: None marital status: Current Living Situation: Spouse 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 Physical Exam Vital Signs Vital Signs - 24 hr 05/28/25 15:15 05/28/25 16:35 05/28/25 17:03 Temperature 37.1 C Temperature Source Temporal Artery Scan Pulse Rate 69 68 Pulse Rate [Apical] 65 Respiratory Rate 18 20 Respiratory Effort / Characteristics Non-Labored Spontaneous Non-Labored Spontaneous Respiratory Depth Normal Normal Respiratory Pattern Regular Blood Pressure 177/103 H Blood Pressure [Left Arm] 147/84 H Blood Pressure Mean 127 Blood Pressure Mean [Left Arm] 105 Blood Pressure Position [Left Arm] Semi-fowlers Pulse Oximetry 93 96 Oxygen Delivery Method Room Air Room Air Sepsis Recent Fever Within 48 Hours No Sepsis New/Unexplained Change in Mental Status No Sepsis Action Taken by Nursing No Action Required 05/28/25 18:00 05/28/25 19:59 05/28/25 21:12 Temperature Temperature Source Pulse Rate Pulse Rate [Apical] 68 69 68 Respiratory Rate 18 16 20 Respiratory Effort / Characteristics Respiratory Depth Respiratory Pattern Blood Pressure Blood Pressure [Left Arm] 152/87 H 145/80 H 170/94 H Blood Pressure Mean Blood Pressure Mean [Left Arm] 108 101 119 Blood Pressure Position [Left Arm] Pulse Oximetry 96 94 96 Oxygen Delivery Method Room Air Room Air Room Air Sepsis Recent Fever Within 48 Hours Sepsis New/Unexplained Change in Mental Status Sepsis Action Taken by Nursing 05/28/25 21:41 Temperature Temperature Source Pulse Rate 70 Pulse Rate [Apical] Respiratory Rate Respiratory Effort / Characteristics Respiratory Depth Respiratory Pattern Blood Pressure Blood Pressure [Left Arm] Blood Pressure Mean Blood Pressure Mean [Left Arm] Blood Pressure Position [Left Arm] Pulse Oximetry Oxygen Delivery Method Sepsis Recent Fever Within 48 Hours Sepsis New/Unexplained Change in Mental Status Sepsis Action Taken by Nursing See below. Constitutional WD/WN, vitals as above Respiratory normal respiratory effort, lungs clear to auscultation Cardiovascular RRR, no murmur, no edema Gastrointestinal (Abdomen) normal bowel sounds, soft, nontender, no hepatosplenomegaly Course Administered Medications Discontinued Medications Piperacillin Sod/Tazobactam Sod (Zosyn) 4.5 gm in 100 mls @ 200 mls/hr IV NOW ONE; Protocol Stop: 05/28/25 21:56 Last Admin: 05/28/25 21:33 Dose: 200 mls/hr Documented By: margy Ioversol (Optiray 320 100ml) 93 ml IV ONCE ONE Stop: 05/28/25 17:44 Last Admin: 05/28/25 17:43 Dose: 93 ml Documented By: DAISHA Ondansetron HCl (Ondansetron Inj 2 Mg/Ml 2 Ml Vial) 4 mg IV NOW STA Stop: 05/28/25 20:59 Last Admin: 05/28/25 21:08 Dose: 4 mg Documented By: margy Medical Decision Making Differential Diagnosis DDx includes but not limited to: Diverticulitis, gastroenteritis, intra- abdominal abscess, appendicitis, cystitis, pyelonephritis, SOB, neoplasm Medical Records Attestation: I reviewed the patient's medical records. Home Medications Current Medication List: was personally reviewed by me Laboratory Data Attestation: I reviewed the patient's lab results. 05/28/25 16:44 05/28/25 16:44 Lab Results 05/28/25 Range/Units 16:44 WBC 11.91 H (4.8-10.8) K/ul RBC 4.30 (4.20-5.40) M/uL Hgb 12.8 (12.0-16.0) g/dL Hct 38.4 (37.0-47.0) % MCV 89.3 (80.0-100.0) fL MCH 29.8 (25.0-34.0) pg MCHC 33.3 (32.0-36.0) g/dL RDW Std Deviation 49.9 H (36.4-46.3) fL RDW Coeff of Anai 15.2 H (11.5-14.5) % Plt Count 290 (130-400) K/uL MPV 10.2 (9.4-12.4) fL Immature Gran % (Auto) 0.4 % Neut % (Auto) 84.4 % Lymph % (Auto) 8.7 % Bell % (Auto) 5.8 % Eos % (Auto) 0.5 % Baso % (Auto) 0.2 % Neut # (Auto) 10.05 H (1.40-6.50) K/uL Lymph # (Auto) 1.04 L (1.20-3.40) K/uL Bell # (Auto) 0.69 H (0.11-0.59) K/uL Eos # (Auto) 0.06 (0.00-0.50) K/uL Baso # (Auto) 0.02 (0.00-0.20) K/uL Immature Gran # (Auto) 0.05 (0.01-0.20) K/uL Sodium 139 (136-145) mmol/L Potassium 3.8 (3.5-5.1) mmol/L Chloride 105 (98-107) mmol/L Carbon Dioxide 25 (21-32) mmol/L Anion Gap 9 (3-11) BUN 24 H (6-23) mg/dl Creatinine 0.84 (0.6-1.2) mg/dl Est Cr Clr Drug Dosing 62.3 ml/min eGFR 70.20 BUN/Creatinine Ratio 28.6 H (10-20) Glucose 102 H (70-99(Fasting)) mg/dl Calcium 8.8 (8.6-10.3) mg/dl Total Bilirubin 0.9 (0.2-1.0) mg/dl AST 19 (13-39) U/L ALT 12 (7-52) U/L Alkaline Phosphatase 84 (34-104) U/L Total Protein 6.9 (6.0-8.3) gm/dl Albumin 3.6 (3.4-5.0) gm/dl Globulin 3.3 (2.5-4.0) gm/dl Albumin/Globulin Ratio 1.1 (0.9-2) Lipase 12 (11-82) U/L Urine Color Dark Yellow Urine Appearance Clear (Clear) Urine pH 5.5 (4.5-7.5) Ur Specific [place] 1.037 H (1.000-1.030) Urine Protein 1+ H (Negative) Urine Glucose (UA) Negative (Negative) Urine Ketones 1+ H (Negative) Urine Blood Negative (Negative) Urine Nitrite Positive A (Negative) Urine Bilirubin 1+ H (Negative) Urine Urobilinogen Negative (Negative) Ur Leukocyte Esterase 1+ H (Negative) Urine WBC (Auto) 0-5 (0-5) /hpf Urine RBC (Auto) 0-2 (0-2) /hpf U Hyaline Cast (Auto) 0-2 (0-2) /lpf U Epithel Cells (Auto) >20 H (0-2) /hpf Urine Bacteria (Auto) 1+ H (None Seen) Urine Comment Imaging Data Radiologist's Impression: Abdomen/Pelvis CT 05/28/25 17:12 CT ABDOMEN and PELVIS with INTRAVENOUS CONTRAST HISTORY: Abdominal pain TECHNIQUE: CT abdomen and pelvis with contrast. IV CONTRAST: 100 mL of OMNIPAQUE 300 ENTERIC CONTRAST: Not Given COMPARISON: CT abdomen pelvis June 13, 2024 FINDINGS: LOWER CHEST: Unchanged mild cardiomegaly. Coronary and valvular calcifications LIVER: No focal lesion identified. Hepatic steatosis GALLBLADDER/BILIARY: Surgically absent gallbladder. No abnormal biliary dilatation. SPLEEN: Unremarkable. PANCREAS: Unremarkable. ADRENALS: Unremarkable. KIDNEYS: Atrophic kidneys. Tiny cortical cysts. No stones or hydronephrosis identified. PERITONEUM/RETROPERITONEUM. No lymphadenopathy by size criteria. No aortic aneurysm. GASTROINTESTINAL: No obstruction. Appendix is normal. Redemonstrated inflammatory changes of the sigmoid colon where there is a high concentration of colonic diverticula. Scattered extraluminal fluid collections are again present abutting the sigmoid colon. There has been an interval enlargement of the rim-enhancing fluid density structure intervening the sigmoid colon and the rectum (series 2, image 73) now measuring up to 3.0 x 3.7 x 5.0 cm. There is a mild caliber change in the sigmoid colon (series 2, image 66). REPRODUCTIVE: Bilateral adnexal cysts measuring up to 3.0 cm are redemonstrated BONES: No acute findings. IMPRESSION: Redemonstrated inflammatory changes of the sigmoid colon that are consistent with acute diverticulitis. Also redemonstrated are multiple extraluminal inflammatory fluid pockets abutting the sigmoid colon. The largest of such is seen in the perirectal space intervening the sigmoid colon loop and the rectum measuring up to 5.0 cm compatible with abscesses. No clear separation is seen between this fluid collection and the margins of the rectum and the sigmoid colon and additional complications such as fistula are not excluded. Mild bowel caliber changes i present in the sigmoid colon as above. This may be due to inflammation however cannot exclude neoplastic obstructive process. If indicated, recommend sigmoidoscopy evaluation following resolution of the acute inflammation Electronically signed by Wilfredo Frederick 05-28-2025 8:40 PM ECG Data Attestation: I personally reviewed and interpreted this ECG as follows: Indication: + nausea Rate (beats per minute): 57 Rhythm: + sinus bradycardia ECG Intervals/blocks: + Normal QRS, + Normal QT and + Normal MO ECG [place]: + Normal ECG ST segments: + Normal ST segments Comparison ECG Date: from (07/07/2024) Change: the following changes noted (PACs no longer present ) MDM Narrative Patient is an 80-year-old female presents with nausea, vomiting, diarrhea and lower abdominal cramping. History of diverticulitis. Afebrile nontoxic- appearing here today. Nonperitoneal abdominal exam. Lab work shows a mild leukocytosis. No signs of endorgan damage. CMP nonconcerning. Minimal dehydration secondary to fluid loss. UA consistent with contaminated sample. CT scan was ordered which shows multiple inflamed diverticuli of the sigmoid colon with surrounding abscesses largest 1 measuring 5 cm and possible enteric fistula. Spoke with Brie with general surgery who recommends IV antibiotics and admission to hospitalist service. General surgery will consult along as needed. Stable for admission to hospitalist service. Impression & Plan Diverticulitis of sigmoid colon Discharge Plan Visit Data Chief Complaint: Vomiting Stated Complaint: VOMITING, ABD PAIN ED Provider: Lico Aldana Discharge Problem: Diverticulitis of sigmoid colon Patient Disposition: Admitted As Inpatient Condition: Good Forms Stand Alone Forms: [facility] [employer] Prescriptions Prescriptions: No Action atorvastatin 20 mg tablet 20 mg PO QAM Qty: 90 3RF escitalopram oxalate 5 mg tablet 5 mg PO QAM Qty: 90 3RF celecoxib [Celebrex] 200 mg capsule 200 mg PO QAM Qty: 90 3RF potassium chloride 10 mEq capsule, extended release 20 meq PO QAM Qty: 180 3RF diclofenac sodium 1 % gel 2 g topical QID PRN (Reason: pain) 90 Days Qty: 300 3RF Rx Instructions: apply to both knees coenzyme Q10 200 mg capsule 200 mg PO QAM furosemide 20 mg tablet 20 mg PO DAILY PRN (Reason: edema) Qty: 30 5RF levothyroxine 100 mcg tablet 100 mcg PO QAM metoprolol succinate 50 mg tablet extended release 24 hr 50 mg PO DAILY Prempro 0.3-1.5 mg tablet 1 tab PO UD Qty: 84 5RF Rx Instructions: Tues, fri-AM multivitamin Tablet 1 tab PO QAM cholecalciferol (vitamin D3) [Vitamin D3] 1,000 unit Capsule 1,000 unit PO QAM biotin 5,000 mcg Tablet,Disintegrating 5,000 mcg PO QAM calcium carbonate 500 mg calcium (1,250 mg) Tablet 1,000 mg PO DAILY Vitamin C 100 mg Tablet 100 mg PO DAILY docusate sodium [Stool Softener] 100 mg Capsule 100 mg PO BID Referrals Referrals: Gwendolyn Baldwin CRNP [Primary Care Provider] -
[2025-05-28 17:26] LABS: Alanine Aminotransferase 12.0 U/L (7-52); Albumin Globulin Ratio 1.1 (0.9-2); Albumin Level 3.6 gm/dl (3.4-5.0); Alkaline Phosphatase 84.0 U/L (34-104); Anion Gap 9.0 (3-11); Bilirubin,Total 0.9 mg/dl (0.2-1.0); Blood Urea Nitrogen 24.0 mg/dl (6-23); Calcium 8.8 mg/dl (8.6-10.3); Carbon Dioxide 25.0 mmol/L (21-32); Chloride 105.0 mmol/L (98-107); Creatinine Clr Calc Pharmacy 62.3 ml/min; Globulin 3.3 gm/dl (2.5-4.0); Glucose 102.0 mg/dl (70-99(Fasting)); Lipase 12.0 U/L (11-82); Potassium 3.8 mmol/L (3.5-5.1); Sodium 139.0 mmol/L (136-145); Total Protein 6.9 gm/dl (6.0-8.3)
[2025-05-28] MEDS: OPTIRAY 320 100ml IV ONE (17:43)
--- NOTE | 2025-05-28 20:41 | CT Scan Report ---
CT ABDOMEN and PELVIS with INTRAVENOUS CONTRAST HISTORY: Abdominal pain TECHNIQUE: CT abdomen and pelvis with contrast. IV CONTRAST: 100 mL of OMNIPAQUE 300 ENTERIC CONTRAST: Not Given COMPARISON: CT abdomen pelvis June 13, 2024 FINDINGS: LOWER CHEST: Unchanged mild cardiomegaly. Coronary and valvular calcifications LIVER: No focal lesion identified. Hepatic steatosis GALLBLADDER/BILIARY: Surgically absent gallbladder. No abnormal biliary dilatation. SPLEEN: Unremarkable. PANCREAS: Unremarkable. ADRENALS: Unremarkable. KIDNEYS: Atrophic kidneys. Tiny cortical cysts. No stones or hydronephrosis identified. PERITONEUM/RETROPERITONEUM. No lymphadenopathy by size criteria. No aortic aneurysm. GASTROINTESTINAL: No obstruction. Appendix is normal. Redemonstrated inflammatory changes of the sigmoid colon where there is a high concentration of colonic diverticula. Scattered extraluminal fluid collections are again present abutting the sigmoid colon. There has been an interval enlargement of the rim-enhancing fluid density structure intervening the sigmoid colon and the rectum (series 2, image 73) now measuring up to 3.0 x 3.7 x 5.0 cm. There is a mild caliber change in the sigmoid colon (series 2, image 66). REPRODUCTIVE: Bilateral adnexal cysts measuring up to 3.0 cm are redemonstrated BONES: No acute findings. IMPRESSION: Redemonstrated inflammatory changes of the sigmoid colon that are consistent with acute diverticulitis. Also redemonstrated are multiple extraluminal inflammatory fluid pockets abutting the sigmoid colon. The largest of such is seen in the perirectal space intervening the sigmoid colon loop and the rectum measuring up to 5.0 cm compatible with abscesses. No clear separation is seen between this fluid collection and the margins of the rectum and the sigmoid colon and additional complications such as fistula are not excluded. Mild bowel caliber changes i present in the sigmoid colon as above. This may be due to inflammation however cannot exclude neoplastic obstructive process. If indicated, recommend sigmoidoscopy evaluation following resolution of the acute inflammation Electronically signed by Wilfredo Frederick 05-28-2025 8:40 PM
[2025-05-28] MEDS: ONDANSETRON INJ 2 MG/ML 2 ML VIAL IV STA (21:08)
[2025-05-28] MEDS: PIPERACILLIN/TAZOBACTAM 4.5 GM/100 ML BAG IV ONE (21:33)
--- NOTE | 2025-05-28 21:56 | History & Physical Report ---
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 Patient presented to the ER due to 1 day of nausea, vomiting, and abdominal pain found to have acute diverticulitis with abscess. She is nonseptic on presenta tion. #Acute recurrent diverticulitis with abscess - AP CT revealed acute sigmoid diverticulitis with multiple abscesses. Nonseptic presentationWBC 11.19, VSS/afebrile. - Given vancomycin x 1, defer further use Continue Zosyn 4.5 G IV Pain control with IV Tylenol as needed Zofran as needed for nausea General Surgery team consulted - keep NPO IVF resuscitation with LR 80 mL/hour x 2L Hold Lasix with acute infection trend CBC #hematuria/asymptomatic bacteruria patient endorses intermittent hematuria. No noted RBC on urinalysis. Patient denies any urinary symptoms however UA with nitrates, 1+ LE, 1+ bacteria; note significantly contaminated with epithelial cells (>20) - defer UTI tx for now however IV abx with above will provide coverage - follow urine cultures - follow up with PCP regarding hematuria #A-fib/HTNcontinue metoprolol, no anticoagulation use. #HLDcontinue statin #Mental healthcontinue escitalopram #Hypothyroidismcontinue levothyroxine #chronic venous insufficiency holding diuresis and potassium supplement. TEDs ordered. 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 Patient presented to the ER due to 1 day of nausea, vomiting, and abdominal pain found to have acute diverticulitis with abscess. She is nonseptic on presentation. Patient seen at bedside with her daughter present. She stated she was constipated for a few days so she took a Dulcolax last night which resulted in watery diarrhea, denies any melena or hematochezia. She stated she has not been feeling well and had a poor appetite for about 2 days. At 130 this morning she developed nausea that woke her up but did not vomit until the morning, denies any hematemesis. She also developed intermittent left-sided and umbilical abdominal pain as well as "noises" coming from her belly. Her pain at bedside is currently 0/10 but she is tender on palpation. She does have a history of recurrent diverticulitis and stated she was most recently hospitalized about a year ago. She was treated with oral antibiotics in March for diverticulitis which resolved on its own. She does follow with Dr. Salazar for this and most recently saw him in July, he did not recommend surgery at this time. She does endorse hot flashes and chills with the pain episodes but denies any fever. She denies any chest pain or shortness of breath. She does endorse intermittent hematuria however is unsure if it was coming from her bowels, stated she did not have any blood on toilet paper with wiping. She denies any dysuria and UA appears clear of infection/contaminated. She denies nicotine or alcohol use. She is due for her evening medications. She wishes to be full code. Allergies Allergy/AdvReac Type Severity Reaction Status Date / Time meperidine AdvReac Intermediate "FEELS OUT Verified 05/19/25 13:51 OF SPACE" chlorpromazine AdvReac Mild "JITTERY" Verified 05/19/25 13:51 droperidol AdvReac Mild "JITTERY" Verified 05/19/25 13:51 Home Medications Medication Instructions Recorded Confirmed Type cholecalciferol (vitamin D3) 25 1,000 unit PO QAM 06/18/18 05/28/25 History mcg (1,000 unit) capsule (Vitamin D3) multivitamin 1 tab PO QAM 06/18/18 05/28/25 History coenzyme Q10 200 mg capsule 200 mg PO QAM 01/15/19 05/28/25 History biotin 5,000 mcg disintegrating 5,000 mcg PO QAM 01/28/19 05/28/25 History tablet calcium carbonate 1,000 mg PO DAILY 08/18/21 05/28/25 History furosemide 20 mg tablet 20 mg PO DAILY PRN edema #30 tabs 07/21/24 05/28/25 Rx atorvastatin 20 mg tablet 20 mg PO QAM #90 tabs 09/08/24 05/28/25 Rx escitalopram oxalate 5 mg tablet 5 mg PO QAM #90 tabs 09/08/24 05/28/25 Rx celecoxib 200 mg capsule (Celebrex) 200 mg PO QAM #90 caps 11/19/24 05/28/25 Rx potassium chloride 10 mEq 20 meq (2 x 10 mEq) PO QAM #180 11/19/24 05/28/25 Rx capsule,extended release caps diclofenac sodium 1 % topical gel 2 g topical QID PRN pain 90 days 02/03/25 05/28/25 Rx #300 grams conj estrogen-medroxyprogesterone 1 tab PO UD #84 tabs 05/19/25 05/28/25 Rx 0.3 mg-1.5 mg tablet (Prempro) levothyroxine 100 mcg tablet 100 mcg PO QAM 05/19/25 05/28/25 History metoprolol succinate 50 mg 50 mg PO DAILY 05/19/25 05/28/25 History tablet,extended release 24 hr ascorbic acid (vitamin C) 100 mg 100 mg PO DAILY 05/28/25 05/28/25 History tablet (Vitamin C) docusate sodium 100 mg capsule 100 mg PO BID 05/28/25 05/28/25 History (Stool Softener) Past Med/Surg History Problem List (Updated 05/28/25 @ 23:51 by Kati Pandya PA-C) Hematuria Asymptomatic bacteriuria Leukocytosis Diverticulitis of large intestine with abscess Diverticulitis of sigmoid colon (Acute) Hyperlipidemia Hypertension Colonic fistula PAC (premature atrial contraction) Frequent PVCs Rotator cuff tear arthropathy of right shoulder Leg edema Right shoulder pain Esophageal dysphagia Weakness (Acute) Localized osteoarthritis of knees, bilateral Frequency of urination Low back pain associated with a spinal disorder other than radiculopathy or spinal stenosis BPPV (benign paroxysmal positional vertigo) Intertrigo Incontinence Hypercholesterolemia (Acute) Iatrogenic hypothyroidism (Acute) Impaired fasting glucose (Acute) Arthritis (Acute) Medical History Diverticulitis of large intestine with abscess Hypokalemia Hypomagnesemia Vomiting Hypokalemia Diverticulitis large intestine Stomach upset UTI (urinary tract infection) Osteoarthritis of right knee Adnexal cyst Edema Hypertension Metacarpophalangeal joint pain of left hand Trigger finger, left index finger High risk for colon cancer Hypomagnesemia Diverticulitis of intestine with abscess Hyperlipidemia Nausea and vomiting after administration of anesthetic agent Slow to wake up after anesthesia History of COVID-19 Anxiety Atrial fibrillation History of recent hospitalization History of hypokalemia History of hypercalcemia History of postmenopausal bleeding GERD (gastroesophageal reflux disease) Surgical History History of cataract surgery (04/2024) H/O cystoscopy History of esophagogastroduodenoscopy (EGD) History of dilation and curettage History of bilateral tubal ligation History of repair of right rotator cuff (11/2017) History of colonoscopy (10/2023) History of cholecystectomy (1997) History of tonsillectomy and adenoidectomy Status post biopsy of thyroid gland History of thyroidectomy, total (1987) Family History Brother Family hx of colon cancer Colorectal cancer Family/Other Diabetes Sister Breast cancer Other No family history of adverse response to anesthesia Denies family history of Pancreatic cancer Ovarian cancer Prostate cancer Myocardial infarction Lung cancer Uterine cancer Social History Smoking Status: Never smoker Second Hand Exposure: Yes (hx until 4 years ago); Do You Dip or Chew Tobacco: No; Hx Alcohol Use: No Hx Substance Use: No Preferred Language: Mexican Communication Ability: Effective Visual Impairment: No Limitations Hearing Ability: Normal Outside Sales Representative Required: No Beliefs That Will Affect Care: None marital status: Current Living Situation: Spouse 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 have: 3 Feels Safe at Home: Yes Safety Concerns: Feels Safe At This Time Childhood Exposure to Second-Hand Smoke: Yes Diet: regular caffeine: Yes during the past year weight has: decreased > 10 lbs Dental Care, Regularly: Yes Physical Activity Frequency: Does not Exercise Physical Activity Frequency Comment: No routine, but is physically active around the house Seatbelt Use: always Sunscreen Use: No Assistive Devices: Cane Review of Systems Review of Systems: see HPI Physical Exam Physical Exam: The patient is awake, alert and oriented 3, well developed and well nourished, normocephalic and atraumatic, in no acute distress. Non-toxic appearing. HEENT- EOMI, mucous membranes dry. Hearing grossly intact. Heart-normal S1 and S2. No murmurs, rubs or gallops. Lungs-clear bilaterally, no respiratory distress, no accessory muscle use. Abdomen-normal bowel sounds and soft. No ascites noted. Tenderness to LLQ and umbilical region. Extremities- no clubbing, cyanosis, or edema. Rheumatologic-normal range of motion. Psychiatric-normal affect. Results & Data Results & Data Vital Signs (Past 12 Hours) Vital Signs Temp Pulse Pulse Resp BP BP Pulse Ox 05/28/25 21:41 70 05/28/25 21:12 68 20 170/94 H 96 05/28/25 19:59 69 16 145/80 H 94 05/28/25 18:00 68 18 152/87 H 96 05/28/25 17:03 68 05/28/25 16:35 65 20 147/84 H 96 05/28/25 15:15 37.1 C 69 18 177/103 H 93 O2 Del Method 05/28/25 21:41 05/28/25 21:12 Room Air 05/28/25 19:59 Room Air 05/28/25 18:00 Room Air 05/28/25 17:03 05/28/25 16:35 Room Air 05/28/25 15:15 Room Air Laboratory Results reviewed cbc, bmp, ua Diagnostic Findings reviewed ap ct Medications Administered ed - zosyn + zofran Code Status & VTE Plan Code Status full code VTE Prophylaxis Plan VTE Prophylaxis will be ordered: Yes Supervising Physician Co-Signing Physician Notes Patient seen and examined, chart reviewed, case discussed with ROBERT Pandya and I agree with the assessment and plan as above. Patient with recurrent diverticulitis with small abscesses. Afebrile, non-toxic in appearance Tenderness in the abdomen - no rebound/guarding Labs and images reviewed Assessment/Plan Zosyn Pain control Zofran PRN IVF - LR at 80mL/hr x 2L Remainder as above PG Care Time/CCT Total # of Minutes Spent Total Time Spent with Patient: Total time spent is greater than 50% in coordination of care (as documented) at patient's floor/unit and/or counseling patient: Coding Level of Care Code 92061 INT INP/OBS CARE MIN Diagnoses Diverticulitis of large intestine with abscess without bleeding K57.20 Diverticulitis bleeding: without bleeding Leukocytosis D72.829 Asymptomatic bacteriuria R82.71 Hematuria R31.9 (1) Diverticulitis of large intestine with abscess Diverticulitis bleeding: without bleeding Qualified Code(s): K57.20 - Diverticulitis of large intestine with perforation and abscess without bleeding
--- NOTE | 2025-05-28 22:01 | Surgery Consultation ---
Date of Consultation May 28, 2025 Assessment & Plan (1) Diverticulitis of large intestine with abscess: Patient is an 80-year-old female with a history of diverticulitis complicated by colono- colonic fistula who presented emergency department for LLQ abdominal pain, nausea, and vomiting. Patient was worked up and was found to have a slight leukocytosis of 11.[address] imaging again concerning for acute diverticulitis with multiple extraluminal inflammatory fluid pockets (largest measuring up to 5 cm) compatible with abscess concern for fistula. The patient's last episode was approximately 1 year ago and she was treated conservatively at that time. The patient has seen Dr. Salazar as an outpatient with our general surgery team and due to her age and comorbidities surgery was not recommended. The patient was seen and evaluated this evening at bedside, currently no signs of acute abdomen that would warrant emergent surgical intervention. Patient will be admitted to the medical service and from a surgical perspective recommend the following: - Keep n.p.o., okay for sips and chips for now, and IV hydration -Pain control and antiemetics as needed -IV antibiotics have been initiated in the ED, continue Zosyn -Trend temps and WBC -Patient states that she would like to avoid surgery unless absolutely necessary/emergent. Will plan to continue to treat conservatively. Patient noted to have a 5cm abscess, could consider IR consult Saturday morning vs repeat CT imaging in a few days to further evaluate. -Medical management per primary team, surgery will follow closely. History of Present Illness Reason for Consultation: acute diverticulitis with abscess History of Present Illness The patient is a 80-year-old female who presented to the emergency department for abdominal pain, nausea and vomiting for the last few days. Originally, the patient states that she was constipated and did take a Dulcolax which resulted in watery diarrhea last evening. The patient states that at 1:30 in the morning nausea had woken her up from sleep and did have an episode of vomiting later in the morning. Throughout the course of the day the patient started with left lo wer quadrant abdominal pain and some "rumbling" in her lower abdomen. The patient states that she did have some hot flashes and chills but denies any actual fever. To note, she does have a history of diverticulitis complicated by colono- colonic fistula and her last hospitalization was roughly this time last year in 2023. The patient was treated conservatively during the hospital stay and has seen Dr. Salazar as an outpatient. At that time she was doing well and surgery was not recommended due to her age and other core morbidities. The patient states she has been doing well overall and has not had any additional episodes of diverticulitis since then. Due to the patient's symptoms she presented to the emergency department with her daughter this evening for evaluation and upon workup she was found to have a slight leukocytosis of 11.[address] imaging concerning for acute diverticulitis with multiple extraluminal inflammatory fluid pockets with the largest measuring up to 5 cm compatible with abscess also with concern for fistula. Due to these findings the general surgery team was consulted for further evaluation of the patient. The patient was seen and evaluated at bedside this evening, she is accompanied at bedside by her daughter. She is resting comfortably in bed, vital signs are stable, and she is nontoxic-appearing. The patient does continue with left lower quadrant abdominal pain and states that prior to having a bowel movement today she did have some cramping lower in her pelvic region. She does note that her nausea has improved after receiving medication this evening. Allergies Allergy/AdvReac Type Severity Reaction Status Date / Time meperidine AdvReac Intermediate "FEELS OUT Verified 05/19/25 13:51 OF SPACE" chlorpromazine AdvReac Mild "JITTERY" Verified 05/19/25 13:51 droperidol AdvReac Mild "JITTERY" Verified 05/19/25 13:51 Home Medications Medication Instructions Recorded Confirmed Type cholecalciferol (vitamin D3) 25 1,000 unit PO QAM 06/18/18 05/28/25 History mcg (1,000 unit) capsule (Vitamin D3) multivitamin 1 tab PO QAM 06/18/18 05/28/25 History coenzyme Q10 200 mg capsule 200 mg PO QAM 01/15/19 05/28/25 History biotin 5,000 mcg disintegrating 5,000 mcg PO QAM 01/28/19 05/28/25 History tablet calcium carbonate 1,000 mg PO DAILY 08/18/21 05/28/25 History furosemide 20 mg tablet 20 mg PO DAILY PRN edema #30 tabs 07/21/24 05/28/25 Rx atorvastatin 20 mg tablet 20 mg PO QAM #90 tabs 09/08/24 05/28/25 Rx escitalopram oxalate 5 mg tablet 5 mg PO QAM #90 tabs 09/08/24 05/28/25 Rx celecoxib 200 mg capsule (Celebrex) 200 mg PO QAM #90 caps 11/19/24 05/28/25 Rx potassium chloride 10 mEq 20 meq (2 x 10 mEq) PO QAM #180 11/19/24 05/28/25 Rx capsule,extended release caps diclofenac sodium 1 % topical gel 2 g topical QID PRN pain 90 days 02/03/25 05/28/25 Rx #300 grams conj estrogen-medroxyprogesterone 1 tab PO UD #84 tabs 05/19/25 05/28/25 Rx 0.3 mg-1.5 mg tablet (Prempro) levothyroxine 100 mcg tablet 100 mcg PO QAM 05/19/25 05/28/25 History metoprolol succinate 50 mg 50 mg PO DAILY 05/19/25 05/28/25 History tablet,extended release 24 hr ascorbic acid (vitamin C) 100 mg 100 mg PO DAILY 05/28/25 05/28/25 History tablet (Vitamin C) docusate sodium 100 mg capsule 100 mg PO BID 05/28/25 05/28/25 History (Stool Softener) Patient History Medical History Diverticulitis of large intestine with abscess Hypokalemia Hypomagnesemia Vomiting Hypokalemia Diverticulitis large intestine Stomach upset UTI (urinary tract infection) Osteoarthritis of right knee Adnexal cyst Edema Hypertension Metacarpophalangeal joint pain of left hand Trigger finger, left index finger High risk for colon cancer Hypomagnesemia Diverticulitis of intestine with abscess Hyperlipidemia Nausea and vomiting after administration of anesthetic agent Slow to wake up after anesthesia History of COVID-19 Anxiety Atrial fibrillation History of recent hospitalization History of hypokalemia History of hypercalcemia History of postmenopausal bleeding GERD (gastroesophageal reflux disease) Surgical History History of cataract surgery (04/2024) H/O cystoscopy History of esophagogastroduodenoscopy (EGD) History of dilation and curettage History of bilateral tubal ligation History of repair of right rotator cuff (11/2017) History of colonoscopy (10/2023) History of cholecystectomy (1997) History of tonsillectomy and adenoidectomy Status post biopsy of thyroid gland History of thyroidectomy, total (1987) Family History Brother Family hx of colon cancer Colorectal cancer Family/Other Diabetes Sister Breast cancer Other No family history of adverse response to anesthesia Denies family history of Pancreatic cancer Ovarian cancer Prostate cancer Myocardial infarction Lung cancer Uterine cancer Social History Smoking Status: Never smoker Second Hand Exposure: Yes (hx until 4 years ago); Do You Dip or Chew Tobacco: No; Hx Alcohol Use: No Hx Substance Use: No Preferred Language: Vincentian Communication Ability: Effective Visual Impairment: No Limitations Hearing Ability: Normal Knotter Hand Required: No Beliefs That Will Affect Care: None marital status: Current Living Situation: Spouse 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 have: 3 Feels Safe at Home: Yes Childhood Exposure to Second-Hand Smoke: Yes Diet: regular caffeine: Yes during the past year weight has: decreased > 10 lbs Dental Care, Regularly: Yes Physical Activity Frequency: Does not Exercise Physical Activity Frequency Comment: No routine, but is physically active around the house Seatbelt Use: always Sunscreen Use: No Assistive Devices: Cane and Walker Review of Systems Constitutional: + chills; no fever and no weakness Respiratory: no cough and no chest congestion Cardiovascular: no chest pain, no palpitations and no syncope Gastrointestinal: as per Subjective / HPI, + abdominal pain, + nausea and + vomiting Genitourinary: no difficulty urinating and no flank pain Physical Exam Constitutional: WD/WN, vitals as above Respiratory: normal respiratory effort, lungs clear to auscultation Cardiovascular: Rate/Rhythm: regular rate Gastrointestinal (Abdomen): Abdomen soft, nondistended, +TTP in the LLQ and mid abdomen No rebound, guarding or signs of peritonitis Results & Data Vital Signs (Past 12 Hours) Vital Signs Temp Pulse Pulse Resp BP BP Pulse Ox 05/28/25 21:41 70 05/28/25 21:12 68 20 170/94 H 96 05/28/25 19:59 69 16 145/80 H 94 05/28/25 18:00 68 18 152/87 H 96 12/19/25 17:03 68 05/28/25 16:35 65 20 147/84 H 96 05/28/25 15:15 37.1 C 69 18 177/103 H 93 O2 Del Method 05/28/25 21:41 05/28/25 21:12 Room Air 05/28/25 19:59 Room Air 05/28/25 18:00 Room Air 05/28/25 17:03 05/28/25 16:35 Room Air 05/28/25 15:15 Room Air Diagnostic Findings CT ABDOMEN and PELVIS with INTRAVENOUS CONTRAST HISTORY: Abdominal pain TECHNIQUE: CT abdomen and pelvis with contrast. IV CONTRAST: 100 mL of OMNIPAQUE 300 ENTERIC CONTRAST: Not Given COMPARISON: CT abdomen pelvis June 13, 2024 FINDINGS: LOWER CHEST: Unchanged mild cardiomegaly. Coronary and valvular calcifications LIVER: No focal lesion identified. Hepatic steatosis GALLBLADDER/BILIARY: Surgically absent gallbladder. No abnormal biliary dilatation. SPLEEN: Unremarkable. PANCREAS: Unremarkable. ADRENALS: Unremarkable. KIDNEYS: Atrophic kidneys. Tiny cortical cysts. No stones or hydronephrosis identified. PERITONEUM/RETROPERITONEUM. No lymphadenopathy by size criteria. No aortic aneurysm. GASTROINTESTINAL: No obstruction. Appendix is normal. Redemonstrated inflammatory changes of the sigmoid colon where there is a high concentration of colonic diverticula. Scattered extraluminal fluid collections are again present abutting the sigmoid colon. There has been an interval enlargement of the rim-enhancing fluid density structure intervening the sigmoid colon and the rectum (series 2, image 73) now measuring up to 3.0 x 3.7 x 5.0 cm. There is a mild caliber change in the sigmoid colon (series 2, image 66). REPRODUCTIVE: Bilateral adnexal cysts measuring up to 3.0 cm are redemonstrated BONES: No acute findings. IMPRESSION: Redemonstrated inflammatory changes of the sigmoid colon that are consistent with acute diverticulitis. Also redemonstrated are multiple extraluminal inflammatory fluid pockets abutting the sigmoid colon. The largest of such is seen in the perirectal space intervening the sigmoid colon loop and the rectum measuring up to 5.0 cm compatible with abscesses. No clear separation is seen between this fluid collection and the margins of the rectum and the sigmoid colon and additional complications such as fistula are not excluded. Mild bowel caliber changes i present in the sigmoid colon as above. This may be due to inflammation however cannot exclude neoplastic obstructive process. If indicated, recommend sigmoidoscopy evaluation following resolution of the acute inflammation PG Care Time/CCT Total # of Minutes Spent Total Time Spent with Patient: Total time spent is greater than 50% in coordination of care (as documented) at patient's floor/unit and/or counseling patient: [place] [address] INT INP/OBS CARE 140MIN Patient Type New History Problem Focused Exam Problem Focused Medical Decision Making Straight Forward Diagnoses Diverticulitis of large intestine with abscess without bleeding K57.20 Diverticulitis bleeding: without bleeding (1) Diverticulitis of large intestine with abscess Diverticulitis bleeding: without bleeding Qualified Code(s): K57.20 - Diverticulitis of large intestine with perforation and abscess without bleeding
[2025-05-28] MEDS ORDERED: VANCOMYCIN CONSULT ACTIVE PRN (22:12)
[2025-05-28] MEDS ORDERED: DOCUSATE SODIUM 100 MG CAP PO PRN (23:45)
[2025-05-29] MEDS: VANCOMYCIN HCL 2,000 MG in SODIUM CHLORIDE 0.9% 500 ML IV ONE (00:05)
[2025-05-29] MEDS: LACTATED RINGER'S 1,000 ML IV SCH (00:05)
[2025-05-29] MEDS: PIPERACILLIN/TAZOBACTAM 4.5 GM/100 ML BAG IV SCH (03:30)
[2025-05-29] MEDS: LEVOTHYROXINE SODIUM 100 MCG TABLET PO SCH (05:44)
[2025-05-29 06:13] LABS: Hematocrit (blood only) 33.8 % (37.0-47.0); Hemoglobin 11.6 g/dL (12.0-16.0); Mean Corpuscular Hemoglobin 30.5 pg (25.0-34.0); Mean Corpuscular Volume 88.9 fL (80.0-100.0); Platelet Count 256 K/uL (130-400); RDW Standard Deviation 49.6 fL (36.4-46.3); Red Blood Count 3.80 M/uL (4.20-5.40); White Blood Count 12.92 K/ul (4.8-10.8)
[2025-05-29 06:34] LABS: Anion Gap 9.0 (3-11); Blood Urea Nitrogen 22.0 mg/dl (6-23); Calcium 7.9 mg/dl (8.6-10.3); Carbon Dioxide 22.0 mmol/L (21-32); Chloride 108.0 mmol/L (98-107); Creatinine Clr Calc Pharmacy 62.9 ml/min; Glucose 104.0 mg/dl (70-99(Fasting)); Magnesium 1.7 mg/dl (1.7-2.4); Potassium 3.5 mmol/L (3.5-5.1); Sodium 139.0 mmol/L (136-145)
[2025-05-29 06:42] LABS: Immature Granulocytes # (auto) 0.05 K/uL (0.01-0.20); Immature Granulocytes % (auto) 0.4 %
[2025-05-29] MEDS: ESCITALOPRAM OXALATE 10 MG TAB PO SCH (07:50)
[2025-05-29] MEDS: ATORVASTATIN 20 MG TAB PO SCH (07:51)
[2025-05-29] MEDS: METOPROLOL SUCC 50MG EXT REL TAB PO SCH (07:52)
[2025-05-29] MEDS: ACETAMINOPHEN 1,000 MG/100 ML VIAL IV PRN (08:04)
--- NOTE | 2025-05-29 08:35 | Surgery Progress Note ---
Date of Service May 29, 2025 Assessment & Plan (1) Diverticulitis of large intestine with abscess: Plan: Her CT images and results were personally viewed and interpreted by myself She does have diverticulitis acute on chronic of her distal sigmoid colon as well as an abscess in the perirectal space Keep n.p.o. for today Continue IV antibiotics No plans for any surgical intervention Will follow Admission and Anticipated Discharge Date Admission Date: May 28, 2025 Subjective Patient seen and examined. Still with some abdominal pain, mildly improved yesterday. This is generalized in nature. Afebrile. Vital signs stable. Review of Systems Constitutional: no fever and no chills Eyes: no blind spots and no corrective lenses Respiratory: no cough and no dyspnea Cardiovascular: no chest pain and no dyspnea on exertion Gastrointestinal: + abdominal pain; no nausea and no vomit ing Genitourinary: no dysuria and no urinary hesitancy Integumentary: no acne and no lesions Neurologic: no gait abnormality and no tremor(s) Psychiatric: no behavioral changes and no depression Physical Exam Constitutional: WD/WN, vitals as above Eyes: PERRL, conjunctivae normal, anicteric sclerae Respiratory: normal respiratory effort, lungs clear to auscultation Cardiovascular: RRR, no murmur, no edema Gastrointestinal (Abdomen): Inspection/Auscultation: abdomen normal to inspection; abdomen not distended Percussion/Palpation: + abdomen tender (Mild generalized) and abdomen soft; no guarding and no hernia Musculoskeletal: no cyanosis or clubbing, extremities motor strength 5/5 Skin: no rashes, warm and dry Neurologic: PERRL, EOMI, accommodation nl, no face palsy, no dysarthria Psychiatric: A+Ox3, euthymic affect Results & Data Vital Signs (Past 12 Hours) Vital Signs Temp Pulse Pulse Pulse Resp BP BP 05/29/25 07:15 37 C 72 18 148/78 H 05/28/25 23:35 37.1 C 18 172/81 H 05/28/25 23:35 37.1 C 18 172/81 H 05/28/25 22:36 64 18 143/106 H 05/28/25 21:41 70 05/28/25 21:12 68 20 170/94 H Pulse Ox O2 Del Method 05/29/25 07:15 91 Room Air 05/28/25 23:35 97 Room Air 05/28/25 23:35 97 Room Air 05/28/25 22:36 95 Room Air 05/28/25 21:41 05/28/25 21:12 96 Room Air PG Care Time/CCT Total # of Minutes Spent Total Time Spent with Patient: Total time spent is greater than 50% in coordination of care (as documented) at patient's floor/unit and/or counseling patient: Coding Level of Care Code 29311 SUB INP/OBS CARE 07/04MIN Diagnoses Diverticulitis of large intestine with abscess without bleeding K57.20 Diverticulitis bleeding: without bleeding (1) Diverticulitis of large intestine with abscess Diverticulitis bleeding: without bleeding Qualified Code(s): K57.20 - Diverticulitis of large intestine with perforation and abscess without bleeding
--- NOTE | 2025-05-29 08:46 | Hospitalist Progress Note ---
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 Patient presented to the ER due to 1 day of nausea, vomiting, and abdominal pain found to have acute diverticulitis with abscess. Nonseptic presentationWBC 1 1.19, VSS/afebrile. #Acute recurrent diverticulitis with abscess - Leukocytosis trend: 11.9 -> 12.9 A/P CT revealed acute sigmoid diverticulitis with multiple abscesses (the largest measuring up to 5 cm); additional complications, such as fistula, cannot be excluded Zosyn 4.5 g IV q8h IV Tylenol PRN IV Zofran PRN General Surgery consult appreciated Patient hoping to avoid surgery if at all possible; conservative measures for now Patient appears to be clinically improving on 05/29 However, could consider IR consult Thursday 05/[address] imaging in the next few days if she continues to improve Keep n.p.o. except for p.o. medications/ice chips Continue IVF maintenance with LR at 80mL/hr Hold Lasix in the setting of acute infection/IVF #Hematuria | asymptomatic bacteruria patient endorses intermittent hematuria. No noted RBC on urinalysis. Clinically denies any urinary symptoms however UA with nitrates, 1+ LE, 1+ bacteria; note significantly contaminated with epithelial cells (>20) Defer UTI tx for now; however, IV Zosyn (as above (will provide coverage Follow current urine cultures Recommend follow-up with PCP regarding hematuria #A-fib/HTN Continue metoprolol, no anticoagulation use. #HLD Continue statin #Mental health Continue escitalopram #Hypothyroidism Continue levothyroxine #Chronic venous insufficiency Holding diuresis and potassium supplement. TEDs ordered. Disposition: Continued stay on MedSurg VTE ppx: SCDs and TEDs, low risk Admission and Anticipated Discharge Date Admission Date: May 28, 2025 Subjective Mrs. Lopez reports she is feeling better this morning after receiving some pain and nausea medications. She woke up this morning with intermittent, LLQ abdominal pain that she rated a 4-10. However she feels better after receiving pain medicine. Additionally, her nausea is fully resolved after receiving Zofran. Patient denies any vomiting so far in the hospital, but does admit she was vomiting with abdominal pain and diarrhea prior to arrival. She has been able to get up out of bed to use the bathroom, but has not had any bowel movements yet in the hospital. Prior to arrival, she had liquid/brown stool; no blood in stool appreciated. Overall, she feels better than she did when she first came to the hospital. H/o diverticulitis x 3. ROS: Patient endorses LLQ abdominal pain, diarrhea, and nausea/vomiting (resolved) Patient denies fevers, chills, night sweats, chest pain, chest palpitations, SOB, pleuritic CP, cough, abdominal pain, burning with urination, melena, or blood in the urine or stool. Review of Systems Review of Systems: See HPI above Physical Exam Physical Exam: General: no acute distress; lying flat in bed; pleasant affect; non-toxic appearing; cooperative; SpO2 98% on RA HEENT: normocephalic, atraumatic; PERRLA; vision and hearing intact Neck: supple; trachea midline Skin: warm, dry without signs of tenting; no cyanosis; no rashes, bruising, lesions, or erythema noted CV: chest wall NTP; no murmurs, rubs, or gallops; pulses intact and symmetric at radial, DP, and PT Lungs: no acute respiratory distress; symmetrical chest wall expansion; clear breath sounds across all lung bergeron w/o adventitious sounds; no wheezing ABD: Soft, left lower quadrant is mildly TTP; no rashes or bruising appreciated in the abdomen or flanks bilaterally BS present; no rebound/guarding; no distention MSK: no tics or fasciculations; no edema noted in the LEs b/l, nonerythematous Neuro: A&Ox3; normal mood and affect; fluent speech; sensation intact and symmetric in the LEs b/l Results & Data Results & Data Vital Signs (Past 12 Hours) Vital Signs Temp Pulse Pulse Pulse Resp BP BP 05/29/25 07:15 37 C 72 18 148/78 H 05/28/25 23:35 37.1 C 18 172/81 H 05/28/25 23:35 37.1 C 18 172/81 H 05/28/25 22:36 64 18 143/106 H 05/28/25 21:41 70 05/28/25 21:12 68 20 170/94 H Pulse Ox O2 Del Method 05/29/25 07:15 91 Room Air 05/28/25 23:35 97 Room Air 05/28/25 23:35 97 Room Air 05/28/25 22:36 95 Room Air 05/28/25 21:41 05/28/25 21:12 96 Room Air PG Care Time/CCT Total # of Minutes Spent Total Time Spent with Patient: Total time spent is greater than 50% in coordination of care (as documented) at patient's floor/unit and/or counseling patient: Coding [place] [address] SUB INP/OBS CARE 3/50MIN Patient Type Established History Comprehensive Exam Comprehensive Medical Decision Making High Complexity Diagnoses Diverticulitis of large intestine with abscess without bleeding K57.20 Diverticulitis bleeding: without bleeding Leukocytosis D72.829 Asymptomatic bacteriuria R82.71 Hematuria R31.9 (1) Diverticulitis of large intestine with abscess Diverticulitis bleeding: without bleeding Qualified Code(s): K57.20 - Diverticulitis of large intestine with perforation and abscess without bleeding"
[2025-05-29] MEDS: ONDANSETRON INJ 2 MG/ML 2 ML VIAL IV PRN (09:51)
[2025-05-29] MEDS ORDERED: VANCOMYCIN HCL 1,500 MG in SODIUM CHLORIDE 0.9% 500 ML IV SCH (12:00)
[2025-05-30] MEDS: MoRPHine SULFATE 2 MG/ML CARP IV STA (01:58)
[2025-05-30] MEDS: ONDANSETRON INJ 2 MG/ML 2 ML VIAL IV STA (01:59)
[2025-05-30] MEDS: METOCLOPRAMIDE HCL INJ 5 MG/ML 2 ML VIAL IV ONE (06:25)
[2025-05-30 08:59] LABS: Hematocrit (blood only) 34.6 % (37.0-47.0); Hemoglobin 11.8 g/dL (12.0-16.0); Immature Granulocytes # (auto) 0.03 K/uL (0.01-0.20); Immature Granulocytes % (auto) 0.3 %; Mean Corpuscular Hemoglobin 30.5 pg (25.0-34.0); Mean Corpuscular Volume 89.4 fL (80.0-100.0); Platelet Count 270 K/uL (130-400); RDW Standard Deviation 48.2 fL (36.4-46.3); Red Blood Count 3.87 M/uL (4.20-5.40); White Blood Count 10.81 K/ul (4.8-10.8)
[2025-05-30 09:13] LABS: Anion Gap 10.0 (3-11); Blood Urea Nitrogen 23.0 mg/dl (6-23); Calcium 7.9 mg/dl (8.6-10.3); Carbon Dioxide 22.0 mmol/L (21-32); Chloride 107.0 mmol/L (98-107); Creatinine Clr Calc Pharmacy 62.1 ml/min; Glucose 84.0 mg/dl (70-99(Fasting)); Magnesium 1.7 mg/dl (1.7-2.4); Potassium 3.5 mmol/L (3.5-5.1); Sodium 139.0 mmol/L (136-145)
--- NOTE | 2025-05-30 09:32 | Electrocardiogram Report ---
Test Reason : Blood Pressure : */* mmHG Vent. Rate : 57 BPM Atrial Rate : 57 BPM P-R Int : 180 ms QRS Dur : 82 ms QT Int : 444 ms P-R-T Axes : 32 -24 -6 degrees QTcB Int : 432 ms Sinus bradycardia Nonspecific T wave abnormality Abnormal ECG When compared with ECG of 07-Jul-2024 11:06, Criteria for Anterolateral infarct are no longer Present Nonspecific T wave abnormality no longer evident in Lateral leads Confirmed by Ray Poe ([id number]) on 05/30/2025 9:32:43 AM Referred By: REFERRED SELF Confirmed By: Ray Poe
--- NOTE | 2025-05-30 09:35 | Surgery Progress Note ---
Date of Service May 30, 2025 Assessment & Plan (1) Diverticulitis of large intestine with abscess: Plan: Continue her course as her leukocytosis is mildly improved She has no fever or tachycardia that would warrant surgical intervention Keep n.p.o. for today Continue IV antibiotics Will reach out to IR tomorrow to have them look at the CT scan to see if there is anything that can be drained percutaneously Will follow Admission and Anticipated Discharge Date Admission Date: May 28, 2025 Subjective Patient seen and examined. Still with abdominal pain. Afebrile. Review of Systems Constitutional: no fever and no chills Eyes: no blind spots and no corrective lenses Respiratory: no cough and no dyspnea Cardiovascular: no chest pain and no dyspnea on exertion Gastrointestinal: + abdominal pain; no nausea and no vomit ing Genitourinary: no dysuria and no urinary hesitancy Integumentary: no acne and no lesions Neurologic: no gait abnormality and no tremor(s) Psychiatric: no behavioral changes and no depression Physical Exam Constitutional: WD/WN, vitals as above Eyes: PERRL, conjunctivae normal, anicteric sclerae Respiratory: normal respiratory effort, lungs clear to auscultation Cardiovascular: RRR, no murmur, no edema Gastrointestinal (Abdomen): Inspection/Auscultation: abdomen normal to inspection; abdomen not distended Percussion/Palpation: + abdomen tender (Mild generalized) and abdomen soft; no guarding and no hernia Musculoskeletal: no cyanosis or clubbing, extremities motor strength 5/5 Skin: no rashes, warm and dry Neurologic: PERRL, EOMI, accommodation nl, no face palsy, no dysarthria Psychiatric: A+Ox3, euthymic affect Results & Data Vital Signs (Past 12 Hours) Vital Signs Temp Pulse Pulse Resp BP Pulse Ox O2 Del Method 05/30/25 08:05 62 05/30/25 07:11 36.6 C 65 16 134/76 95 Room Air 05/29/25 22:10 36.8 C 66 18 171/72 H 94 Room Air PG Care Time/CCT Total # of Minutes Spent Total Time Spent with Patient: Total time spent is greater than 50% in coordination of care (as documented) at patient's floor/unit and/or counseling patient: Coding Level of Care Code 40259 SUB INP/OBS CARE 07/04MIN Diagnoses Diverticulitis of large intestine with abscess without bleeding K57.20 Diverticulitis bleeding: without bleeding (1) Diverticulitis of large intestine with abscess Diverticulitis bleeding: without bleeding Qualified Code(s): K57.20 - Diverticulitis of large intestine with perforation and abscess without bleeding
[2025-05-30] MEDS: MAGNESIUM SULFATE / D5W 1 GM/100 ML BAG IV ONE (09:48)
--- NOTE | 2025-05-30 14:58 | Hospitalist Progress Note ---
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 Patient presented to the ER due to 1 day of nausea, vomiting, and abdominal pain found to have acute diverticulitis with abscess. Nonseptic presentationWBC 1 1.19, VSS/afebrile. #Acute recurrent diverticulitis with abscess - Leukocytosis trend: 11.9 -> 12.9 -> 10.8 A/P CT revealed acute sigmoid diverticulitis with multiple abscesses (the largest measuring up to 5 cm); additional complications, such as fistula, cannot be excluded Zosyn 4.5 g IV q8h Tylenol PRN for pain/fever Morphine 0.5 mg IV PRN for BTP Zofran PRN for nausea/vomiting General Surgery consult appreciated Patient hoping to avoid surgery if at all possible; conservative measures for now N.p.o. + bowel rest on 05/30 Continue IVF maintenance with LR at 80mL/hr Hold Lasix Recommend reaching out to IR for consult on Thursday 05/[address] imaging to assess abscess in the setting of clinical improvement #Hematuria | asymptomatic bacteruria patient endorses intermittent hematuria. No noted RBC on urinalysis. Clinically denies any urinary symptoms however UA with nitrates, 1+ LE, 1+ bacteria; note significantly contaminated with epithelial cells (>20) Defer UTI tx for now; however, IV Zosyn (as above (will provide coverage Follow current urine cultures Recommend follow-up with PCP regarding hematuria #A-fib/HTN Continue metoprolol, no anticoagulation use. #HLD Continue statin #Mental health Continue escitalopram #Hypothyroidism Continue levothyroxine #Chronic venous insufficiency Holding diuresis and potassium supplement. TEDs ordered. Disposition: Continued stay on MedSurg VTE ppx: SCDs and TEDs, low risk Admission and Anticipated Discharge Date Admission Date: May 28, 2025 Subjective Mrs. Lopez reports she had a terrible night last night. She had significant pain, nausea, and dry heaves. She did not vomit because "there was nothing to vomit up". Patient required IV morphine and Zofran, as she was very unwell. At present, she is still having 5 out of 10 lower abdominal pain. No nausea. She had diarrhea last night as well as this morning which was liquidy/brown. No melena or blood in her stool, but she does report she has a history of hemorrhoids and had some blood when wiping. Patient has been able to keep down ice chips this morning without setbacks. ROS: Patient endorses low/transverse abdominal pain, diarrhea, nausea, and dry heaves. Patient denies fevers, chills, night sweats, lightheadedness with ambulation, chest pain, SOB, pleuritic CP, cough, melena, burning with urination, or changes in urinary habits. Review of Systems Review of Systems: See HPI above Physical Exam Physical Exam: General: no acute distress; lying flat in bed; pleasant affect; non-toxic appearing; cooperative; SpO2 95% on RA HEENT: normocephalic, atraumatic; PERRLA; vision and hearing intact Neck: supple; trachea midline Skin: warm, dry without signs of tenting; no cyanosis; no rashes, bruising, lesions, or erythema noted CV: chest wall NTP; no murmurs, rubs, or gallops; pulses intact and symmetric at radial, DP, and PT Lungs: no acute respiratory distress; symmetrical chest wall expansion; clear breath sounds across all lung bergeron w/o adventitious sounds; no wheezing ABD: Soft, left lower quadrant is mildly TTP; no rashes or bruising appreciated in the abdomen or flanks bilaterally BS present; no rebound/guarding; no distention MSK: no tics or fasciculations; no edema noted in the LEs b/l, nonerythematous Neuro: A&Ox3; normal mood and affect; fluent speech; sensation intact and symmetric in the LEs b/l Results & Data Results & Data Vital Signs (Past 12 Hours) Vital Signs Temp Pulse Pulse Resp BP Pulse Ox O2 Del Method 05/30/25 14:43 36.9 C 63 18 155/72 H 95 Room Air 05/30/25 08:05 62 05/30/25 07:11 36.6 C 65 16 134/76 95 Room Air PG Care Time/CCT Total # of Minutes Spent Total Time Spent with Patient: Total time spent is greater than 50% in coordination of care (as documented) at patient's floor/unit and/or counseling patient: Coding [place] [address] SUB INP/OBS CARE 50MIN Patient Type Established History Comprehensive Exam Comprehensive Medical Decision Making High Complexity Diagnoses Diverticulitis of large intestine with abscess without bleeding K57.20 Diverticulitis bleeding: without bleeding Leukocytosis D72.829 Asymptomatic bacteriuria R82.71 Hematuria R31.9 (1) Diverticulitis of large intestine with abscess Diverticulitis bleeding: without bleeding Qualified Code(s): K57.20 - Diverticulitis of large intestine with perforation and abscess without bleeding
[2025-05-30] MEDS ORDERED: MoRPHine SULFATE 4 MG/ML 1 ML CARP\\VIAL IV PRN (15:00)
[2025-05-30] MEDS: ACETAMINOPHEN 325 MG TAB PO PRN (16:07)
[2025-05-31 04:29] LABS: Hematocrit (blood only) 32.9 % (37.0-47.0); Hemoglobin 10.8 g/dL (12.0-16.0); Immature Granulocytes # (auto) 0.02 K/uL (0.01-0.20); Immature Granulocytes % (auto) 0.3 %; Mean Corpuscular Hemoglobin 29.5 pg (25.0-34.0); Mean Corpuscular Volume 89.9 fL (80.0-100.0); Platelet Count 266 K/uL (130-400); RDW Standard Deviation 48.4 fL (36.4-46.3); Red Blood Count 3.66 M/uL (4.20-5.40); White Blood Count 7.61 K/ul (4.8-10.8)
[2025-05-31 04:48] LABS: Anion Gap 9.0 (3-11); Blood Urea Nitrogen 21.0 mg/dl (6-23); Calcium 7.6 mg/dl (8.6-10.3); Carbon Dioxide 22.0 mmol/L (21-32); Chloride 107.0 mmol/L (98-107); Creatinine Clr Calc Pharmacy 62.9 ml/min; Glucose 75.0 mg/dl (70-99(Fasting)); Potassium 3.3 mmol/L (3.5-5.1); Sodium 138.0 mmol/L (136-145)
--- NOTE | 2025-05-31 09:06 | Surgery Progress Note ---
Date of Service May 31, 2025 Assessment & Plan (1) Diverticulitis of large intestine with abscess: Plan: We did contact interventional radiology and is directed percutaneously based on her CT results She is improving and will trial clear liquids today Continue IV antibiotics Surgery will follow Admission and Anticipated Discharge Date Admission Date: May 28, 2025 Subjective Patient seen and examined. States her abdominal pain is improved. Afebrile. Having some diarrhea. Review of Systems Constitutional: no fever and no chills Eyes: no blind spots and no corrective lenses Respiratory: no cough and no dyspnea Cardiovascular: no chest pain and no dyspnea on exertion Gastrointestinal: + abdominal pain; no nausea and no vomit ing Genitourinary: no dysuria and no urinary hesitancy Integumentary: no acne and no lesions Neurologic: no gait abnormality and no tremor(s) Psychiatric: no behavioral changes and no depression Physical Exam Constitutional: WD/WN, vitals as above Eyes: PERRL, conjunctivae normal, anicteric sclerae Respiratory: normal respiratory effort, lungs clear to auscultation Cardiovascular: RRR, no murmur, no edema Gastrointestinal (Abdomen): Inspection/Auscultation: abdomen normal to inspection; abdomen not distended Percussion/Palpation: + abdomen tender (Lower abdomen) and abdomen soft; no guarding Musculoskeletal: no cyanosis or clubbing, extremities motor strength 5/5 Skin: no rashes, warm and dry Psychiatric: A+Ox3, euthymic affect Results & Data Vital Signs (Past 12 Hours) Vital Signs Temp Pulse Resp BP Pulse Ox O2 Del Method 05/31/25 07:40 36.6 C 65 16 152/74 H 95 Room Air 05/30/25 22:55 36.5 C 70 16 157/76 H 94 Room Air PG Care Time/CCT Total # of Minutes Spent Total Time Spent with Patient: Total time spent is greater than 50% in coordination of care (as documented) at patient's floor/unit and/or counseling patient: Coding Level of Care Code 31142 SUB INP/OBS CARE 07/04MIN Diagnoses Diverticulitis of large intestine with abscess without bleeding K57.20 Diverticulitis bleeding: without bleeding (1) Diverticulitis of large intestine with abscess Diverticulitis bleeding: without bleeding Qualified Code(s): K57.20 - Diverticulitis of large intestine with perforation and abscess without bleeding
--- NOTE | 2025-05-31 09:17 | Hospitalist Progress Note ---
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 Patient presented to the ER due to 1 day of nausea, vomiting, and abdominal pain found to have acute diverticulitis with abscess. Nonseptic presentationWBC 11.19, VSS/afebrile. #Acute recurrent diverticulitis with abscess - WBCs downtrending; 05/28 CTAP revealed acute sigmoid diverticulitis with multiple abscesses (largest measuring up to 5 cm); additional complications, such as fistula, cannot be excluded -General Surgery Consulted: pt hoping to avoid surgical intervention -IR Contacted by Gen Surg; pt notes she was told they would not drain abscess -Clear Liquid Diet -Continue Zosyn 4.5 g IV q8h -Tylenol PRN for pain/fever -Morphine 0.5 mg IV PRN for BTP -Zofran PRN for nausea/vomiting -Continue IVF maintenance with LR at 80mL/hr -Hold Lasix #Hematuria | asymptomatic bacteruria 05/28 UA with nitrates, 1+ LE, 1+ bacteria; note significantly contaminated with epithelial cells (>20); 05/28 Urin Cx w/ >3 organisms -Defer UTI tx for now; however, IV Zosyn (as above will provide coverage) -Recommend follow-up with PCP regarding hematuria #A-fib/HTN -Continue metoprolol, no anticoagulation use. #HLD -Continue statin #Mental health -Continue escitalopram #Hypothyroidism -Continue levothyroxine #Chronic venous insufficiency -Holding diuresis and potassium supplement -ARLENE Stockings Disposition: Continued stay on MedSurg VTE ppx: SCDs and TEDs, low risk Admission and Anticipated Discharge Date Admission Date: May 28, 2025 Subjective Pt was laying in bed today in NAD. Pt notes that she is feeling improved compared to days previous but continues to have pain off and on in her LLQ. Pt states that her ability to eat meals has improved. ROS: Pt endorses: cont intermittent abd pain, improved diarrhea, flatulence Pt denies: cough, congestion, SOB, CP, palpitations, sore throat, and dizziness/lightheadedness Review of Systems Review of Systems: All systems reviewed & are unremarkable except as noted in Subjective Physical Exam Physical Exam: General: Pt is a 80 y/o overweight F in NAD in bed. VS: reviewed, remarkable - BP 152/74 Skin: Warm and dry; no lesions or ulcerations Respiratory: CTA bilat, no adventitious sounds noted. Chest expansion is full and symmetrical Cardio: RRR no murmurs Abdomen: Round, normoactive BS x4, Mild tenderness to palpation of LLQ MSK: FROM of extremities, no deformities Extremities: no edema Neuro: A&Ox4, cooperative Results & Data Results & Data Vital Signs (Past 12 Hours) Vital Signs Temp Pulse Pulse Resp BP Pulse Ox O2 Del Method 05/31/25 09:00 97.5 F L 64 Room Air 05/31/25 07:40 97.9 F 65 16 152/74 H 95 Room Air 05/30/25 22:55 97.7 F 70 16 157/76 H 94 Room Air Laboratory Results Reviewed: CBC, BMP PG Care Time/CCT Total # of Minutes Spent Total Time Spent with Patient: Total time spent is greater than 50% in coordination of care (as documented) at patient's floor/unit and/or counseling patient: Coding Level of Care Code 75367 SUB INP/OBS CARE MIN Diagnoses Diverticulitis of large intestine with abscess without bleeding K57.20 Diverticulitis bleeding: without bleeding Leukocytosis D72.829 Asymptomatic bacteriuria R82.71 Hematuria R31.9 (1) Diverticulitis of large intestine with abscess Diverticulitis bleeding: without bleeding Qualified Code(s): K57.20 - Diverticulitis of large intestine with perforation and abscess without bleeding"
[2025-05-31] MEDS: POTASSIUM CHLORIDE / WTR 10 MEQ/100 ML PLCT IV SCH (09:40)
[2025-06-01 06:53] LABS: Hematocrit (blood only) 32.4 % (37.0-47.0); Hemoglobin 10.9 g/dL (12.0-16.0); Immature Granulocytes # (auto) 0.03 K/uL (0.01-0.20); Immature Granulocytes % (auto) 0.5 %; Mean Corpuscular Hemoglobin 29.7 pg (25.0-34.0); Mean Corpuscular Volume 88.3 fL (80.0-100.0); Platelet Count 264 K/uL (130-400); RDW Standard Deviation 47.7 fL (36.4-46.3); Red Blood Count 3.67 M/uL (4.20-5.40); White Blood Count 5.79 K/ul (4.8-10.8)
[2025-06-01 07:12] LABS: Anion Gap 8.0 (3-11); Blood Urea Nitrogen 13.0 mg/dl (6-23); Calcium 7.7 mg/dl (8.6-10.3); Carbon Dioxide 24.0 mmol/L (21-32); Chloride 109.0 mmol/L (98-107); Creatinine Clr Calc Pharmacy 56.1 ml/min; Glucose 80.0 mg/dl (70-99(Fasting)); Potassium 3.1 mmol/L (3.5-5.1); Sodium 141.0 mmol/L (136-145)
--- NOTE | 2025-06-01 08:33 | Surgery Progress Note ---
Date of Service June 01, 2025 Assessment & Plan (1) Diverticulitis of large intestine with abscess: Plan: We did contact interventional radiology and is directed percutaneously based on her CT results She is continuing to improve, advance diet as tolerated today Continue IV antibiotics Surgery will follow Admission and Anticipated Discharge Date Admission Date: May 28, 2025 Subjective doing well; minimal pain; tolerating clears Physical Exam Constitutional: WD/WN, vitals as above Gastrointestinal (Abdomen): Inspection/Auscultation: abdomen normal to inspection; abdomen not distended Percussion/Palpation: + abdomen tender (Lower abdomen) and abdomen soft; no guarding Psychiatric: A+Ox3, euthymic affect Results & Data Vital Signs (Past 12 Hours) Vital Signs Temp Pulse Resp BP Pulse Ox O2 Del Method 06/01/25 08:22 36.6 C 66 18 148/79 H 90 Room Air 05/31/25 22:50 36.8 C 60 16 174/66 H 97 Room Air (1) Diverticulitis of large intestine with abscess Diverticulitis bleeding: without bleeding Qualified Code(s): K57.20 - Diverticulitis of large intestine with perforation and abscess without bleeding
--- NOTE | 2025-06-01 10:23 | Hospitalist Progress Note ---
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 Patient presented to the ER due to 1 day of nausea, vomiting, and abdominal pain found to have acute diverticulitis with abscess. Nonseptic presentationWBC 11.19, VSS/afebrile. #Acute recurrent diverticulitis with abscess - WBCs downtrending; 05/28 CTAP revealed acute sigmoid diverticulitis with multiple abscesses (largest measuring up to 5 cm); additional complications, such as fistula, cannot be excluded -General Surgery Consulted and following: pt hoping to avoid surgical intervention -IR Contacted by Gen Surg; pt notes she was told they would not drain abscess -Advance diet as tolerated - Pt to be given full liquids for lunch -Continue Zosyn 4.5 g IV q8h -Tylenol PRN for pain/fever -Morphine 0.5 mg IV PRN for BTP -Zofran PRN for nausea/vomiting -IVF D/C -Hold Lasix #Diarrhea - Pt notes new onset of diarrhea w/ 3 episodes AM 06/01 -Stool Studies -Trend CBC #Hypokalemia - Asx -06/01, K of 3.1 repleted w/ 10mEq x4 bags #Hematuria | asymptomatic bacteruria 05/28 UA with nitrates, 1+ LE, 1+ bacteria; note significantly contaminated with epithelial cells (>20); 05/28 Urin Cx w/ >3 organisms -Defer UTI tx for now; however, IV Zosyn (as above will provide coverage) -Recommend follow-up with PCP regarding hematuria #A-fib/HTN -Continue metoprolol, no anticoagulation use. #HLD -Continue statin #Mental health -Continue escitalopram #Hypothyroidism -Continue levothyroxine #Chronic venous insufficiency -Holding diuresis and potassium supplement -ARLENE Stockings Disposition: Continued stay on MedSurg VTE ppx: SCDs and TEDs, low risk Admission and Anticipated Discharge Date Admission Date: May 28, 2025 Subjective Pt was laying in bed today in NAD. She notes that she is feeling much improved when compared to days previous days. She does however note an increase in diarrhea. Nurse notes that she had taken patient to the bathroom x3 this AM. ROS: Pt endorses diarrhea, improving weakness Pt denies cough, congestion, sore throat, SOB, CP, palpitations, N/V/D, lightheadedness, and dizziness. Review of Systems Review of Systems: All systems reviewed & are unremarkable except as noted in Subjective Physical Exam Physical Exam: General: Pt is a 80 y/o overweight F in NAD in bed. VS: reviewed, remarkable - BP 152/74 Skin: Warm and dry; no lesions or ulcerations Respiratory: CTA bilat, no adventitious sounds noted. Chest expansion is full and symmetrical Cardio: RRR no murmurs Abdomen: Round, normoactive BS x4, Mild tenderness to palpation of LLQ MSK: FROM of extremities, no deformities Extremities: no edema Neuro: A&Ox4, cooperative Results & Data Results & Data Vital Signs (Past 12 Hours) Vital Signs Temp Pulse Resp BP Pulse Ox O2 Del Method 06/01/25 08:22 97.9 F 66 18 148/79 H 90 Room Air 05/31/25 22:50 98.2 F 60 16 174/66 H 97 Room Air Laboratory Results Reviewed: CBC, BMP PG Care Time/CCT Total # of Minutes Spent Total Time Spent with Patient: Total time spent is greater than 50% in coordination of care (as documented) at patient's floor/unit and/or counseling patient: Coding Level of Care Code 24932 SUB INP/OBS CARE 2/35MIN Diagnoses Diverticulitis of large intestine with abscess without bleeding K57.20 Diverticulitis bleeding: without bleeding Leukocytosis D72.829 Asymptomatic bacteriuria R82.71 Hematuria R31.9 (1) Diverticulitis of large intestine with abscess Diverticulitis bleeding: without bleeding Qualified Code(s): K57.20 - Diverticulitis of large intestine with perforation and abscess without bleeding"
[2025-06-01] MEDS: POTASSIUM CHLORIDE / WTR 10 MEQ/100 ML PLCT IV SCH (11:08)
[2025-06-01 13:56] LABS: Cdiff Toxin B Gene (2yr or >) Negative Cdiff Gene (Neg)
--- NOTE | 2025-06-02 08:26 | Hospitalist Progress Note ---
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 Patient presented to the ER due to 1 day of nausea, vomiting, and abdominal pain found to have acute diverticulitis with abscess. Nonseptic presentationWBC 11.19, VSS/afebrile. #Acute recurrent diverticulitis with abscess - WBCs downtrending; 05/28 CTAP revealed acute sigmoid diverticulitis with multiple abscesses (largest measuring up to 5 cm); additional complications, such as fistula, cannot be excluded -General Surgery Consulted and now signed off: continue IV antibiotics, transition to oral antibiotics for discharge for a total course of 14 days. -IR Contacted by Gen Surg; abscess unamenable to percutaneous drainage, too small -Advance diet as tolerated - Pt to be given low fiber diet -Continue Zosyn 4.5 g IV q8h -Tylenol PRN for pain/fever, Morphine 0.5 mg IV PRN for BTP -Zofran PRN for nausea/vomiting -Hold Lasix #Diarrhea - RESOLVED; Pt noteD new onset of diarrhea w/ 3 episodes AM 06/01; 06/01 C diff negative -Trend CBC #Hypokalemia - Asx -06/02, K of 3.0 repleted w/ 10mEq x4 bags #Hematuria | asymptomatic bacteruria 05/28 UA with nitrates, 1+ LE, 1+ bacteria; note significantly contaminated with epithelial cells (>20); 05/28 Urin Cx w/ >3 organisms -Defer UTI tx for now; however, IV Zosyn (as above will provide coverage) -Recommend follow-up with PCP regarding hematuria #A-fib/HTN -Continue metoprolol, no anticoagulation use. #HLD -Continue statin #Mental health -Continue escitalopram #Hypothyroidism -Continue levothyroxine #Chronic venous insufficiency -Holding diuresis and potassium supplement -ARLENE Stockings Disposition: Continued stay on MedSurg VTE ppx: SCDs and TEDs, low risk Admission and Anticipated Discharge Date Admission Date: May 28, 2025 Supervising Physician Co-Signing Physician Notes The patient was not seen by me. Chart reviewed. Case discussed with SANDRA Merritt. Agree with assessment and plan. Subjective patient is lying in bed today in NAD. Patient states that she continues to feel much improved, and notes that she has little to no abdominal pain at all. Patient states she still occasionally experiences some "gurgling" in her stomach. Patient notes that her diarrhea has improved significantly and she is not experiencing any more diarrhea. she states that she is hopeful to trial a regular diet tonight at dinner and states that she would like to transition from IV potassium back to her daily oral potassium starting tomorrow. Patient otherwise denies cough, congestion, shortness of breath, chest pain, palpitations, abdominal pain, nausea, vomiting, diarrhea, constipation, and dizziness or lightheadedness. Review of Systems Review of Systems: All systems reviewed & are unremarkable except as noted in Subjective Physical Exam Physical Exam: General: Pt is a 80 y/o overweight F in NAD in bed. VS: reviewed, remarkable - BP 153/71 Skin: Warm and dry; no lesions or ulcerations Respiratory: CTA bilat, no adventitious sounds noted. Chest expansion is full and symmetrical Cardio: RRR no murmurs Abdomen: Round, normoactive BS x4, no tenderness to palpation MSK: FROM of extremities, no deformities Extremities: no edema Neuro: A&Ox4, cooperative Results & Data Results & Data Vital Signs (Past 12 Hours) Vital Signs Temp Pulse Resp BP Pulse Ox O2 Del Method 06/01/25 23:41 98.6 F 59 L 20 149/80 H 94 Room Air Laboratory Results Reviewed: CBC, BMP PG Care Time/CCT Total # of Minutes Spent Total Time Spent with Patient: Total time spent is greater than 50% in coordination of care (as documented) at patient's floor/unit and/or counseling patient: Coding Level of Care Code 67317 SUB INP/OBS CARE MIN Diagnoses Diverticulitis of large intestine with abscess without bleeding K57.20 Diverticulitis bleeding: without bleeding Leukocytosis D72.829 Asymptomatic bacteriuria R82.71 Hematuria R31.9 (1) Diverticulitis of large intestine with abscess Diverticulitis bleeding: without bleeding Qualified Code(s): K57.20 - Diverticulitis of large intestine with perforation and abscess without bleeding
[2025-06-02 09:00] LABS: Hematocrit (blood only) 35.7 % (37.0-47.0); Hemoglobin 11.6 g/dL (12.0-16.0); Immature Granulocytes # (auto) 0.14 K/uL (0.01-0.20); Immature Granulocytes % (auto) 2.3 %; Mean Corpuscular Hemoglobin 29.4 pg (25.0-34.0); Mean Corpuscular Volume 90.4 fL (80.0-100.0); Platelet Count 289 K/uL (130-400); RDW Standard Deviation 49.3 fL (36.4-46.3); Red Blood Count 3.95 M/uL (4.20-5.40); White Blood Count 6.04 K/ul (4.8-10.8)
[2025-06-02 09:18] LABS: Anion Gap 7.0 (3-11); Blood Urea Nitrogen 10.0 mg/dl (6-23); Calcium 7.9 mg/dl (8.6-10.3); Carbon Dioxide 26.0 mmol/L (21-32); Chloride 109.0 mmol/L (98-107); Creatinine Clr Calc Pharmacy 54.3 ml/min; Glucose 120.0 mg/dl (70-99(Fasting)); Potassium 3.2 mmol/L (3.5-5.1); Sodium 142.0 mmol/L (136-145)
[2025-06-02] MEDS: POTASSIUM CHLORIDE / WTR 10 MEQ/100 ML PLCT IV SCH (11:16)
--- NOTE | 2025-06-02 11:41 | Surgery Progress Note ---
Date of Service June 02, 2025 Assessment & Plan (1) Diverticulitis of large intestine with abscess: Plan: abscess unamenable to percutaneous drainage, too small, discussed with IR team Continue IV antibiotics advance to low fiber continue medical management will need 14 day total course of IV and oral antibiotics on discharge patient requesting [facility] on discharge instead of home, case management to follow Will need Diflucan for prophylaxis of yeast infection with oral antibiotics may need to consider repeat CT imaging of abdomen and pelvis 2 weeks after discharge to ensure resolution of abscess surgery service signing off, call with questions/cocnerns Discussed with Dr. Reyes who agrees with above. Admission and Anticipated Discharge Date Admission Date: May 28, 2025 Subjective feeling good, no abdominal pain + increased appetite today no n,v no fever or chills diarrhea has stopped , no blood in stools passing gas urinating without difficulty Physical Exam Constitutional: WD/WN, vitals as above cooperative and comfortable; no acute distress and not ill appearing Respiratory: normal respiratory effort, lungs clear to auscultation Cardiovascular: RRR, no murmur, no edema Gastrointestinal (Abdomen): Inspection/Auscultation: abdomen normal to inspection; abdomen not distended Percussion/Palpation: abdomen soft; abdomen nontender, no guarding and abdomen not rigid Skin: no rashes, warm and dry Psychiatric: Orientation: alert and oriented x 3 Results & Data Vital Signs (Past 12 Hours) Vital Signs Temp Pulse Resp BP Pulse Ox O2 Del Method 06/02/25 08:51 36.3 C L 66 18 160/75 H 96 Room Air 06/01/25 23:41 37 C 59 L 20 149/80 H 94 Room Air Laboratory Results 06/02/25 06/01/25 Range/Units 08:33 Unknown WBC 6.04 (4.8-10.8) K/ul RBC 3.95 L (4.20-5.40) M/uL Hgb 11.6 L (12.0-16.0) g/dL Hct 35.7 L (37.0-47.0) % MCV 90.4 (80.0-100.0) fL MCH 29.4 (25.0-34.0) pg MCHC 32.5 (32.0-36.0) g/dL RDW Std Deviation 49.3 H (36.4-46.3) fL RDW Coeff of Anai 14.8 H (11.5-14.5) % Plt Count 289 (130-400) K/uL MPV 9.5 (9.4-12.4) fL Immature Gran % (Auto) 2.3 % Neut % (Auto) 58.3 % Lymph % (Auto) 26.0 % Mclean % (Auto) 7.8 % Eos % (Auto) 4.8 % Baso % (Auto) 0.8 % Neut # (Auto) 3.52 (1.40-6.50) K/uL Lymph # (Auto) 1.57 (1.20-3.40) K/uL Mclean # (Auto) 0.47 (0.11-0.59) K/uL Eos # (Auto) 0.29 (0.00-0.50) K/uL Baso # (Auto) 0.05 (0.00-0.20) K/uL Immature Gran # (Auto) 0.14 (0.01-0.20) K/uL Sodium 142 (136-145) mmol/L Potassium 3.2 L (3.5-5.1) mmol/L Chloride 109 H (98-107) mmol/L Carbon Dioxide 26 (21-32) mmol/L Anion Gap 7 (3-11) BUN 10 (6-23) mg/dl Creatinine 0.95 (0.6-1.2) mg/dl Est Cr Clr Drug Dosing 54.3 ml/min eGFR 60.57 BUN/Creatinine Ratio 10.5 (10-20) Glucose 120 H (70-99(Fasting)) mg/dl Calcium 7.9 L (8.6-10.3) mg/dl Stl C. diff Tox B Gene Negative Cdiff Gene (Neg) Stl C. diff [id number] NEGATIVE (1) Diverticulitis of large intestine with abscess Diverticulitis bleeding: without bleeding Qualified Code(s): K57.20 - Diverticulitis of large intestine with perforation and abscess without bleeding
[2025-06-03 06:21] LABS: Hematocrit (blood only) 32.4 % (37.0-47.0); Hemoglobin 10.9 g/dL (12.0-16.0); Immature Granulocytes # (auto) 0.17 K/uL (0.01-0.20); Immature Granulocytes % (auto) 2.6 %; Mean Corpuscular Hemoglobin 30.0 pg (25.0-34.0); Mean Corpuscular Volume 89.3 fL (80.0-100.0); Platelet Count 297 K/uL (130-400); RDW Standard Deviation 48.6 fL (36.4-46.3); Red Blood Count 3.63 M/uL (4.20-5.40); White Blood Count 6.53 K/ul (4.8-10.8)
[2025-06-03 06:48] LABS: Anion Gap 7.0 (3-11); Blood Urea Nitrogen 8.0 mg/dl (6-23); Calcium 7.7 mg/dl (8.6-10.3); Carbon Dioxide 25.0 mmol/L (21-32); Chloride 110.0 mmol/L (98-107); Creatinine Clr Calc Pharmacy 57.3 ml/min; Glucose 94.0 mg/dl (70-99(Fasting)); Potassium 3.3 mmol/L (3.5-5.1); Sodium 142.0 mmol/L (136-145)
--- NOTE | 2025-06-03 08:40 | Hospitalist Progress Note ---
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 Patient presented to the ER due to 1 day of nausea, vomiting, and abdominal pain found to have acute diverticulitis with abscess. Nonseptic presentationWBC 11.19, VSS/afebrile. #Acute recurrent diverticulitis with abscess - WBCs downtrending; 05/28 CTAP revealed acute sigmoid diverticulitis with multiple abscesses (largest measuring up to 5 cm); additional complications, such as fistula, cannot be excluded -General Surgery Consulted and now signed off: continue IV antibiotics, transition to oral antibiotics for discharge for a total course of 14 days. -IR Contacted by Gen Surg; abscess unnameable to percutaneous drainage, too small -Advance diet as tolerated - Pt to be given low fiber diet -Transition IV Zosyn to Augmentin 875/125 q8H - total of 9 days Augmentin to complete a total 14 days abx therapy -Lactobacillus Probiotic QAM d/t abx therapy -Tylenol PRN for pain/fever -Discontinue PRN Morphine -Zofran PRN for nausea/vomiting -Hold Lasix #Diarrhea - RESOLVED; Pt noted new onset of diarrhea w/ 3 episodes AM 06/01; 06/01 C diff negative -Trend CBC #Hypokalemia - Asx; 06/03, K of 3.3 -Re-initiate 20 mEq PO home dose -Trend BMP #Hematuria | asymptomatic bacteruria 05/28 UA with nitrates, 1+ LE, 1+ bacteria; note significantly contaminated with epithelial cells (>20); 05/28 Urin Cx w/ >3 organisms -Defer UTI tx for now; however, IV Zosyn (as above will provide coverage) -Recommend follow-up with PCP regarding hematuria #A-fib/HTN -Continue metoprolol, no anticoagulation use. #HLD -Continue statin #Mental health -Continue escitalopram #Hypothyroidism -Continue levothyroxine #Chronic venous insufficiency -Holding diuresis and potassium supplement -ARLENE Stockings Disposition: Continued stay on MedSurg; awaiting PT/OT evaluation VTE ppx: SCDs and TEDs, low risk Admission and Anticipated Discharge Date Admission Date: May 28, 2025 Supervising Physician Co-Signing Physician Notes The patient was not seen by me. Chart reviewed. Case discussed with SANDRA Merritt. Agree with assessment and plan. Subjective Pt was laying in bed today in NAD. She notes that she feels significantly better than she has in days prior and that her first "solid meal" at dinnertime 06/02 evening went well. She notes that she was eager to transition back to her PO K supplementation. She additionally notes that she is hopeful to go to [facility] following her hospital admission here at [facility]. Pt's mood was joyous and very positive today. ROS: Pt Endorses - feeling weaker than her baseline prior to admission Pt Denies - Cough, congestion, sore throat, H/A, dizziness, lightheadedness, SOB, CP, palpitations, abd pain/discomfort, N/V/D, and constipation Review of Systems Review of Systems: All systems reviewed & are unremarkable except as noted in Subjective Physical Exam Physical Exam: General: Pt is a 80 y/o overweight F in NAD in bed. VS: reviewed, remarkable - BP 153/87 Skin: Warm and dry; no lesions or ulcerations Respiratory: CTA bilat, no adventitious sounds noted. Chest expansion is full and symmetrical Cardio: RRR no murmurs Abdomen: Round, normoactive BS x4, no tenderness to palpation MSK: FROM of extremities, no deformities Extremities: no edema Neuro: A&Ox4, cooperative Results & Data Results & Data Vital Signs (Past 12 Hours) Vital Signs Temp Pulse Resp BP Pulse Ox O2 Del Method 06/02/25 22:45 97.5 F L 77 16 166/87 H 96 Room Air Laboratory Results Reviewed: CBC, BMP Ca-albumin correction factor: 8.4 PG Care Time/CCT Total # of Minutes Spent Total Time Spent with Patient: Total time spent is greater than 50% in coordination of care (as documented) at patient's floor/unit and/or counseling patient: Coding Level of Care Code 53096 SUB INP/OBS CARE 2MIN Diagnoses Diverticulitis of large intestine with abscess without bleeding K57.20 Diverticulitis bleeding: without bleeding Leukocytosis D72.829 Asymptomatic bacteriuria R82.71 Hematuria R31.9 (1) Diverticulitis of large intestine with abscess Diverticulitis bleeding: without bleeding Qualified Code(s): K57.20 - Diverticulitis of large intestine with perforation and abscess without bleeding
[2025-06-03] MEDS: POTASSIUM CHLORIDE 10 MEQ TABCR PO SCH (09:00)
[2025-06-03] MEDS: ADVANCED PROBIOTIC 625 MG CAPSULE PO SCH (11:29)
[2025-06-03] MEDS: AMOXICILLIN/CLAVULANATE 875 MG TAB PO SCH (17:13)
[2025-06-04 06:18] LABS: Hematocrit (blood only) 34.6 % (37.0-47.0); Hemoglobin 11.8 g/dL (12.0-16.0); Immature Granulocytes # (auto) 0.28 K/uL (0.01-0.20); Immature Granulocytes % (auto) 3.0 %; Mean Corpuscular Hemoglobin 29.9 pg (25.0-34.0); Mean Corpuscular Volume 87.6 fL (80.0-100.0); Platelet Count 309 K/uL (130-400); RDW Standard Deviation 47.9 fL (36.4-46.3); Red Blood Count 3.95 M/uL (4.20-5.40); White Blood Count 9.38 K/ul (4.8-10.8)
[2025-06-04 06:32] LABS: Anion Gap 8.0 (3-11); Blood Urea Nitrogen 7.0 mg/dl (6-23); Calcium 7.8 mg/dl (8.6-10.3); Carbon Dioxide 26.0 mmol/L (21-32); Chloride 108.0 mmol/L (98-107); Creatinine Clr Calc Pharmacy 62.1 ml/min; Glucose 89.0 mg/dl (70-99(Fasting)); Potassium 3.0 mmol/L (3.5-5.1); Sodium 142.0 mmol/L (136-145)
--- NOTE | 2025-06-04 08:33 | Hospitalist Progress Note ---
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 Patient presented to the ER due to 1 day of nausea, vomiting, and abdominal pain found to have acute diverticulitis with abscess. Nonseptic presentationWBC 11.19, VSS/afebrile. #Acute recurrent diverticulitis with abscess - WBCs downtrending; 05/28 CTAP revealed acute sigmoid diverticulitis with multiple abscesses (largest measuring up to 5 cm); additional complications, such as fistula, cannot be excluded -General Surgery Consulted and now signed off: continue IV antibiotics, transition to oral antibiotics for discharge for a total course of 14 days. -IR Contacted by Gen Surg; abscess unnameable to percutaneous drainage, too small -Advance diet as tolerated - Pt to be given low fiber diet -Continue Augmentin 875/125 q8H - total of 9 days Augmentin to complete a total 14 days abx therapy (8 days more) -Lactobacillus Probiotic QAM d/t abx therapy -Tylenol PRN for pain/fever -Discontinue PRN Morphine -Zofran PRN for nausea/vomiting -Hold Lasix #HTN - BP 209/98 @16:28 06/03, pt ASx durin episdoe -Continue Metoprolol -Start Amlodipine 5mg -IV Hydralazine w/ parameters #Diarrhea - RESOLVED; Pt noted new onset of diarrhea w/ 3 episodes AM 06/01; 06/01 C diff negative -Trend CBC #Hypokalemia - Asx; 06/03, K of 3.3 -Re-initiate 20 mEq PO home dose Potassium Supplement -Given additional 40 mEq PO -Trend BMP #Hematuria | asymptomatic bacteruria 05/28 UA with nitrates, 1+ LE, 1+ bacteria; note significantly contaminated with epithelial cells (>20); 05/28 Urin Cx w/ >3 organisms -Recommend follow-up with PCP regarding hematuria #A-fib -Continue metoprolol, no anticoagulation use. #HLD -Continue statin #Mental health -Continue escitalopram #Hypothyroidism -Continue levothyroxine #Chronic venous insufficiency -Holding diuresis and potassium supplement -ARLENE Stockings Disposition: Continued stay on MedSurg; awaiting PT/OT evaluation + safe dispo VTE ppx: SCDs and TEDs, low risk Admission and Anticipated Discharge Date Admission Date: May 28, 2025 Supervising Physician Co-Signing Physician Notes The patient was not seen by me. Chart reviewed. Case discussed with SANDRA Merritt. Agree with assessment and plan. Subjective Patient was laying in bed today in NAD. Patient states that she is feeling a little under the weather today, she notes that she had some abdominal discomfort overnight and had some nausea first thing this morning. Patient states that she is feeling a little under the weather today, she notes that she had some abdominal discomfort overnight and had some nausea first thing this morning. She states that she used the Zofran and that that helped resolve the nausea, although she was unable to finish her breakfast. Patient states she has a mild headache this a.m.a.m. Discussed hypertensive episodes last night, patient states she did not have any symptoms at that time such as headache, dizziness, or lightheadedness. Discussed approval for [facility]. Patient endorses: Nausea, loss of appetite, abdominal discomfort, weakness Patient denies: Cough, congestion, shortness of breath, chest pain, palpitations, vomiting, diarrhea, dizziness, lightheadedness Review of Systems Review of Systems: All systems reviewed & are unremarkable except as noted in Subjective Physical Exam Physical Exam: General: Pt is a 80 y/o overweight F in NAD in bed. VS: reviewed, remarkable - BP 159/84 Skin: Warm and dry; no lesions or ulcerations Respiratory: CTA bilat, no adventitious sounds noted. Chest expansion is full and symmetrical Cardio: RRR no murmurs Abdomen: Round, normoactive BS x4, no tenderness to palpation MSK: FROM of extremities, no deformities Extremities: no edema Neuro: A&Ox4, cooperative Results & Data Results & Data Vital Signs (Past 12 Hours) Vital Signs Temp Pulse Resp BP Pulse Ox O2 Del Method 06/04/25 08:10 98.4 F 72 18 159/84 H 94 Room Air 06/03/25 23:11 98.2 F 68 16 165/90 H 98 Room Air Laboratory Results Reviewed: CBC, BMP Ca albumin correction: 8.6 PG Care Time/CCT Total # of Minutes Spent Total Time Spent with Patient: Total time spent is greater than 50% in coordination of care (as documented) at patient's floor/unit and/or counseling patient: Coding Level of Care Code 95677 SUB INP/OBS CARE Diagnoses Diverticulitis of large intestine with abscess without bleeding K57.20 Diverticulitis bleeding: without bleeding Leukocytosis D72.829 Asymptomatic bacteriuria R82.71 Hematuria R31.9 (1) Diverticulitis of large intestine with abscess Diverticulitis bleeding: without bleeding Qualified Code(s): K57.20 - Diverticulitis of large intestine with perforation and abscess without bleeding"
[2025-06-04] MEDS: POTASSIUM CHLORIDE CRTAB 20 MEQ TABCR PO STA (09:50)
[2025-06-05 07:01] LABS: Hematocrit (blood only) 34.1 % (37.0-47.0); Hemoglobin 11.5 g/dL (12.0-16.0); Immature Granulocytes # (auto) 0.26 K/uL (0.01-0.20); Immature Granulocytes % (auto) 2.8 %; Mean Corpuscular Hemoglobin 30.1 pg (25.0-34.0); Mean Corpuscular Volume 89.3 fL (80.0-100.0); Platelet Count 308 K/uL (130-400); RDW Standard Deviation 50.1 fL (36.4-46.3); Red Blood Count 3.82 M/uL (4.20-5.40); White Blood Count 9.35 K/ul (4.8-10.8)
[2025-06-05 07:34] LABS: Anion Gap 8.0 (3-11); Blood Urea Nitrogen 7.0 mg/dl (6-23); Calcium 7.6 mg/dl (8.6-10.3); Carbon Dioxide 25.0 mmol/L (21-32); Chloride 108.0 mmol/L (98-107); Creatinine Clr Calc Pharmacy 61.4 ml/min; Glucose 79.0 mg/dl (70-99(Fasting)); Potassium 3.4 mmol/L (3.5-5.1); Sodium 141.0 mmol/L (136-145)
--- NOTE | 2025-06-05 08:50 | Hospitalist Progress Note ---
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 Patient presented to the ER due to 1 day of nausea, vomiting, and abdominal pain found to have acute diverticulitis with abscess. Nonseptic presentationWBC 11.19, VSS/afebrile. #Acute recurrent diverticulitis with abscess - WBCs downtrending; 05/28 CTAP revealed acute sigmoid diverticulitis with multiple abscesses (largest measuring up to 5 cm); additional complications, such as fistula, cannot be excluded -General Surgery Consulted and now signed off: continue IV antibiotics, transition to oral antibiotics for discharge for a total course of 14 days. -IR Contacted by Gen Surg; abscess unnameable to percutaneous drainage, too small -Advance diet as tolerated - Pt currently on low fiber diet -Continue Augmentin 875/125 q8H - total of 9 days Augmentin to complete a total 14 days abx therapy (7 days more) -Lactobacillus Probiotic QAM d/t abx therapy -Tylenol PRN for pain/fever -Zofran PRN for nausea/vomiting -CBC, BMP in AM #HTN - BP 209/98 @16:28 06/03, pt ASx durin episdoe -Continue Metoprolol -Start Amlodipine 5mg -Restart Lasix -IV Hydralazine w/ parameters #Diarrhea - RESOLVED; Pt noted new onset of diarrhea w/ 3 episodes AM 06/01; 06/01 C diff negative -Trend CBC #Hypokalemia - Asx; 06/03, K of 3.3 -Re-initiate 20 mEq PO home dose Potassium Supplement -Given additional 40 mEq PO -Trend BMP #Hematuria | asymptomatic bacteruria 05/28 UA with nitrates, 1+ LE, 1+ b acteria; note significantly contaminated with epithelial cells (>20); 05/28 Urin Cx w/ >3 organisms -Recommend follow-up with PCP regarding hematuria #A-fib -Continue metoprolol, no anticoagulation use. #HLD -Continue statin #Mental health -Continue escitalopram #Hypothyroidism -Continue levothyroxine #Chronic venous insufficiency -Holding diuresis and potassium supplement -ARLEEN Stockings Disposition: Continued stay on MedSurg; awaiting safe dispo VTE ppx: SCDs and TEDs, low risk Admission and Anticipated Discharge Date Admission Date: May 28, 2025 Supervising Physician Co-Signing Physician Notes The patient was not seen by me. Chart reviewed. Case discussed with SANDRA Merritt. Agree with assessment and plan. Subjective Pt was laying in bed today in NAD. She states that she is feeling much better than she was on 06/04 but continues to feel weak following her illness. Pt states that her appetite has improved today. Pt denies any sx today and states that she is eager to go to [facility] for therapy. Pt denies cough, congestion, sore throat, SOB, palpitations, abd pain/discomfort, N/V/D, constipation, light headedness, and dizziness. Review of Systems Review of Systems: All systems reviewed & are unremarkable except as noted in Subjective Physical Exam 2 Physical Exam: General: Pt is a 80 y/o overweight F in NAD in bed. VS: reviewed, unremarkable Skin: Warm and dry; no lesions or ulcerations Respiratory: CTA bilat, no adventitious sounds noted. Chest expansion is full and symmetrical Cardio: RRR no murmurs Abdomen: Round, normoactive BS x4, no tenderness to palpation MSK: FROM of extremities, no deformities Extremities: no edema Neuro: A&Ox4, cooperative Results & Data Results & Data Vital Signs (Past 12 Hours) Vital Signs Temp Pulse Pulse Resp BP BP Pulse Ox 06/05/25 08:12 97.9 F 76 16 150/79 H 93 06/04/25 23:12 99.1 F 73 18 132/73 94 O2 Del Method 06/05/25 08:12 Room Air 06/04/25 23:12 Room Air Laboratory Results Reviewed: CBC, BMP PG Care Time/CCT Total # of Minutes Spent Total Time Spent with Patient: Total time spent is greater than 50% in coordination of care (as documented) at patient's floor/unit and/or counseling patient: Coding Level of Care Code 32668 SUB INP/OBS CARE 2/35MIN Diagnoses Diverticulitis of large intestine with abscess without bleeding K57.20 Diverticulitis bleeding: without bleeding Leukocytosis D72.829 Asymptomatic bacteriuria R82.71 Hematuria R31.9 (1) Diverticulitis of large intestine with abscess Diverticulitis bleeding: without bleeding Qualified Code(s): K57.20 - Diverticulitis of large intestine with perforation and abscess without bleeding"
[2025-06-06 06:08] LABS: Hematocrit (blood only) 33.9 % (37.0-47.0); Hemoglobin 11.1 g/dL (12.0-16.0); Immature Granulocytes % (auto) 3.1 %; Mean Corpuscular Hemoglobin 29.4 pg (25.0-34.0); Mean Corpuscular Volume 89.9 fL (80.0-100.0); Platelet Count 288 K/uL (130-400); RDW Standard Deviation 50.7 fL (36.4-46.3); Red Blood Count 3.77 M/uL (4.20-5.40); White Blood Count 8.98 K/ul (4.8-10.8)
[2025-06-06 06:09] LABS: Immature Granulocytes # (auto) 0.28 K/uL (0.01-0.20)
[2025-06-06 06:34] LABS: Anion Gap 8.0 (3-11); Blood Urea Nitrogen 11.0 mg/dl (6-23); Calcium 7.4 mg/dl (8.6-10.3); Carbon Dioxide 24.0 mmol/L (21-32); Chloride 110.0 mmol/L (98-107); Creatinine Clr Calc Pharmacy 60.0 ml/min; Glucose 109.0 mg/dl (70-99(Fasting)); Potassium 3.2 mmol/L (3.5-5.1); Sodium 142.0 mmol/L (136-145)
--- NOTE | 2025-06-06 12:17 | Hospitalist Progress Note ---
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 Patient presented to the ER due to 1 day of nausea, vomiting, and abdominal pain found to have acute diverticulitis with abscess. Nonseptic presentationWBC 11.19, VSS/afebrile. #Acute recurrent diverticulitis with abscess - WBCs downtrending; 05/28 CTAP revealed acute sigmoid diverticulitis with multiple abscesses (largest measuring up to 5 cm); additional complications, such as fistula, cannot be excluded -General Surgery Consulted and now signed off: continue IV antibiotics, transition to oral antibiotics for discharge for a total course of 14 days. -IR Contacted by Gen Surg; abscess unnameable to percutaneous drainage, too small -Advance diet as tolerated - Pt currently on low fiber diet -Continue Augmentin 875/125 q8H - total of 9 days Augmentin to complete a total 14 days abx therapy (7 days more) -Lactobacillus Probiotic QAM d/t abx therapy -Tylenol PRN for pain/fever -Zofran PRN for nausea/vomiting -CBC, BMP in AM #HTN - BP 209/98 @16:28 06/03, pt ASx durin episdoe -Continue Metoprolol -Start Amlodipine 5mg -Restart Lasix -IV Hydralazine w/ parameters #Diarrhea - RESOLVED; Pt noted new onset of diarrhea w/ 3 episodes AM 06/01; 06/01 C diff negative -Trend CBC #Hypokalemia - Asx; 05/31, K of 3.2 -Re-initiate 20 mEq PO home dose Potassium Supplement -Given additional 40 mEq PO -Trend BMP #Hematuria | asymptomatic bacteruria 05/28 UA with nitrates, 1+ LE, 1+ b acteria; note significantly contaminated with epithelial cells (>20); 05/28 Urin Cx w/ >3 organisms -Recommend follow-up with PCP regarding hematuria #A-fib -Continue metoprolol, no anticoagulation use. #HLD -Continue statin #Mental health -Continue escitalopram #Hypothyroidism -Continue levothyroxine #Chronic venous insufficiency -Holding diuresis and potassium supplement -ARLENE Stockings Disposition: Continued stay on MedSurg; awaiting safe dispo VTE ppx: SCDs and TEDs, low risk - encourage ambulation Admission and Anticipated Discharge Date Admission Date: May 28, 2025 Supervising Physician Co-Signing Physician Notes The patient was not seen by me. Chart reviewed. Case discussed with SANDRA Merritt. Agree with assessment and plan. Subjective Pt was laying in bed today in NAD. She states she feels well and has no problems or concerns. Discussed possible need for re-evaluation by [facility] about wether or not she is a candidate for rehabilitation. Pt denies cough, congestion, sore throat, SOB, CP, palpitations, abd pain/discomfort, N/V/D, constipation, light headedness, and dizziness. Review of Systems Review of Systems: All systems reviewed & are unremarkable except as noted in Subjective Physical Exam Physical Exam: General: Pt is a 80 y/o overweight F in NAD in bed. VS: reviewed, unremarkable Skin: Warm and dry; no lesions or ulcerations Respiratory: CTA bilat, no adventitious sounds noted. Chest expansion is full and symmetrical Cardio: RRR no murmurs Abdomen: Round, normoactive BS x4, no tenderness to palpation MSK: FROM of extremities, no deformities Extremities: no edema Neuro: A&Ox4, cooperative Results & Data Results & Data Vital Signs (Past 12 Hours) Vital Signs Temp Pulse Resp BP Pulse Ox O2 Del Method 06/06/25 08:27 98.1 F 74 16 138/78 94 Room Air Laboratory Results Reviewed: CBC, BMP PG Care Time/CCT Total # of Minutes Spent Total Time Spent with Patient: Total time spent is greater than 50% in coordination of care (as documented) at patient's floor/unit and/or counseling patient: Coding Level of Care Code 81155 SUB INP/OBS CARE MIN Diagnoses Diverticulitis of large intestine with abscess without bleeding K57.20 Diverticulitis bleeding: without bleeding Leukocytosis D72.829 Asymptomatic bacteriuria R82.71 Hematuria R31.9 (1) Diverticulitis of large intestine with abscess Diverticulitis bleeding: without bleeding Qualified Code(s): K57.20 - Diverticulitis of large intestine with perforation and abscess without bleeding"
[2025-06-06] MEDS: POTASSIUM CHLORIDE CRTAB 20 MEQ TABCR PO STA (12:55)
[2025-06-06] MEDS: MELATONIN 3 MG TAB PO PRN (21:13)
[2025-06-07 06:46] LABS: Hematocrit (blood only) 34.3 % (37.0-47.0); Hemoglobin 11.4 g/dL (12.0-16.0); Immature Granulocytes # (auto) 0.17 K/uL (0.01-0.20); Immature Granulocytes % (auto) 2.0 %; Mean Corpuscular Hemoglobin 29.8 pg (25.0-34.0); Mean Corpuscular Volume 89.6 fL (80.0-100.0); Platelet Count 269 K/uL (130-400); RDW Standard Deviation 50.4 fL (36.4-46.3); Red Blood Count 3.83 M/uL (4.20-5.40); White Blood Count 8.69 K/ul (4.8-10.8)
[2025-06-07 07:09] LABS: Anion Gap 6.0 (3-11); Blood Urea Nitrogen 12.0 mg/dl (6-23); Calcium 7.6 mg/dl (8.6-10.3); Carbon Dioxide 25.0 mmol/L (21-32); Chloride 110.0 mmol/L (98-107); Creatinine Clr Calc Pharmacy 60.0 ml/min; Glucose 85.0 mg/dl (70-99(Fasting)); Potassium 3.7 mmol/L (3.5-5.1); Sodium 141.0 mmol/L (136-145)
[2025-06-07 07:17] VITALS: RESP 16
--- NOTE | 2025-06-07 08:27 | Hospitalist Progress Note ---
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 Patient presented to the ER due to 1 day of nausea, vomiting, and abdominal pain found to have acute diverticulitis with abscess. Nonseptic presentationWBC 11.19, VSS/afebrile. #Acute recurrent diverticulitis with abscess - WBCs downtrending; 05/28 CTAP revealed acute sigmoid diverticulitis with multiple abscesses (largest measuring up to 5 cm); additional complications, such as fistula, cannot be excluded -General Surgery Consulted and now signed off: continue IV antibiotics, transition to oral antibiotics for discharge for a total course of 14 days. -IR Contacted by Gen Surg; abscess unnameable to percutaneous drainage, too small -Advance diet as tolerated - Pt currently on low fiber diet -Continue Augmentin 875/125 q8H - total of 9 days Augmentin to complete a total 14 days abx therapy LD 06/13/25 -Lactobacillus Probiotic QAM d/t abx therapy -Tylenol PRN for pain/fever -Zofran PRN for nausea/vomiting -CBC, BMP in AM #HTN - BP 209/98 @16:28 06/03, pt ASx durin episdoe -Continue Metoprolol -Start Amlodipine 5mg -Restart Lasix -IV Hydralazine w/ parameters #Diarrhea - RESOLVED; Pt noted new onset of diarrhea w/ 3 episodes AM 06/01; 06/01 C diff negative -Trend CBC #Hypokalemia - Asx; 05/31, K of 3.2 -Re-initiate 20 mEq PO home dose Potassium Supplement -Given additional 40 mEq PO -Trend BMP #Hematuria | asymptomatic bacteruria 05/28 UA with nitrates, 1+ LE, 1+ bacteria; note significantly contaminated with epithelial cells (>20); 05/28 Urin Cx w/ >3 organisms -Recommend follow-up with PCP regarding hematuria #A-fib -Continue metoprolol, no anticoagulation use. #HLD -Continue statin #Mental health -Continue escitalopram #Hypothyroidism -Continue levothyroxine #Chronic venous insufficiency -Holding diuresis and potassium supplement -ARLENE Stockings Disposition: Continued stay on MedSurg; awaiting safe dispo VTE ppx: SCDs and TEDs, low risk - encourage ambulation Admission and Anticipated Discharge Date Admission Date: May 28, 2025 Results & Data Results & Data Vital Signs (Past 12 Hours) Vital Signs Temp Pulse Pulse Resp BP Pulse Ox O2 Del Method 06/07/25 07:17 97.5 F L 71 16 147/74 H 95 Room Air 06/06/25 23:07 97.9 F 70 18 137/71 96 Room Air PG Care Time/CCT Total # of Minutes Spent Total Time Spent with Patient: Total time spent is greater than 50% in coordination of care (as documented) at patient's floor/unit and/or counseling patient: Coding Diagnoses Diverticulitis of large intestine with abscess without bleeding K57.20 Diverticulitis bleeding: without bleeding Asymptomatic bacteriuria R82.71 Hematuria R31.9 (1) Diverticulitis of large intestine with abscess Diverticulitis bleeding: without bleeding Qualified Code(s): K57.20 - Diverticulitis of large intestine with perforation and abscess without bleeding"
--- NOTE | 2025-06-07 12:59 | Discharge Summary ---
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 Patient presented to the ER due to 1 day of nausea, vomiting, and abdominal pain found to have acute diverticulitis with abscess. Nonseptic presentationWBC 11.19, VSS/afebrile. #Acute recurrent diverticulitis with abscess - WBCs downtrending; 05/28 CTAP revealed acute sigmoid diverticulitis with multiple abscesses (largest measuring up to 5 cm); additional complications, such as fistula, cannot be excluded -General Surgery Consulted and now signed off: continue IV antibiotics, transition to oral antibiotics for discharge for a total course of 14 days. -IR Contacted by Gen Surg; abscess unamendable to percutaneous drainage, too small -Advance diet as tolerated - Pt currently on low fiber diet, patient has tolerated diet without nausea, abdominal pain or vomiting -Continue Augmentin 875/125 q8H - total of 9 days Augmentin to complete a total 14 days-->prescription provided on d/c for total course -Lactobacillus Probiotic QAM d/t abx therapy -Tylenol PRN for pain/fever -Zofran PRN for nausea/vomiting #HTN - BP 209/98 @16:28 06/03, pt ASx during episode -Continue Metoprolol -Started Amlodipine 5mg daily for hypertension inpatient-->30d prescription supplied on d/c, to follow up with PCP for ambulatory monitoring -Restart Lasix PRN -IV Hydralazine w/ parameters #Diarrhea - RESOLVED; Pt noted new onset of diarrhea w/ 3 episodes AM 06/01; 06/01 C diff negative -CBC without leukocytosis #Hypokalemia - Asx; 05/31, K of 3.2 -Re-initiate 20 mEq PO home dose Potassium Supplement -Given additional 40 mEq PO -K level WNL on d/c #Hematuria | asymptomatic bacteruria 05/28 UA with nitrates, 1+ LE, 1+ bacteria; note significantly contaminated with epithelial cells (>20); 05/28 Urin Cx w/ >3 organisms -Recommend follow-up with PCP regarding hematuria #A-fib -Continue metoprolol, no anticoagulation use. #HLD -Continue statin #Mental health -Continue escitalopram #Hypothyroidism -Continue levothyroxine #Chronic venous insufficiency -may resume prn lasix and K supplementation -ARLENE Stockings Disposition: d/c home with HH, surgery f/u and PCP f/u VTE ppx: SCDs and TEDs, low risk - encourage ambulation Notes For Next Care Provider Additional UA needed for followup complaints of hematuria Medication Changes From Visit Added amlodipine 5mg daily for HTN during hospitalization Augmentin through 06/12/24 to complete 14 day course of antibiotic therapy for diverticulitis with abcess Admission HPI Per Admitting Provider Patient is an 80-year-old female with past medical history of 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 Patient presented to the ER due to 1 day of nausea, vomiting, and abdominal pain found to have acute diverticulitis with abscess. She is nonseptic on presentation. Patient seen at bedside with her daughter present. She stated she was constipated for a few days so she took a Dulcolax last night which resulted in watery diarrhea, denies any melena or hematochezia. She stated she has not been feeling well and had a poor appetite for about 2 days. At 130 this morning she developed nausea that woke her up but did not vomit until the morning, denies any hematemesis. She also developed intermittent left-sided and umbilical abdominal pain as well as "noises" coming from her belly. Her pain at bedside is currently 0/10 but she is tender on palpation. She does have a history of recurrent diverticulitis and stated she was most recently hospitalized about a year ago. She was treated with oral antibiotics in March for diverticulitis which resolved on its own. She does follow with Dr. Salazar for this and most recently saw him in July, he did not recommend surgery at this time. She does endorse hot flashes and chills with the pain episodes but denies any fever. She denies any chest pain or shortness of breath. She does endorse intermittent hematuria however is unsure if it was coming from her bowels, stated she did not have any blood on toilet paper with wiping. She denies any dysuria and UA appears clear of infection/contaminated. She denies nicotine or alcohol use. She is due for her evening medications. She wishes to be full code. Discharge Exam GENERAL APPEARANCE: A&O. Sitting comfortably in bed. NAD. SKIN: Normal color without rashes or lesions. Normal turgor. HEENT: Head AT/NC. Buccal mucosa is moist and pink. NECK: No jugular venous distention. No thyroid enlargement. There is no lymphadenopathy. HEART: RRR without m/g/r LUNGS: Normal inspiratory effort. CTA without w/r/r ABDOMEN: No guarding or rigidity. Normoactive BS in all four quadrants. Abdomen soft and NT. MSK: No bony gross/deformities throughout. ROM intact. EXTREMITIES: No edema, No peripheral cyanosis. Neuro: CN 2-12 grossly intact. No focal neuro deficits PSYCHIATRIC: Normal affect. Eye contact is good. Speech is normal rate and content. Responses are appropriate. Discharge Plan Discharge Items Patient Disposition: Home - Self-Care Reason For Visit: RECURRENT DIVERTICULIIS, ABSCESS Discharge Diagnosis: Recurrent Diverticulitis with abscess Condition on Discharge: Good Activity: Resume your previous activity Bathing: No limitations Driving/Machine Use: No limitations Weightbearing: Full weightbearing Non-emergency contact: Primary Care Provider Call non-emergency contact if: you have any medication questions, your symptoms worsen, your pain is not controlled, your pain is worsening and you have a fever Follow-up/Referrals: Gwendolyn Baldwin CRNP [Primary Care Provider] - 06/16/25 2:00 pm Jordon Salazar, [Surgeon] - (Please follow up with Dr. Salazar or our colorectal surgeon Dr. Galindo as an outpatient in a few weeks. They are both located in the same office and are associated with [facility] general surgery) Diet: Low Fiber Addtl Attending Provider Instructions: Hospital Course: You were admitted to the hospital with recurrent diverticulitis with abscess. Upon initial presentation a CT of your abdomen revealed acute diverticulitis of your colon w/ multiple abscesses. You were then admitted to the hospital where you were given IV antibiotics. General Surgery was consulted and a conservative treatment management was decided on. GI discussed possible drainage of your abbesses with the interventional radiology team who noted that your abscesses did not require drainage. Your diet was slowly progressed over time until you were able to eat a low fiber diet. You were then transitioned to PO antibiotics and will complete total 14 day course. Discharge Plan: -Please follow up with Dr. Salazar or our colorectal surgeon within a few weeks of discharge -You will be prescribed Augmentin, please take the medication twice daily as prescribed -Augmentin may cause GI upset which can lead to diarrhea, you can consider getting Lactobacillus probiotics over the counter to help prevent these side effects. -You should continue with a low-fiber diet and drink plenty of fluids -A follow-up CT of your abdomen should be done approximately 2 weeks after discharge to ensure resolution of your diverticulitis w/ abscess -Follow-up with your PCP within one week of discharge Medications: Your medication list has been reviewed and reconciled upon discharge to ensure accuracy and continuity of care. An updated list of all your medications is included with your hospital discharge paperwork. Please review this list closely, and make note of any changes. We sent a new medication called Augmentin to your pharmacy. Take 2 times a day for the next 5 days. Start this tonight. This is an antibiotic to help with your infection You have also been sent a prescription for a new medication called Norvasc 5mg daily. Please take this medication daily for your blood pressure as your blood pressure was elevated during your hospitalization. You are being provided a 30 day supply and will need to follow up with your family doctor for management. You will need a follow up urinalysis as you reported hematuria with your hospitalization-you had no urinary infection, however this should be followed closely. Take your medications as instructed; do not skip a dose of your medicines. Make sure all of your doctors know every medicine you are taking (including rjjc-mid-hfhjrjd medicines, vitamins, and supplements). Call your primary care provider before taking any new medicines (including over- the-counter medicines, vitamins, and supplements), because some of these may interact with your current medications, or may make your symptoms worse. Tell your primary care provider if you cannot afford your medications. Activity: You can do normal everyday activities as your body allows. Take rest breaks if you feel tired. Do not overexert. Stop activity if you have pain, shortness of breath or feel dizzy. Follow-up appointments: Make an appointment with your primary care physician within one week of discharge. A copy of this summary will be sent to them. Every time you see your primary care physician, or any other doctor, bring your medication list, and a list of questions. CONTACT YOUR PRIMARY CARE PROVIDER if you experience any of the following: Shortness of breath or difficulty breathing Fevers or chills Feeling tired with normal activity or experiencing dizziness or fainting Difficulty following your treatment plan, or difficulty taking medications CALL 911 OR GO TO THE EMERGENCY DEPARTMENT if you experience any of the following: Severe abdominal pain or nausea/vomiting Severe chest pain, or chest pain that radiates (moves) to your jaw or arm Sudden, severe shortness of breath or difficulty breathing Thank you for allowing us to participate in your care. Pending Studies at Discharge: No Stand-Alone Forms: My [facility], Smoking Cessation Medications and DC Order Prescriptions: New amoxicillin-pot clavulanate 875-125 mg tablet 1 tab PO BID Qty: 11 0RF amlodipine 5 mg Tablet 5 mg PO QAM Qty: 30 0RF Continued atorvastatin 20 mg tablet 20 mg PO QAM Qty: 90 3RF escitalopram oxalate 5 mg tablet 5 mg PO QAM Qty: 90 3RF celecoxib [Celebrex] 200 mg capsule 200 mg PO QAM Qty: 90 3RF potassium chloride 10 mEq capsule, extended release 20 meq PO QAM Qty: 180 3RF diclofenac sodium 1 % gel 2 g topical QID PRN (Reason: pain) 90 Days Qty: 300 3RF Rx Instructions: apply to both knees coenzyme Q10 200 mg capsule 200 mg PO QAM furosemide 20 mg tablet 20 mg PO DAILY PRN (Reason: edema) Qty: 30 5RF levothyroxine 100 mcg tablet 100 mcg PO QAM metoprolol succinate 50 mg tablet extended release 24 hr 50 mg PO DAILY Prempro 0.3-1.5 mg tablet 1 tab PO UD Qty: 84 5RF Rx Instructions: Tues, fri-AM multivitamin Tablet 1 tab PO QAM cholecalciferol (vitamin D3) [Vitamin D3] 1,000 unit Capsule 1,000 unit PO QAM biotin 5,000 mcg Tablet,Disintegrating 5,000 mcg PO QAM calcium carbonate 500 mg calcium (1,250 mg) Tablet 1,000 mg PO DAILY Vitamin C 100 mg Tablet 100 mg PO DAILY docusate sodium [Stool Softener] 100 mg Capsule 100 mg PO BID Discharge Orders: Discharge Order (Routine); Ordered 06/07/25 Ordered By: Shari Mcbride/Other Patient Handouts: Diverticulosis and Diverticulitis, Diverticulitis Dc Admission Data Admit Date/Time: 05/28/25 22:21 Attending Provider: Mo Hope Admit Provider: Evi Negrete Primary Care Provider: Gwendolyn Baldwin Other Providers: David Ren; [facility]; [facility] Fax Hospital Stay Data Consultations 05/28/25 22:09 Consult General Surgery Routine Diagnostic Imagining Performed 05/28/25 17:12 CT abd pelvis IV con only Stat Pending Results Patient Have Any Pending Studies at Discharge: No Discharge Instructions Given to Patient (Per Discharging Provider) Hospital Course: You were admitted to the hospital with recurrent diverticulitis with abscess. Upon initial presentation a CT of your abdomen revealed acute diverticulitis of your colon w/ multiple abscesses. You were then admitted to the hospital where you were given IV antibiotics. General Surgery was consulted and a conservative treatment management was decided on. GI discussed possible drainage of your abbesses with the interventional radiology team who noted that your abscesses did not require drainage. Your diet was slowly progressed over time until you were able to eat a low fiber diet. You were then transitioned to PO antibiotics and will complete total 14 day course. Discharge Plan: -Please follow up with Dr. Salazar or our colorectal surgeon within a few weeks of discharge -You will be prescribed Augmentin, please take the medication twice daily as prescribed -Augmentin may cause GI upset which can lead to diarrhea, you can consider getting Lactobacillus probiotics over the counter to help prevent these side effects. -You should continue with a low-fiber diet and drink plenty of fluids -A follow-up CT of your abdomen should be done approximately 2 weeks after discharge to ensure resolution of your diverticulitis w/ abscess -Follow-up with your PCP within one week of discharge Medications: Your medication list has been reviewed and reconciled upon discharge to ensure accuracy and continuity of care. An updated list of all your medications is included with your hospital discharge paperwork. Please review this list closely, and make note of any changes. We sent a new medication called Augmentin to your pharmacy. Take 2 times a day for the next 5 days. Start this tonight. This is an antibiotic to help with your infection You have also been sent a prescription for a new medication called Norvasc 5mg daily. Please take this medication daily for your blood pressure as your blood pressure was elevated during your hospitalization. You are being provided a 30 day supply and will need to follow up with your family doctor for management. You will need a follow up urinalysis as you reported hematuria with your hospitalization-you had no urinary infection, however this should be followed closely. Take your medications as instructed; do not skip a dose of your medicines. Make sure all of your doctors know every medicine you are taking (including lzxk-lvq-hclagtt medicines, vitamins, and supplements). Call your primary care provider before taking any new medicines (including over- the-counter medicines, vitamins, and supplements), because some of these may interact with your current medications, or may make your symptoms worse. Tell your primary care provider if you cannot afford your medications. Activity: You can do normal everyday activities as your body allows. Take rest breaks if you feel tired. Do not overexert. Stop activity if you have pain, shortness of breath or feel dizzy. Follow-up appointments: Make an appointment with your primary care physician within one week of discharge. A copy of this summary will be sent to them. Every time you see your primary care physician, or any other doctor, bring your medication list, and a list of questions. CONTACT YOUR PRIMARY CARE PROVIDER if you experience any of the following: Shortness of breath or difficulty breathing Fevers or chills Feeling tired with normal activity or experiencing dizziness or fainting Difficulty following your treatment plan, or difficulty taking medications CALL 911 OR GO TO THE EMERGENCY DEPARTMENT if you experience any of the following: Severe abdominal pain or nausea/vomiting Severe chest pain, or chest pain that radiates (moves) to your jaw or arm Sudden, severe shortness of breath or difficulty breathing Thank you for allowing us to participate in your care. Total Time Total Time Spent Total Time Spent (In Minutes): 50 minutes total time Coding Level of Care Code 70987 INP/OBS DISCH >30 MIN Diagnoses Diverticulitis of large intestine with abscess without bleeding K57.20 Diverticulitis bleeding: without bleeding Asymptomatic bacteriuria R82.71 Hematuria R31.9
[2025-06-07 15:12] VITALS: BP 132/76; TEMP 97.9; O2SAT 98
[2025-06-07 15:55] VITALS: PULSE 76
== END 2025-06-07 16:20 | disposition home health service (06) | DRG 392 ==
LOC: ED 15:07 → 3E 22:21 → SUATTDRO 22:21 → 3E 23:20